=== PATIENT | female | born 1955 | race Caucasian/White ===

== ENCOUNTER 2020-08-24 18:12 | Emergency (ER) | payer BC, SELFPAY ==
[2020-08-24 18:53] VITALS: BP 151/67; PULSE 93; RESP 16; TEMP 37.1; O2SAT 97; BMI 36.6
[2020-08-24 20:07] LABS: MANUAL DIFF FLAG NO
[2020-08-24 20:10] LABS: Basophils Absolute Auto 0.1 X10*3/uL (0.0-0.2); Basophils Percent Auto 0.4 % (0-2); Eosinophils Absolute Auto 0.1 X10*3/uL (0.0-0.4); Eosinophils Percent Auto 0.7 % (0-4); Hematocrit 40.8 % (37-47); Imm Gran Abs Auto 0.07 X10*3/uL (0.00-0.03); Imm Gran Pct Auto 0.5 % (0.0-0.4); Lymphocytes Absolute Auto 3.4 X10*3/uL (1.2-4.9); Lymphocytes Percent Auto 24.8 % (20-40); Mean Corpuscular HGB Conc 31.9 g/dl (31.0-35.0); Mean Corpuscular Hemoglobin 26.5 pg (27.0-33.0); Mean Corpuscular Volume 83.3 fL (80-98); Mean Platelet Volume 9.9 fL (9.4-12.3); Monocytes Absolute Auto 0.8 X10*3/uL (0.1-1.2); Monocytes Percent Auto 5.9 % (2-11); Neutrophils Absolute Auto 9.3 X10*3/uL (2.0-8.3); Neutrophils Percent Auto 67.7 % (45-73); Platelet Count 280 X10*3/uL (160-400); Red Cell Distribution Width 13.2 % (11.0-16.0); White Blood Count 13.8 X10*3/uL (4.8-10.8)
[2020-08-24 20:17] LABS: Glucose Urine UA >=1000 MG/DL (NEG); Leukocyte Esterase Urine NEG (NEG); Nitrite Urine NEG (NEG); PH 5.5 (5.0-8.0); Urine Blood 2+ (NEG); Urine Ketones NEG (NEG); Urine Protein NEG (NEG-TRACE)
[2020-08-24 20:20] LABS: Appearance Urine CLEAR; Color Urine YELLOW
--- NOTE | 2020-08-24 20:23 | CT_ITS ---
EXAMINATION: CT ABDOMEN AND PELVIS WITH CONTRAST CLINICAL INFORMATION: Left-sided abdominal pain COMPARISON: 10/06/2006 TECHNIQUE: Multidetector volumetric images were obtained from the superior aspect of the liver through the pubic symphysis following administration 85 mL of Omnipaque 350 intravenous contrast. Sagittal and coronal reformatted images were obtained on the technologist's workstation. Oral contrast: No This CT examination was performed using dose optimization techniques as appropriate, variously including the following: *Automated exposure control *Adjustment of mA and/or kV according to patient size (this includes techniques or standardized protocols for targeted exams where dose is matched to indication/reason for exam; i.e. extremities or head) *Use of iterative reconstruction technique DLP: 786 mGy-cm FINDINGS: LUNG BASES: The visualized lung bases are unremarkable. LIVER, GALLBLADDER, AND BILIARY TREE: The liver is normal in size, shape, and attenuation. No focal hepatic lesion or biliary ductal dilatation is present. The gallbladder is absent. PANCREAS: Unremarkable. SPLEEN: Unremarkable. ADRENAL GLANDS: Unremarkable. KIDNEYS AND URETERS: There is mild left hydroureteronephrosis with perinephric and periureteral stranding and a slightly delayed nephrogram. No ureteral or urinary bladder calculus is demonstrated, possibly a recently passed stone. The right kidney appears normal. BLADDER: Unremarkable. GASTROINTESTINAL TRACT: The small and large bowel are unremarkable. The appendix is not identified, likely removed. ABDOMINAL WALL: No significant hernia is appreciated. There is an ill-defined area of stranding of the subcutaneous fat measuring 5.6 x 2.5 cm in the left lower abdomen which may be inflammatory, possibly a contusion or site of recent injection. LYMPH NODES: Normal. VASCULAR: Atherosclerotic calcifications of the abdominal aorta. PELVIC VISCERA: There is a 6.0 x 4.0 cm right adnexal cyst. This measured 3.9 x 3.3 cm in 2005. There is also a 3.1 cm round left adnexal cyst. OSSEOUS STRUCTURES: Unremarkable. IMPRESSION: Mild left hydroureteronephrosis with perinephric and periureteral stranding and a slightly delayed nephrogram. No calculi are demonstrated, possibly a recently passed stone. Right greater than left adnexal cysts as described. Consider follow-up pelvic ultrasound. Region of ill-defined stranding of the subcutaneous fat of the anterior lower abdominal wall, left of midline. Correlate clinically.
[2020-08-24 20:33] LABS: Alanine Aminotransferase 14 U/L (0-31); Alkaline Phosphatase 83 U/L (39-117); Anion Gap 14 (12-20); Aspartate Amino Transferase 14 U/L (5-31); Bilirubin Total 0.4 mg/dL (0.0-1.0); Blood Urea Nitrogen 12 mg/dL (9-16); Calcium 8.9 mg/dL (8.4-10.2); Carbon Dioxide 27 mmol/L (22-29); Chloride 103 mmol/L (96-108); Creatinine Clr Calc Pharmacy 88.7; Estimated Glomerular Filt Rate > 60; Glucose Random 136 mg/dL (60-115); Potassium 4.1 mmol/l (3.3-5.1); Sodium 140 mmol/L (135-145); Total Protein 7.1 g/dL (6.5-8.0)
[2020-08-24 20:37] LABS: UACC CULT YES
[2020-08-24 20:38] LABS: Bacteria Urine 2+ /LPF
--- NOTE | 2020-08-24 20:45 | ED_ITS ---
HPI - Abdominal Pain General Chief Complaint: Abdominal Pain Stated Complaint: lower left abd pain Time Seen by Provider: 08/24/20 20:22 History of Present Illness HPI narrative: Patient is a 65-year-old female presents today with having abdominal pain over the right side. The pain is constant. Not getting any better. It is dull. 05/23. No fever no chills. Patient has a history of previous surgery for appendicitis, cholecystectomy, oophorectomy. Paient had colonoscopy done in the past and is unsure she has diverticulosis. No history of kidney stone. No coughing or congestion or upper respiratory symptoms. No nausea no vomiting. No change in stool. No pain on urination. No history of travel. No new medication. History of diabetes, hypercholesterolemia Related Data Home Medications Medication Instructions Recorded Confirmed acetaminophen [Tylenol] 650 mg PO Q6H PRN 08/18/20 08/18/20 atorvastatin 40 mg PO BEDTIME 08/18/20 08/18/20 cyanocobalamin (vitamin B-12) 1,000 mcg PO DAILY 08/18/20 08/18/20 [Vitamin B-12] empagliflozin-metformin [Synjardy] 1 tab PO BID 08/18/20 08/18/20 insulin degludec [Tresiba 80 unit SUBCUT 08/18/20 FlexTouch U-200] liraglutide [Victoza 2-Shiva] 0.6 mg SUBCUT DAILY 08/18/20 08/18/20 lisinopril 20 mg PO DAILY 08/18/20 08/18/20 ropinirole 0.5 mg PO BEDTIME 08/18/20 08/18/20 Previous Rx's Medication Instructions Recorded ibuprofen 400 mg PO Q6H PRN #20 tab 08/24/20 Allergies Allergy/AdvReac Type Severity Reaction Status Date / Time Sulfa (Sulfonamide Allergy Intermediate RASH Verified 08/24/20 18:57 Antibiotics) [SULFA (SULFONAMIDE ANTIBIOTICS)] exenatide [From BYETTA] Allergy Unknown VOMITTING Verified 08/24/20 18:57 Review of Systems Review of Systems Constitutional: No Weight loss, No Fever, No Chills, No Night Sweats, No Fatigue, No Malaise ENT/Mouth: No Hearing loss, No Ear Pain, No Nasal Congestion, No Sinus Pain, No Hoarseness, No sore throat, No Rhinorrhea, No Swallowing Difficulty Eyes: No Eye Pain, No Swelling, No Redness, No Foreign Body, No Discharge, No Vision Changes Cardiovascular: No Chest Pain, No SOB, No Dyspnea on Exertion, No Orthopnea, No Edema, No Palpitations Respiratory: No Cough, No Sputum, No Wheezing, No Smoke Exposure, No Dyspnea Gastrointestinal: No Nausea, No Vomiting, No Diarrhea, No Constipation, positive abdominal Pain, No Hematochezia, No Melena Genitourinary: no irregular bleeding, No Dysuria, No Urinary Frequency, No Hemat uria, No Urinary Incontinence, No Urgency, No Flank Pain, No Urinary Flow Changes, No Hesitancy Musculoskeletal: No joint pain, No Myalgias, No Joint Swelling Skin: No Skin Lesions, No rash Neuro: No Weakness, No Numbness, No Paresthesias, No Loss of Consciousness, No Dizziness, No Headache Psych: No Anxiety/Panic, No Depression, No SI/HI/AH/VH, No Social Issues, Heme/Lymph: No Bruising, No Bleeding,No Lymphadenopathy Endocrine: No Polyuria, No Polydipsia, No Temperature Intolerance Physical Exam Vital Signs: Vital Signs: Vital Signs Temp Pulse Resp BP Pulse Ox 08/24/20 21:04 18 08/24/20 18:53 98.8 F 93 16 151/67 H 97 Body Mass Index 36.6 O2 sat 97% on room air. Normal. Appearance: Alert. Oriented X3. No acute distress. Eyes: Pupils equal, round and reactive to light. ENT: Pharynx normal. Neck: Normal inspection. Neck supple. No lymph nodes noted. No crepitus CVS: Normal heart rate and rhythm. Pulses normal. Normal S1 and S2 Respiratory: No respiratory distress. Breath sounds normal. No Wheezing. No rales Abdomen: Soft Positive left lower quadrant tenderness no rebound or guarding. No rigidity. No distention. good BS x4 Skin: Skin warm and dry. Normal skin color. Normal skin turgor. Extremities: No lower extremity edema. Neurovascular intact to all extremities. No Lacerations. No Rash Neuro: Oriented X 3. No motor deficit. No sensory deficit. Moving all extermities. No slurred speech MDM - Abdominal Pain MDM Narrative Medical decision making narrative: patient well-appearing after medication. CT scan showed mild hydro no definitive stone question passed stone. Patient's urine showed positive for blood. There is no evidence for infection. White count was elevated at 13.8. No evidence for diverticulitis. Will discharge patient home. No evidence for abdominal aortic aneurysm. No evidence for obstruction on CT. Will discharge. Differential Diagnosis Differential diagnosis: Likely abdominal pain, aortic dissection, acute kirstie endicitis, bowel perforation, calculus of kidney, constipation, diverticulitis, gastroenteritis, gastritis, mesenteric ischemia, ovarian cyst and pancreatitis Medical Records Attestation: I reviewed the patient's medical records. Lab Data Attestation: I reviewed the patient's lab results. Result diagrams: 08/24/20 19:50 08/24/20 19:50 Labs: Lab Results 08/24/20 08/24/20 08/24/20 Range/Units 19:50 19:50 19:50 WBC 13.8 H (4.8-10.8) X10*3/uL RBC 4.90 (4.20-5.50) X10*6/uL Hgb 13.0 (12.0-16.0) g/dl Hct 40.8 (37-47) % MCV 83.3 (80-98) fL MCH 26.5 L (27.0-33.0) pg MCHC 31.9 (31.0-35.0) g/dl RDW 13.2 (11.0-16.0) % Plt Count 280 (160-400) X10*3/uL MPV 9.9 (9.4-12.3) fL Immature Gran % (Auto) 0.5 H (0.0-0.4) % Neut % (Auto) 67.7 (45-73) % Lymph % (Auto) 24.8 (20-40) % Ceiba % (Auto) 5.9 (2-11) % Eos % (Auto) 0.7 (0-4) % Baso % (Auto) 0.4 (0-2) % Lymph # (Auto) 3.4 (1.2-4.9) X10*3/uL Ceiba # (Auto) 0.8 (0.1-1.2) X10*3/uL Eos # (Auto) 0.1 (0.0-0.4) X10*3/uL Baso # (Auto) 0.1 (0.0-0.2) X10*3/uL Abs Immat Gran (auto) 0.07 H (0.00-0.03) X10*3/uL Absolute Neuts (auto) 9.3 H (2.0-8.3) X10*3/uL Absolute Nucleated RBC 0.000 (0.0-0.012) X10*3/uL Nucleated RBC % (auto) 0.0 (0.0-0.2) /100WBC Hold Blue Top SEE NOTE Sodium 140 (135-145) mmol/L Potassium 4.1 (3.3-5.1) mmol/l Chloride 103 (96-108) mmol/L Carbon Dioxide 27 (22-29) mmol/L Anion Gap 14 (12-20) BUN 12 (9-16) mg/dL Creatinine 0.68 (0.5-1.4) mg/dL Estim Creat Clear Calc 88.7 Estimated GFR > 60 Random Glucose 136 H (60-115) mg/dL Calcium 8.9 (8.4-10.2) mg/dL Total Bilirubin 0.4 (0.0-1.0) mg/dL AST 14 (5-31) U/L ALT 14 (0-31) U/L Alkaline Phosphatase 83 (39-117) U/L Total Protein 7.1 (6.5-8.0) g/dL Albumin 4.0 (3.5-5.0) g/dL Urine Color Urine Appearance Urine pH (5.0-8.0) Ur Specific [place] (1.005-1.025) Urine Protein (NEG-TRACE) MG/DL Urine Glucose (UA) (NEG) MG/DL Urine Ketones (NEG) MG/DL Urine Blood (NEG) Urine Nitrite (NEG) Ur Leukocyte Esterase (NEG) Urine RBC (0) /HPF Urine WBC (0-4) /HPF Ur Squamous Epith Cells /LPF Urine Bacteria /LPF 08/24/20 Range/Units 20:00 WBC (4.8-10.8) X10*3/uL RBC (4.20-5.50) X10*6/uL Hgb (12.0-16.0) g/dl Hct (37-47) % MCV (80-98) fL MCH (27.0-33.0) pg MCHC (31.0-35.0) g/dl RDW (11.0-16.0) % Plt Count (160-400) X10*3/uL MPV (9.4-12.3) fL Immature Gran % (Auto) (0.0-0.4) % Neut % (Auto) (45-73) % Lymph % (Auto) (20-40) % Ceiba % (Auto) (2-11) % Eos % (Auto) (0-4) % Baso % (Auto) (0-2) % Lymph # (Auto) (1.2-4.9) X10*3/uL Ceiba # (Auto) (0.1-1.2) X10*3/uL Eos # (Auto) (0.0-0.4) X10*3/uL Baso # (Auto) (0.0-0.2) X10*3/uL Abs Immat Gran (auto) (0.00-0.03) X10*3/uL Absolute Neuts (auto) (2.0-8.3) X10*3/uL Absolute Nucleated RBC (0.0-0.012) X10*3/uL Nucleated RBC % (auto) (0.0-0.2) /100WBC Hold Blue Top Sodium (135-145) mmol/L Potassium (3.3-5.1) mmol/l Chloride (96-108) mmol/L Carbon Dioxide (22-29) mmol/L Anion Gap (12-20) BUN (9-16) mg/dL Creatinine (0.5-1.4) mg/dL Estim Creat Clear Calc Estimated GFR Random Glucose (60-115) mg/dL Calcium (8.4-10.2) mg/dL Total Bilirubin (0.0-1.0) mg/dL AST (5-31) U/L ALT (0-31) U/L Alkaline Phosphatase (39-117) U/L Total Protein (6.5-8.0) g/dL Albumin (3.5-5.0) g/dL Urine Color YELLOW Urine Appearance CLEAR Urine pH 5.5 (5.0-8.0) Ur Specific [place] 1.020 (1.005-1.025) Urine Protein NEG (NEG-TRACE) MG/DL Urine Glucose (UA) >=1000 H (NEG) MG/DL Urine Ketones NEG (NEG) MG/DL Urine Blood 2+ H (NEG) Urine Nitrite NEG (NEG) Ur Leukocyte Esterase NEG (NEG) Urine RBC 1-4 (0) /HPF Urine WBC 10-14 H (0-4) /HPF Ur Squamous Epith Cells NONE /LPF Urine Bacteria 2+ /LPF Discharge Plan Discharge Clinical Impression: Renal colic Patient Disposition: Home, Self-Care Instructions: Renal Colic (ED) Additional Instructions: Thank you for visiting the emergency department today. If your symptoms worsen or do not resolve completely please return to the emergency department immediately or call 911. if he have any questions please call your primary care physician Prescriptions: New ibuprofen 400 mg tablet 400 mg PO Q6H PRN (Reason: pain) Qty: 20 RF: 0 No Action atorvastatin 40 mg Tablet 40 mg PO BEDTIME RF: 0 lisinopril 20 mg Tablet 20 mg PO DAILY RF: 0 cyanocobalamin (vitamin B-12) [Vitamin B-12] 1,000 mcg Tablet 1,000 mcg PO DAILY RF: 0 ropinirole 0.5 mg Tablet 0.5 mg PO BEDTIME RF: 0 acetaminophen [Tylenol] 325 mg Capsule 650 mg PO Q6H PRN (Reason: Pain) RF: 0 Victoza 2-Shiva 0.6 mg/0.1 mL (18 mg/3 mL) Pen Injector 0.6 mg SUBCUT DAILY RF: 0 Tresiba FlexTouch U-200 200 unit/mL (3 mL) Insulin Pen 80 unit SUBCUT RF: 0 Synjardy 5-500 mg Tablet 1 tab PO BID RF: 0 Referrals: Sonny Tsang III, MD [Physician] - 2 days [facility] Past Medical History Attestation statement: The following information was validated with the patient. Medical History Arthritis Hx of iron deficiency anemia Hyperlipidemia Hypertension IDDM (insulin dependent diabetes mellitus) Surgical History History of carpal tunnel release History of cholecystectomy Hx of appendectomy Hx of colonoscopy Hx of hysterectomy Social History Social History Smoking Status: Former smoker Advance Directives: No Advance Directives Information Provided: Yes
[2020-08-24 21:04] VITALS: RESP 18
[2020-08-24] MEDS: HYDROmorphone HCl 0.5 MG/0.5 ML SYRINGE IVPUSH (21:04)
[2020-08-24] MEDS: ondansetron HCL 4 MG/2 ML VIAL IVPUSH (21:04)
[2020-08-24] MEDS: iohexoL 350 MG/ML 100 ML INFUS..BTL IV (21:26)
[2020-08-24] MEDS: cefTRIAXone sodium 1 GM in 0.9 % Sodium Chloride 50 ML IV (22:19)
[2020-08-24 23:26] VITALS: BP 140/77; PULSE 70; RESP 16; TEMP 36.7; O2SAT 99
== END 2020-08-25 00:25 | disposition home or self-care (01) ==
PROVIDERS: Emergency Provider Emergency Medicine Emergency Medical Services; PCP Internal Medicine
DX: N23 Unspecified renal colic (principal); I10 Essential (primary) hypertension; E11.9 Type 2 diabetes mellitus without complications; E78.5 Hyperlipidemia, unspecified; Z79.4 Long term (current) use of insulin; Z79.899 Other long term (current) drug therapy
CPT/HCPCS: 36415; 74177; 80053; 81001; 85025; 87086; 87088; 87186; 96365; 96367; 96375; 99284; J1170; J2405

== ENCOUNTER 2020-08-25 13:56 | Outpatient (REF) | payer BC, SELFPAY | END 2020-08-25 13:57 | disposition home or self-care (01) | LOC: HO.LNP 13:56 | PROVIDERS: Visit Provider Nurse Practitioner Family | DX: N39.0 Urinary tract infection, site not specified (principal) | CPT/HCPCS: 87086 ==

== ENCOUNTER 2020-09-12 08:56 | Day surgery (SDC) | payer BC, SELFPAY ==
--- NOTE | 2020-09-11 08:54 | HO.ANESPROP2 ---
Documented by User: Kenia Shoshana 09/11/20 08:55 HPI - Anesthesia Eval Consult details Narrative: 65yo F for Colonoscopy PMFSH Past Medical History Medical History Arthritis Hx of iron deficiency anemia Hyperlipidemia Hypertension IDDM (insulin dependent diabetes mellitus) Surgical History Surgical History History of carpal tunnel release History of cholecystectomy Hx of appendectomy Hx of colonoscopy Hx of hysterectomy Social History Social History Smoking Status: Former smoker Second Hand Smoke Exposure: No Use of substances other than those prescribed or required for medical reasons: No Advance Directives: No Advance Directives Information Provided: Yes Advance Directives on File: No Meds Allergies Allergy/AdvReac Type Severity Reaction Status Date / Time Sulfa (Sulfonamide Allergy Intermediate RASH Verified 08/24/20 18:57 Antibiotics) [SULFA (SULFONAMIDE ANTIBIOTICS)] exenatide [From BYETTA] Allergy Unknown VOMITTING Verified 08/24/20 18:57 Home Medications Medication Instructions Recorded Confirmed Type acetaminophen [Tylenol] 650 mg PO Q6H PRN 08/18/20 08/18/20 History atorvastatin 40 mg PO BEDTIME 08/18/20 08/18/20 History cyanocobalamin (vitamin B-12) 1,000 mcg PO DAILY 08/18/20 08/18/20 History [Vitamin B-12] empagliflozin-metformin [Synjardy] 1 tab PO BID 08/18/20 08/18/20 History insulin degludec [Tresiba 80 unit SUBCUT 08/18/20 History FlexTouch U-200] liraglutide [Victoza 2-Shiva] 0.6 mg SUBCUT DAILY 08/18/20 08/18/20 History lisinopril 20 mg PO DAILY 08/18/20 08/18/20 History ropinirole 0.5 mg PO BEDTIME 08/18/20 08/18/20 History Exam Exam Date and Time: September 11, 2020 0854 Pertinent Lab Results Pertinent Lab Results: Laboratory Tests 08/24/20 08/24/20 19:50 19:50 WBC 13.8 H Hgb 13.0 Hct 40.8 Plt Count 280 Sodium 140 Potassium 4.1 Chloride 103 BUN 12 Creatinine 0.68 Assessment and Plan Assessment Anesthesia Assessment: Chart Reviewed Documented by User: Jane Mcfarlane 09/12/20 10:29 PMFSH Past Medical History Medical History Arthritis Hx of iron deficiency anemia Hyperlipidemia Hypertension IDDM (insulin dependent diabetes mellitus) Surgical History Surgical History History of carpal tunnel release History of cholecystectomy Hx of appendectomy Hx of colonoscopy Hx of hysterectomy Social History Social History Smoking Status: Former smoker Second Hand Smoke Exposure: No Use of substances other than those prescribed or required for medical reasons: No Advance Directives: No Advance Directives Information Provided: Yes Advance Directives on File: No Meds Allergies Allergy/AdvReac Type Severity Reaction Status Date / Time Sulfa (Sulfonamide Allergy Intermediate RASH Verified 08/24/20 18:57 Antibiotics) [SULFA (SULFONAMIDE ANTIBIOTICS)] exenatide [From BYETTA] Allergy Unknown VOMITTING Verified 08/24/20 18:57 Home Medications Medication Instructions Recorded Confirmed Type acetaminophen [Tylenol] 650 mg PO Q6H PRN 08/18/20 08/18/20 History atorvastatin 40 mg PO BEDTIME 08/18/20 08/18/20 History cyanocobalamin (vitamin B-12) 1,000 mcg PO DAILY 08/18/20 08/18/20 History [Vitamin B-12] empagliflozin-metformin [Synjardy] 1 tab PO BID 08/18/20 08/18/20 History insulin degludec [Tresiba 80 unit SUBCUT 08/18/20 History FlexTouch U-200] liraglutide [Victoza 2-Shiva] 0.6 mg SUBCUT DAILY 08/18/20 08/18/20 History lisinopril 20 mg PO DAILY 08/18/20 08/18/20 History ropinirole 0.5 mg PO BEDTIME 08/18/20 08/18/20 History Exam Airway Mallampati Class: I TM Dist: >3cm Neck ROM: Full Denture: Upper and Lower Loose/Missing/Broken Teeth: Yes (Missing all teeth--dentures) Heart: RRR Lungs: CTA Assessment and Plan Assessment Anesthesia Assessment: Anesthesia Plan Discussed and Chart Reviewed Final Anesthetic Review NPO: Yes ASA Class: II Final Preanesthetic Review: Meds/Allgs Chart Reviewed and Consent Obtained/Reviewed Patient Risk: Intermediate Procedure Risk: Low Anesthetic Plan Anesthetic Plan: MAC: Disposition: Standard PACU
[2020-09-11 12:33] VITALS: BMI 36.6
[2020-09-12 09:15] LABS: Glucose, Whole Blood 127 mg/dL (60-115)
[2020-09-12 09:22] VITALS: BP 154/69; PULSE 80; RESP 16; TEMP 36.4; O2SAT 97
[2020-09-12] MEDS: Lactated Ringers 1,000 ML 100 ML IVCONT (09:24)
--- NOTE | 2020-09-12 10:25 | MHC.SHP ---
Pre-Procedural Eval Section B Chief Complaint: screening Details of Present Illness: screening Relevant Family History (Specify if Yes): No Relevant Social History: None Present Medications: see Short Stay Collaborative assessment Medical History: Significant History (see H&P, no changes) History of Previous Operations: No relevant previous surgery Allergies: Allergies Allergy/AdvReac Type Severity Reaction Status Date / Time Sulfa (Sulfonamide Allergy Intermediate RASH Verified 08/24/20 18:57 Antibiotics) [SULFA (SULFONAMIDE ANTIBIOTICS)] exenatide [From BYETTA] Allergy Unknown VOMITTING Verified 08/24/20 18:57 Review of Systems Sugical H&P ROS: Negative: Constitution, Cardiovascular, Respiratory, Neurological, Psychiatric, Hem-Onc, Allergic/Immunologic, Gastrointestinal, Genitourinary, Musculoskeletal, Integumentary, Endocrine and Eyes/Ears/Nose/Throat Exam Surgical H&P Exam: Normal: HEENT, Normal: Heart, Normal: Lungs, Normal: Extremities, Normal: Abdomen, Normal: Skin and Normal: Neurological Plan Diagnosis/Plan: Unchanged Patient has been examined and remains a candidate for the planned procedure
[2020-09-12 10:56] VITALS: BP 93/42; PULSE 80; RESP 16; TEMP 36.2; O2SAT 98
--- NOTE | 2020-09-12 10:56 | PM.OP ---
Brief Operative Note Date of procedure: 09/12/20 Post-op diagnosis: same Procedure: colonoscopy Surgeon: Lavell Dewey Anesthesia: MAC Estimated blood loss (mL): 0 Pathology: none sent Condition: stable Disposition: PACU
[2020-09-12 11:11] VITALS: BP 130/67; PULSE 81; RESP 16; TEMP 36.2; O2SAT 95
--- NOTE | 2020-09-12 11:38 | HO.POSTANES ---
Post Anesthesia Evaluation Post Anesthesia Evaluation Vital Signs: Vital Signs Temp Pulse Resp BP Pulse Ox 09/12/20 11:11 97.2 F 81 16 130/67 95 09/12/20 10:56 97.2 F 80 16 93/42 L 98 09/12/20 09:22 97.5 F 80 16 154/69 H 97 Anesthesia: Monitored Mental Status: Awake Pain Control: Satisfactory Nausea/Vomiting: None Hydration: Adequate Anesthesia-Related Issues: No Anes. Related Issues
--- NOTE | 2020-09-12 11:47 | OP_ITS ---
SURGEON: Lavell Dewey MD INDICATIONS: Colon cancer screening. PREOPERATIVE DIAGNOSIS: POSTOPERATIVE DIAGNOSIS: PROCEDURE PERFORMED: Colonoscopy to the terminal ileum. ESTIMATED BLOOD LOSS: COMPLICATIONS: ANESTHESIA: ASSISTANTS: SPECIMENS: MEDICATIONS: Monitored anesthesia care. DESCRIPTION OF PROCEDURE: History and physical performed. The risks and benefits of the procedure were explained to the patient. Informed consent was obtained. The patient was placed in the left lateral decubitus position. A digital rectal exam was performed and was found to be normal. The Olympus pediatric video colonoscope was introduced into the rectum and advanced to the cecum without difficulty. The cecum was identified by transillumination, palpation, and identification of ileocecal valve. Examination was performed and the scope was removed. She tolerated the procedure well and was taken to recovery area in stable condition. FINDINGS: The terminal ileum was examined and appeared normal. The visualized colonic mucosa was normal. The quality of prep was good. There was some stool coating the mucosa in a thin layer, which was washed. No polyps were identified. There was mild sigmoid diverticulosis. Retroflexed examination showed internal hemorrhoids. IMPRESSION: Diverticulosis. RECOMMENDATIONS: 1. Follow up as needed. 2. Repeat colonoscopy is recommended in 10 years for average risk individuals. MD LAQUITA Sheridan/VISHNU / [phone]
== END 2020-09-12 11:45 | disposition home or self-care (01) ==
PROVIDERS: PCP Internal Medicine; Visit Provider Internal Medicine Gastroenterology
PROC: 0DJD8ZZ Inspection of Lower Intestinal Tract, Via Natural or Artificial Opening Endoscopic (ICD-10-PCS; CPT 45378; principal; 2020-09-12 10:10)
DX: Z12.11 Encounter for screening for malignant neoplasm of colon (principal); K57.30 Diverticulosis of large intestine without perforation or abscess without bleeding; K64.8 Other hemorrhoids; D50.9 Iron deficiency anemia, unspecified; I10 Essential (primary) hypertension; E11.9 Type 2 diabetes mellitus without complications; E78.5 Hyperlipidemia, unspecified; Z90.49 Acquired absence of other specified parts of digestive tract; Z87.891 Personal history of nicotine dependence; Z79.4 Long term (current) use of insulin; Z79.899 Other long term (current) drug therapy; Z88.2 Allergy status to sulfonamides; Z88.8 Allergy status to other drugs, medicaments and biological substances
CPT/HCPCS: 45378; 82947

== ENCOUNTER 2020-11-13 15:02 | Outpatient (REF) | payer BC, SELFPAY ==
--- NOTE | 2020-11-13 | MM_ITS ---
EXAMINATION: MM SCREENING DIGITAL BREAST TOMOSYNTHESIS, BILATERAL CLINICAL INFORMATION: Screening. Asymptomatic. The lifetime risk of breast cancer based on the Tyrer-Cuzick Model is 5%. COMPARISON: Mammography: 09/07/2019, 08/18/2018, 08/01/2017 TECHNIQUE: Digital breast tomosynthesis is performed in both the craniocaudal and mediolateral oblique views along with computer-aided detection (CAD). Synthesized 2D images are generated from the tomosynthesis. FINDINGS: The breasts are almost entirely fatty (ACR BI-RADS breast composition Category a). Background stromal markings are stable. There are bilateral vascular calcifications again seen. Axillary nodes and skin contours are unchanged. There are intramammary nodes again noted in the bilateral posterior upper outer quadrants. There are no significant masses, abnormal calcifications, or other abnormalities. MM/MM tomosynthesis screening BI IMPRESSION: No mammographic evidence of malignancy. ASSESSMENT: BI-RADS 2: Benign RECOMMENDATION: Routine annual mammography screening. This patient's information was entered into a reminder system with a target due date for their next mammogram.
== END 2020-11-13 15:03 | disposition home or self-care (01) ==
LOC: HO.MAMMO 15:02
PROVIDERS: Visit Provider Internal Medicine
DX: Z12.31 Encounter for screening mammogram for malignant neoplasm of breast (principal)
CPT/HCPCS: 77063; 77067

== ENCOUNTER 2021-05-19 07:03 | Outpatient (REF) | payer BC, SELFPAY ==
[2021-05-19 11:16] LABS: MANUAL DIFF FLAG NO
[2021-05-19 11:21] LABS: Basophils Percent Auto 0.2 % (0-2); Eosinophils Absolute Auto 0.2 X10*3/uL (0.0-0.4); Hematocrit 40.8 % (37-47); Hemoglobin 13.3 g/dl (12.0-16.0); Imm Gran Abs Auto 0.05 X10*3/uL (0.00-0.03); Imm Gran Pct Auto 0.6 % (0.0-0.4); Lymphocytes Absolute Auto 2.5 X10*3/uL (1.2-4.9); Lymphocytes Percent Auto 29.8 % (20-40); Mean Corpuscular HGB Conc 32.6 g/dl (31.0-35.0); Mean Corpuscular Hemoglobin 27.3 pg (27.0-33.0); Mean Corpuscular Volume 83.6 fL (80-98); Mean Platelet Volume 10.6 fL (9.4-12.3); Monocytes Absolute Auto 0.6 X10*3/uL (0.1-1.2); Monocytes Percent Auto 6.7 % (2-11); Neutrophils Absolute Auto 5.2 X10*3/uL (2.0-8.3); Neutrophils Percent Auto 60.7 % (45-73); Platelet Count 278 X10*3/uL (160-400); Red Blood Count 4.88 X10*6/uL (4.20-5.50); White Blood Count 8.5 X10*3/uL (4.8-10.8)
[2021-05-19 11:36] LABS: Creatinine Urine 52.58 mg/dL; Microalbum/Creatinine Ratio Ur 243.4 ug/mg cr
[2021-05-19 11:55] LABS: Alanine Aminotransferase 9 U/L (0-31); Albumin Level 4.2 g/dL (3.5-5.0); Alkaline Phosphatase 78 U/L (39-117); Anion Gap 16 (12-20); Aspartate Amino Transferase 14 U/L (5-31); Bilirubin Total 0.6 mg/dL (0.0-1.0); Blood Urea Nitrogen 12 mg/dL (9-16); Calcium 9.8 mg/dL (8.4-10.2); Carbon Dioxide 25 mmol/L (22-29); Chloride 104 mmol/L (96-108); Cholesterol 123 mg/dL; Estimated Glomerular Filt Rate > 60; Glucose Random 124 mg/dL (60-115); HDL Cholesterol 36 mg/dL; LDL Cholesterol Calculated 63 mg/dl; Potassium 3.9 mmol/L (3.3-5.1); Sodium 141 mmol/L (135-145); Total Protein 7.2 g/dL (6.5-8.0); Triglycerides 122 mg/dL
[2021-05-19 11:59] LABS: Free T4 (Free Thyroxine) 1.01 ng/dL (0.71-1.85); Thyroid Stimulating Hormone 1.88 uIU/mL (0.32-4.0); Vitamin D 25-OH Total 22.7 ng/mL (>30)
[2021-05-19 12:16] LABS: Estimated Average Glucose 278 mg/dL; Hemoglobin A1c % 11.3 %; Vitamin B12 258 pg/mL (200-900)
== END 2021-05-19 07:04 | disposition home or self-care (01) ==
LOC: HO.HMGCLDS 07:03
PROVIDERS: PCP Internal Medicine; Visit Provider Internal Medicine
DX: E11.65 Type 2 diabetes mellitus with hyperglycemia (principal); I10 Essential (primary) hypertension; E78.00 Pure hypercholesterolemia, unspecified; E78.5 Hyperlipidemia, unspecified; Z79.4 Long term (current) use of insulin
CPT/HCPCS: 36415; 80053; 80061; 82043; 82306; 82607; 82746; 83036; 84439; 84443; 85025

== ENCOUNTER 2021-08-13 09:23 | Outpatient (REF) | payer BC, SELFPAY ==
[2021-08-13 11:48] LABS: Estimated Average Glucose 200 mg/dL; Hemoglobin A1c % 8.6 %
[2021-08-13 11:49] LABS: Creatinine Urine 140.53 mg/dL
== END 2021-08-13 09:24 | disposition home or self-care (01) ==
LOC: HO.HMGCLDS 09:23
PROVIDERS: PCP Internal Medicine; Visit Provider Internal Medicine
DX: E11.65 Type 2 diabetes mellitus with hyperglycemia (principal); Z79.4 Long term (current) use of insulin
CPT/HCPCS: 36415; 83036

== ENCOUNTER 2022-01-22 08:17 | Outpatient (REF) | payer OTHER, SELFPAY ==
--- NOTE | ~2022-01-22 | MM_ITS ---
EXAMINATION: MM SCREENING DIGITAL BREAST TOMOSYNTHESIS, BILATERAL CLINICAL INFORMATION: Screening. Asymptomatic. The lifetime risk of breast cancer based on the Tyrer-Cuzick Model is 5%. COMPARISON: Mammography: 11/13/2020, 09/07/2019, 08/18/2018 TECHNIQUE: Digital breast tomosynthesis is performed in both the craniocaudal and mediolateral oblique views along with computer-aided detection (CAD). Synthesized 2D images are generated from the tomosynthesis. FINDINGS: The breasts are almost entirely fatty (ACR BI-RADS breast composition Category a). There are no significant masses, abnormal calcifications, or other abnormalities. Scattered punctate and vascular calcifications are again seen. There are incidental intramammary nodes again present posterior upper outer quadrants. No significant changes. MM/MM tomosynthesis screening BI IMPRESSION: No mammographic evidence of malignancy. ASSESSMENT: BI-RADS 2: Benign RECOMMENDATION: Routine annual mammography screening. This patient's information was entered into a reminder system with a target due date for their next mammogram.
== END 2022-01-22 08:18 | disposition home or self-care (01) ==
LOC: HO.MAMMO 08:17
PROVIDERS: PCP Internal Medicine; Visit Provider Internal Medicine
DX: Z12.31 Encounter for screening mammogram for malignant neoplasm of breast (principal)
CPT/HCPCS: 77063; 77067

== ENCOUNTER 2022-04-26 13:42 | Outpatient (REF) | payer MEDICARE, SELFPAY | END 2022-04-26 13:43 | disposition home or self-care (01) | LOC: HO.LNP 13:42 | PROVIDERS: Visit Provider Physician Assistant | DX: R30.0 Dysuria (principal) | CPT/HCPCS: 87086 ==

== ENCOUNTER 2022-08-26 15:04 | Outpatient (REF) | payer MEDICARE, SELFPAY ==
[2022-08-26 15:51] LABS: Appearance Urine Turbid; Color Urine Dark Yellow; Glucose Urine UA 100 mg/dL (Negative); Leukocyte Esterase Urine Large (3+) (Negative); Nitrite Urine Negative (Negative); Specific Gravity - Urine >= 1.030 (1.005-1.025); UMIC TRIGGER UACC YES; Urine Blood Large (3+) (Negative); Urine Ketones 15 mg/dL (Negative); Urine Protein >=1000 (4+) mg/dL (Neg-Trace)
[2022-08-26 16:12] LABS: Bacteria Urine Trace (None Seen); Hyaline Casts Urine >20 /LPF (0-2); RBC Urine >20 /HPF (0-2); UACC Culture Trigger YES; WBC Urine >50 /HPF (0-5)
== END 2022-08-26 15:05 | disposition home or self-care (01) ==
LOC: HO.LNP 15:04
PROVIDERS: Visit Provider Physician Assistant
DX: N39.0 Urinary tract infection, site not specified (principal); R30.0 Dysuria
CPT/HCPCS: 81001; 87086

== ENCOUNTER 2022-08-27 13:37 | Outpatient (REF) | payer MEDICARE, SELFPAY ==
--- NOTE | ~2022-08-27 | US_ITS ---
EXAMINATION: US RETROPERITONEAL LIMITED (RENAL ONLY) CLINICAL INFORMATION: Hematuria, unspecified. COMPARISON: CT abdomen and pelvis with contrast 08/24/2020. TECHNIQUE: Real-time imaging of the kidneys. FINDINGS: RIGHT KIDNEY: 13.1 x 5.0 x 6.0 cm (SAG x AP x TRV). The kidney is normal in size, contour, and echogenicity. Renal cortical thickness is normal. No calculi or focal parenchymal lesions. No hydronephrosis. LEFT KIDNEY: 12.7 x 5.3 x 4.5 cm (SAG x AP x TRV). The kidney is normal in size, contour, and echogenicity. Renal cortical thickness is normal. No calculi or focal parenchymal lesions. No hydronephrosis. US/US renal BI IMPRESSION: Unremarkable renal ultrasound.
== END 2022-08-27 13:38 | disposition home or self-care (01) ==
LOC: HO.US 13:37
PROVIDERS: Visit Provider Internal Medicine
DX: R31.9 Hematuria, unspecified (principal)
CPT/HCPCS: 76775

== ENCOUNTER 2022-09-17 08:35 | Outpatient (REF) | payer MEDICARE, SELFPAY ==
[2022-09-17 11:12] LABS: MANUAL DIFF FLAG NO
[2022-09-17 11:48] LABS: Basophils Absolute Auto 0.1 X10*3/uL (0.0-0.2); Basophils Percent Auto 0.5 % (0-2); Eosinophils Absolute Auto 1.3 X10*3/uL (0.0-0.4); Eosinophils Percent Auto 12.2 % (0-4); Hematocrit 40.3 % (37.0-47.0); Hemoglobin 13.6 g/dl (12.0-16.0); Imm Gran Abs Auto 0.05 X10*3/uL (0.00-0.03); Imm Gran Pct Auto 0.5 % (0.0-0.4); Lymphocytes Absolute Auto 2.6 X10*3/uL (1.2-4.9); Lymphocytes Percent Auto 25.3 % (20-40); Mean Corpuscular HGB Conc 33.7 g/dl (31.0-35.0); Mean Corpuscular Hemoglobin 28.5 pg (27.0-33.0); Mean Corpuscular Volume 84.5 fL (80.0-98.0); Mean Platelet Volume 10.8 fL (9.4-12.3); Monocytes Absolute Auto 0.6 X10*3/uL (0.1-1.2); Monocytes Percent Auto 5.7 % (2-11); Neutrophils Absolute Auto 5.8 x10*3/uL (2.0-8.3); Neutrophils Percent Auto 55.8 % (45-73); Platelet Count 267 X10*3/uL (160-400); Red Blood Count 4.77 X10*6/uL (4.20-5.50); Red Cell Distribution Width 12.1 % (11.0-16.0); White Blood Count 10.4 X10*3/uL (4.8-10.8)
[2022-09-17 12:07] LABS: Alanine Aminotransferase 12 U/L (0-31); Alkaline Phosphatase 71 U/L (39-117); Anion Gap 17 (12-20); Aspartate Amino Transferase 13 U/L (5-31); Bilirubin Total 0.5 mg/dL (0.0-1.0); Blood Urea Nitrogen 11 mg/dL (9-16); Calcium 9.3 mg/dL (8.4-10.2); Carbon Dioxide 24 mmol/L (22-29); Chloride 103 mmol/L (96-108); Cholesterol 118 mg/dL; Estimated Glomerular Filt Rate > 60; Glucose Random 213 mg/dL (60-115); HDL Cholesterol 32 mg/dL; LDL Cholesterol Calculated 66 mg/dl; Potassium 4.2 mmol/L (3.3-5.1); Sodium 140 mmol/L (135-145); Total Protein 6.7 g/dL (6.5-8.0); Triglycerides 104 mg/dL
[2022-09-17 12:30] LABS: Free T4 (Free Thyroxine) 1.05 ng/dL (0.71-1.85); Thyroid Stimulating Hormone 1.94 uIU/mL (0.32-4.0); Vitamin D 25-OH Total 35.2 ng/mL (>30)
[2022-09-17 12:40] LABS: Folate 9.5 ng/mL (> or = 4.0); Vitamin B12 744 pg/mL (200-900)
[2022-09-17 12:55] LABS: Creatinine Urine 83.17 mg/dL
[2022-09-17 13:19] LABS: Microalbum/Creatinine Ratio Ur 898.1 ug/mg cr
== END 2022-09-17 08:36 | disposition home or self-care (01) ==
LOC: HO.HMGCLDS 08:35
PROVIDERS: Absent Provider Physician Assistant; PCP Internal Medicine; Visit Provider Internal Medicine
DX: E11.65 Type 2 diabetes mellitus with hyperglycemia (principal); E78.00 Pure hypercholesterolemia, unspecified; Z79.4 Long term (current) use of insulin
CPT/HCPCS: 36415; 80053; 80061; 82043; 82306; 82607; 82746; 84439; 84443; 85025

== ENCOUNTER 2023-01-14 07:26 | Outpatient (REF) | payer OTHER, SELFPAY ==
[2023-01-14 11:48] LABS: Urine Cytology See Pathology rpt
[2023-01-14 11:49] LABS: Appearance Urine Clear; Color Urine Yellow; Glucose Urine UA 500 mg/dL (Negative); Leukocyte Esterase Urine Negative (Negative); Nitrite Urine Negative (Negative); Specific Gravity - Urine >= 1.030 (1.005-1.025); UMIC TRIGGER UACC YES; Urine Blood Trace (Negative); Urine Ketones Negative (Negative); Urine Protein 100 (2+) mg/dL (Neg-Trace)
[2023-01-14 12:41] LABS: Bacteria Urine None Seen (None Seen); RBC Urine 0-2 /HPF (0-2); Squamous Epithelial Cell Urine 0-2 /HPF (0-2); WBC Urine 0-5 /HPF (0-5)
[2023-01-14 12:42] LABS: Hyaline Casts Urine 0-2 /LPF (0-2)
== END 2023-01-14 07:27 | disposition home or self-care (01) ==
LOC: HO.HMGCLDS 07:26
PROVIDERS: PCP Internal Medicine; Visit Provider Internal Medicine
DX: R31.9 Hematuria, unspecified (principal); E11.65 Type 2 diabetes mellitus with hyperglycemia; Z79.4 Long term (current) use of insulin
CPT/HCPCS: 81001; 88112

== ENCOUNTER 2023-01-28 07:34 | Outpatient (REF) | payer OTHER, SELFPAY ==
--- NOTE | ~2023-01-28 | MM_ITS ---
EXAMINATION: MM SCREENING DIGITAL BREAST TOMOSYNTHESIS, BILATERAL CLINICAL INFORMATION: Screening. Asymptomatic. The lifetime risk of breast cancer based on the Tyrer-Cuzick Model is 5%. COMPARISON: Mammography: 01/22/2022, 11/13/2020, 09/07/2019 TECHNIQUE: Digital breast tomosynthesis is performed in both the craniocaudal and mediolateral oblique views along with computer-aided detection (CAD). Synthesized 2D images are generated from the tomosynthesis. Additional left MLO view is provided. FINDINGS: There are scattered areas of fibroglandular density (ACR BI-RADS breast composition Category b). There are no significant masses, abnormal calcifications, or other abnormalities. Parenchymal pattern is similar to prior studies. There is no developing density or architectural abnormality. There are incidental intramammary nodes bilateral outer quadrant. Bilateral vascular calcifications. The axilla and skin contours are unremarkable. No significant from prior studies. MM/MM tomosynthesis screening BI IMPRESSION: No mammographic evidence of malignancy. ASSESSMENT: BI-RADS 2: Benign RECOMMENDATION: Routine annual mammography screening. This patient's information was entered into a reminder system with a target due date for their next mammogram.
== END 2023-01-28 07:35 | disposition home or self-care (01) ==
LOC: HO.MAMMO 07:34
PROVIDERS: PCP Internal Medicine; Visit Provider Internal Medicine
DX: Z12.31 Encounter for screening mammogram for malignant neoplasm of breast (principal)
CPT/HCPCS: 77063; 77067

== ENCOUNTER 2023-08-03 10:20 | Outpatient (AMB) | payer OTHER, SELFPAY ==
--- NOTE | 2023-08-03 11:16 | AM.OFFWIN_ITS ---
Intake Vital Signs 08/03/23 11:17 Height 5 ft 2 in Weight 177 lb BMI 32.4 BP 110/68 Blood Pressure Location Rt brachial Position Sitting Pulse 96 Pulse Source Pulse Oximeter Temp 98.2 F Temp Source Oral Pulse Oximetry (%) 96 Oxygen Delivery Method Room Air Intake Visit Reasons: EP Flu like symptoms/No balance (masked) Intake Note: Patient here for congestion, bodyaches, cough and fever which started yesterday Patient Tobacco Use Status: Former Tobacco user Allergies Sulfa (Sulfonamide Antibiotics) [SULFA (SULFONAMIDE ANTIBIOTICS)] Allergy (Intermediate, Verified 08/03/23 11:18) RASH exenatide [From BYETTA] Allergy (Unknown, Verified 08/03/23 11:18) VOMITTING Do you need a note to return to daycare/school/sports/work: No HPI EP Flu like symptoms/No balance (masked) HPI Details 68-year-old [facility]. Reports nasal congestion, dry cough, body aches since last night. Has not taken temperature at home, however has felt ?hot and cold . Denies any shortness of breath or chest pain. Denies any GI symptoms. Her has had similar symptoms. They went to a concert over the weekend in very close proximity to many people. [facility] Medical History Urinary tract infection Urinary tract infection Restless leg syndrome Obesity (BMI 30-39.9) Vitamin D deficiency Obstructive sleep apnea Hypertension Type 2 diabetes mellitus with hyperglycemia Hx of iron deficiency anemia Arthritis Hyperlipidemia Surgical History History of carpal tunnel release Hx of colonoscopy Hx of hysterectomy Hx of appendectomy History of cholecystectomy Social History Housing: House Patient Tobacco Use Status: Former Tobacco user Tobacco use type: Cigarette e-Cigarette/Vaping Use: Never Used Second Hand Smoke Exposure: No service: No Current occupational status: disabled Cognitive needs: No Hearing needs: No Vision needs: Yes Review of Systems Const All systems reviewed & are unremarkable except as noted in HPI and below Physical Exam Vital Signs: Last Vital Signs Temp 98.2 F 08/03/23 11:17 Pulse 96 08/03/23 11:17 BP 110/68 08/03/23 11:17 Pulse Ox 96 08/03/23 11:17 Oxygen Delivery Method Room Air 08/03/23 11:17 BMI result Body Mass Index 32.4 Const General: cooperative, healthy appearing and no acute distress HEENT Head: Yes normal to inspection Ears: hearing grossly normal bilaterally General nose exam: Normal external nose present and Normal nasal mucous membranes and turbinates present Face and sinus: Yes normal facial exam and Yes sinuses nontender Mouth: Normal oral and palatal mucosa present and moist mucous membranes Throat: Yes posterior oropharynx abnormal (Mild erythema and postnasal drip) Neck Neck: Yes no lymphadenopathy Resp Effort & Inspection: normal respiratory effort, able to speak in complete sentences and Actively coughing Quality: dry Auscultation: clear to auscultation bilaterally Cardio Jugular venous distension: no JVD Palpation: normal PMI Rate: regular rate Rhythm: regular rhythm Skin General skin exam: no rashes or lesions noted Extrem General: Yes capillary refill normal and Yes no clubbing, cyanosis or edema Psych Appearance: grossly normal Mental Status: mental status grossly normal Speech and movement: Normal speech and movement present Assessment & Plan Assessment & Plan (1) Body aches: Code(s): R52 - Pain, unspecified Plan: Patient's symptoms consistent with viral upper respiratory illness. COVID/flu/RSV swab obtained. She is aware she will be notified with results once these are available. Advised conservative treatment with otc cold/clu products, increased hydration and Vitamin C intake. Will also precribe Benzonatate for her cough. Reviewed indications, use, possible side effects of medication. Advised her that if she does not improve with time and conservative measures, or symptoms worsen/new symptoms develop, she should return to the clinic for further evaluation or follow-up with PCP. She verbalizes understanding and agrees to plan. (2) Dry cough: Code(s): R05.8 - Other specified cough Orders: Orders SARS-CoV2/FLU/RSV Today R05.8 - Other specified cough, R52 - Pain, unspecified Medications: New benzonatate 100 mg PO BID PRN 14 caps 0RF cough 7 days R05.9 - Cough, unspecified Coding Level of Care Code Est Pt Level 3 (66177) Diagnoses Body aches R52 Dry cough R05.8
[2023-08-03 11:17] VITALS: BP 110/68; PULSE 96; TEMP 36.8; O2SAT 96; BMI 32.4
== END 2023-08-03 11:42 | disposition home or self-care (01) ==
PROVIDERS: PCP Internal Medicine; Visit Provider Nurse Practitioner Family
DX: R52 Pain, unspecified (principal); R05.8 Other specified cough
CPT/HCPCS: 99213

== ENCOUNTER 2023-08-03 11:38 | Outpatient (REF) | payer OTHER, SELFPAY ==
[2023-08-03 16:06] LABS: Influenza A PCR NEGATIVE (Negative); Influenza B PCR NEGATIVE (Negative); Resp Syncy Virus RNA Qual PCR NEGATIVE (Negative); SARS COV2 PCR INHOUSE POSITIVE (Negative)
== END 2023-08-03 11:39 | disposition home or self-care (01) ==
LOC: HO.LAB 11:38
PROVIDERS: Visit Provider Nurse Practitioner Family
DX: R52 Pain, unspecified (principal); R05.8 Other specified cough; Z20.822 Contact with and (suspected) exposure to COVID-19
CPT/HCPCS: 0241U

== ENCOUNTER 2023-08-08 08:47 | Outpatient (AMB) | payer OTHER, SELFPAY ==
[2023-08-08 09:19] VITALS: BP 124/62; PULSE 97; TEMP 36.2; O2SAT 99; BMI 32.1
--- NOTE | 2023-08-08 09:19 | MHC.OFFWIV ---
Intake Vital Signs 08/08/23 09:19 Height 5 ft 2 in Weight 79.492 kg BMI 32.1 BP 124/62 Blood Pressure Location Rt brachial Position Sitting Pulse 97 Pulse Source Pulse Oximeter Temp 97.2 F Temp Source Temporal Artery Scan Pulse Oximetry (%) 99 Oxygen Delivery Method Room Air Intake Visit Reasons: EP Cold Symptoms (Masked) Intake Note: Pt is here c/o testing positive for COVID and having a bad cough, fever and body aches. Patient Tobacco Use Status: Former Tobacco user Allergies Sulfa (Sulfonamide Antibiotics) [SULFA (SULFONAMIDE ANTIBIOTICS)] Allergy (Intermediate, Verified 08/03/23 11:18) RASH exenatide [From BYETTA] Allergy (Unknown, Verified 08/03/23 11:18) VOMITTING Do you need a note to return to daycare/school/sports/work: Yes HPI EP Cold Symptoms (Masked) HPI Details Patient was seen in this clinic on 08/03/2023 and subsequently tested positive for COVID. I did review note and lab results, is unclear to me why she was not treated with Paxlovid. At this point she has been sick for over 5 days. She notes continued fatigue body aches and cough. She does note the Tessalon Perles to help which she still has some left. She does need work note if she is to continue to be out of work. She denies chest pain or shortness of breath, measured fevers or GI symptoms. She is able to tolerate food and fluids. Reports cough is minimally productive. She has been continuing to check her blood pressures which are slightly higher than normal a.m. blood sugars in the 160s. [facility] Medical History Urinary tract infection Urinary tract infection Restless leg syndrome Obesity (BMI 30-39.9) Vitamin D deficiency Obstructive sleep apnea Hypertension Type 2 diabetes mellitus with hyperglycemia Hx of iron deficiency anemia Arthritis Hyperlipidemia Surgical History History of carpal tunnel release Hx of colonoscopy Hx of hysterectomy Hx of appendectomy History of cholecystectomy Social History Housing: House Patient Tobacco Use Status: Former Tobacco user Tobacco use type: Cigarette e-Cigarette/Vaping Use: Never Used Second Hand Smoke Exposure: No service: No Current occupational status: disabled Cognitive needs: No Hearing needs: No Vision needs: Yes Review of Systems Const Reports as per HPI and Reports no additional complaints ENT Reports no additional complaints and Reports as per HPI Card Reports as per HPI and Reports no additional complaints Resp Reports as per HPI and Reports no additional complaints GI Reports as per HPI and Reports no additional complaints Musc Reports no additional complaints and Reports as per HPI Skin/Breast Denies lesions Neuro Reports no additional complaints and Reports as per HPI Physical Exam Vital Signs: Last Vital Signs Temp 97.2 F 08/08/23 09:19 Pulse 97 08/08/23 09:19 BP 124/62 08/08/23 09:19 Pulse Ox 99 08/08/23 09:19 Oxygen Delivery Method Room Air 08/08/23 09:19 BMI result Body Mass Index 32.1 Const General: cooperative, comfortable, no acute distress and tired appearing Orientation/consciousness: patient oriented x3 Resp Other: Intermittent nonproductive cough during visit Effort & Inspection: normal respiratory effort Auscultation: clear to auscultation bilaterally Cardio Rate: regular rate Rhythm: regular rhythm Heart sounds: S1 normal heart sound present and S2 normal heart sound present Neuro General: patient oriented x3 Extrem General: Yes no pedal edema Assessment & Plan Assessment & Plan (1) COVID-19: Code(s): U07.1 - COVID-19 Plan: Work note given for this week. Advised patient viral symptoms can last 14 days or sometimes longer, fatigue can linger for up to about 1 month. Vital signs are normal and she is eating and tolerating fluids. No wheezing or signs of pneumonia on auscultation. O2 is 99%. Advise continued symptomatic care and rest. Return to clinic or see PCP if any of her symptoms worsen or do not resolve after 1 more week. ER if she develops chest pain, shortness of breath or difficulty breathing. Coding Level of Care Code Est Pt Level 3 (14234) Diagnoses COVID-19 U07.1
== END 2023-08-08 09:53 | disposition home or self-care (01) ==
PROVIDERS: PCP Internal Medicine; Visit Provider Physician Assistant
DX: U07.1 COVID-19 (principal)
CPT/HCPCS: 99213

== ENCOUNTER 2023-09-09 11:19 | Outpatient (AMB) | payer OTHER, SELFPAY ==
--- NOTE | 2023-09-09 11:31 | MHC.PC.OV ---
Vital Signs 09/09/23 11:32 Height 5 ft 2 in Weight 174 lb BMI 31.8 BP 138/72 Blood Pressure Location Lt brachial Position Sitting Pulse 86 Pulse Source Pulse Oximeter Pulse Oximetry (%) 98 Oxygen Delivery Method Room Air Intake Visit Reasons: Annual Physical Allergies Sulfa (Sulfonamide Antibiotics) [SULFA (SULFONAMIDE ANTIBIOTICS)] Allergy (Intermediate, Verified 09/09/23 11:37) RASH exenatide [From BYETTA] Allergy (Unknown, Verified 09/09/23 11:37) VOMITTING Medication List - Last Reconciled 09/09/23 by Marzena Oconnor MD aspirin (Adult Aspirin Regimen) 81 mg PO DAILY atorvastatin 40 mg PO BEDTIME 90 days benzonatate 100 mg PO BID PRN 7 days blood sugar diagnostic (Leveler Verio test strips) As directed check the blood sugar once a day blood-glucose meter (Leveler Verio Meter) As directed checked the blood sugar once a day cyanocobalamin (vitamin B-12) (Vitamin B-12) 1,000 mcg PO DAILY glipizide 5 mg PO BID 90 days lancets (Leveler UltraSoft Lancets) As directed check the blood sugar once a day lisinopril 20 mg PO DAILY metformin 1,000 mg PO BID 90 days phenazopyridine (Pyridium) 200 mg PO TID 6 doses tirzepatide (Mounjaro) 2.5 mg (0.5 mL) subcut QWEEK 4 weeks Tobacco use date assessed: 01/14/23 Fall risk assessment: 1 Fall in past year Last assessed Fall Risk: 09/09/23 Dental Screening Dental Screen Date: 09/09/23 Did you have a dental visit in the last 12 months?: Yes Did you have a dental problem in the last 6 months where you did not have access to dental care?: No Was dental information given to patient?: Patient has dentist HPI Annual Physical HPI Details 68-year-old obese female with uncontrolled diabetes mellitus hypertension hypercholesterolemia coming in for physical exam last seen in January 2023. Patient's colonoscopy is up-to-date mammogram up to date. Noted on the chart [facility] COVID-19 infection. 2 weeks fall on the stairs [facility] Medical History Urinary tract infection Urinary tract infection Restless leg syndrome Obesity (BMI 30-39.9) Vitamin D deficiency Obstructive sleep apnea Hypertension Type 2 diabetes mellitus with hyperglycemia Hx of iron deficiency anemia Arthritis Hyperlipidemia Surgical History History of carpal tunnel release Hx of colonoscopy Hx of hysterectomy Hx of appendectomy History of cholecystectomy Social History (Updated 09/09/23 @ 12:16 by Marzena Oconnor MD) Housing: House Alcohol intake: never Patient Tobacco Use Status: Former Tobacco user Tobacco use type: Cigarette Years Smoked: quit 1996 e-Cigarette/Vaping Use: Never Used Second Hand Smoke Exposure: No service: No Current occupational status: disabled Cognitive needs: No Hearing needs: No Vision needs: Yes Questionnaire PHQ-9 Over the last 2 weeks, how often have you been bothered by any of the following problems? 1. Little interest or pleasure in doing things: not at all 2. Feeling down, depressed, or hopeless: not at all 3. Trouble falling or staying asleep, or sleeping too much: not at all 4. Feeling tired or having little energy: not at all 5. Poor appetite or overeating: not at all 6. Feeling bad about yourself - or that you are a failure or have let yourself or your family down: not at all 7. Trouble concentrating on things, such as reading the newspaper or watching television: not at all 8. Moving or speaking so slowly that other people could have noticed. Or the opposite - being so fidgety or restless that you have been moving around a lot more than usual: not at all 9. Thoughts that you would be better off or of hurting yourself in some way: not at all Total score: 0 Depression Screening Interpretation: Negative Depression Screening Done: Yes Source: Developed by Drs. Luke Marie, Audrey Faustin, Ab Kaur and colleagues, with an educational cliff from [email or web address]. Thrive Questionnaire Date Thrive assessed: 01/14/23 AUDIT C Alcohol Use Questionnaire (AUDIT-C) 1. How often do you have a drink containing alcohol?: Never 2. How many drinks containing alcohol do you have on a typical day when you are drinking?: 1 or 2 3. How often do you have six or more drinks on one occasion?: Never Total Score: 0 LASHA-7 AMB Questionnaire LASHA-7 Date LASHA - 7 assessed: 01/14/23 Source: Developed by Drs. Luke Marie, Audrey Faustin, Ab Kaur and colleagues, with an educational cliff from [email or web address]. Review of Systems Const Denies poor appetite and Denies weakness Eyes Denies no additional complaints ENT Reports Normal hearing present, Denies dizziness, Denies nasal congestion, Denies tinnitus and Denies sore throat Card Denies chest pain, Denies syncope, Denies rapid heart rate and Denies dyspnea Resp Denies cough and Denies dyspnea GI Denies change in stool character, Reports constipation, Denies diarrhea, Denies nausea and Denies vomiting Denies urinary frequency, Denies difficulty voiding and Denies dysuria Neuro Reports Normal hearing present, Denies confusion, Denies dizziness, Denies syncope and Denies weakness Psych Denies confusion Physical exam (Primary Care) Vital Signs: Last Vital Signs Pulse 86 09/09/23 11:32 BP 138/72 09/09/23 11:32 Pulse Ox 98 09/09/23 11:32 Oxygen Delivery Method Room Air 09/09/23 11:32 BMI result Body Mass Index 31.8 Tobacco/Smoking Status: Tobacco use Status Tobacco use date assessed 01/14/23 09/09/23 11:40 Patient Tobacco Use Status Former Tobacco user 09/09/23 11:40 Tobacco use type Cigarette 09/09/23 11:40 e-Cigarette/Vaping Use Never Used 09/09/23 11:40 PHQ-9: PHQ-9 Score PHQ-9: Total score 0 09/09/23 11:40 Depression Screening Interpretation: Negative Thrive Assessment: Date of Thrive Assessment Date Thrive assessed 01/14/23 09/09/23 11:40 Const General: No confusion Orientation/consciousness: No confusion HENMT Head: Yes normocephalic Ears: external ears normal and TM's normal bilaterally Face and sinus: Yes normal facial exam Mouth: moist mucous membranes Throat: Yes tonsils normal Eyes Conjunctivae: conjunctivae normal Pupils: Equal, round and reactive pupils present and Pupil accommodation reflex normal Direct Ophthalmoscopy: normal light reflex Neck Neck: No lymphadenopathy Thyroid: Thyroid normal Chest Chest palpation & inspection: normal inspection of the chest Resp Effort & Inspection: normal respiratory effort and no audible wheezes Auscultation: clear to auscultation bilaterally, no crackles, no wheezes and lung sounds not diminished Cardio Rate: regular rate Rhythm: regular rhythm Peripheral pulses: radial pulses present and dorsalis pedis present GI Palpation (GI): no masses Auscultation: normal bowel sounds and normoactive bowel sounds Rectal Exam - Female: deferred Skin General skin exam: no rashes or lesions noted Rashes: no rashes Neuro General: No confusion Cranial nerves: Yes Equal, round and reactive pupils present and Yes Normal hearing present Cognition (Neuro): normal cognition Gait exam (Neuro): Normal gait present Motor exam (neuro): 5/5 motor strength present throughout Deep tendon reflexes (DTR's): Right brachioradialis reflex intensity grade: 2+, Left brachioradialis reflex intensity grade: 2+, Right patellar reflex intensity grade: 2+ and Left patellar reflex intensity grade: 2+ Extrem General: No edema Office Procedures Flu Questionnaire Does the patient have a severe egg allergy?: No Does the patient have severe life threatening allergies?: No Does the patient have a fever or illness today?: No Has the patient ever had Guillain-[place] Syndrome?: No Has the patient ever had any past reaction to a flu shot?: No Results AMB Hemoglobin A1c AMB Hemoglobin A1c 13.8 % Last Edit by Rossy Fisher CMA on 09/09/23 11:44 Immunizations flu vacc [id number] 6mos up(PF) 60 mcg(15 mcgx4)/0.5 mL IM syringe Performing Provider: Marzena Oconnor MD [facility] Administered by: Rossy Fisher CMA on 09/09/23 11:43 Dose Route Admin Location Dispensed Lot Number Expiration Date NDC [employer] 0.5 mL IM Left Deltoid 0.5 mL [id number] 05/13/24 [id number] VIS Given Date VIS Provided VIS Publication Date 09/09/23 Single Vaccine 21 Eligibility Eligibility Date Funding Source Not [facility] Eligible 09/09/23 Private Results Reviewed Results Reviewed: Laboratory Last Values Hgb A1c (Clinic) 13.8 % (4.0-6.0) H 09/09/23 11:44 Assessment and Plan Assessment & Plan (1) Annual physical exam: Code(s): Z00.00 - Encounter for general adult medical examination without abnormal findings (2) Type 2 diabetes mellitus with hyperglycemia: Comment: Dr. Rendon Code(s): E11.65 - Type 2 diabetes mellitus with hyperglycemia Qualifiers: Diabetes mellitus roasterman insulin use: with [facility] use Qualified Code(s): E11.65 - Type 2 diabetes mellitus with hyperglycemia; Z79.4 - retirement (current) use of insulin Plan: Decrease the amount of carbohydrate intake, pasta, bread, rice and potatoes are all sugar and that is aside from all the sweet stuff, remember that fruits are good but they are Sweet also. Hemoglobin A1c goal of less than 7.0 patient is on Trulicity glipizide metformin (3) Hypertension: Code(s): I10 - Essential (primary) hypertension Qualifiers: Hypertension type: essential hypertension Qualified Code(s): I10 - Essential (primary) hypertension Plan: Continue with blood pressure medication. Decrease salt intake and exercise on lisinopril 20 mg once a day (4) Hyperlipidemia: Code(s): E78.5 - Hyperlipidemia, unspecified Qualifiers: Hyperlipidemia type: pure hypercholesterolemia Qualified Code(s): E78.00 - Pure hypercholesterolemia, unspecified Plan: Avoid fried foods, chicken skin, eggs, butter margarine, pastries and meat. Be it pork or beef they have a lot of cholesterol patient was placed on atorvastatin will need blood work (5) Obstructive sleep apnea: Comment: Cannot tolerate CPAP Code(s): G47.33 - Obstructive sleep apnea (adult) (pediatric) Plan: Discussed importance of treating sleep apnea (6) Obesity (BMI 30-39.9): Code(s): E66.9 - Obesity, unspecified Plan: Diet and exercise (7) Mass of anus: Comment: Right anal mass Code(s): K62.89 - Other specified diseases of anus and rectum Orders: Orders AMB Hemoglobin A1c Today Z13.9 - Encounter for screening, unspecified Comprehensive Met. Panel Today E11.65 - Type 2 diabetes mellitus with hyperglycemia, Z79.4 - retirement (current) use of insulin Creatinine Urine Today E11.65 - Type 2 diabetes mellitus with hyperglycemia, Z79.4 - retirement (current) use of insulin Lipid Panel Today E11.65 - Type 2 diabetes mellitus with hyperglycemia, E78.00 - Pure hypercholesterolemia, unspecified, Z79.4 - roasterman (current) use of insulin Thyroid Stimulating Hormone Today E11.65 - Type 2 diabetes mellitus with hyperglycemia, Z79.4 - roasterman (current) use of insulin Vitamin B12 and Folate Today E11.65 - Type 2 diabetes mellitus with hyperglycemia, Z79.4 - retirement (current) use of insulin Influenza [id number] Immunization Today Z23 - Encounter for immunization Complete Blood Count Auto Diff Today E11.65 - Type 2 diabetes mellitus with hyperglycemia, Z79.4 - roasterman (current) use of insulin Free T4 (Free Thyroxine) Today E11.65 - Type 2 diabetes mellitus with hyperglycemia, Z79.4 - retirement (current) use of insulin Vitamin D 25-OH Total Today E11.65 - Type 2 diabetes mellitus with hyperglycemia, Z79.4 - retirement (current) use of insulin Referrals General Surgery Referral K62.89 - Other specified diseases of anus and rectum Endocrinology Referral E11.65 - Type 2 diabetes mellitus with hyperglycemia, Z79.4 - roasterman (current) use of insulin Medications: New tirzepatide (Mounjaro) 2.5 mg (0.5 mL) subcut QWEEK 2 mL 3RF 4 weeks E11.65 - Type 2 diabetes mellitus with hyperglycemia, Z79.4 - retirement (current) use of insulin insulin glargine (Lantus Solostar U-100 Insulin) 10 units (0.1 mL) subcut QPM 15 mL 3RF E11.65 - Type 2 diabetes mellitus with hyperglycemia, Z79.4 - roasterman (current) use of insulin Changed From lancets (OneTouch UltraSoft Lancets) As directed check the blood sugar once a day 100 ea 0RF E11.65 - Type 2 diabetes mellitus with hyperglycemia, Z79.4 - retirement (current) use of insulin To lancets As directed check the blood sugar Three times aday 300 ea 3RF E11.65 - Type 2 diabetes mellitus with hyperglycemia, Z79.4 - retirement (current) use of insulin From blood sugar diagnostic (OneTouch Verio test strips) As directed check the blood sugar once a day 100 ea 3RF E11.65 - Type 2 diabetes mellitus with hyperglycemia To blood sugar diagnostic (OneTouch Verio test strips) As directed check the blood sugar three times a day 300 ea 3RF E11.65 - Type 2 diabetes mellitus with hyperglycemia Discontinued dulaglutide Discontinued Reason: Insurance Denied 1.5 mg (0.5 mL) subcut QWEEK 30 days 2.5 mL 3RF E11.65 - Type 2 diabetes mellitus with hyperglycemia, Z79.4 - retirement (current) use of insulin Coding Level of Care Code Est Pt Prev Care >65y(27309) Diagnoses Annual physical exam Z00.00 Type 2 diabetes mellitus with hyperglycemia, with long-term current use of insulin E11.65; Z79.4 Diabetes mellitus roasterman insulin use: with [facility] use Essential hypertension I10 Hypertension type: essential hypertension Pure hypercholesterolemia E78.00 Hyperlipidemia type: pure hypercholesterolemia Obstructive sleep apnea G47.33 Obesity (BMI 30-39.9) E66.9 Mass of anus K62.89
[2023-09-09 11:32] VITALS: BP 138/72; PULSE 86; O2SAT 98; BMI 31.8
== END 2023-09-09 12:44 | disposition home or self-care (01) ==
PROVIDERS: PCP Internal Medicine; Visit Provider Internal Medicine
DX: Z00.00 Encounter for general adult medical examination without abnormal findings (principal); E11.65 Type 2 diabetes mellitus with hyperglycemia; Z79.4 Long term (current) use of insulin; I10 Essential (primary) hypertension; E78.00 Pure hypercholesterolemia, unspecified; G47.33 Obstructive sleep apnea (adult) (pediatric); E66.9 Obesity, unspecified; K62.89 Other specified diseases of anus and rectum; Z23 Encounter for immunization
CPT/HCPCS: 83036; 90471; 90686; 99397

== ENCOUNTER 2023-09-22 08:28 | Outpatient (REF) | payer OTHER, SELFPAY ==
[2023-09-22 11:27] LABS: Basophils Absolute Auto 0.1 X10*3/uL (0.0-0.2); Basophils Percent Auto 0.6 % (0-2); Eosinophils Absolute Auto 0.2 X10*3/uL (0.0-0.4); PLT CLUMP 1; SCAN SMEAR FLAG 1
[2023-09-22 11:29] LABS: Eosinophils Percent Auto 2.1 % (0-4); Hematocrit 38.6 % (37.0-47.0); Imm Gran Abs Auto 0.04 X10*3/uL (0.00-0.03); Imm Gran Pct Auto 0.5 % (0.0-0.4); Lymphocytes Absolute Auto 2.4 X10*3/uL (1.2-4.9); Lymphocytes Percent Auto 29.3 % (20-40); MANUAL DIFF FLAG SCAN; Mean Corpuscular HGB Conc 33.7 g/dl (31.0-35.0); Mean Corpuscular Hemoglobin 28.2 pg (27.0-33.0); Mean Corpuscular Volume 83.7 fL (80.0-98.0); Monocytes Absolute Auto 0.5 X10*3/uL (0.1-1.2); Monocytes Percent Auto 6.1 % (2-11); Neutrophils Absolute Auto 4.9 x10*3/uL (2.0-8.3); Neutrophils Percent Auto 61.4 % (45-73); Red Blood Count 4.61 X10*6/uL (4.20-5.50); Red Cell Distribution Width 12.3 % (11.0-16.0)
[2023-09-22 12:00] LABS: Free T4 (Free Thyroxine) 0.96 ng/dL (0.71-1.85); Thyroid Stimulating Hormone 0.07 uIU/mL (0.32-4.0); Vitamin D 25-OH Total 39.8 ng/mL (>30)
[2023-09-22 12:01] LABS: Creatinine Urine 100.65 mg/dL
[2023-09-22 12:02] LABS: Alanine Aminotransferase 14 U/L (0-31); Albumin Level 3.7 g/dL (3.5-5.0); Alkaline Phosphatase 75 U/L (39-117); Anion Gap 14 (12-20); Aspartate Amino Transferase 21 U/L (5-31); Bilirubin Total 0.5 mg/dL (0.0-1.0); Blood Urea Nitrogen 9 mg/dL (9-16); Calcium 9.3 mg/dL (8.4-10.2); Carbon Dioxide 26 mmol/L (22-29); Chloride 102 mmol/L (96-108); Cholesterol 117 mg/dL (<200); Estimated Glomerular Filt Rate > 60; Glucose Random 300 mg/dL (60-115); HDL Cholesterol 38 mg/dL (>40); LDL Cholesterol Calculated 61 mg/dL (<100); Potassium 4.6 mmol/L (3.3-5.1); Sodium 137 mmol/L (135-145); Triglycerides 91 mg/dL (<150)
[2023-09-22 12:26] LABS: Folate 13.3 ng/mL (> or = 4.0); Vitamin B12 521 pg/mL (200-900)
[2023-09-22 14:22] LABS: SLIDE REVIEW VERIFIED
== END 2023-09-22 08:29 | disposition home or self-care (01) ==
LOC: HO.HMGCLDS 08:28
PROVIDERS: PCP Internal Medicine; Visit Provider Internal Medicine
DX: E11.65 Type 2 diabetes mellitus with hyperglycemia (principal); E78.00 Pure hypercholesterolemia, unspecified; Z79.4 Long term (current) use of insulin; E55.9 Vitamin D deficiency, unspecified; M85.80 Other specified disorders of bone density and structure, unspecified site
CPT/HCPCS: 36415; 80053; 80061; 82306; 82570; 82607; 82746; 84439; 84443; 85025

== ENCOUNTER 2023-09-29 14:10 | Outpatient (AMB) | payer OTHER, SELFPAY ==
--- NOTE | 2023-09-29 14:31 | A.OFFVIS_ITS ---
Intake Vital Signs 09/29/23 14:38 Height 5 ft 2 in Weight 183 lb BMI 33.5 Intake Visit Reasons: Right anal mass Intake Note: This patient presents for an assessment for right anal mass. Patient c/o; reports no rectal bleeding, pain, or pressure, reports no changes in bowel habits. New Account Interviewer Required: No Accompanied by: Self / Same As Patient Allergies Sulfa (Sulfonamide Antibiotics) [SULFA (SULFONAMIDE ANTIBIOTICS)] Allergy (Intermediate, Verified 09/29/23 14:36) RASH exenatide [From BYETTA] Allergy (Unknown, Verified 09/29/23 14:36) VOMITTING Medication List - Last Reconciled 09/29/23 by Sincere Rodriguez MD aspirin (Adult Aspirin Regimen) 81 mg PO DAILY atorvastatin 40 mg PO BEDTIME 90 days benzonatate 100 mg PO BID PRN 7 days blood sugar diagnostic (TroovalTouch Verio test strips) As directed check the blood sugar three times a day blood-glucose meter (TroovalTouch Verio Meter) As directed checked the blood sugar once a day cyanocobalamin (vitamin B-12) (Vitamin B-12) 1,000 mcg PO DAILY glipizide 5 mg PO BID 90 days insulin glargine (Lantus Solostar U-100 Insulin) 10 units (0.1 mL) subcut QPM lancets As directed check the blood sugar Three times aday lisinopril 20 mg PO DAILY metformin 1,000 mg PO BID 90 days phenazopyridine (Pyridium) 200 mg PO TID 6 doses tirzepatide (Mounjaro) 2.5 mg (0.5 mL) subcut QWEEK 4 weeks HPI Right anal mass HPI Details 68-year-old female referred for a perianal mass. She says that she has noticed this lump outside her anus about a month now. She says that he does not have any pain or tenderness. She says that the mass seems to move around She denies any skin changes. She denies any discharge. [facility] Medical History (Updated 09/29/23 @ 14:49 by Sincere Rodriguez MD) Perianal mass Urinary tract infection Urinary tract infection Restless leg syndrome Obesity (BMI 30-39.9) Vitamin D deficiency Obstructive sleep apnea Hypertension Type 2 diabetes mellitus with hyperglycemia Hx of iron deficiency anemia Arthritis Hyperlipidemia Surgical History History of carpal tunnel release Hx of colonoscopy Hx of hysterectomy Hx of appendectomy History of cholecystectomy Social History Housing: House Alcohol intake: never Patient Tobacco Use Status: Former Tobacco user Tobacco use type: Cigarette Years Smoked: quit 1996 e-Cigarette/Vaping Use: Never Used Second Hand Smoke Exposure: No service: No Current occupational status: disabled Cognitive needs: No Hearing needs: No Vision needs: Yes Review of Systems Const Denies chills and Denies fever(s) Card Denies chest pain, Denies dyspnea and Denies dyspnea on exertion Resp Denies cough, Denies dyspnea and Denies dyspnea on exertion GI Denies hematochezia and Denies change in bowel habits Denies hematuria Musc Denies back pain and Denies limited range of motion Neuro Denies focal weakness and Denies convulsions Psych Denies depression and Denies mood swings Physical Exam Vital Signs: BMI result Body Mass Index 33.5 Const General: comfortable and no acute distress Orientation/consciousness: patient oriented x3 Neck Neck: Yes no lymphadenopathy Resp Auscultation: clear to auscultation bilaterally Cardio Rhythm: regular rhythm GI Other: Rectal exam shows palpable, mobile subcutaneous mass in the anterior perianal area to the right, close to the labia, about 1 cm, nontender, no skin changes, no discharge Palpation (GI): Soft to palpation, nontender and no guarding Neuro General: patient oriented x3 Office Procedures Anoscopy she was in greyson-knife position. The anoscope was gently inserted. A full examination of the anal canal was done. She had some internal and external hemorrhoids which are non inflamed and not bulky. There were no lesions in the anus, there was no ulceration, no fissure no induration and no bleeding. [id number] Assessment & Plan Assessment & Plan (1) Perianal mass: Code(s): K62.89 - Other specified diseases of anus and rectum Plan: She has what appears to be subcutaneous perianal mass that is likely a cyst. She says that this is not bothering her at this time. She denies any pain or tenderness. I had a long discussion with her about the technique of excision under anesthesia. I reviewed the risks including but not limited to bleeding, infections, poor healing, pain, as well as the benefits and alternatives She says that she does not want to proceed with any surgery for now and would like to come back after the holidays in November to be re-evaluated for possible excision. Coding Level of Care Code New Pt Level 3 (28179) Diagnoses Perianal mass K62.89 CPT Codes Details - CPT: 68971-[id number] ([id number])
[2023-09-29 14:38] VITALS: BMI 33.5
== END 2023-09-29 14:46 | disposition home or self-care (01) ==
PROVIDERS: PCP Internal Medicine; Visit Provider Surgery
DX: K62.89 Other specified diseases of anus and rectum (principal)
CPT/HCPCS: 46600; 99203

== ENCOUNTER → 2023-09-29 14:10 | Outpatient (BNVA) | payer OTHER, SELFPAY | PROVIDERS: PCP Internal Medicine; Visit Provider Surgery | DX: K62.89 Other specified diseases of anus and rectum (principal) | CPT/HCPCS: 46600; 99202 ==

== ENCOUNTER 2023-10-22 16:56 | Emergency (ER) | payer OTHER, SELFPAY ==
--- NOTE | ~2023-10-22 | CT_ITS ---
EXAMINATION: CT CERVICAL SPINE WITHOUT CONTRAST; UNENHANCED CT OF THE HEAD. CLINICAL INFORMATION: Neck pain. Trauma. Fall. COMPARISON: Report CT cervical spine 03/19/2008. TECHNIQUE: Routine unenhanced CT of the head with multiple coronal and sagittal reformatted images; routine unenhanced CT of the cervical spine with multiple coronal and sagittal reformatted images. This CT examination was performed using dose optimization techniques as appropriate, variously including the following: *Automated exposure control *Adjustment of mA and/or kV according to patient size (this includes techniques or standardized protocols for targeted exams where dose is matched to indication/reason for exam; i.e. extremities or head) *Use of iterative reconstruction technique DLP: 1172 mGy-cm FINDINGS: CT head: No intracranial hemorrhage,, tumors or acute infarcts noted. Moderate diffuse commensurate prominence of ventricles and sulci. Mild subcortical and periventricular white matter patchy hypodensities. Segmental calcific plaques within the cavernous portions of the internal carotid arteries and focal calcific plaques within the intradural segments of the vertebral arteries. Orbits and globes are normal in appearance. No extracranial soft tissue inflammatory changes noted. Lytic significant CT cervical spine: No fractures or acute appearing subluxations noted. Moderate intervertebral disc space narrowing and posterior endplate osteophytosis C5-C6. No prevertebral fluid collections or soft tissue inflammatory changes. Mild bilateral carotid bulb calcific atherosclerosis. Incidental visualized lung apices are clear. CT/CT cervical spine wo IV con IMPRESSION: CT head: *No acute intercranial abnormalities. CT cervical spine: *No acute abnormalities. *C5-C6 chronic degenerative disc disease.
--- NOTE | ~2023-10-22 | CT_ITS ---
EXAMINATION: CT abdomen pelvis w IV con, CT chest w IV con CLINICAL INFORMATION: Right-sided abdominal pain status post fall. Trauma to ribs. COMPARISON: CT abdomen pelvis 09/23/2020 TECHNIQUE: IV contrast-enhanced CT of the chest, abdomen pelvis with multiple coronal and sagittal reformatted images. Intravenous Contrast: Omnipaque [address] examination was performed using dose optimization techniques as appropriate, variously including the following: *Automated exposure control *Adjustment of mA and/or kV according to patient size (this includes techniques or standardized protocols for targeted exams where dose is matched to indication/reason for exam; i.e. extremities or head) *Use of iterative reconstruction technique DLP: 1678.25 mGy-cm mGy-cm FINDINGS: Lungs and pleura: Mild bibasilar compressive atelectasis of the lungs is noted. No pulmonary consolidation, pneumothoraces or pleural effusions identified. Mild centrilobular emphysema noted. No endobronchial lesions identified. *A 2.5 cm x 2.0 cm x 2.8 cm intermediate density (22 Hounsfield units) is noted within the parasagittal right lower pulmonary lobe in continuity with the visceral pleural margin abutting the mediastinum (series 5 image 35) no evidence of invasion of the adjacent mediastinum. Mediastinum: The thoracic aorta demonstrates mild scattered calcific and noncalcific atherosclerotic plaques. No abnormal mediastinal fluid collections noted. Partial visualization made of moderate scattered coronary artery calcific atherosclerosis. Normal heart size. The thoracic esophagus demonstrates moderate diffuse fluid distention to a diameter of approximately 2.5 cm. CHEST WALL: No axillary lymphadenopathy. No soft tissue subcutaneous inflammatory changes. Liver: Minimal nonspecific periportal edema. Normal size and capsular contour. A Alex's lobe is noted. No perihepatic fluid collections. Biliary system: The gallbladder is not visualized. No biliary duct dilatation. Pancreas: Normal. Spleen: Normal. Adrenal glands: Normal. Kidneys: No hydronephrosis or urolithiasis. 4 mm interpolar rounded low-density focus within the right kidney which is too small to specifically characterize but is overwhelmingly likely to represent a benign, simple cyst and requires no additional imaging follow-up on the basis of this exam. Urinary bladder: Distended. No mural contour abnormalities. Pelvic viscera: Uterus is not visualized. The ovaries are normal in size. Benign-appearing dystrophic calcifications are associated with the right ovary. No ovarian cysts identified. Gastrointestinal system: No intestinal dilatation or mural thickening. The appendix is not visualized. No free intraperitoneal fluid or gas collections noted. Normal sigmoid mesentery and small bowel mesentery. Stomach demonstrates marked distention. No focal gastric mural contour abnormalities noted. Macroscopic fat density is noted non-dependently at multiple locations within the stomach and in the region of the first portion of duodenum likely representing ingested material. This finding is without a correlate on the comparison exams based on contemporaneous review and therefore may represent ingested material of uncertain clinical significance. Abdominal wall: A 2 cm irregular subcutaneous density is present within the left lower anterior abdominal wall unchanged compared with 08/24/2020 and may represent chronic scarring. No abdominal wall hernias. Abdominal and pelvic lymphovascular structures: Moderate-marked scattered calcific atherosclerosis. Normal abdominal aortic caliber. Osseous structures: Mildly displaced fractures of the anterior segments of the right 4, 5, 6, 7 ribs. Minimally displaced fractures of the posterior segments of the right 9, [address]/CT abdomen pelvis w IV con Impression: 1. Mildly displaced fractures of the anterior segments of the right 4, 5, 6, 7 ribs and minimally displaced fractures of the posterior segments of the right 9, 10, 11 ribs. No pneumothoraces or pleural effusions. 2. Mild centrilobular emphysema. 3. Indeterminate 2.5 cm x 2.0 cm x 2.8 cm intermediate density mass within the parasagittal right lower pulmonary lobe in continuity with the visceral pleural margin abutting the mediastinum. No evidence of invasion of the adjacent mediastinum. This finding is suspicious for bronchogenic neoplasm. Recommend consideration of further evaluation with PET/CT, tissue sampling or repeat CT at 3 months as clinically indicated. Recommendation based on the Fleischner Society guidelines. 4. Marked distention of the stomach and moderate fluid distention of the thoracic esophagus. Findings may represent gastroparesis or gastric outlet obstruction. No free intraperitoneal fluid or gas collections. 5. Moderate coronary artery calcific atherosclerosis. 6. Status post cholecystectomy. 7. Status post hysterectomy. 8. Nonvisualization of the appendix. Findings may represent prior appendectomy. 9. A 2 cm irregular subcutaneous density within the left lower anterior abdominal wall unchanged compared with 08/24/2020 and may represent chronic scarring. This result with particular regards to findings suspicious for neoplasm within the right lower pulmonary lobe, multiple rib fractures and gastric distention was discussed with Dr. Lennox MORENO by telephone at 10/22/2023 9:02 PM and it was ascertained that the content and urgency of the report was understood at the time of direct communication.
--- NOTE | ~2023-10-22 | XR_ITS ---
EXAMINATION: XR WRIST, RIGHT XR HAND, RIGHT CLINICAL INFORMATION: Right wrist pain COMPARISON: None available. TECHNIQUE: PA, lateral, and oblique views of the right wrist and PA, lateral, and oblique views of the right hand FINDINGS: RIGHT WRIST AND HAND: No acute fracture or malalignment. Mild to moderate degenerative changes of the radioscaphoid articulation, 1st CMC and MCP joints, and the interphalangeal joints. Diffuse vascular calcifications. No radiopaque foreign body. No active erosions. XR/XR hand wrist RT IMPRESSION: No acute fracture or malalignment. Mild to moderate degenerative changes.
--- NOTE | ~2023-10-22 | CT_ITS ---
EXAMINATION: CT CERVICAL SPINE WITHOUT CONTRAST; UNENHANCED CT OF THE HEAD. CLINICAL INFORMATION: Neck pain. Trauma. Fall. COMPARISON: Report CT cervical spine 03/19/2008. TECHNIQUE: Routine unenhanced CT of the head with multiple coronal and sagittal reformatted images; routine unenhanced CT of the cervical spine with multiple coronal and sagittal reformatted images. This CT examination was performed using dose optimization techniques as appropriate, variously including the following: *Automated exposure control *Adjustment of mA and/or kV according to patient size (this includes techniques or standardized protocols for targeted exams where dose is matched to indication/reason for exam; i.e. extremities or head) *Use of iterative reconstruction technique DLP: 1172 mGy-cm FINDINGS: CT head: No intracranial hemorrhage,, tumors or acute infarcts noted. Moderate diffuse commensurate prominence of ventricles and sulci. Mild subcortical and periventricular white matter patchy hypodensities. Segmental calcific plaques within the cavernous portions of the internal carotid arteries and focal calcific plaques within the intradural segments of the vertebral arteries. Orbits and globes are normal in appearance. No extracranial soft tissue inflammatory changes noted. Lytic significant CT cervical spine: No fractures or acute appearing subluxations noted. Moderate intervertebral disc space narrowing and posterior endplate osteophytosis C5-C6. No prevertebral fluid collections or soft tissue inflammatory changes. Mild bilateral carotid bulb calcific atherosclerosis. Incidental visualized lung apices are clear. CT/CT head/brain wo IV con IMPRESSION: CT head: *No acute intercranial abnormalities. CT cervical spine: *No acute abnormalities. *C5-C6 chronic degenerative disc disease.
[2023-10-22 17:05] VITALS: BP 170/100; BP 184/76; PULSE 88; PULSE 89; RESP 18; TEMP 36.6; O2SAT 91; O2SAT 97; BMI 33.8
--- NOTE | 2023-10-22 17:15 | ED_ITS ---
HPI - General Adult General Chief complaint: Fall Stated complaint: R sided pain up to shoulder from fall - per ems Time Seen by Provider: 10/22/23 17:03 Source: patient Mode of arrival: ambulatory Limitations: no limitations History of Present Illness HPI narrative: 68-year-old female with hypertension and type 2 diabetes presents today after losing her footing and falling down 3-4 steps at home. She was on the ground for 10 minutes unable to get up alone. She denies palpitations, dizziness, and lightheadedness prior to the fall. She reports right sided rib pain and right wrist pains s/p fall. She denies head strike. No LOC. Not on blood thinners. She reports shortness of breath and sharp, stabbing pain in her ribs with inspiration. She also reports central chest pain that does not radiate. No palpitations. No headaches. No numbness or paresthesias. No urinary or bowel incontinence. No gait abnormalities. Related Data Home Medications Medication Instructions Recorded Confirmed cyanocobalamin (vitamin B-12) 1,000 mcg PO DAILY 08/18/20 09/29/23 1,000 mcg tablet (Vitamin B-12) aspirin 81 mg tablet,delayed 81 mg PO DAILY 09/09/23 09/29/23 release (Adult Aspirin Regimen) Previous Rx's Medication Instructions Recorded blood-glucose meter (OneTouch #1 ea 04/21/22 Verio Meter) phenazopyridine 200 mg tablet 200 mg PO TID 6 doses #6 tabs 08/26/22 (Pyridium) atorvastatin 40 mg tablet 40 mg PO BEDTIME 90 days #90 tabs 01/14/23 glipizide 5 mg tablet 5 mg PO BID 90 days #180 tabs 01/14/23 lisinopril 20 mg tablet 20 mg PO DAILY #90 tabs 01/14/23 metformin 1,000 mg tablet 1,000 mg PO BID 90 days #180 tabs 01/14/23 benzonatate 100 mg capsule 100 mg PO BID PRN cough 7 days #14 08/03/23 caps blood sugar diagnostic (OneTouch #300 ea 09/09/23 Verio test strips) insulin glargine 100 unit/mL (3 10 unit (0.1 mL) subcut QPM #15 mL 09/09/23 mL) subcutaneous pen (Lantus Solostar U-100 Insulin) lancets #300 ea 09/09/23 tirzepatide 2.5 mg/0.5 mL 2.5 mg (0.5 mL) subcut QWEEK 4 09/09/23 subcutaneous pen injector weeks #2 mL (Caliunfredyro) Allergies Allergy/AdvReac Type Severity Reaction Status Date / Time Sulfa (Sulfonamide Allergy Intermediate RASH Verified 09/29/23 14:36 Antibiotics) [SULFA (SULFONAMIDE ANTIBIOTICS)] exenatide [From BYETTA] Allergy Unknown VOMITTING Verified 09/29/23 14:36 Review of Systems 2 Review of Systems: Constitutional : No Fever, No Chills Eyes: No Eye Pain, No Swelling, No Redness Cardiovascular : +Chest Pain, +SOB, No Orthopnea Respiratory : No Cough, No Sputum, No Wheezing, +Pain with insipiration Gastrointestinal : No Nausea, No Vomiting, No Diarrhea, No abdominal Pain, No Hematochezia, No Melena Genitourinary : No Dysuria, No Urinary Frequency, No Hematuria Musculoskeletal : +Right sided rib pain, +right sided wrist pain Skin : No Skin Lesions, No rash Neuro : No Weakness, No Numbness, No Dizziness, No Headache All other systems reviewed and are negative Yes all other systems are reviewed and are negative PMFSH Past Medical History Attestation statement: The following information was validated with the patient. Source: old records reviewed and nursing notes reviewed Medical History Perianal mass Urinary tract infection Urinary tract infection Restless leg syndrome Obesity (BMI 30-39.9) Vitamin D deficiency Obstructive sleep apnea Hypertension Type 2 diabetes mellitus with hyperglycemia Hx of iron deficiency anemia Arthritis Hyperlipidemia Surgical History History of carpal tunnel release Hx of colonoscopy Hx of hysterectomy Hx of appendectomy History of cholecystectomy Social History Social History Housing: House Alcohol intake: never Patient Tobacco Use Status: Former Tobacco user Tobacco use type: Cigarette Years Smoked: quit 1997 Smoked in Last 30 Days: No e-Cigarette/Vaping Use: Never Used Second Hand Smoke Exposure: No Use of substances other than those prescribed or required for medical reasons: No Advance Directives: No Advance Directives Information Provided: No service: No Current occupational status: disabled Cognitive needs: No Hearing needs: No Vision needs: Yes Physical Exam ED Vital Signs: Vital Signs - 24 hr 10/22/23 17:05 10/22/23 18:30 10/22/23 19:42 Temperature 98 F Pulse Rate 89 87 Respiratory Rate 18 20 Blood Pressure 184/76 H 172/71 H Pulse Oximetry 91 L 94 92 Oxygen Delivery Method Room Air Nasal Cannula Room Air Oxygen Flow Rate 2 3 10/22/23 20:39 Temperature Pulse Rate Respiratory Rate 18 Blood Pressure Pulse Oximetry Oxygen Delivery Method Oxygen Flow Rate BMI result Body Mass Index 33.8 Patient is noted to be 90% on room air placed on nasal cannula Appearance: Alert.? Oriented X3.? No acute distress.?Speaking in full sentences. Head: Normocephalic, atraumatic, no step-offs or deformities Eyes: Pupils equal, round and reactive to light.? CVS: Normal heart rate and rhythm.? Pulses normal.? Respiratory: Shallow breathing. Pain with inspiration. Breath sounds present bilaterally. No wheezes. crackles, or rhonchi. Abdomen: Soft and nontender.? Skin: Skin warm and dry.? Normal skin color.? Normal skin turgor.?No ecchymosis. Extremities: No lower extremity edema.? No calf ttp. 5/5 strength to bilateral upper and lower extremities. 2+ brachial, radial, and ulnar pulses bilaterally. Tenderness to palpation of the right wrist and thumb. No snuff box tenderness bilaterally. Full ROM of upper and lower extremities. Pain of right ribs/flank with right sided straight leg raise. No sensory deficits of the b/l upper extremities. Back: No midline tenderness, no C-spine tenderness, full range of motion, no CVA tenderness bilaterally. Pain to palpation of the thoracic paraspinal muscles. + tenderness to palpation to all right-sided ribs anterior and laterally Neuro: Oriented X 3.? No motor deficit.? No sensory deficit. CN 2-12 intact . No saddle paresthesias Course Reevaluation(s) Reevaluation #1: CBC with leukocytosis likely secondary to fall/acute trauma. Chemistry elevated blood glucose gave fluids as well as insulin, repeat point of care improved. Magnesium 1.4 IV magnesium given. EKG nonischemic. Time: 16:00 Reevaluation #2: CT head and cervical spine no acute intracranial abnormalities and no acute abnormalities on cervical spine. CT abdomen and pelvis with mildly displaced fractures of the anterior segments of right 4th, 5th, 6th, 7th ribs and minimally displaced fractures of the posterior right 9th, 10th, 11th ribs. No pneumothorax is noted. There is also a asked noted in the right lower lobe, patient informed of this. This is concerning for malignancy. Marked distention of the stomach and moderate fluid distention of the thoracic esophagus findings represent likely gastroparesis or gastric outlet obstruction. And a longstanding irregular subcutaneous density along the left lower anterior abdominal wall has also been noted. At this time will call [facility] for trauma transfer patient aware of this plan Time: 21:16 Reevaluation #3: Patient will be a trauma transfer to [facility] Time: 21:17 Medications Administered Discontinued Medications Generic Name Dose Route Start Last Admin Trade Name Freq PRN Reason Stop Dose Admin Fentanyl 50 mcg 10/22/23 18:43 10/22/23 18:46 Fentanyl Citrate/Pf 100 Mcg/2 Ml Vial IVPUSH 10/22/23 18:44 50 mcg ONCE ONE Administration Protocol Hydromorphone HCl 1 mg 10/22/23 20:30 10/22/23 20:39 Hydromorphone Hcl 1 Mg/Ml Syringe IVPUSH 10/22/23 20:31 1 mg ONCE ONE Administration Protocol Magnesium Sulfate 2 gm in 50 mls @ 25 mls/hr 10/22/23 18:51 10/22/23 19:33 Magnesium Sulfate/H2o IV 10/22/23 20:50 25 mls/hr ONCE ONE Administration Sodium Chloride 1,000 mls @ 999 mls/hr 10/22/23 19:00 10/22/23 19:38 Ns IV 10/22/23 20:00 999 mls/hr .Q1H1M EVIN Administration Insulin Human Regular 5 unit 10/22/23 18:54 10/22/23 19:26 Insulin Regular, Human 100 Unit/Ml 3 Ml Vial IVPUSH 10/22/23 18:55 5 unit ONCE ONE Administration Iohexol 100 ml 10/22/23 19:16 10/22/23 19:16 Iohexol 350 Mg/Ml 100 Ml Infus..Btl IV 10/22/23 19:17 85 ml ONCE ONE Administration Lidocaine 1 patch 10/22/23 17:12 10/22/23 17:52 Lidocaine 4 % Patch Adh..Patch TRANSDERMA 10/22/23 17:13 1 patch ONCE ONE Administration Protocol Morphine Sulfate 4 mg 10/22/23 17:39 10/22/23 17:52 Morphine Sulfate 4 Mg/Ml Cartridge IVPUSH 10/22/23 17:40 4 mg ONCE ONE Administration Protocol Medical Decision Making Medical Decision Making [facility] Narrative: 68 year old female presents with right rib pain, SOB, and right wrist pain after falling down 3-4 steps today. No head strike or LOC. Not on thinners. PE revealed pain with inspiration, tenderness to palpation of the right flank, and all of right side ribs and right wrist Likely rib fracture, pneumothorax, pleuritis, wrist sprain, wrist fx unlikely PE, ARDS, pneumonia, pleural effusion, cauda equinae, threat to limb, septic joint, epidural abscess, OR. Will rule out traumatic injury to head, neck, chest, abdomen or pelvis nereyda: Labs, imaging, EKG Differential Diagnosis Differential Diagnoses: The differential diagnosis associated with the presentation includes Likely rib fracture, pneumothorax, pleuritis, wrist sprain, wrist fx unlikely PE, ARDS, pneumonia, pleural effusion, cauda equinae, threat to limb, septic joint, epidural abscess, OR Will rule out traumatic injury to head, neck, chest, abdomen or pelvis Admission/Observation Consideration of admission/observation: Escalation of care including admission/observation considered Likely Consult Healthcare Provider Management of the patient was discussed with: [facility]room ([facility] trauma ) Lab Data [facility] Lab Attestation statement: I reviewed the patient's lab results. 10/22/23 18:22 10/22/23 18:22 Labs: Lab Results 10/22/23 10/22/23 Range/Units 18:22 20:44 WBC 12.3 H (4.8-10.8) X10*3/uL RBC 4.65 (4.20-5.50) X10*6/uL Hgb 13.1 (12.0-16.0) g/dl Hct 38.4 (37.0-47.0) % MCV 82.6 (80.0-98.0) fL MCH 28.2 (27.0-33.0) pg MCHC 34.1 (31.0-35.0) g/dl RDW 12.2 (11.0-16.0) % Plt Count 281 (160-400) X10*3/uL MPV 10.0 (9.4-12.3) fL Immature Gran % (Auto) 0.9 H (0.0-0.4) % Neut % (Auto) 76.1 H (45-73) % Lymph % (Auto) 16.8 L (20-40) % [place] % (Auto) 4.7 (2-11) % Eos % (Auto) 1.1 (0-4) % Baso % (Auto) 0.4 (0-2) % Lymph # (Auto) 2.1 (1.2-4.9) X10*3/uL [place] # (Auto) 0.6 (0.1-1.2) X10*3/uL Eos # (Auto) 0.1 (0.0-0.4) X10*3/uL Baso # (Auto) 0.1 (0.0-0.2) X10*3/uL Abs Immat Gran (auto) 0.11 H (0.00-0.03) X10*3/uL Absolute Neuts (auto) 9.4 H (2.0-8.3) x10*3/uL Absolute Nucleated RBC 0.000 (0.0-0.012) X10*3/uL Nucleated RBC % (auto) 0.0 (0.0-0.2) /100WBC PT 11.5 (11.1-13.3) SEC INR 0.9 (0.9-1.1) Sodium 139 (135-145) mmol/L Potassium 3.9 (3.3-5.1) mmol/L Chloride 103 (96-108) mmol/L Carbon Dioxide 26 (22-29) mmol/L Anion Gap 14 (12-20) BUN 11 (9-16) mg/dL Creatinine 0.76 (0.5-1.4) mg/dL Estim Creat Clear Calc 73.0 Estimated GFR > 60 POC Glucose 306 H (60-115) mg/dL Random Glucose 398 H* (60-115) mg/dL Calcium 9.2 (8.4-10.2) mg/dL Magnesium 1.4 L* (1.6-2.6) mg/dL Total Bilirubin 0.3 (0.0-1.0) mg/dL AST 23 (5-31) U/L ALT 18 (0-31) U/L Alkaline Phosphatase 75 (39-117) U/L Total Creatine Kinase 124 (26-140) U/L Total Protein 7.1 (6.5-8.0) g/dL Albumin 3.8 (3.5-5.0) g/dL Independent Interpretation I performed an independent interpretation of an: EKG (Vent. Rate : 087 BPM Atrial Rate : 087 BPM P-R Int : 142 ms QRS Dur : 084 ms QT Int : 382 ms P-R-T Axes : 047 073 026 degrees QTc Int : 459 ms Normal sinus rhythm Normal ECG), Plain X-Ray (XR/XR hand wrist RT IMPRESSION: No acute fracture or malalignment. Mild to moderate degenerative changes.) and CT Scan ( CT/CT chest w IV con Impression: 1. Mildly displaced fractures of the anterior segments of the right 4, 5, 6, 7 ribs and minimally displaced fractures of the posterior segments of the right 9, 10, 11 ribs. No pneumothoraces or pleural effusions. 2. Mild centrilobular emphysema. 3. Indeterminat) Radiology Impression Discussion of test interpretation with radiology: I have reviewed the radiologist's reading. External Record Review External record reviewed: Inpatient record, Office record, Outpatient record, Prior outpatient labs, Prior outpatient radiology, Primary care record and Outside ED record Chronic Conditions Patient?s care impacted by: Diabetes and Hypertension Critical Care Time Critical Care Time Critical Care Time: Yes Total Critical Care Time: 60 Attestation: I attest to this time spent taking care of the patient, obtaining history, physical, reviewing labs, imaging, speaking to my attending, speaking to specialist. Discharge Plan Discharge Clinical Impression: Fall, Multiple fractures of ribs of right side, Lung mass Patient Disposition: Xfer [facility] Transfer Details: [facility] Trauma Transfer Dr. Varela Prescriptions: No Action (DME) blood-glucose meter [OneTouch Verio Meter] Misc See Rx Instructions .ROUTE .MEDSUPPLY Qty: 1 3RF Rx Instructions: As directed checked the blood sugar once a day cyanocobalamin (vitamin B-12) [Vitamin B-12] 1,000 mcg Tablet 1,000 mcg PO DAILY phenazopyridine [Pyridium] 200 mg tablet 200 mg PO TID 0 Days Qty: 6 0RF Mounjaro 2.5 mg/0.5 mL pen injector 2.5 mg subcut QWEEK 28 Days Qty: 2 3RF aspirin [Adult Aspirin Regimen] 81 mg tablet,delayed release (DR/EC) 81 mg PO DAILY (DME) OneTouch Verio test strips Strip See Rx Instructions .ROUTE .MEDSUPPLY Qty: 300 3RF Rx Instructions: As directed check the blood sugar three times a day (DME) lancets Misc See Rx Instructions .Route Qty: 300 3RF Rx Instructions: As directed check the blood sugar Three times aday insulin glargine [Lantus Solostar U-100 Insulin] 100 unit/mL (3 mL) insulin pen 10 unit subcut QPM Qty: 15 3RF atorvastatin 40 mg tablet 40 mg PO BEDTIME 90 Days Qty: 90 3RF glipizide 5 mg tablet 5 mg PO BID 90 Days Qty: 180 1RF metformin 1,000 mg tablet 1,000 mg PO BID 90 Days Qty: 180 3RF lisinopril 20 mg tablet 20 mg PO DAILY Qty: 90 3RF benzonatate 100 mg capsule 100 mg PO BID PRN (Reason: cough) 7 Days Qty: 14 0RF
--- NOTE | 2023-10-22 17:51 | ECG_ITS ---
Test Reason : FALL Blood Pressure : / mmHG Vent. Rate : 087 BPM Atrial Rate : 087 BPM P-R Int : 142 ms QRS Dur : 084 ms QT Int : 382 ms P-R-T Axes : 047 073 026 degrees QTc Int : 459 ms Normal sinus rhythm Normal ECG When compared with ECG of 09-NOV-2017 12:32, No significant change was found Referred By: Tan Davenport Electronically Signed By:ANTONINO MYERS
[2023-10-22] MEDS: Lidocaine 4 % Patch ADH..PATCH 1 PATCH TRANSDERMA (17:52)
[2023-10-22] MEDS: Morphine Sulfate 4 MG/ML CARTRIDGE IVPUSH (17:52)
[2023-10-22 18:26] LABS: MANUAL DIFF FLAG NO
[2023-10-22 18:30] VITALS: O2SAT 94
[2023-10-22 18:31] LABS: Basophils Absolute Auto 0.1 X10*3/uL (0.0-0.2); Basophils Percent Auto 0.4 % (0-2); Eosinophils Absolute Auto 0.1 X10*3/uL (0.0-0.4); Eosinophils Percent Auto 1.1 % (0-4); Hematocrit 38.4 % (37.0-47.0); Hemoglobin 13.1 g/dl (12.0-16.0); Imm Gran Abs Auto 0.11 X10*3/uL (0.00-0.03); Imm Gran Pct Auto 0.9 % (0.0-0.4); Lymphocytes Absolute Auto 2.1 X10*3/uL (1.2-4.9); Lymphocytes Percent Auto 16.8 % (20-40); Mean Corpuscular HGB Conc 34.1 g/dl (31.0-35.0); Mean Corpuscular Hemoglobin 28.2 pg (27.0-33.0); Mean Corpuscular Volume 82.6 fL (80.0-98.0); Monocytes Absolute Auto 0.6 X10*3/uL (0.1-1.2); Monocytes Percent Auto 4.7 % (2-11); Neutrophils Absolute Auto 9.4 x10*3/uL (2.0-8.3); Neutrophils Percent Auto 76.1 % (45-73); Platelet Count 281 X10*3/uL (160-400); Red Blood Count 4.65 X10*6/uL (4.20-5.50); Red Cell Distribution Width 12.2 % (11.0-16.0); White Blood Count 12.3 X10*3/uL (4.8-10.8)
[2023-10-22 18:35] LABS: INTERNATIONAL NORM RATIO 0.9 (0.9-1.1); Prothrombin Time 11.5 SEC (11.1-13.3)
[2023-10-22 18:46] LABS: Alanine Aminotransferase 18 U/L (0-31); Albumin Level 3.8 g/dL (3.5-5.0); Alkaline Phosphatase 75 U/L (39-117); Anion Gap 14 (12-20); Aspartate Amino Transferase 23 U/L (5-31); Bilirubin Total 0.3 mg/dL (0.0-1.0); Blood Urea Nitrogen 11 mg/dL (9-16); Calcium 9.2 mg/dL (8.4-10.2); Carbon Dioxide 26 mmol/L (22-29); Chloride 103 mmol/L (96-108); Estimated Glomerular Filt Rate > 60; Glucose Random 398 mg/dL (60-115); Magnesium 1.4 mg/dL (1.6-2.6); Potassium 3.9 mmol/L (3.3-5.1); Sodium 139 mmol/L (135-145); Total Protein 7.1 g/dL (6.5-8.0)
[2023-10-22] MEDS: fentaNYL citrate/PF 100 MCG/2 ML VIAL 50 MCG IVPUSH (18:46)
[2023-10-22] MEDS: iohexoL 350 MG/ML 100 ML INFUS..BTL IV (19:16)
[2023-10-22] MEDS: Insulin Regular, Human 100 UNIT/ML 3 ML VIAL IVPUSH (19:26)
[2023-10-22] MEDS: Magnesium Sulfate/H2O 2 GM/50 ML PIGGYBACK IV (19:33)
[2023-10-22] MEDS: 0.9 % Sodium Chloride 1,000 ML 999 ML IV (19:38)
[2023-10-22 19:42] VITALS: BP 172/71; PULSE 87; RESP 20; O2SAT 92
[2023-10-22 20:39] VITALS: RESP 18
[2023-10-22] MEDS: HYDROmorphone HCl 1 MG/ML SYRINGE IVPUSH ×2 (20:39→21:47)
[2023-10-22 20:59] LABS: Glucose, Whole Blood 306 mg/dL (60-115)
--- NOTE | 2023-10-22 21:15 | MHC.EDTECH ---
Called [facility] holly line @21:12 spoke to [place].
[2023-10-22 21:47] VITALS: RESP 20
[2023-10-22 21:50] VITALS: BP 181/87; PULSE 96; RESP 18; O2SAT 94
--- NOTE | 2023-10-22 22:14 | PC.NURSE ---
This bond writer assumed care of this Pt at 1900. Pt A&Ox3, reports 10/10 upper back and right rib pain. Pt medicated per JAN. reports medication not affective, Provider made aware, new orders given Per JAN. Spo2 02% on 2L. [place] [facility] [place] and family member aware of plan. RN to RN report given to Esdras, pt will be transported via [facility].
== END 2023-10-22 22:15 | disposition short-term general hospital (02) ==
PROVIDERS: Physician Assistant; Emergency Provider Internal Medicine
DX: S22.41XA Multiple fractures of ribs, right side, initial encounter for closed fracture (principal); W10.9XXA Fall (on) (from) unspecified stairs and steps, initial encounter; Y93.9 Activity, unspecified; Y92.9 Unspecified place or not applicable; Y99.9 Unspecified external cause status; R07.81 Pleurodynia; M25.531 Pain in right wrist; I10 Essential (primary) hypertension; E78.5 Hyperlipidemia, unspecified; D64.9 Anemia, unspecified; R06.02 Shortness of breath; R07.1 Chest pain on breathing; Z79.899 Other long term (current) drug therapy
CPT/HCPCS: 36415; 70450; 71260; 72125; 73110; 73130; 74177; 80053; 82550; 82947; 83735; 85025; 85610; 93005; 96365; 96366; 96375; 96376; 99285; J1170; J2270; J3010; J3475; Q9967

== ENCOUNTER → 2023-10-22 17:51 | Outpatient (BNV) | payer OTHER, SELFPAY | PROVIDERS: Emergency Provider Internal Medicine; Visit Provider Internal Medicine | DX: I10 Essential (primary) hypertension (principal); S22.41XA Multiple fractures of ribs, right side, initial encounter for closed fracture | CPT/HCPCS: 93010 ==

== ENCOUNTER 2023-11-09 08:20 | Outpatient (AMB) | payer OTHER, SELFPAY ==
--- NOTE | 2023-11-09 08:30 | MHC.OFFVIS ---
Intake Vital Signs 11/09/23 08:31 Height 5 ft 2 in Weight 178 lb BMI 32.6 BP 136/70 Blood Pressure Location Rt brachial Position Sitting Pulse 69 Pulse Source Pulse Oximeter Pulse Oximetry (%) 97 Oxygen Delivery Method Room Air Intake Visit Reasons: Other nonspecific abnormal finding of lung field [employer] Required: No Bail Bondsman: Bail Bondsman offered & declined Accompanied by: Spouse Allergies Sulfa (Sulfonamide Antibiotics) [SULFA (SULFONAMIDE ANTIBIOTICS)] Allergy (Intermediate, Verified 11/09/23 15:06) RASH exenatide [From BYETTA] Allergy (Unknown, Verified 11/09/23 15:06) VOMITTING Medication List - Last Reconciled 11/09/23 by Dayana Steele LPN atorvastatin 40 mg PO BEDTIME 90 days blood sugar diagnostic ([employer] Verio test strips) As directed check the blood sugar three times a day blood-glucose meter ([employer] Verio Meter) As directed checked the blood sugar once a day gabapentin 300 mg PO TID glipizide 5 mg PO BID 90 days ibuprofen 600 mg PO TID insulin glargine (Lantus Solostar U-100 Insulin) 10 units (0.1 mL) subcut QPM lancets As directed check the blood sugar Three times aday lisinopril 20 mg PO DAILY metformin 1,000 mg PO BID 90 days HPI Other nonspecific abnormal finding of lung field HPI Details Nitza is a pleasant 68 year old female, former smoker with 25 pack year history, quit 25 years ago, with underlying ADRIAN (can not tolerate CPAP) hypertension and DMII. She was referred after recent [facility] ED evaluation for abnormal chest CT. She was seen in the ED on 10/22 after a fall in which she sustained multiple rib fractures and chest CT revealed suspicious mass, report below. She was transferred from [facility] to [facility] as a trauma patient where recommendations for a PET scan were made. Unfortunately due to her insurance this was unable to be performed. Ultimately she was referred back to [facility], but [facility] does not take her insurance either. She denies any respiratory symptoms. She denies any fevers, chills, weight loss, or poor appetite. She reports prior history of basal cell carcinoma of the face, resected 10+ years ago, otherwise other personal history of cancer. She denies any pertinent family history. [facility] Medical History Lung mass Perianal mass Urinary tract infection Urinary tract infection Restless leg syndrome Obesity (BMI 30-39.9) Vitamin D deficiency Obstructive sleep apnea Hypertension Type 2 diabetes mellitus with hyperglycemia Hx of iron deficiency anemia Arthritis Hyperlipidemia Surgical History History of carpal tunnel release Hx of colonoscopy Hx of hysterectomy Hx of appendectomy History of cholecystectomy Social History Housing: House Alcohol intake: never Patient Tobacco Use Status: Former Tobacco user Tobacco use type: Cigarette Cigarette Packs Per Day: 1 Years Smoked: quit 1996 (25 years) e-Cigarette/Vaping Use: Never Used Second Hand Smoke Exposure: No service: No Current occupational status: disabled Cognitive needs: No Hearing needs: No Vision needs: Yes Review of Systems Const Denies chills, Denies excessive sweating, Denies fever(s), Denies headache(s) and Denies night sweats Eyes Denies dry eyes, Denies irritation and Denies itchy eyes ENT Reports Normal hearing present, Denies headache(s), Denies nasal congestion, Denies nasal discharge, Denies post nasal drip and Denies sore throat Card Denies chest pain, Denies chest pain at rest, Denies chest pain with activity, Denies claudication, Denies leg edema, Denies dyspnea, Denies dyspnea on exertion, Denies orthopnea and Denies paroxysmal nocturnal dyspnea Resp Denies chest congestion, Denies cough, Denies excessive phlegm production, Denies pain on inspiration, Denies pain with cough, Denies dyspnea, Denies dyspnea on exertion, Denies stridor and Denies wheezing Musc Denies myalgias Neuro Reports Normal hearing present and Denies headache(s) Endo Denies excessive sweating Arthur/Lymph Denies lymphadenopathy Aller/Immun Denies itchy eyes, Denies seasonal rhinorrhea and Denies wheezing Physical Exam Vital Signs: Last Vital Signs Pulse 69 11/09/23 08:31 BP 136/70 11/09/23 08:31 Pulse Ox 97 11/09/23 08:31 Oxygen Delivery Method Room Air 11/09/23 08:31 BMI result Body Mass Index 32.6 Const General: cooperative, healthy appearing, comfortable, no acute distress, well developed and alert Orientation/consciousness: patient oriented x3 Limitations: no limitations HEENT Head: Yes normal to inspection, Yes normocephalic and Yes atraumatic Ears: hearing grossly normal bilaterally and external ears normal Eyes General: appearance normal, both eyes and all related structures Eyelids: Yes eyelids normal Sclerae: sclerae normal EOM: EOMs intact bilaterally Neck Neck: Yes normal visual inspection and Yes no lymphadenopathy Lymphatic: no lymphadenopathy noted Chest Chest palpation & inspection: normal inspection of the chest Resp Effort & Inspection: normal respiratory effort, able to speak in complete sentences, no audible wheezes, no cough, no stridor, not tachypneic, no tripod positioning and no use of accessory muscles Auscultation: clear to auscultation bilaterally Cardio Jugular venous distension: no JVD Rate: regular rate Rhythm: abnormal rhythm Skin Other: warm, dry General skin exam: no rashes or lesions noted Neuro General: patient oriented x3 Cranial nerves: Yes Normal hearing present Cognition (Neuro): normal cognition Gait exam (Neuro): Normal gait present Extrem General: Yes normal to inspection, Yes capillary refill normal, Yes no clubbing, cyanosis or edema and Yes no pedal edema Psych Appearance: grossly normal and well kempt Speech and movement: Normal speech and movement present and Clear speech present Affect: normal affect Attitude: cooperative Thought process: Normal thought process present Thought content: Normal thought content present Insight: Good insight present (Psych) Judgement: Good judgement present (Psych) Results Reviewed Results Reviewed: [address] [address] [address] Scan Report Signed Patient: Naty Cooper MR#: [id number] : 1955 Acct:[id number] Age/Sex: 68 / F ADM Date: 10/22/23 Loc: HO.ED Attending Dr: Ordering Physician: Tan Davenport Date of Service: 10/22/23 Procedure(s): CT chest w IV con Accession Number(s): [id number] cc: Tan Davenport; Gibran Leong RN~ EXAMINATION: CT abdomen pelvis w IV con, CT chest w IV con CLINICAL INFORMATION: Right-sided abdominal pain status post fall. Trauma to ribs. COMPARISON: CT abdomen pelvis 09/23/2020 TECHNIQUE: IV contrast-enhanced CT of the chest, abdomen pelvis with multiple coronal and sagittal reformatted images. Intravenous Contrast: Omnipaque [address] examination was performed using dose optimization techniques as appropriate, variously including the following: *Automated exposure control *Adjustment of mA and/or kV according to patient size (this includes techniques or standardized protocols for targeted exams where dose is matched to indication/reason for exam; i.e. extremities or head) *Use of iterative reconstruction technique DLP: 1678.25 mGy-cm mGy-cm FINDINGS: Lungs and pleura: Mild bibasilar compressive atelectasis of the lungs is noted. No pulmonary consolidation, pneumothoraces or pleural effusions identified. Mild centrilobular emphysema noted. No endobronchial lesions identified. *A 2.5 cm x 2.0 cm x 2.8 cm intermediate density (22 Hounsfield units) is noted within the parasagittal right lower pulmonary lobe in continuity with the visceral pleural margin abutting the mediastinum (series 5 image 35) no evidence of invasion of the adjacent mediastinum. Mediastinum: The thoracic aorta demonstrates mild scattered calcific and noncalcific atherosclerotic plaques. No abnormal mediastinal fluid collections noted. Partial visualization made of moderate scattered coronary artery calcific atherosclerosis. Normal heart size. The thoracic esophagus demonstrates moderate diffuse fluid distention to a diameter of approximately 2.5 cm. CHEST WALL: No axillary lymphadenopathy. No soft tissue subcutaneous inflammatory changes. Liver: Minimal nonspecific periportal edema. Normal size and capsular contour. A Alex's lobe is noted. No perihepatic fluid collections. Biliary system: The gallbladder is not visualized. No biliary duct dilatation. Pancreas: Normal. Spleen: Normal. Adrenal glands: Normal. Kidneys: No hydronephrosis or urolithiasis. 4 mm interpolar rounded low-density focus within the right kidney which is too small to specifically characterize but is overwhelmingly likely to represent a benign, simple cyst and requires no additional imaging follow-up on the basis of this exam. Urinary bladder: Distended. No mural contour abnormalities. Pelvic viscera: Uterus is not visualized. The ovaries are normal in size. Benign-appearing dystrophic calcifications are associated with the right ovary. No ovarian cysts identified. Gastrointestinal system: No intestinal dilatation or mural thickening. The appendix is not visualized. No free intraperitoneal fluid or gas collections noted. Normal sigmoid mesentery and small bowel mesentery. Stomach demonstrates marked distention. No focal gastric mural contour abnormalities noted. Macroscopic fat density is noted non-dependently at multiple locations within the stomach and in the region of the first portion of duodenum likely representing ingested material. This finding is without a correlate on the comparison exams based on contemporaneous review and therefore may represent ingested material of uncertain clinical significance. Abdominal wall: A 2 cm irregular subcutaneous density is present within the left lower anterior abdominal wall unchanged compared with 08/24/2020 and may represent chronic scarring. No abdominal wall hernias. Abdominal and pelvic lymphovascular structures: Moderate-marked scattered calcific atherosclerosis. Normal abdominal aortic caliber. Osseous structures: Mildly displaced fractures of the anterior segments of the right 4, 5, 6, 7 ribs. Minimally displaced fractures of the posterior segments of the right 9, [address]/CT chest w IV con Impression: 1. Mildly displaced fractures of the anterior segments of the right 4, 5, 6, 7 ribs and minimally displaced fractures of the posterior segments of the right 9, 10, 11 ribs. No pneumothoraces or pleural effusions. 2. Mild centrilobular emphysema. 3. Indeterminate 2.5 cm x 2.0 cm x 2.8 cm intermediate density mass within the parasagittal right lower pulmonary lobe in continuity with the visceral pleural margin abutting the mediastinum. No evidence of invasion of the adjacent mediastinum. This finding is suspicious for bronchogenic neoplasm. Recommend consideration of further evaluation with PET/CT, tissue sampling or repeat CT at 3 months as clinically indicated. Recommendation based on the Fleischner Society guidelines. 4. Marked distention of the stomach and moderate fluid distention of the thoracic esophagus. Findings may represent gastroparesis or gastric outlet obstruction. No free intraperitoneal fluid or gas collections. 5. Moderate coronary artery calcific atherosclerosis. 6. Status post cholecystectomy. 7. Status post hysterectomy. 8. Nonvisualization of the appendix. Findings may represent prior appendectomy. 9. A 2 cm irregular subcutaneous density within the left lower anterior abdominal wall unchanged compared with 08/24/2020 and may represent chronic scarring. This result with particular regards to findings suspicious for neoplasm within the right lower pulmonary lobe, multiple rib fractures and gastric distention was discussed with Dr. Lennox MORENO by telephone at 10/22/2023 9:02 PM and it was ascertained that the content and urgency of the report was understood at the time of direct communication. Dictated By: Jean Vasquez MD Signed By: <Electronically signed by Jean Vasquez MD in OV> 10/22/23 3937 Assessment & Plan Assessment & Plan (1) Lung mass: Code(s): R91.8 - Other nonspecific abnormal finding of lung field (2) Multiple fractures of ribs of right side: Code(s): S22.41XA - Multiple fractures of ribs, right side, initial encounter for closed fracture (3) Obstructive sleep apnea: Comment: Cannot tolerate CPAP Code(s): G47.33 - Obstructive sleep apnea (adult) (pediatric) (4) Emphysema of lung: Code(s): J43.9 - Emphysema, unspecified Plan Naty presents with new findings of a 2.5 cm x 2.0 cm x 2.8 cm intermediate density (22 Hounsfield units) is noted within the parasagittal right lower pulmonary lobe. Our office reached out to [facility], who reportedly takes this patient's insurance. Will refer to thoracic surgery at [facility] with the plan for PET scan and further intervention, if needed. At this time, Naty denies any respiratory symptoms but will send for PFT for possible perioperative evaluation. On exam today patient with abnormal cardiac rhythm, will send for EKG to assess. All questions were answered and patient is in agreement of plan. Will follow up with patient to review PFT results and thoracic surgery input. Orders: Orders ECG 12 lead EKG Today I49.9 - Cardiac arrhythmia, unspecified PFT pulmonary function test Today J43.9 - Emphysema, unspecified, R91.8 - Other nonspecific abnormal finding of lung field Referrals Thoracic Surgery Referral R91.8 - Other nonspecific abnormal finding of lung field Coding Level of Care Code New Pt Level 4 (09941) Diagnoses Lung mass R91.8 Multiple fractures of ribs of right side S22.41XA Obstructive sleep apnea G47.33 Emphysema of lung J43.9
[2023-11-09 08:31] VITALS: BP 136/70; PULSE 69; O2SAT 97; BMI 32.6
== END 2023-11-09 09:15 | disposition home or self-care (01) ==
PROVIDERS: PCP Internal Medicine; Visit Provider Nurse Practitioner Family
DX: R91.8 Other nonspecific abnormal finding of lung field (principal); S22.41XA Multiple fractures of ribs, right side, initial encounter for closed fracture; G47.33 Obstructive sleep apnea (adult) (pediatric); J43.9 Emphysema, unspecified
CPT/HCPCS: 99204; 99214

== ENCOUNTER → 2023-11-09 08:20 | Outpatient (REF) | payer OTHER, SELFPAY ==
--- NOTE | 2023-11-09 10:02 | ECG_ITS ---
Test Reason : pt stated 7 broken ribs Blood Pressure : / mmHG Vent. Rate : 078 BPM Atrial Rate : 078 BPM P-R Int : 124 ms QRS Dur : 084 ms QT Int : 378 ms P-R-T Axes : 057 055 042 degrees QTc Int : 430 ms Normal sinus rhythm with sinus arrhythmia Normal ECG When compared with ECG of 22-OCT-2023 18:08, No significant change was found Referred By: Columba George Electronically Signed By:ANTONINO MYERS
== END ==
LOC: HO.CARD 08:20
PROVIDERS: PCP Internal Medicine; Visit Provider Nurse Practitioner Family
DX: I49.9 Cardiac arrhythmia, unspecified (principal); R91.8 Other nonspecific abnormal finding of lung field
CPT/HCPCS: 93005; 99202

== ENCOUNTER → 2023-11-09 10:02 | Outpatient (BNV) | payer OTHER, SELFPAY | PROVIDERS: PCP Internal Medicine; Visit Provider Internal Medicine | DX: I49.9 Cardiac arrhythmia, unspecified (principal) | CPT/HCPCS: 93010 ==

== ENCOUNTER 2023-11-09 15:03 | Outpatient (AMB) | payer OTHER, SELFPAY ==
[2023-11-09 15:05] VITALS: BP 152/74; PULSE 72; O2SAT 98; BMI 32.4
--- NOTE | 2023-11-09 15:05 | MHC.PC.OV ---
Vital Signs 11/09/23 15:05 Height 5 ft 2 in Weight 80.286 kg BMI 32.4 BP 152/74 H Blood Pressure Location Lt brachial Position Sitting Pulse 72 Pulse Source Pulse Oximeter Pulse Oximetry (%) 98 Oxygen Delivery Method Room Air Intake Visit Reasons: seven broken ribs mass in lungs 10/23-10/25 [employer] Manager Required: No Account Liaison: Not Required per policy Accompanied by: Self / Same As Patient Allergies Sulfa (Sulfonamide Antibiotics) [SULFA (SULFONAMIDE ANTIBIOTICS)] Allergy (Intermediate, Verified 11/15/23 08:32) RASH exenatide [From BYETTA] Allergy (Unknown, Verified 11/15/23 08:32) VOMITTING Medication List - Last Reconciled 11/17/23 by FANY Gonzalez atorvastatin 40 mg PO BEDTIME 90 days blood sugar diagnostic (OneTouch Verio test strips) As directed check the blood sugar three times a day blood-glucose meter (OneTouch Verio Meter) As directed checked the blood sugar once a day dulaglutide (Trulicity) 0.75 mg (0.5 mL) subcut QWEEK gabapentin 300 mg PO TID glipizide 5 mg PO BID 90 days ibuprofen 600 mg PO TID lancets As directed check the blood sugar Three times aday lisinopril 20 mg PO DAILY metformin 1,000 mg PO BID 90 days Tobacco use date assessed: 01/14/23 Fall risk assessment: 2 + Falls in past year Last assessed Fall Risk: 11/09/23 Dental Screening Dental Screen Date: 11/09/23 Did you have a dental visit in the last 12 months?: Yes Did you have a dental problem in the last 6 months where you did not have access to dental care?: No Was dental information given to patient?: Patient has dentist HPI HPI Comments History of Present Illness Details 68-year-old female with history of type 2 diabetes, hyperlipidemia, hypertension, ADRIAN among others presents to the office today accompanied by her for post hospital discharge follow-up. Discharge medications reviewed and reconciled. The patient was initially seen at [facility] ED following a mechanical fall on 10/23. She states while moving furniture, her leg got caught and she fell down 3-4 steps. There was no head strike or loss of consciousness. CT chest while in the ED revealed mildly displaced fractures of the anterior segments of the right 4, 5, 6, 7 ribs and minimally displaced fractures of the posterior segments of the right 9, 10, 11 ribs but no pneumothorax or pleural effusions. Incidentally seen was an indeterminate 2.5 cm x 2 point cm by 2.6 cm intermediate density mass within the parasagittal right lower pulmonary lobe and continue ED with the visceral pleural margin abutting the mediastinum without invasion of the adjacent mediastinum concerning for bronchogenic neoplasm. Additional injury including CT of the head/cervical spine and x-ray of the hand/wrist negative for any acute intracranial or osseous abnormality. She was transferred to [facility] for further trauma evaluation. Upon arrival to [facility], patient was slightly hypoxic requiring supplemental O2 and was only pulling 250 on incentive spirometry. She is admitted to ICU for close monitoring but improved in downgraded to medical floors. Thoracic surgery was consulted for pulmonary mass and did not recommend surgical intervention at the time but recommended outpatient lung biopsy of the mass as well as PET scan. She has bene managing pain with gabapentin and ibuprofen reports pain still 8/10, but not keen on narcotic medication. Continues with IS at home. No sob. Had repeat xray ribs today at [facility] and reports PET scan is being set up through [facility]. Per , pt is supposed is supposed ot use cane, but pt does not use this. While admitted, patient was noted to be quite hyperglycemic and was evaluated by endocrinology neck amending 13 units of Lantus daily and continuation of metformin with increase the glipizide to 5 mg twice daily with meals. Hemoglobin A1c was significantly elevated at 12.0%. The patient reports she has been compliant with insulin and oral antihyperglycemic agents. She states that her fasting glucose levels are ?normal?, 140 max . She only checks glucose levels once daily. She reports compliance with diabetic diet. [facility] Medical History Lung mass Perianal mass Urinary tract infection Urinary tract infection Restless leg syndrome Obesity (BMI 30-39.9) Vitamin D deficiency Obstructive sleep apnea Hypertension Type 2 diabetes mellitus with hyperglycemia Hx of iron deficiency anemia Arthritis Hyperlipidemia Surgical History History of carpal tunnel release Hx of colonoscopy Hx of hysterectomy Hx of appendectomy History of cholecystectomy Social History Housing: House Alcohol intake: never Patient Tobacco Use Status: Former Tobacco user Tobacco use type: Cigarette Cigarette Packs Per Day: 1 Years Smoked: quit 1996 (25 years) e-Cigarette/Vaping Use: Never Used Second Hand Smoke Exposure: No service: No Current occupational status: disabled Cognitive needs: No Hearing needs: No Vision needs: Yes Questionnaire Thrive Questionnaire Date Thrive assessed: 01/14/23 LASHA-7 AMB Questionnaire LASHA-7 Date LASHA - 7 assessed: 01/14/23 Source: Developed by Drs. Luke Marie, Audrey Faustin, Ab Kaur and colleagues, with an educational cliff from [email or web address]. Review of Systems Const All systems reviewed & are unremarkable except as noted in HPI and below Physical exam (Primary Care) Vital Signs: Last Vital Signs Pulse 72 11/09/23 15:05 BP 152/74 H 11/09/23 15:05 Pulse Ox 98 11/09/23 15:05 Oxygen Delivery Method Room Air 11/09/23 15:05 BMI result Body Mass Index 32.4 Tobacco/Smoking Status: Tobacco use Status Tobacco use date assessed 01/14/23 11/09/23 15:11 Patient Tobacco Use Status Former Tobacco user 11/09/23 15:11 Tobacco use type Cigarette 11/09/23 15:11 e-Cigarette/Vaping Use Never Used 11/09/23 15:11 Thrive Assessment: Date of Thrive Assessment Date Thrive assessed 01/14/23 11/09/23 15:11 Const Other: Constitutional - Awake and Alert, No apparent distress Eyes - PERRLA, EOMI Cardiovascular - S1S2, RRR, No edema Respiratory - Normal lung expansion, Normal respiratory effort, No respiratory distress, CTA bilaterally, good inspiratory and expiratory efforts and air movement Chest - ttp with lightly palpation right ribs, no crepitus noted Skin - Warm/Dry Neurological - Alert & oriented x3 Psychological - Appropriate affect, Results Reviewed Results Reviewed: [facility]: Head CT, cervical spine CT, x-ray hand/wrist, chest CT, ED report. [facility]: CXR, H and P, discharge summary, thoracic surgery consult, CBC, BMP, hemoglobin A1c Assessment and Plan Assessment & Plan (1) Lung mass: Comment: October 2023Heterogenous soft tissue mass in the anteromedial right lower lobe 3.6 x 2.4 x 3.1 cm. Code(s): R91.8 - Other nonspecific abnormal finding of lung field Plan: CT chest reviewed revealing large heterogenous soft tissue mass in the anteromedial right lower lobe without infiltration of the mediastinum concerning for malignancy. Per patient, she has not yet been referred to thoracic surgery and referral is placed for urgent biopsy. Per patient report, she is being set up for PET scan through [facility]. Recommend close follow-up with PCP in 1-2 months. (2) Multiple fractures of ribs of right side: Comment: October 2023Mildly displaced fracture anteromedial right 6th rib with additional nondisplaced fracture of the anterolateral right 4th 5th 7th rib minimally displaced fracture posterior right 8th rib with a nondisplaced posterior right 9th rib fracture and a possible nondisplaced fracture of posterior right 10th rib Code(s): S22.41XA - Multiple fractures of ribs, right side, initial encounter for closed fracture Plan: Appear to be healing routinely. Repeat x-ray from [facility] reviewed which did not reveal any fractures that were noted to be mildly displaced on chest CT at [facility]. There is good inspiratory and expiratory effort with good air movement. She is encouraged to continue with incentive spirometry to prevent pneumonia/pneumothorax. Pain is not well controlled per patient who she has not been taking any narcotic medication that has been prescribed. She can continue gabapentin and ibuprofen as well as Tylenol. However she is prescribed a short course of oxycodone 5 mg to use as needed for severe pain. She is aware and is counseled on addictive properties of these medications and should only use as prescribed. Mass Pat is reviewed and is appropriate. Has not had any recurrent falls (3) Type 2 diabetes mellitus with hyperglycemia: Comment: Dr. Rendon Code(s): E11.65 - Type 2 diabetes mellitus with hyperglycemia Qualifiers: Diabetes mellitus fci insulin use: with terminal make up operator use Qualified Code(s): E11.65 - Type 2 diabetes mellitus with hyperglycemia; Z79.4 - intermediate (current) use of insulin Plan: Uncontrolled with hemoglobin A1c of 12.0%. Patient report, fasting glucose levels are around 130-140 with goal being 90-130. Suspect levels are likely higher given A1c. However, will continue insulin glargine 10 units to prevent fasting hypoglyemia. Recommended checking prandial glucose levels and adding insulin on sliding scale but patient declines this. She is agreeable to trialing trulicity and is prescribed 0.75mg trulicity weekly. Advised to continue metformin 1000 mg b.i.d. and glipizide 5 mg b.i.d.. Counseled on diabetic diet. She is educated on the risk of uncontrolled hyperglycemia including retinopathy, neuropathy, chronic kidney disease/failure, cardiovascular disease, stroke, among others and strict compliance with diabetic diet and antihyperglycemic medications advised. Advised to follow up in 1-2 months with PCP for repeat hemoglobin A1c. (4) Fall: Code(s): W19.XXXA - Unspecified fall, initial encounter Plan: Patient reports mechanical fall resulting in multiple mildly displaced rib fractures. Thankfully all other imaging negative for intracranial abnormality or osseous abnormality. She reports her feet ?gets stuck? or ?stick? when walking. Peripheral neuropathy is likely contributory. Advised that she should be using an assistive device to prevent falls, but patient declines. She also declines physical therapy. Continue gabapentin 300mg tid. Orders: Referrals Thoracic Surgery Referral R91.8 - Other nonspecific abnormal finding of lung field Medications: New oxycodone Partial Fill upon patient request. 5 mg PO Q8H PRN 7 tabs 0RF pain insulin glargine (Basaglar KwikPen U-100 Insulin) 10 units (0.1 mL) subcut DAILY 15 mL 2RF dulaglutide (Trulicity) 0.75 mg (0.5 mL) subcut QWEEK 2 mL 0RF Discontinued insulin glargine Discontinued Reason: Doctor's Order 10 units (0.1 mL) subcut QPM 15 mL 3RF E11.65 - Type 2 diabetes mellitus with hyperglycemia, Z79.4 - intermediate (current) use of insulin Coding Level of Care Code Est Pt Level 5 (07907) Diagnoses Lung mass R91.8 Multiple fractures of ribs of right side S22.41XA Type 2 diabetes mellitus with hyperglycemia, with long-term current use of insulin E11.65; Z79.4 Diabetes mellitus fci insulin use: with terminal make up operator use Fall W19.XXXA Time Spent (min) 50 Comment time spent reviewing as above, interview with pt/, documentation time
== END 2023-11-09 15:43 | disposition home or self-care (01) ==
PROVIDERS: PCP Internal Medicine; Visit Provider Physician Assistant
DX: S22.41XA Multiple fractures of ribs, right side, initial encounter for closed fracture (principal); W19.XXXA Unspecified fall, initial encounter; R91.8 Other nonspecific abnormal finding of lung field; E11.65 Type 2 diabetes mellitus with hyperglycemia
CPT/HCPCS: 99215

== ENCOUNTER 2023-11-15 08:23 | Outpatient (AMB) | payer OTHER, SELFPAY ==
--- NOTE | 2023-11-15 08:26 | A.OFFVIS_ITS ---
Intake Vital Signs 11/15/23 08:34 Height 5 ft 2 in Weight 177 lb BMI 32.4 Blood Pressure Location Rt brachial Position Sitting Pulse 77 Intake Visit Reasons: abnormal findings lung field Intake Note: Patient referred by PCP Dr. Oconnor for abnormal findings in lung field. [facility] [place] on 10/24/23. Due to insurance denial PET scan rescheduled to [facility]. Currently waiting to hear if [facility] accepts health insurance. Patient c/o: gets tired. Reports breathing okay. Accompanied by: Spouse Allergies Sulfa (Sulfonamide Antibiotics) [SULFA (SULFONAMIDE ANTIBIOTICS)] Allergy (Intermediate, Verified 11/15/23 08:32) RASH exenatide [From BYETTA] Allergy (Unknown, Verified 11/15/23 08:32) VOMITTING Medication List - Last Reconciled 11/15/23 by Carlos Muse MD atorvastatin 40 mg PO BEDTIME 90 days blood sugar diagnostic (Flittouch Verio test strips) As directed check the blood sugar three times a day blood-glucose meter (Flittouch Verio Meter) As directed checked the blood sugar once a day dulaglutide (Trulicity) 0.75 mg (0.5 mL) subcut QWEEK gabapentin 300 mg PO TID glipizide 5 mg PO BID 90 days ibuprofen 600 mg PO TID lancets As directed check the blood sugar Three times aday lisinopril 20 mg PO DAILY metformin 1,000 mg PO BID 90 days HPI HPI Comments History of Present Illness Details Patient presents with her status post for a fall recently where she sustained right multiple rib fractures. Workup at that time including CT scan chest done at [place] as well as [facility] demonstrated along with the rib fractures a right lower lobe medially located lung mass/process. Patient has a very distant smoking history. She denies any cough, hemoptysis, chest pain, or wheezing. Weight is stable. Energy is good. She has had modest improvement of her right costal pain. No acute respiratory symptoms. [facility] Medical History Lung mass Perianal mass Urinary tract infection Urinary tract infection Restless leg syndrome Obesity (BMI 30-39.9) Vitamin D deficiency Obstructive sleep apnea Hypertension Type 2 diabetes mellitus with hyperglycemia Hx of iron deficiency anemia Arthritis Hyperlipidemia Surgical History History of carpal tunnel release Hx of colonoscopy Hx of hysterectomy Hx of appendectomy History of cholecystectomy Social History Housing: House Alcohol intake: never Patient Tobacco Use Status: Former Tobacco user Tobacco use type: Cigarette Cigarette Packs Per Day: 1 Years Smoked: quit 1996 (25 years) e-Cigarette/Vaping Use: Never Used Second Hand Smoke Exposure: No service: No Current occupational status: disabled Cognitive needs: No Hearing needs: No Vision needs: Yes Physical Exam Vital Signs: Last Vital Signs Pulse 77 11/15/23 08:34 BMI result Body Mass Index 32.4 Chest Other: Chest sounds bilaterally, HS 1 and 2. No cervical periclavicular or axillary adenopathy. GI Other: Abdomen soft, benign, moderately corpulent Assessment & Plan Assessment & Plan (1) Lung mass: Comment: October 2023Heterogenous soft tissue mass in the anteromedial right lower lobe 3.6 x 2.4 x 3.1 cm. Code(s): R91.8 - Other nonspecific abnormal finding of lung field Plan Her reviewed patient's CT scans, the current recommendation per Radiology among others is for a PET-CT scan, and further interventions studies will be directed by the results of this. Patient will see me after the study. All questions answered. Coding Level of Care Code New Pt Level 5 (19235) Diagnoses Lung mass R91.8
[2023-11-15 08:34] VITALS: PULSE 77; BMI 32.4
== END 2023-11-15 08:58 | disposition home or self-care (01) ==
PROVIDERS: PCP Internal Medicine; Visit Provider Surgery
DX: R91.8 Other nonspecific abnormal finding of lung field (principal)
CPT/HCPCS: 99204; 99214

== ENCOUNTER → 2023-11-15 08:23 | Outpatient (BNVA) | payer OTHER, SELFPAY | PROVIDERS: PCP Internal Medicine; Visit Provider Surgery | DX: R91.8 Other nonspecific abnormal finding of lung field (principal) | CPT/HCPCS: 99202 ==

== ENCOUNTER 2023-12-06 09:41 | Outpatient (REF) | payer OTHER, SELFPAY ==
--- NOTE | 2023-12-06 10:48 | PFT_ITS ---
Flows: FEV1: 92 % of predicted at 1.98 L FVC: 90 % of predicted at 2.47 L FEV1/FVC: 80 % Bronchodilator response: Absent Volumes: Total lung capacity: 86 % of predicted at 4.03 L Residual volume: 88 % of predicted at 1.53 L Slow vital capacity: 85 % of predicted at 2.49 L Expiratory reserve volume: 99 % of predicted at 0.69 L Diffusion capacity: Normal Impression: No obstructive or restrictive ventilatory defect. No bronchodilator response. Normal pulmonary function test. MTDD
== END 2023-12-06 09:42 | disposition home or self-care (01) ==
LOC: HO.RESP 09:41
PROVIDERS: PCP Internal Medicine; Visit Provider Nurse Practitioner Family
DX: J43.9 Emphysema, unspecified (principal); R91.8 Other nonspecific abnormal finding of lung field
CPT/HCPCS: 94010; 94727; 94729

== ENCOUNTER → 2023-12-06 10:48 | Outpatient (BNV) | payer OTHER, SELFPAY | PROVIDERS: PCP Internal Medicine; Visit Provider Internal Medicine Pulmonary Disease | DX: J43.9 Emphysema, unspecified (principal); R91.8 Other nonspecific abnormal finding of lung field | CPT/HCPCS: 94060; 94727; 94729 ==

== ENCOUNTER 2023-12-26 10:54 | Outpatient (AMB) | payer OTHER, SELFPAY ==
[2023-12-26 11:05] VITALS: BP 187/82; PULSE 77; BMI 32.9
--- NOTE | 2023-12-26 11:05 | MHC.OFFVIS ---
Intake Vital Signs 12/26/23 11:05 Height 5 ft 2 in Weight 180 lb BMI 32.9 BP 187/82 H Blood Pressure Location Rt brachial Position Sitting Pulse 77 Intake Visit Reasons: Lung mass, Pet scan results Intake Note: Patient here to discuss PET scan results. PET scan on 12-19-23. Patient c/o: feeling nervous. 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 PET scan demonstrates an isolated reactive mass of the right lower lobe consistent with lung primary. No other evidence of mediastinal distal disease. Patient is PFT's were very good. [facility] Medical History Lung mass Perianal mass Urinary tract infection Urinary tract infection Restless leg syndrome Obesity (BMI 30-39.9) Vitamin D deficiency Obstructive sleep apnea Hypertension Type 2 diabetes mellitus with hyperglycemia Hx of iron deficiency anemia Arthritis Hyperlipidemia Surgical History History of carpal tunnel release Hx of colonoscopy Hx of hysterectomy Hx of appendectomy History of cholecystectomy Social History Housing: House Alcohol intake: never Patient Tobacco Use Status: Former Tobacco user Tobacco use type: Cigarette Cigarette Packs Per Day: 1 Years Smoked: quit 1996 (25 years) e-Cigarette/Vaping Use: Never Used Second Hand Smoke Exposure: No service: No Current occupational status: disabled Cognitive needs: No Hearing needs: No Vision needs: Yes Physical Exam Vital Signs: Last Vital Signs Pulse 77 12/26/23 11:05 BP 187/82 H 12/26/23 11:05 BMI result Body Mass Index 32.9 Neck Other: No cervical, periclavicular, or axillary adenopathy. Chest Other: Chest breath sounds bilaterally, HS 1 in 2 GI Other: Abdomen is soft, benign Assessment & Plan Assessment & Plan (1) Lung mass: Comment: October 2023Heterogenous soft tissue mass in the anteromedial right lower lobe 3.6 x 2.4 x 3.1 cm. Code(s): R91.8 - Other nonspecific abnormal finding of lung field Plan Very thorough discussion was had with the patient and her significant other about the therapeutic options. I do not think observation is with serial CT scans 1 of them. Other options are IR biopsy which is probably not amenable in this situation because of the proximity of this lesion to the heart. But current recommendation is for VATS wedge resection right lower lobe lung mass and direct further therapy based on these results. This process if indeed malignant would require right lower lobe lobectomy thoroscopically possible open/thoracotomy. Risks, benefits, alternatives of the procedure were extensively reviewed and included but not limited to bleeding, infection, numbness, pain, scarring and the patient wishes to proceed. All questions answered. Arrangements were made for this. Coding Level of Care Code Est Pt Level 5 (94701) Diagnoses Lung mass R91.8
== END 2023-12-26 11:30 | disposition home or self-care (01) ==
PROVIDERS: PCP Internal Medicine; Visit Provider Surgery
DX: R91.8 Other nonspecific abnormal finding of lung field (principal)
CPT/HCPCS: 99215

== ENCOUNTER → 2023-12-26 10:54 | Outpatient (BNVA) | payer OTHER, SELFPAY | PROVIDERS: PCP Internal Medicine; Visit Provider Surgery | DX: R91.8 Other nonspecific abnormal finding of lung field (principal) | CPT/HCPCS: 99212 ==

== ENCOUNTER 2024-01-02 15:42 | Outpatient (AMB) | payer OTHER, SELFPAY ==
[2024-01-02 15:55] VITALS: BP 186/84; PULSE 64; O2SAT 98; BMI 33.0
--- NOTE | 2024-01-02 15:55 | MHC.PC.OV ---
Vital Signs 01/02/24 15:55 Height 5 ft 2 in Weight 180 lb 6 oz BMI 33.0 BP 186/84 H Blood Pressure Location Lt brachial Position Sitting Pulse 64 Pulse Source Pulse Oximeter Pulse Oximetry (%) 98 Oxygen Delivery Method Room Air Intake Visit Reasons: diabetes Intake Note: The patient is present for a preoperative evaluation regarding lung cancer surgery scheduled with Dr. Muse on January 19, 2024. If indeed malignant, the procedure may necessitate a right lower lobe lobectomy, which could be performed thoracoscopically or via open/thoracotomy. Environmental Services Tech Required: No Accompanied by: Spouse Allergies Sulfa (Sulfonamide Antibiotics) [SULFA (SULFONAMIDE ANTIBIOTICS)] Allergy (Intermediate, Verified 01/02/24 16:14) RASH exenatide [From BYETTA] Allergy (Unknown, Verified 01/02/24 16:14) VOMITTING Medication List - Last Reconciled 01/02/24 by Jakub Guzmán PA-C atorvastatin 40 mg PO BEDTIME 90 days blood sugar diagnostic (OneTouch Verio test strips) As directed check the blood sugar three times a day blood-glucose meter (OneTouch Verio Meter) As directed checked the blood sugar once a day gabapentin 300 mg PO TID glipizide 5 mg PO BID 90 days ibuprofen 600 mg PO TID insulin glargine (Lantus Solostar U-100 Insulin) 10 units (0.1 mL) subcut QPM lancets As directed check the blood sugar Three times aday lisinopril 20 mg PO DAILY metformin 1,000 mg PO BID 90 days Tobacco use date assessed: 01/02/24 HPI diabetes HPI Details Patient is a 68-year-old female here today for follow visit. Patient is due for lung resection/biopsy on January 18. She was told she needed to follow-up with her PCP for stabilization of her hyperglycemia. She does understand she needs to get her sugars better controlled to lower her risk of postop complications. This is the 1st time I am meeting this 68-year-old female with a past medical history significant for type 2 diabetes, hypertension, obesity, obstructive sleep apnea. Type 2 diabetes: Has been suboptimally controlled for quite while now. Has been on Lantus 10 units though feels her blood sugars are still elevated. Today's A1c at 11.3. She otherwise denies any fatigue, polydipsia, polyuria. PLAN: Will commence preprandial insulin via sliding scale for better control of her blood sugars. Will also increase her Lantus to 16 units daily PFS Medical History Lung mass Perianal mass Urinary tract infection Urinary tract infection Restless leg syndrome Obesity (BMI 30-39.9) Vitamin D deficiency Obstructive sleep apnea Hypertension Type 2 diabetes mellitus with hyperglycemia Hx of iron deficiency anemia Arthritis Hyperlipidemia Surgical History History of carpal tunnel release Hx of colonoscopy Hx of hysterectomy Hx of appendectomy History of cholecystectomy Social History Housing: House Alcohol intake: never Patient Tobacco Use Status: Former Tobacco user Tobacco use type: Cigarette Cigarette Packs Per Day: 1 Years Smoked: quit 1996 (25 years) e-Cigarette/Vaping Use: Never Used Second Hand Smoke Exposure: No service: No Current occupational status: disabled Cognitive needs: No Hearing needs: No Vision needs: Yes Questionnaire PHQ-9 Over the last 2 weeks, how often have you been bothered by any of the following problems? 1. Little interest or pleasure in doing things: not at all 2. Feeling down, depressed, or hopeless: not at all 3. Trouble falling or staying asleep, or sleeping too much: not at all 4. Feeling tired or having little energy: not at all 5. Poor appetite or overeating: not at all 6. Feeling bad about yourself - or that you are a failure or have let yourself or your family down: not at all 7. Trouble concentrating on things, such as reading the newspaper or watching television: not at all 8. Moving or speaking so slowly that other people could have noticed. Or the opposite - being so fidgety or restless that you have been moving around a lot more than usual: not at all 9. Thoughts that you would be better off or of hurting yourself in some way: not at all Total score: 0 Depression Screening Interpretation: Negative Depression Screening Done: Yes 40110 - PHQ-9 Billing: Yes Source: Developed by Drs. Luke Marie, Audrey B.WAb Martinez and colleagues, with an educational cliff from [employer]. Thrive Questionnaire Date Thrive assessed: 01/02/24 I am a: Patient What is your living situation today?: I have a steady place to live Within the past 12 months, did the food you bought not last and you didn't have the money to get more?: Never true Within the past 12 months, did you worry whether your food would run out before you got money to buy more?: Never true Do you have trouble paying for medicines?: No Do you have trouble getting transportation to medical appointments?: No Do you have trouble paying your heating and electricity bill?: No Do you have trouble taking care of your child, family member or friend?: No Do you have trouble with day-to-day activities such as bathing, preparing meals, shopping, managing finances, etc.?: No Are you currently unemployed and looking for a job?: No Are you interested in more education?: No Please select the resources that you would like help with: None Currently or been in a relationship where the following occur: no concerns reported THRIVE Score: 0 AUDIT C Alcohol Use Questionnaire (AUDIT-C) 1. How often do you have a drink containing alcohol?: Never 3. How often do you have six or more drinks on one occasion?: Never Total Score: 0 LASHA-7 AMB Questionnaire LASHA-7 Date LASHA - 7 assessed: 01/02/24 Feeling nervous, anxious, or on edge: 0 = Not at all Not being able to stop or control worryin = Not at all Worrying too much about different things: 0 = Not at all Trouble relaxin = Not at all Being so restless that it is hard to sit still: 0 = Not at all Becoming easily annoyed or irritable: 0 = Not at all Feeling afraid as if something awful might happen: 0 = Not at all Total LASHA-7 score (0-4 normal; 5-9 mild; 10-14 moderate; 15-21 severe): 0 Source: Developed by Drs. Luke Marie, Ab Sampson and colleagues, with an educational cliff from [employer]. LASHA-7 Assessment Billing LASHA-7 Assessment Tool: LASHA-7 Assessment 67167 Review of Systems Const Denies headache(s) Eyes Denies loss of vision ENT Denies vertigo, Denies dizziness, Denies headache(s) and Denies sore throat Card Denies chest pain, Denies leg edema and Denies lightheadedness Resp Denies cough, Denies hemoptysis and Denies wheezing GI Denies abdominal pain, Denies melena, Denies constipation, Denies diarrhea and Denies vomiting Denies urinary frequency, Denies dysuria and Denies urinary urgency Musc Denies arthralgias, Denies joint swelling, Denies numbness and Denies tingling Neuro Denies Abnormal speech present, Denies behavioral changes, Denies vertigo, Denies dizziness, Denies headache(s), Denies loss of vision, Denies memory loss, Denies numbness and Denies tingling Psych Denies anxiety, Denies behavioral changes, Denies depression, Denies memory loss and Denies panic attacks Arthur/Lymph Denies easy bleeding and Denies easy bruising Aller/Immun Denies wheezing Physical exam (Primary Care) Vital Signs: Last Vital Signs Pulse 64 01/02/24 15:55 BP 186/84 H 01/02/24 15:55 Pulse Ox 98 01/02/24 15:55 Oxygen Delivery Method Room Air 01/02/24 15:55 BMI result Body Mass Index 33.0 Tobacco/Smoking Status: Tobacco use Status Tobacco use date assessed 01/02/24 01/02/24 16:08 Patient Tobacco Use Status Former Tobacco user 01/02/24 15:57 Tobacco use type Cigarette 01/02/24 15:57 e-Cigarette/Vaping Use Never Used 01/02/24 15:57 PHQ-9: PHQ-9 Score PHQ-9: Total score 0 01/02/24 16:15 Depression Screening Interpretation: Negative Thrive Assessment: Date of Thrive Assessment Date Thrive assessed 01/02/24 01/02/24 16:11 Currently or been in a relationship where the following occur: no concerns reported Const General: healthy appearing, no acute distress, alert and awake Nutritional Appearance: well nourished Orientation/consciousness: oriented to person, oriented to place and oriented to time HENMT Ears: TM's normal bilaterally General nose exam: Normal nasal mucous membranes and turbinates present Eyes Conjunctivae: conjunctivae normal Sclerae: sclerae normal Pupils: Equal, round and reactive pupils present Neck Neck: Yes no lymphadenopathy and Yes no JVD Thyroid: Thyroid normal Carotids: no bruits Resp Effort & Inspection: normal respiratory effort and not tachypneic Auscultation: no crackles, no rales, no rhonchi and no wheezes Cardio Rate: regular rate Rhythm: regular rhythm Heart sounds: no murmurs and normal S1 and S2 GI Palpation (GI): Soft to palpation, nontender, no hepatomegaly and no splenomegaly Auscultation: normal bowel sounds Skin General skin exam: no rashes or lesions noted and dry skin Neuro General: oriented to person, oriented to place and oriented to time Cranial nerves: Yes Equal, round and reactive pupils present Speech: No Abnormal speech present Gait exam (Neuro): Normal gait present Motor exam (neuro): no tremor noted Extrem Right upper extremity: full ROM Left upper extremity: full ROM Right lower extremity: full ROM; no edema Left lower extremity: full ROM; no edema Psych Mental Status: mental status grossly normal Speech and movement: Normal speech and movement present Affect: normal affect Attitude: cooperative Thought process: Normal thought process present Results AMB Hemoglobin A1c AMB Hemoglobin A1c 11.3 % Last Edit by HAYDE Genao on 01/02/24 16:19 Results Reviewed Results Reviewed: Laboratory Last Values Hgb A1c (Clinic) 11.3 % (4.0-6.0) H 01/02/24 16:15 Assessment and Plan Assessment & Plan (1) Lung mass: Comment: October 2023Heterogenous soft tissue mass in the anteromedial right lower lobe 3.6 x 2.4 x 3.1 cm. Code(s): R91.8 - Other nonspecific abnormal finding of lung field Plan: Noted to have lung mass and right lower lobe. Need for resection and biopsy. (2) Type 2 diabetes mellitus with hyperglycemia: Comment: Dr. Rendon Code(s): E11.65 - Type 2 diabetes mellitus with hyperglycemia Qualifiers: Diabetes mellitus prison insulin use: with prison use Qualified Code(s): E11.65 - Type 2 diabetes mellitus with hyperglycemia; Z79.4 - jail (current) use of insulin Plan: Patient's type 2 diabetes suboptimally controlled. Today's A1c above 11. Will commence preprandial short-acting insulin via sliding scale. Will increase her long-acting insulin to 16 units daily. Will consider adding GLP 1 Advised to continue diabetic diet/low-carbohydrate diet. Orders: Orders AMB Hemoglobin A1c 01/02/24 E11.65 - Type 2 diabetes mellitus with hyperglycemia Medications: New insulin lispro (Humalog KwikPen (U-100) Insulin) Blood sugar of- 70 to 130- take 0 units Blood sugar of 131-180- take 2 units 181 to 240- take 4 units [id number] 6 units 301 to 350-take 8 units [id number] 10 units Blood sugar over 400 -take Max 12 units- call 1 sliding scale dose subcut USEASDIRECTD 30 days 15 mL 1RF E11.65 - Type 2 diabetes mellitus with hyperglycemia pen needle, diabetic (BD Daysi 2nd Gen Pen Needle) Use one needle daily 100 ea 0RF E11.65 - Type 2 diabetes mellitus with hyperglycemia, 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 insulin lispro (Humalog KwikPen (U-100) Insulin) Blood sugar of- 70 to 130- take 0 units Blood sugar of 131-180- take 2 units 181 to 240- take 4 units [id number] 6 units 301 to 350-take 8 units 300-341-prek 10 units Blood sugar over 400 -take Max 12 units- call 1 sliding scale dose subcut TID 15 mL 1RF 30 days E11.65 - Type 2 diabetes mellitus with hyperglycemia Changed From insulin glargine (Lantus Solostar U-100 Insulin) 10 units (0.1 mL) subcut QPM 15 mL 3RF E11.65 - Type 2 diabetes mellitus with hyperglycemia, 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 To insulin glargine (Lantus Solostar U-100 Insulin) increase dose to 16 Units 16 units (0.16 mL) subcut QPM 30 days 15 mL 3RF E11.65 - Type 2 diabetes mellitus with hyperglycemia, 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
== END 2024-01-02 16:36 | disposition home or self-care (01) ==
PROVIDERS: PCP Internal Medicine; Visit Provider Physician Assistant
DX: E11.65 Type 2 diabetes mellitus with hyperglycemia (principal)
CPT/HCPCS: 83036; 99214

== ENCOUNTER 2024-01-13 09:12 | Outpatient (REF) | payer OTHER, SELFPAY ==
[2024-01-13 11:23] LABS: Alanine Aminotransferase 15 U/L (0-31); Albumin Level 3.9 g/dL (3.5-5.0); Alkaline Phosphatase 87 U/L (39-117); Anion Gap 14 (12-20); Aspartate Amino Transferase 17 U/L (5-31); Bilirubin Total 0.6 mg/dL (0.0-1.0); Blood Urea Nitrogen 6 mg/dL (9-16); Calcium 9.8 mg/dL (8.4-10.2); Carbon Dioxide 28 mmol/L (22-29); Chloride 105 mmol/L (96-108); Estimated Glomerular Filt Rate > 60; Glucose Fasting 176 mg/dL (60-99); Potassium 3.9 mmol/L (3.3-5.1); Sodium 143 mmol/L (135-145); Total Protein 7.1 g/dL (6.5-8.0)
[2024-01-13 11:38] LABS: Thyroid Stimulating Hormone 1.71 uIU/mL (0.32-4.0)
[2024-01-13 11:44] LABS: Free T4 (Free Thyroxine) 0.94 ng/dL (0.71-1.85)
== END 2024-01-13 09:13 | disposition home or self-care (01) ==
LOC: HO.LAB 09:12
PROVIDERS: Internal Medicine; PCP Physician Assistant; Visit Provider Physician Assistant
DX: E11.65 Type 2 diabetes mellitus with hyperglycemia (principal); R79.89 Other specified abnormal findings of blood chemistry; Z79.4 Long term (current) use of insulin
CPT/HCPCS: 36415; 80053; 84439; 84443

== ENCOUNTER → 2024-01-18 09:41 | Outpatient (REF) | payer OTHER, SELFPAY ==
--- NOTE | 2024-01-18 09:44 | CA_ITS ---
Transthoracic Echocardiogram Patient (Last, First, Middle): Naty Cooper A Gender: Female Date of : 1955 Age: 68 Procedure Date: 01/18/2024 Procedure Type: Transthoracic Echocardiogram Location: OP Height: 157.48 cm Weight: 81.65 kg BSA: 1.83 m2 Heart Rate: bpm BP: 164 / 78 mmHg Port Engineer: [email or web address] Referring MD: Jakub Guzmán PA-C [employer] Teacher: Alex Ervin MD Symptoms: Z01.818 - Encounter for other preprocedural examination Study Quality: Adequate ECG Rhythm: Sinus Conclusions: - 1. Normal LV ejection fraction of 60 65% with impaired relaxation filling pattern 2. Mild aortic stenosis 3. Normal RV systolic pressure 4. No gross pericardial effusion Findings Left Ventricle Normal left ventricular size, thickness, and systolic function. The visually estimated ejection fraction is between 60-65%. Spectral Doppler is indicative of an impaired relaxation filling pattern. E/E prime ratio is between 8 and 15 consistent with indeterminate filling pressures. There is mild septal asymmetric hypertrophy. Peal GLS is -15.3%, which is mildly reduced. Wall Motion Rest Echo Findings The inferoseptal wall and basal inferior segment are hypokinetic. All other scored wall segments showed normal motion. Right Ventricle Normal right ventricular cavity size and systolic function. Atria The left atrium is likely dilated. There is no evidence of interatrial shunt. The right atrium is normal in size. Aortic Valve There is mild calcification of the aortic valve. There is mild thickening of the aortic valve. There is mild aortic valve stenosis. The peak aortic velocity is 1.92 m/s with a calculated peak gradient of 15 mmHg. The mean gradient is 9 mmHg. The aortic valve area is 1.62 cm2. There is no aortic valve regurgitation. Mitral Valve There is mild anterior and moderate posterior mitral leaflet thickening. There is moderate mitral annular calcification. There is trace mitral valve regurgitation. There is no mitral valve stenosis. Pulmonic Valve The pulmonic valve was not well visualized. Tricuspid Valve Normal tricuspid valve structure. There is mild tricuspid valve regurgitation. The right ventricular systolic pressure is normal. The right ventricular systolic pressure is 29 mmHg. Normal right atrial pressure. There is no evidence of pulmonary hypertension. Great Vessels All visible segments of the aorta are normal in size. The pulmonary artery was not well visualized. Venous The inferior vena cava is normal in size and collapses greater than 50% with inspiration. Pericardium/Pleural There is no evidence of pericardial effusion. Prior Study Comparison No prior study available for comparison. Measurements 2D Linear Measurements IVSd: 1.36 0.6-0.9/0.6-1.0 cm LVIDd: 3.91 3.9-5.3/4.2-5.9 cm LVIDd Index: 2.14 2.4-3.2/2.2-3.1 cm/m2 LVIDs: 2.53 2.0-3.6 cm LVPWd: 0.98 0.7-1.1 cm LA Diam: 3.90 2.7-3.8/3.0-4.0 cm LAIDs Index: 2.13 1.5-2.3 cm/m2 LV Mass: 192.23 67-162/88-224 g LV Mass Index: 105.04 43-95/49-115 g/m2 LVOT Diam: 2.00 3.0+(-)1.3 cm 2D Systolic Function EF 4C: 58.30 >55% EF 2C: 70.40 >55% EF BiP: 64.20 >55% Mitral Valve MV Pk E: 0.92 MV PK A: 1.04 MV Decel Time: 287.00 E/A: 0.90 E'Lateral: 6.85 E'Medial: 6.20 E/E' Med: 14.80 E/E' Lat: 13.40 PHT: 84.00 MVA PHT: 2.62 Decel [place]: 3.20 Aortic Valve AoV Pk Nayan: 1.92 AoV Mn Nayan: 1.45 AoV VTI: 0.46 AoV Pk Grad: 15.00 Aov Mn Grad: 9.00 SYLVIA Cont.VTI: 1.62 LVOT LVOT Pk Nayan: 0.95 LVOT Mn Nayan: 0.63 LVOT VTI: 0.24 LVOT Pk Grad: 4.00 LVOT Mn Grad: 2.00 LVOT Diam: 2.00 LVOT Area: 3.14 Diastolic Function MV Pk E: 0.92 MV Pk A: 1.04 E/A: 0.90 E'Medial: 6.20 E/E' Med: 14.80 E' Laterial: 6.85 E/E' Lat: 13.40 Right Ventricle TAPSE (mm): 19.10 TVS' Nayan: 10.80 Tricuspid Valve TR Pk Nayan: 2.55 TR Pk Grad: 26.00 RA Press: 3.00 RVSP: 29.00 Great Vessels Aorta Sinus of Valsalva: 3.10 2.0-3.[address] [place]: 2.81 1.7-3.4 cm Ao Asc: 3.40 2.1-3.4 cm Ao Arch: 2.90 Updated in Other Vendor System with Status of Final Alex Ervin MD electronically signed on 01/18/2024 11:56:36 AM with status of Final
== END ==
LOC: HO.CARD 09:41
PROVIDERS: PCP Physician Assistant; Visit Provider Physician Assistant
DX: Z01.818 Encounter for other preprocedural examination (principal); R01.1 Cardiac murmur, unspecified
CPT/HCPCS: 93306; 93356; J2598

== ENCOUNTER → 2024-01-18 09:44 | Outpatient (BNV) | payer OTHER, SELFPAY | PROVIDERS: PCP Physician Assistant; Visit Provider Internal Medicine Cardiovascular Disease | DX: I35.0 Nonrheumatic aortic (valve) stenosis (principal) | CPT/HCPCS: 93306 ==

== ENCOUNTER 2024-01-19 13:37 | Inpatient (IN) | payer OTHER, SELFPAY ==
[2024-01-12 13:28] VITALS: BP 158/70; PULSE 73; RESP 16; O2SAT 96; BMI 33.8
--- NOTE | 2024-01-12 13:54 | P.CONAN_ITS ---
Documented by User: Kenia Anna NP 01/18/24 12:57 HPI - Anesthesia Eval Consult details Narrative: 68yo F for Right Thoracoscopy w/Video Assist Wedge Lower lobe,possible lobectomy, possible thoracotomy, Bronchoscopy Medias Fiberoptic Medically cleared. DM improved with preprandial insulin, PCP increased lisinopril dose, and ECHO shows only mild . Lung mass found incidentally after fall 10/2023 with rib fx No recent illness. Dry cough x 9 months No CP/SOB DM. Not optimized per PCP. Started on fast acting insulin. BP up day of PAT ADRIAN. No CPAP - doesn't tolerate PMFSH Active Problems Active Problems: All Active Problems (Updated 01/12/24 @ 13:16 by Argenis Conway RN) Emphysema of lung (Acute) Abnormal heart rhythm (Acute) Lung mass (Acute) Multiple fractures of ribs of right side (Acute) Abnormal TSH (Acute) Mass of anus (Acute) Annual physical exam (Acute) Insomnia (Acute) Diabetic nephropathy (Acute) Hematuria (Acute) COVID-19 virus infection (Acute) Perianal mass (Acute) Obesity (BMI 30-39.9) (Acute) Obstructive sleep apnea (Acute) Hyperlipidemia (Acute) Hypertension (Acute) Type 2 diabetes mellitus with hyperglycemia (Acute) Past Medical History Medical History (Updated 01/19/24 @ 08:35 by Faby Cochran MD) COVID-19 virus infection Personal history of COVID-19 Skin cancer Back pain History of rib fracture Cough Bronchitis Lung mass Perianal mass Urinary tract infection Restless leg syndrome Obesity (BMI 30-39.9) Vitamin D deficiency Obstructive sleep apnea Hypertension Type 2 diabetes mellitus with hyperglycemia Hx of iron deficiency anemia Arthritis Hyperlipidemia Family History Family history of problems with anesthesia: No Surgical History Surgical History History of hand surgery History of carpal tunnel release Hx of colonoscopy Hx of hysterectomy Hx of appendectomy History of cholecystectomy History of Problems with Anesthesia: No Social History Social History Housing: House Are you a primary school childcare attendant to a significant other at home: No Do you presently have visiting nurse or other home services: No Alcohol intake: never Patient Tobacco Use Status: Former Tobacco user Tobacco use type: Cigarette Cigarette Packs Per Day: 1 Years Smoked: quit 1996 (25 years) e-Cigarette/Vaping Use: Never Used Second Hand Smoke Exposure: No service: No Current occupational status: disabled Cognitive needs: No Hearing needs: No Vision needs: Yes Meds Allergies Allergy/AdvReac Type Severity Reaction Status Date / Time Sulfa (Sulfonamide Allergy Intermediate RASH Verified 01/02/24 16:14 Antibiotics) [SULFA (SULFONAMIDE ANTIBIOTICS)] exenatide [From BYETTA] Allergy Unknown VOMITTING Verified 01/02/24 16:14 Home Medications Medication Instructions Recorded Confirmed Last Taken Type acetaminophen 325 mg tablet 650 mg PO BID 01/12/24 01/12/24 01/17/24 History lisinopril 20 mg tablet 30 mg PO DAILY 01/12/24 01/19/24 01/17/24 History Exam Height,Weight and Vital Signs: Height 5 ft 2 in Weight 83.915 kg Last Vital Signs Pulse 73 01/12/24 13:28 Resp 16 01/12/24 13:28 BP 186/84 H 01/12/24 13:28 Pulse Ox 96 01/12/24 13:28 O2 Del Method Room Air 01/12/24 13:28 Pertinent Lab Results Pertinent Lab Results: Lab Results 01/12/24 Range/Units 14:30 Blood Type A Positive Antibody Screen NEGATIVE Laboratory Tests 10/22/23 01/13/24 18:22 09:34 WBC 12.3 H Hgb 13.1 Hct 38.4 Plt Count 281 Sodium 143 Potassium 3.9 Chloride 105 Carbon Dioxide 28 BUN 6 L Creatinine 0.64 Narrative Narrative: EKG 10/2023 Vent. Rate : 078 BPM Atrial Rate : 078 BPM P-R Int : 124 ms QRS Dur : 084 ms QT Int : 378 ms P-R-T Axes : 057 055 042 degrees QTc Int : 430 ms Normal sinus rhythm with sinus arrhythmia Normal ECG When compared with ECG of 22-OCT-2023 18:08, No significant change was found ECHO 01/2024 Conclusions: - 1. Normal LV ejection fraction of 60 65% with impaired relaxation filling pattern 2. Mild aortic stenosis 3. Normal RV systolic pressure 4. No gross pericardial effusion Airway Mallampati Class: III TM Dist: >3cm Neck ROM: Full Denture: Upper and Lower Heart: RRR +2-3/6 systolic murmur Lungs: CTA, faint expiratory wheeze KEVIN Assessment and Plan Assessment Anesthesia Assessment: Anesthesia Plan Discussed and PAT Visit Final Anesthetic Review Family History of Problems with Anesthesia: No History of Problems with Anesthesia: No Documented by User: Faby Cochran MD 01/19/24 11:54 [facility] Active Problems Active Problems: All Active Problems (Updated 01/19/24 @ 07:20 by Faby Cochran MD) Emphysema of lung (Acute) Abnormal heart rhythm (Acute) Lung mass (Acute) Multiple fractures of ribs of right side (Acute) Abnormal TSH (Acute) Mass of anus (Acute) Annual physical exam (Acute) Insomnia (Acute) Diabetic nephropathy (Acute) Hematuria (Acute) COVID-19 virus infection (Acute) Perianal mass (Acute) Obesity (BMI 30-39.9) (Acute) Obstructive sleep apnea (Acute) Hyperlipidemia (Acute) Hypertension (Acute) Type 2 diabetes mellitus with hyperglycemia (Acute) Past Medical History Medical History (Updated 01/19/24 @ 08:35 by Faby Cochran MD) COVID-19 virus infection Personal history of COVID-19 Skin cancer Back pain History of rib fracture Cough Bronchitis Lung mass Perianal mass Urinary tract infection Restless leg syndrome Obesity (BMI 30-39.9) Vitamin D deficiency Obstructive sleep apnea Hypertension Type 2 diabetes mellitus with hyperglycemia Hx of iron deficiency anemia Arthritis Hyperlipidemia Family History Family history of problems with anesthesia: No Surgical History Surgical History History of hand surgery History of carpal tunnel release Hx of colonoscopy Hx of hysterectomy Hx of appendectomy History of cholecystectomy History of Problems with Anesthesia: No Social History Social History Housing: House Are you a primary school childcare attendant to a significant other at home: No Do you presently have visiting nurse or other home services: No Alcohol intake: never Patient Tobacco Use Status: Former Tobacco user Tobacco use type: Cigarette Cigarette Packs Per Day: 1 Years Smoked: quit 1996 (25 years) e-Cigarette/Vaping Use: Never Used Second Hand Smoke Exposure: No service: No Current occupational status: disabled Cognitive needs: No Hearing needs: No Vision needs: Yes Meds Allergies Allergy/AdvReac Type Severity Reaction Status Date / Time Sulfa (Sulfonamide Allergy Intermediate RASH Verified 01/02/24 16:14 Antibiotics) [SULFA (SULFONAMIDE ANTIBIOTICS)] exenatide [From BYETTA] Allergy Unknown VOMITTING Verified 01/02/24 16:14 Home Medications Medication Instructions Recorded Confirmed Last Taken Type acetaminophen 325 mg tablet 650 mg PO BID 01/12/24 01/12/24 01/17/24 History lisinopril 20 mg tablet 30 mg PO DAILY 01/12/24 01/19/24 01/17/24 History Exam Height,Weight and Vital Signs: Height 5 ft 2 in Weight 83.915 kg Last Vital Signs Pulse 73 01/12/24 13:28 Resp 16 01/12/24 13:28 BP 186/84 H 01/12/24 13:28 Pulse Ox 96 01/12/24 13:28 O2 Del Method Room Air 01/12/24 13:28 Vital Signs Temp Pulse Resp BP Pulse Ox O2 Del Method 01/19/24 06:30 98.1 F 78 18 169/70 H 95 Room Air Pertinent Lab Results Pertinent Lab Results: Lab Results 01/12/24 Range/Units 14:30 Blood Type A Positive Antibody Screen NEGATIVE Laboratory Tests 10/22/23 01/13/24 18:22 09:34 WBC 12.3 H Hgb 13.1 Hct 38.4 Plt Count 281 Sodium 143 Potassium 3.9 Chloride 105 Carbon Dioxide 28 BUN 6 L Creatinine 0.64 Lab Results 01/12/24 01/19/24 Range/Units 14:30 06:21 POC Glucose 269 H (60-115) mg/dL Blood Type A Positive Antibody Screen NEGATIVE Airway Mallampati Class: III TM Dist: >3cm Neck ROM: Full Denture: Upper and Lower Loose/Missing/Broken Teeth: Yes (Full dentures) Lungs: CTAB Assessment and Plan Assessment Anesthesia Assessment: Anesthesia Plan Discussed, PAT Visit and Chart Reviewed Final Anesthetic Review Family History of Problems with Anesthesia: No History of Problems with Anesthesia: No NPO: Yes ASA Class: III Final Preanesthetic Review: No Changes in Pt Med Stat, Meds/Allgs Chart Reviewed, Consent Obtained/Reviewed and Anes Risks/Benef Reviewed Patient Risk: Intermediate Procedure Risk: High Assessment/Block/Sedation in SS: Assess/Block/Sedation-SS Anesthetic Plan Anesthetic Plan: GA and Other (Possible a-line) Disposition: Standard PACU
--- NOTE | 2024-01-18 10:48 | MHC.SHP ---
Pre-Procedural Eval Section A - 24 Hr Update-Section A only Date of Service: 01/18/24 The patient is an INPATIENT: Yes Changes since office visit: No Cold of Flu in the past 2 weeks, No New Medical Problems, No Changes in Medication and No Patient answered all questions The patient has been examined within 24 hours of the surgical procedure. The History & Physical has been completed within 30 days and I have reviewed it.: Yes Section B - Complete if H&P > 30 days Chief Complaint: Other nonspecific abnormal finding of lung field Allergies: Allergies Allergy/AdvReac Type Severity Reaction Status Date / Time Sulfa (Sulfonamide Allergy Intermediate RASH Verified 01/02/24 16:14 Antibiotics) [SULFA (SULFONAMIDE ANTIBIOTICS)] exenatide [From BYETTA] Allergy Unknown VOMITTING Verified 01/02/24 16:14 Plan I have reviewed the history and physical and performed a pertinent physical examination on my patient. No changes have occurred unless specified. Time Spent With Patient Time: Total time managing care of this patient today ____ minutes.
[2024-01-19] VITALS (16 sets, daily range): BP systolic 91–169; BP diastolic 39–70; PULSE 72–92; RESP 14–22; TEMP 35.9–36.8; O2SAT 91–100; BMI 33.4
--- NOTE | ~2024-01-19 | XR_ITS ---
EXAMINATION: XR CHEST CLINICAL INFORMATION: Status post right lower lobectomy COMPARISON: Chest CT October 22, 2023 TECHNIQUE: Frontal view of the chest was obtained. FINDINGS: Cardiac silhouette is mildly enlarged. The lungs are hypoinflated. Apically oriented right-sided chest tube. Suspected tiny right apical pneumothorax. Minimal patchy opacity in the left lung base is most suggestive of atelectasis. Degenerative changes of the spine. XR/XR chest 1V IMPRESSION: Suspected tiny right apical pneumothorax with chest tube in place.
--- NOTE | ~2024-01-19 | XR_ITS ---
EXAMINATION: XR CHEST CLINICAL INFORMATION: Status post VATS right lower lobectomy. COMPARISON: Chest radiograph 01/19/2024. TECHNIQUE: AP view of the chest was obtained. FINDINGS: Stable positioning of right apically oriented chest tube. No significant residual pneumothorax. Trace right pleural effusion with associated airspace opacities in the right lung base, not significantly changed. Again noted parasagittal right lower lobe mass, best characterize on prior CT chest from 10/22/2023. Clear left lung. Normal appearance of the cardiomediastinal silhouette. Multiple right-sided rib fractures with subcutaneous emphysema in the right chest wall. XR/XR chest 1V IMPRESSION: 1. No significant residual pneumothorax. 2. Trace right pleural effusion with associated airspace opacities in the right lung base, unchanged. 3. Right lower lobe mass, best characterize on prior CT chest from 10/22/2023.
--- NOTE | ~2024-01-19 | XR_ITS ---
EXAMINATION: XR CHEST CLINICAL INFORMATION: Status post chest tube removal COMPARISON: AP upright portable chest at 6:00 AM today TECHNIQUE: AP upright portable view of the chest was obtained. 9:55 AM FINDINGS: There is interval removal of the previously noted right chest tube. No pneumothorax is identified. Subcutaneous emphysema is seen in the right lateral chest wall. Interval decrease and patchy opacity in the right mid and lower lung with residual patchy opacity remaining. Possible small bilateral pleural effusions. Streaky opacity in the left lung is decreased, likely platelike atelectasis. The cardiomediastinal silhouette is stable with rightward curve of the mediastinum. XR/XR chest 1V IMPRESSION: 1. Interval removal of right chest tube. No pneumothorax is identified. 2. Interval decrease and patchy opacity in the right mid and lower lung with residual patchy opacity remaining.
--- NOTE | ~2024-01-19 | XR_ITS ---
EXAMINATION: XR CHEST CLINICAL INFORMATION: Status post right lower lobe resection. Chest tube to waterseal COMPARISON: Chest 01/21/2024 TECHNIQUE: AP upright portable view of the chest was obtained. 6:00 AM FINDINGS: A right chest tube extends in the right lung apex. No pneumothorax is identified. Streaky opacity is seen in the right mid and lower lung consistent with atelectasis and/or pneumonia. There is a small right pleural effusion. No significant change in streaky opacities in the left lower lobe which may represent platelike atelectasis the cardiomediastinal silhouette is stable. Rightward shift of the mediastinum is again noted consistent with history of lobectomy. XR/XR chest 1V IMPRESSION: 1. No evidence of pneumothorax. 2. Right mid and lower lung atelectasis and/or pneumonia. 3. Small right pleural effusion.
--- NOTE | ~2024-01-19 | XR_ITS ---
EXAMINATION: XR CHEST CLINICAL INFORMATION: Status post VATS right lower lobectomy COMPARISON: Chest 02/01/2024 TECHNIQUE: Frontal view of the chest was obtained. FINDINGS: Right thoracostomy tube terminates in projection with the right superior pulmonary sulcus. No pneumothoraces are identified. Moderate blunting of right costophrenic sulcus is noted along with right base focal airspace opacity. Coarse horizontally oriented reticular opacities are present in the left lung base may represent platelike atelectasis. The cardiac silhouette is grossly normal in size. Rightward shift of the mediastinum is noted consistent with the given history of lobectomy. Mild diffuse vascular indistinctness is present within the right lung. XR/XR chest 1V IMPRESSION: *Right thoracostomy tube terminating within the right superior pulmonary sulcus. No pneumothoraces identified. Moderate right pleural effusion and mild asymmetric edema of the remaining right lung status post right lower lobe lobectomy. *Minimal left base platelike atelectasis.
[2024-01-19] MEDS: Lactated Ringers 1,000 ML 100 ML IVCONT ×2 (06:51→17:32)
[2024-01-19 08:08] LABS: Glucose, Whole Blood 269 mg/dL (60-115)
--- NOTE | 2024-01-19 13:28 | W.PM.OPN ---
Operative Note Operative Note Date of Service: 01/19/24 Narrative: Preoperative diagnosis: Centrally located right lower lobe lung mass Postop diagnosis: [] Same Procedure [] bronchoscopy, vats right lower lobe lung mass biopsy, right lower lobectomy, mediastinal lymph node sampling, intercostal nerve block Surgeon: [] Micha Wire Transfer Clerk: [] Mini Gonzalez Type of Anesthesia: [] Double-lumen general Indication for surgery: [] Bronchoscopy demonstrated no gross endoluminal pathology. Was also used to assist anesthesia and placement of a double-lumen tube. Intrathoracic findings demonstrated isolated essentially located right lower lobe lung mass in close proximity to the fissure with the middle lobe and the right inferior pulmonary vein. Core biopsy was inconclusive for frozen section diagnosis. Based on the patient's smoking history, positive PET scan, and suspicious intraoperative appearance, right lower lobectomy was performed. No other gross intra thoracic pathology demonstrated. Findings: [] Patient brought to the operating room, placed on operative table in supine position, after an adequate level of double-lumen general anesthesia was induced, bronchoscopy was performed with findings as noted above. Patient was then placed in the left lateral decubitus position with the right chest was prepped and draped in usual sterile fashion. Using anterior and posterior 7th intercostal space working ports placed under direct vision, and an axillary access incision in the 4th interspace in the axilla with wound protector placed, intrathoracic findings were as noted above. The lung mass was identified and multiple core biopsies were obtained with results as noted above. For the reasons outlined in the indication for surgery, right lower lobectomy vats was performed along with mediastinal lymph node sampling and intercostal nerve block. Inferior pulmonary ligament was taken down using Bovie and inferior pulmonary vein was encircled, skeletonized, and uneventfully transected using vascular stapler. Next the hilum was approached where the pulmonary artery was identified. It was skeletonized and branches to the middle lobe and upper lobe (posterior descending) were preserved. The vessel was encircled, skeletonized, and transected using vascular stapler. Fissures were completed using sequential stapler firings. Right lower lobe bronchus branched very early and was taken in 2 specimen stations once it was encircled, scar and skeletonized with heavy wire stapler. Prior to firing, staplers were placed without firing with uneventful re-expansion of right middle lobe and lower lobe. Throughout the dissection, several mediastinal lymph node stations were sampled including 7, 9R, 10R, 11R. Chest cavity was filled with saline at completion of the procedure, and with 20 cm H 2-0 pressure, upper lobe and middle lobe were re-expanded with no bronchial stump leak and no significant parenchymal leak. Through the anterior working port, 28 Arabic chest tube was advanced to the apex and secured the skin using 0 silk suture. Wounds were closed in the following manner; access incision had its muscular layer closed using running 0 Vicryl suture. Subcutaneous running 2-0 Vicryl suture followed by running subcuticular 4-0 Vicryl sutures were placed. Port sites were closed using deep followed by dermal interrupted 2-0 and 3-0 Vicryl sutures respectively. Chest tube was connected to Pleur-evac and lung re-expanded with minimal air leak demonstrated. Intercostal nerve block using 0.5% Marcaine/Exparel was performed and all incision sites. Sponge, needle, and instrument counts reported correct. Patient tolerated the procedure well and emerged from anesthesia stable condition. EBL less than 150 cc. Postprocedure chest x-ray pending.
[2024-01-19 16:24] LABS: Glucose, Whole Blood 269 mg/dL (60-115)
[2024-01-19] MEDS: Insulin Lispro 100 UNIT/ML 3 ML VIAL SUBCUT ×2 (17:32→22:05)
[2024-01-19] MEDS: oxyCODONE HCl Immed Release 5 MG TABLET PO (17:33)
[2024-01-19] MEDS: 0.9 % Sodium Chloride Flush 3 ML SYRINGE IVFLUSH ×2 (17:33→22:06)
[2024-01-19] MEDS: Acetaminophen 1,000 MG/100 ML PIGGYBACK 400 MG IV (19:07)
[2024-01-19 20:08] LABS: Glucose, Whole Blood 265 mg/dL (60-115)
[2024-01-19] MEDS: Atorvastatin Calcium 40 MG TABLET PO (22:05)
[2024-01-19] MEDS: Docusate Sodium 100 MG CAPSULE PO (22:05)
[2024-01-19] MEDS: Morphine Sulfate 2 MG/ML CARTRIDGE 3 MG IVPUSH (22:05)
[2024-01-19] MEDS: glipiZIDE 5 MG TABLET PO (23:14)
[2024-01-19] MEDS: Insulin Glargine,Hum.rec.anlog 100 UNIT/ML 10 ML VIAL 11 UNIT SUBCUT (23:15)
[2024-01-20] VITALS (10 sets, daily range): BP systolic 111–163; BP diastolic 54–79; PULSE 81–95; RESP 16–22; TEMP 36.1–37.1; O2SAT 92–98
[2024-01-20] MEDS: oxyCODONE HCl Immed Release 5 MG TABLET PO (00:37)
[2024-01-20] MEDS: Acetaminophen 1,000 MG/100 ML PIGGYBACK 400 MG IV ×4 (01:50→21:01)
[2024-01-20] MEDS: Morphine Sulfate 2 MG/ML CARTRIDGE 3 MG IVPUSH ×6 (01:55→20:55)
[2024-01-20] MEDS: Lactated Ringers 1,000 ML 100 ML IVCONT (02:09)
[2024-01-20 06:23] LABS: MANUAL DIFF FLAG NO
[2024-01-20 06:33] LABS: Basophils Percent Auto 0.2 % (0-2); Eosinophils Percent Auto 0.1 % (0-4); Hematocrit 33.6 % (37.0-47.0); Hemoglobin 11.3 g/dl (12.0-16.0); Imm Gran Abs Auto 0.06 X10*3/uL (0.00-0.03); Imm Gran Pct Auto 0.4 % (0.0-0.4); Lymphocytes Absolute Auto 3.1 X10*3/uL (1.2-4.9); Lymphocytes Percent Auto 19.3 % (20-40); Mean Corpuscular HGB Conc 33.6 g/dl (31.0-35.0); Mean Corpuscular Hemoglobin 28.5 pg (27.0-33.0); Mean Corpuscular Volume 84.8 fL (80.0-98.0); Mean Platelet Volume 10.5 fL (9.4-12.3); Monocytes Absolute Auto 1.2 X10*3/uL (0.1-1.2); Monocytes Percent Auto 7.7 % (2-11); Neutrophils Absolute Auto 11.7 x10*3/uL (2.0-8.3); Neutrophils Percent Auto 72.3 % (45-73); Platelet Count 271 X10*3/uL (160-400); Red Blood Count 3.96 X10*6/uL (4.20-5.50); Red Cell Distribution Width 12.8 % (11.0-16.0); White Blood Count 16.2 X10*3/uL (4.8-10.8)
[2024-01-20 06:47] LABS: Anion Gap 13 (12-20); Blood Urea Nitrogen 15 mg/dL (9-16); Calcium 8.3 mg/dL (8.4-10.2); Carbon Dioxide 29 mmol/L (22-29); Chloride 100 mmol/L (96-108); Creatinine Clr Calc Pharmacy 69.8; Estimated Glomerular Filt Rate > 60; Glucose Random 164 mg/dL (60-115); Sodium 138 mmol/L (135-145)
[2024-01-20 07:28] LABS: Glucose, Whole Blood 168 mg/dL (60-115)
--- NOTE | 2024-01-20 07:48 | PHA.MEDREC ---
Pharmacy Consult ? Medication Reconciliation RN has completed the medication reconciliation, pharmacy reviewed.
[2024-01-20] MEDS: 0.9 % Sodium Chloride Flush 3 ML SYRINGE IVFLUSH ×3 (08:32→20:56)
[2024-01-20] MEDS: lisinopriL 10 MG TABLET 30 MG PO (08:33)
[2024-01-20] MEDS: Insulin Lispro 100 UNIT/ML 3 ML VIAL SUBCUT ×4 (08:33→20:53)
[2024-01-20] MEDS: glipiZIDE 5 MG TABLET PO ×2 (08:33→16:29)
[2024-01-20] MEDS: Docusate Sodium 100 MG CAPSULE PO ×2 (08:33→20:53)
--- NOTE | 2024-01-20 08:54 | MHC.CM.PN ---
IMM 01/19. Pt is self-care, lives at home with her who will transport. HCP was offered, but declined by pt at this time. PCP: Dr. Ivan Po
--- NOTE | 2024-01-20 09:16 | P.PNTS_ITS ---
Subjective Subjective Date of Service: 01/20/24 Interval history: Very sore at right shoulder and incision. Otherwise feeling ok. Not very hungry but tolerating small amount of solids. No incentive spirometer in room. Physical Exam Vital Signs: Vital Signs: Last Vital Signs Temp 97.2 F 01/20/24 07:59 Pulse 82 01/20/24 07:59 Resp 22 H 01/20/24 07:59 BP 163/71 H 01/20/24 07:59 Pulse Ox 97 01/20/24 07:59 O2 Del Method Nasal Cannula 01/20/24 07:59 O2 Flow Rate 1.5 01/20/24 07:59 BMI result Body Mass Index 33.4 Const: General: comfortable, no acute distress and alert Orientation/consciousness: patient oriented x3 Chest: Other: right lateral chest incisions dressings clean and intact chest tube in place with moderate sanguineous output, small air leak Resp: Effort & Inspection: normal respiratory effort, able to speak in complete sentences and no respiratory distress Cardio: Rate: regular rate Skin: General skin exam: no rashes or lesions noted Neuro: General: patient oriented x3 and moves all extremities Procedures Date of Service Date of Service: 01/20/24 Progress Note: A&P Assessment and plan (1) Lung mass: Status: Acute (2) S/P lobectomy of lung: Status: Acute Plan POD #1 s/p bronchoscopy, vats right lower lobe lung mass biopsy, right lower lobectomy, mediastinal lymph node sampling, intercostal nerve block for right lower lobe mass. Doing fairly well post op. No respiratory distress, incisions clean, chest tube with moderate output and small air leak. CXR this am improved, no pneumo and trace effusion. Leukocytosis on labs this am, likely reactive. Repeat in AM. Cont chest tube to suction for now, repeat CXR in AM. OOB/ambulation and increasing activity. Educated IS use at least 10x/hr. Discus sed with RN. Await pathology. Time Spent With Patient Time: Total time managing care of this patient today ____ minutes. Quality Stroke Does the patient have a stroke diagnosis?: No VTE Prior VTE?: No VTE Risk Level:: Surgical - high VTE Device Contraindication: N/A - Device Ordered VTE Drug Contraindication: N/A - Med Ordered
[2024-01-20] MEDS: Heparin Sodium,Porcine 5,000 UNIT/ML VIAL 5000 UNIT SUBCUT ×2 (09:33→20:53)
--- NOTE | 2024-01-20 10:59 | HO.PM.IMCN ---
History of Present Illness Data of Consult Service Date: 01/20/24 Primary Care Provider: Marzena Oconnor MD HPI A 68-year-old female with a history of type 2 diabetes, hyperlipidemia, hypertension, and obstructive sleep apnea (ADRIAN, lung mass was admitted to the hospitalist following bronchoscopy, video-assisted thoracoscopic surgery (VATS) for right lower lobe lung mass biopsy, right lower lobectomy, mediastinal lymph node sampling, intercostal nerve block for right lower lobe mass, and right-sided chest tube placement. On postoperative day 1, she reports feeling unwell, with blood pressure slightly elevated. Laboratory results indicate a white blood cell count of 16, likely reactive. She denies experiencing shortness of breath or fever. Review of Systems Review of Systems: Gen: no fever, not feeling good Resp: no sob, no cough CV: no chest, no ORTEGA, no leg edema GI: No n/v, no abd pain Neuro: No confusion [facility] Medical History COVID-19 virus infection Personal history of COVID-19 Skin cancer Back pain History of rib fracture Cough Bronchitis Lung mass Perianal mass Urinary tract infection Restless leg syndrome Obesity (BMI 30-39.9) Vitamin D deficiency Obstructive sleep apnea Hypertension Type 2 diabetes mellitus with hyperglycemia Hx of iron deficiency anemia Arthritis Hyperlipidemia Surgical History History of hand surgery History of carpal tunnel release Hx of colonoscopy Hx of hysterectomy Hx of appendectomy History of cholecystectomy Social History Household Members: Spouse Housing: House Are you a primary child care specialist to a significant other at home: No Do you presently have visiting nurse or other home services: No Alcohol intake: never Comment: COUNTS CORRECT Patient Tobacco Use Status: Former Tobacco user Tobacco use type: Cigarette Cigarette Packs Per Day: 1 Years Smoked: quit 1996 (25 years) e-Cigarette/Vaping Use: Never Used Second Hand Smoke Exposure: No Use of substances other than those prescribed or required for medical reasons: No Currently Displaying Signs/Symptoms of Drug Intoxication Withdrawal: No Have you been hit, kicked, punched, or otherwise hurt by someone within the past year? If so, by whom?: No Do you feel safe in your current relationship?: Yes Is there a partner from a previous relationship who is making you feel unsafe now?: No Are you made to feel afraid or neglected: No Advance Directives: No Advance Directives Information Provided: Yes Advance Directives on File: No Do you have thoughts of harming others: None Do you have a plan to hurt others: No Plan Recently lost weight without trying: No Eating poorly because of decreased appetite: No Nutrition Risks: No Nutritional Risk Patient : No : No Poor oral hygiene: No service: No Current occupational status: disabled Cognitive needs: No Hearing needs: No Vision needs: Yes Meds Allergies Allergy/AdvReac Type Severity Reaction Status Date / Time Sulfa (Sulfonamide Allergy Intermediate RASH Verified 01/02/24 16:14 Antibiotics) [SULFA (SULFONAMIDE ANTIBIOTICS)] exenatide [From [facility]] Allergy Unknown VOMITTING Verified 01/02/24 16:14 Active Medications: Current Medications Al Hydroxide/Mg Hydroxide (Magnesium Hydrox/Alum Hydrox 30 Ml Oral.Susp) 30 ml PO Q4H PRN PRN Reason: Heartburn/Nausea Atorvastatin Calcium (Atorvastatin Calcium 40 Mg Tablet) 40 mg PO BEDTIME [facility] Last Admin: 01/19/24 22:05 Dose: 40 mg Dextrose (Dextrose 50 % 25 Gm/50 Ml Syringe) 25 gm IVPUSH Q15M PRN; Protocol PRN Reason: per Hypoglycemia Standing Ord. Docusate Sodium (Docusate Sodium 100 Mg Capsule) 100 mg PO BID [facility] Last Admin: 01/20/24 08:33 Dose: 100 mg Glipizide (Glipizide 5 Mg Tablet) 5 mg PO BIDWM [facility] Last Admin: 01/20/24 08:33 Dose: 5 mg Glucose (Glucose Gel 15 Gm Gel..Gram.) 15 gm PO Q15M PRN; Protocol PRN Reason: per Hypoglycemia Standing Ord. Heparin Sodium (Porcine) (Heparin Sodium,Porcine 5,000 Unit/Ml Vial) 5,000 unit SUBCUT Q12H [facility] Last Admin: 01/20/24 09:33 Dose: 5,000 unit Acetaminophen (Ofirmev) 1,000 mg in 100 mls @ 400 mls/hr IV Q6H [facility] Last Infusion: 01/20/24 08:46 Dose: Infused Insulin Glargine (Insulin Glargine,Hum.Rec.Anlog 100 Unit/Ml 10 Ml Vial) 11 unit SUBCUT BEDTIME [facility] Last Admin: 01/19/24 23:15 Dose: 11 unit Insulin Human Lispro (Insulin Lispro 100 Unit/Ml 3 Ml Vial) 0 unit SUBCUT QIDACHS [facility]; Protocol Last Admin: 01/20/24 08:33 Dose: 2 unit Lisinopril (Lisinopril 10 Mg Tablet) 30 mg PO DAILY [facility]; Protocol Last Admin: 01/20/24 08:33 Dose: 30 mg Melatonin (Melatonin 3 Mg Tablet) 6 mg PO BEDTIME PRN PRN Reason: Insomnia Morphine Sulfate (Morphine Sulfate 2 Mg/Ml Cartridge) 3 mg IVPUSH Q3H PRN; Protocol PRN Reason: Pain, Severe (Pain Scale 7-10) Last Admin: 01/20/24 09:32 Dose: 3 mg Ondansetron HCl (Ondansetron Hcl 4 Mg/2 Ml Vial) 4 mg IVPUSH Q8H PRN PRN Reason: Nausea and Vomiting Oxycodone HCl (Oxycodone Hcl Immed Release 5 Mg Tablet) 5 mg PO Q4H PRN PRN Reason: Pain, Moderate(Pain Scale 4-6) Last Admin: 01/20/24 00:37 Dose: 5 mg Sodium Chloride (0.9 % Sodium Chloride Flush 3 Ml Syringe) 3 ml IVFLUSH [facility] Last Admin: 01/20/24 08:32 Dose: 3 ml Home Medications Medication Instructions Recorded Confirmed Last Taken Type acetaminophen 325 mg tablet 650 mg PO BID 01/12/24 01/12/24 01/17/24 History lisinopril 20 mg tablet 30 mg PO DAILY 01/12/24 01/19/24 01/17/24 History Physical Exam Vital Signs and Narrative: Vital Signs: Last Vital Signs Temp 97.2 F 01/20/24 07:59 Pulse 82 01/20/24 07:59 Resp 22 H 01/20/24 07:59 BP 163/71 H 01/20/24 07:59 Pulse Ox 97 01/20/24 07:59 O2 Del Method Nasal Cannula 01/20/24 07:59 O2 Flow Rate 1.5 01/20/24 07:59 BMI result Body Mass Index 33.4 General: AO X 3, no acute distress Resp: CTA bilateral, right sided chest tube in place withs serosanguinous fluid CVS: S1,S2,RRR GI: +BS, NT, no distention Skin: No rash Neuro: motor grossly intact Psych: appropriate affect Results Labs 01/20/24 06:21 01/20/24 05:39 Labs: Laboratory Results - last 24 hr 01/19/24 01/19/24 01/20/24 16:21 19:43 05:39 MCV MCH MCHC RDW Plt Count MPV Immature Gran % (Auto) Neut % (Auto) Lymph % (Auto) [place] % (Auto) Eos % (Auto) Baso % (Auto) Lymph # (Auto) [place] # (Auto) Eos # (Auto) Baso # (Auto) Abs Immat Gran (auto) Absolute Neuts (auto) Absolute Nucleated RBC Nucleated RBC % (auto) Anion Gap 13 Estim Creat Clear Calc 69.8 Estimated GFR > 60 POC Glucose 269 H 265 H Random Glucose 164 H Calcium 8.3 L D 01/20/24 01/20/24 06:21 07:16 MCV 84.8 MCH 28.5 MCHC 33.6 RDW 12.8 Plt Count 271 MPV 10.5 Immature Gran % (Auto) 0.4 Neut % (Auto) 72.3 Lymph % (Auto) 19.3 L [place] % (Auto) 7.7 Eos % (Auto) 0.1 Baso % (Auto) 0.2 Lymph # (Auto) 3.1 [place] # (Auto) 1.2 Eos # (Auto) 0.0 Baso # (Auto) 0.0 Abs Immat Gran (auto) 0.06 H Absolute Neuts (auto) 11.7 H Absolute Nucleated RBC 0.000 Nucleated RBC % (auto) 0.0 Anion Gap Estim Creat Clear Calc Estimated GFR POC Glucose 168 H Random Glucose Calcium Imaging Radiologist's Impressions: Impressions Chest X-Ray 01/19/24 14:14 IMPRESSION: Suspected tiny right apical pneumothorax with chest tube in place. Chest X-Ray 01/20/24 06:20 IMPRESSION: 1. No significant residual pneumothorax. 2. Trace right pleural effusion with associated airspace opacities in the right lung base, unchanged. 3. Right lower lobe mass, best characterize on prior CT chest from 10/22/2023. 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 Status: Acute (3) Hypertension: Qualifiers: Hypertension type: essential hypertension Qualified Code(s): I10 - Essential (primary) hypertension Status: Acute (4) Hyperlipidemia: Qualifiers: Hyperlipidemia type: pure hypercholesterolemia Qualified Code(s): E78.00 - Pure hypercholesterolemia, unspecified Status: Acute Plan A 68-year-old female with a history of type 2 diabetes, hyperlipidemia, hypertension, and obstructive sleep apnea (ADRIAN), lung mass s/p bronchoscopy, video-assisted thoracoscopic surgery (VATS) for right lower lobe lung mass biopsy, right lower lobectomy, mediastinal lymph node sampling, intercostal nerve block for right lower lobe mass, and right-sided chest tube placement. s/p Lung Bx, bronch, lobectomy and right chest tube--management per surgical team, incentive spirometry use encouraged S2WD--Gsiepycv Lantus, SSI and glipzide HTN--continue Lisinopril HLD--Lipitor Leukocytosis--likely reactive, monitor DVT Prophylaxis--heparin Full Code
--- NOTE | 2024-01-20 11:14 | HO.POSTANES ---
Post Anesthesia Evaluation Post Anesthesia Evaluation Date of Service: 01/20/24 Vital Signs: Vital Signs Temp Pulse Resp BP Pulse Ox O2 Del Method O2 Flow Rate 01/20/24 07:59 97.2 F 82 22 H 163/71 H 97 Nasal Cannula 1.5 01/20/24 03:05 96.9 F 95 20 111/71 96 Nasal Cannula 2 01/20/24 02:30 18 01/20/24 01:50 16 01/20/24 00:00 96.9 F 91 20 141/79 H 96 Nasal Cannula 2 Anesthesia: General Endotracheal-GETA (double lumen tube) Mental Status: Awake Pain Control: Satisfactory (pain shoulder and incision site) Nausea/Vomiting: None Hydration: Adequate Anesthesia-Related Issues: No Anes. Related Issues
[2024-01-20 11:31] LABS: Glucose, Whole Blood 163 mg/dL (60-115)
[2024-01-20 16:15] LABS: Glucose, Whole Blood 180 mg/dL (60-115)
[2024-01-20 20:34] LABS: Glucose, Whole Blood 178 mg/dL (60-115)
[2024-01-20] MEDS: Melatonin 3 MG TABLET 6 MG PO (20:53)
[2024-01-20] MEDS: Atorvastatin Calcium 40 MG TABLET PO (20:53)
[2024-01-20] MEDS: Insulin Glargine,Hum.rec.anlog 100 UNIT/ML 10 ML VIAL 11 UNIT SUBCUT (20:55)
[2024-01-21] VITALS (7 sets, daily range): BP systolic 144–175; BP diastolic 56–84; PULSE 86–103; RESP 17–20; TEMP 36.2–37.3; O2SAT 94–98; BMI 33.9
[2024-01-21] MEDS: Acetaminophen 1,000 MG/100 ML PIGGYBACK 400 MG IV ×3 (03:49→20:45)
[2024-01-21 07:07] LABS: Glucose, Whole Blood 183 mg/dL (60-115)
[2024-01-21 07:27] LABS: MANUAL DIFF FLAG NO
[2024-01-21 07:35] LABS: Basophils Percent Auto 0.2 % (0-2); Eosinophils Absolute Auto 0.1 X10*3/uL (0.0-0.4); Eosinophils Percent Auto 0.7 % (0-4); Hematocrit 32.1 % (37.0-47.0); Hemoglobin 10.8 g/dl (12.0-16.0); Imm Gran Abs Auto 0.08 X10*3/uL (0.00-0.03); Imm Gran Pct Auto 0.6 % (0.0-0.4); Lymphocytes Absolute Auto 1.8 X10*3/uL (1.2-4.9); Mean Corpuscular HGB Conc 33.6 g/dl (31.0-35.0); Mean Corpuscular Hemoglobin 28.9 pg (27.0-33.0); Mean Corpuscular Volume 85.8 fL (80.0-98.0); Mean Platelet Volume 9.9 fL (9.4-12.3); Monocytes Absolute Auto 0.8 X10*3/uL (0.1-1.2); Monocytes Percent Auto 6.3 % (2-11); Neutrophils Absolute Auto 10.1 x10*3/uL (2.0-8.3); Neutrophils Percent Auto 78.2 % (45-73); Platelet Count 253 X10*3/uL (160-400); Red Blood Count 3.74 X10*6/uL (4.20-5.50); Red Cell Distribution Width 12.5 % (11.0-16.0); White Blood Count 12.9 X10*3/uL (4.8-10.8)
[2024-01-21] MEDS: lisinopriL 10 MG TABLET 30 MG PO (08:21)
[2024-01-21] MEDS: Insulin Lispro 100 UNIT/ML 3 ML VIAL SUBCUT ×4 (08:21→20:43)
[2024-01-21] MEDS: Morphine Sulfate 2 MG/ML CARTRIDGE 3 MG IVPUSH ×3 (08:21→20:43)
[2024-01-21] MEDS: glipiZIDE 5 MG TABLET PO ×2 (08:21→17:12)
[2024-01-21] MEDS: Docusate Sodium 100 MG CAPSULE PO ×2 (08:21→20:43)
[2024-01-21] MEDS: 0.9 % Sodium Chloride Flush 3 ML SYRINGE IVFLUSH ×3 (08:23→20:44)
--- NOTE | 2024-01-21 10:16 | P.PNGS_ITS ---
Subjective Subjective Date of Service: 01/21/24 Interval history: Says she feels well this morning Good pain control No events overnight Physical Exam 2 Vital Signs: Vital Signs: Last Vital Signs Temp 97.4 F 01/21/24 07:07 Pulse 90 01/21/24 07:07 Resp 18 01/21/24 08:21 BP 175/77 H 01/21/24 07:07 Pulse Ox 98 01/21/24 07:07 O2 Del Method Nasal Cannula 01/21/24 07:07 O2 Flow Rate 2 01/21/24 07:07 BMI result Body Mass Index 33.9 Const: General: comfortable, no acute distress and alert Chest: Other: Chest tube in place on the right, dressings dry, no obvious leak Resp: Effort & Inspection: normal respiratory effort Cardio: Rate: regular rate GI: Palpation (GI): Soft to palpation, not firm and nontender Objective Data Active Medications Al Hydroxide/Mg Hydroxide (Magnesium Hydrox/Alum Hydrox 30 Ml Oral.Susp) 30 ml PO Q4H PRN PRN Reason: Heartburn/Nausea Atorvastatin Calcium (Atorvastatin Calcium 40 Mg Tablet) 40 mg PO BEDTIME [facility] Last Admin: 01/20/24 20:53 Dose: 40 mg Documented By: DAYAMI Dextrose (Dextrose 50 % 25 Gm/50 Ml Syringe) 25 gm IVPUSH Q15M PRN; Protocol PRN Reason: per Hypoglycemia Standing Ord. Docusate Sodium (Docusate Sodium 100 Mg Capsule) 100 mg PO BID [facility] Last Admin: 01/21/24 08:21 Dose: 100 mg Documented By: ANNE Glipizide (Glipizide 5 Mg Tablet) 5 mg PO BIDWM [facility] Last Admin: 01/21/24 08:21 Dose: 5 mg Documented By: ANNE Glucose (Glucose Gel 15 Gm Gel..Gram.) 15 gm PO Q15M PRN; Protocol PRN Reason: per Hypoglycemia Standing Ord. Heparin Sodium (Porcine) (Heparin Sodium,Porcine 5,000 Unit/Ml Vial) 5,000 unit SUBCUT Q12H [facility] Last Admin: 01/20/24 20:53 Dose: 5,000 unit Documented By: DAYAMI Acetaminophen (Ofirmev) 1,000 mg in 100 mls @ 400 mls/hr IV Q6H [facility] Last Admin: 01/21/24 08:25 Dose: Not Given Documented By: ANNE Non-Admin Reason: exceeding daily dose by 1000mg Insulin Glargine (Insulin Glargine,Hum.Rec.Anlog 100 Unit/Ml 10 Ml Vial) 11 unit SUBCUT BEDTIME [facility] Last Admin: 01/20/24 20:55 Dose: 11 unit Documented By: DAYAMI Insulin Human Lispro (Insulin Lispro 100 Unit/Ml 3 Ml Vial) 0 unit SUBCUT QIDACHS [facility]; Protocol Last Admin: 01/21/24 08:21 Dose: 2 unit Documented By: ANNE Lisinopril (Lisinopril 10 Mg Tablet) 30 mg PO DAILY [facility]; Protocol Last Admin: 01/21/24 08:21 Dose: 30 mg Documented By: ANNE Melatonin (Melatonin 3 Mg Tablet) 6 mg PO BEDTIME PRN PRN Reason: Insomnia Last Admin: 01/20/24 20:53 Dose: 6 mg Documented By: DAYAMI Morphine Sulfate (Morphine Sulfate 2 Mg/Ml Cartridge) 3 mg IVPUSH Q3H PRN; Protocol PRN Reason: Pain, Severe (Pain Scale 7-10) Last Admin: 01/21/24 08:21 Dose: 3 mg Documented By: ANNE Ondansetron HCl (Ondansetron Hcl 4 Mg/2 Ml Vial) 4 mg IVPUSH Q8H PRN PRN Reason: Nausea and Vomiting Oxycodone HCl (Oxycodone Hcl Immed Release 5 Mg Tablet) 5 mg PO Q4H PRN PRN Reason: Pain, Moderate(Pain Scale 4-6) Last Admin: 01/20/24 00:37 Dose: 5 mg Documented By: CHYNA Sodium Chloride (0.9 % Sodium Chloride Flush 3 Ml Syringe) [facility] Last Admin: 01/21/24 08:23 Dose: 3 ml Documented By: ANNE Labs 01/21/24 07:20 01/20/24 05:39 Labs: Laboratory Results - last 24 hr 01/20/24 01/20/24 01/20/24 11:26 16:12 20:31 MCV MCH MCHC RDW Plt Count MPV Immature Gran % (Auto) Neut % (Auto) Lymph % (Auto) [place] % (Auto) Eos % (Auto) Baso % (Auto) Lymph # (Auto) [place] # (Auto) Eos # (Auto) Baso # (Auto) Abs Immat Gran (auto) Absolute Neuts (auto) Absolute Nucleated RBC Nucleated RBC % (auto) POC Glucose 163 H 180 H 178 H 01/21/24 01/21/24 06:55 07:20 MCV 85.8 MCH 28.9 MCHC 33.6 RDW 12.5 Plt Count 253 MPV 9.9 Immature Gran % (Auto) 0.6 H Neut % (Auto) 78.2 H Lymph % (Auto) 14.0 L [place] % (Auto) 6.3 Eos % (Auto) 0.7 Baso % (Auto) 0.2 Lymph # (Auto) 1.8 [place] # (Auto) 0.8 Eos # (Auto) 0.1 Baso # (Auto) 0.0 Abs Immat Gran (auto) 0.08 H Absolute Neuts (auto) 10.1 H Absolute Nucleated RBC 0.000 Nucleated RBC % (auto) 0.0 POC Glucose 183 H Procedures Date of Service Date of Service: 01/21/24 Progress Note: A&P Assessment and plan (1) S/P lobectomy of lung: Status: Acute Assessment and Plan: Clinically doing well No obvious leak from chest tube Encouraged ambulation/out of bed Reminded of incentive spirometry use Poor p.o. intake Pain management Await path report Labs okay this morning Stable postop Time Spent With Patient Time: Total time managing care of this patient today ____ minutes. Quality Stroke Does the patient have a stroke diagnosis?: No VTE Prior VTE?: No VTE Risk Level:: Surgical - high VTE Device Contraindication: N/A - Device Ordered VTE Drug Contraindication: N/A - Med Ordered
[2024-01-21] MEDS: Heparin Sodium,Porcine 5,000 UNIT/ML VIAL 5000 UNIT SUBCUT (11:01)
[2024-01-21 11:03] LABS: Glucose, Whole Blood 215 mg/dL (60-115)
[2024-01-21] MEDS: oxyCODONE HCl Immed Release 5 MG TABLET PO ×2 (12:13→18:15)
[2024-01-21 16:12] LABS: Glucose, Whole Blood 178 mg/dL (60-115)
[2024-01-21] MEDS: Insulin Glargine,Hum.rec.anlog 100 UNIT/ML 10 ML VIAL 11 UNIT SUBCUT (20:43)
[2024-01-21] MEDS: Atorvastatin Calcium 40 MG TABLET PO (20:43)
[2024-01-21 20:48] LABS: Glucose, Whole Blood 204 mg/dL (60-115)
[2024-01-22 03:09] VITALS: BP 158/70; PULSE 96; RESP 18; TEMP 36.7; O2SAT 95
[2024-01-22] MEDS: Acetaminophen 1,000 MG/100 ML PIGGYBACK 400 MG IV ×2 (03:09→08:54)
[2024-01-22] MEDS: Heparin Sodium,Porcine 5,000 UNIT/ML VIAL 5000 UNIT SUBCUT ×3 (03:10→21:03)
[2024-01-22 06:00] VITALS: BMI 32.1
[2024-01-22 07:05] LABS: Glucose, Whole Blood 195 mg/dL (60-115)
[2024-01-22 07:07] VITALS: BP 154/69; PULSE 91; RESP 20; TEMP 36.3; O2SAT 97
[2024-01-22] MEDS: lisinopriL 10 MG TABLET 30 MG PO (08:54)
[2024-01-22] MEDS: Docusate Sodium 100 MG CAPSULE PO ×2 (08:54→21:01)
[2024-01-22] MEDS: glipiZIDE 5 MG TABLET PO ×2 (08:54→17:05)
[2024-01-22] MEDS: 0.9 % Sodium Chloride Flush 3 ML SYRINGE IVFLUSH ×2 (08:55→17:05)
[2024-01-22] MEDS: Insulin Lispro 100 UNIT/ML 3 ML VIAL SUBCUT ×4 (08:55→21:02)
--- NOTE | 2024-01-22 09:33 | P.PNGS_ITS ---
Subjective Subjective Date of Service: 01/24/24 Interval history: says she feels well denies complaints no SOB good oral intake pain well controlled Physical Exam 2 Vital Signs: Vital Signs: Last Vital Signs Temp 97.3 F 01/22/24 07:07 Pulse 91 01/22/24 07:07 Resp 20 01/22/24 07:07 BP 154/69 H 01/22/24 07:07 Pulse Ox 97 01/22/24 07:07 O2 Del Method Nasal Cannula 01/22/24 07:07 O2 Flow Rate 2 01/22/24 07:07 BMI result Body Mass Index 32.1 Const: General: comfortable and no acute distress Chest: Other: chest tube in place on right side, no obvious airleak, thin serosanguinous output Resp: Effort & Inspection: normal respiratory effort Cardio: Rate: regular rate GI: Palpation (GI): Soft to palpation Objective Data Active Medications Al Hydroxide/Mg Hydroxide (Magnesium Hydrox/Alum Hydrox 30 Ml Oral.Susp) 30 ml PO Q4H PRN PRN Reason: Heartburn/Nausea Atorvastatin Calcium (Atorvastatin Calcium 40 Mg Tablet) 40 mg PO BEDTIME [facility] Last Admin: 01/21/24 20:43 Dose: 40 mg Documented By: DAYAMI Dextrose (Dextrose 50 % 25 Gm/50 Ml Syringe) 25 gm IVPUSH Q15M PRN; Protocol PRN Reason: per Hypoglycemia Standing Ord. Docusate Sodium (Docusate Sodium 100 Mg Capsule) 100 mg PO BID [facility] Last Admin: 01/22/24 08:54 Dose: 100 mg Documented By: SANGEETHA Glipizide (Glipizide 5 Mg Tablet) 5 mg PO BIDWM [facility] Last Admin: 01/22/24 08:54 Dose: 5 mg Documented By: SANGEETHA Glucose (Glucose Gel 15 Gm Gel..Gram.) 15 gm PO Q15M PRN; Protocol PRN Reason: per Hypoglycemia Standing Ord. Heparin Sodium (Porcine) (Heparin Sodium,Porcine 5,000 Unit/Ml Vial) 5,000 unit SUBCUT Q12H [facility] Last Admin: 01/22/24 08:53 Dose: 5,000 unit Documented By: SANGEETHA Acetaminophen (Ofirmev) 1,000 mg in 100 mls @ 400 mls/hr IV Q6H [facility] Last Infusion: 01/22/24 09:20 Dose: Infused Documented By: SANGEETHA Insulin Glargine (Insulin Glargine,Hum.Rec.Anlog 100 Unit/Ml 10 Ml Vial) 15 unit SUBCUT BEDTIME [facility] Insulin Human Lispro (Insulin Lispro 100 Unit/Ml 3 Ml Vial) 0 unit SUBCUT QIDACHS [facility]; Protocol Last Admin: 01/22/24 08:55 Dose: 2 unit Documented By: SANGEETHA Lisinopril (Lisinopril 10 Mg Tablet) 30 mg PO DAILY [facility]; Protocol Last Admin: 01/22/24 08:54 Dose: 30 mg Documented By: SANGEETHA Melatonin (Melatonin 3 Mg Tablet) 6 mg PO BEDTIME PRN PRN Reason: Insomnia Last Admin: 01/20/24 20:53 Dose: 6 mg Documented By: DAYAMI Morphine Sulfate (Morphine Sulfate 2 Mg/Ml Cartridge) 3 mg IVPUSH Q3H PRN; Protocol PRN Reason: Pain, Severe (Pain Scale 7-10) Last Admin: 01/21/24 20:43 Dose: 3 mg Documented By: DAYAMI Ondansetron HCl (Ondansetron Hcl 4 Mg/2 Ml Vial) 4 mg IVPUSH Q8H PRN PRN Reason: Nausea and Vomiting Oxycodone HCl (Oxycodone Hcl Immed Release 5 Mg Tablet) 5 mg PO Q4H PRN PRN Reason: Pain, Moderate(Pain Scale 4-6) Last Admin: 01/21/24 18:15 Dose: 5 mg Documented By: ANNE Sodium Chloride (0.9 % Sodium Chloride Flush 3 Ml Syringe) 3 ml IVFLUSH [facility] Last Admin: 01/22/24 08:55 Dose: 3 ml Documented By: SANGEETHA Labs 01/21/24 07:20 01/20/24 05:39 Labs: Laboratory Results - last 24 hr 01/21/24 01/21/24 01/21/24 10:58 15:54 20:32 POC Glucose 215 H 178 H 204 H 01/22/24 06:50 POC Glucose 195 H Procedures Date of Service Date of Service: 01/24/24 Progress Note: A&P Assessment and plan (1) S/P lobectomy of lung: Status: Acute Assessment and Plan: doing well chest tube in place no obvious air leak getting out of bed incentive spirometry good pain control CXR yesterday - no residual pneumo, small effusion, chest tube on good position possibly dc chest tube geni? Time Spent With Patient Time: Total time managing care of this patient today ____ minutes. Quality Stroke Does the patient have a stroke diagnosis?: No VTE Prior VTE?: No VTE Risk Level:: Surgical - high VTE Device Contraindication: N/A - Device Ordered VTE Drug Contraindication: N/A - Med Ordered
[2024-01-22 10:58] LABS: Glucose, Whole Blood 243 mg/dL (60-115)
[2024-01-22 11:02] VITALS: BP 160/74; PULSE 91; RESP 18; TEMP 36.8; O2SAT 95
[2024-01-22] MEDS: oxyCODONE HCl Immed Release 5 MG TABLET PO ×2 (12:05→21:08)
[2024-01-22 15:02] VITALS: BP 158/80; PULSE 99; RESP 20; TEMP 36.7; O2SAT 95
[2024-01-22 16:07] LABS: Glucose, Whole Blood 228 mg/dL (60-115)
[2024-01-22] MEDS: Morphine Sulfate 2 MG/ML CARTRIDGE 3 MG IVPUSH (18:41)
[2024-01-22 19:26] VITALS: BP 169/73; PULSE 102; RESP 18; TEMP 37.2; O2SAT 94
[2024-01-22 20:39] LABS: Glucose, Whole Blood 200 mg/dL (60-115)
[2024-01-22] MEDS: Atorvastatin Calcium 40 MG TABLET PO (21:01)
[2024-01-22] MEDS: Insulin Glargine,Hum.rec.anlog 100 UNIT/ML 10 ML VIAL 15 UNIT SUBCUT (21:02)
[2024-01-22 23:36] VITALS: BP 152/79; PULSE 95; RESP 18; TEMP 36.4; O2SAT 96
--- NOTE | 2024-01-22 23:37 | PC.NURSE ---
SVT 184 for few seconds while sleeping , pt not symptomatic, DR Fonseca was notified
[2024-01-23] VITALS (9 sets, daily range): BP systolic 131–180; BP diastolic 59–86; PULSE 85–99; RESP 18–20; TEMP 36.1–36.9; O2SAT 88–95; BMI 32.9
[2024-01-23] MEDS: 0.9 % Sodium Chloride Flush 3 ML SYRINGE IVFLUSH ×3 (00:31→16:15)
--- NOTE | 2024-01-23 06:06 | PC.NURSE ---
Chest tube drained 50ml serosanguineous fluid from 2300 to 0600.
[2024-01-23 07:51] LABS: Glucose, Whole Blood 213 mg/dL (60-115)
[2024-01-23] MEDS: Heparin Sodium,Porcine 5,000 UNIT/ML VIAL 5000 UNIT SUBCUT ×2 (08:06→21:59)
[2024-01-23] MEDS: lisinopriL 10 MG TABLET 30 MG PO (08:07)
[2024-01-23] MEDS: Docusate Sodium 100 MG CAPSULE PO ×2 (08:07→21:59)
[2024-01-23] MEDS: glipiZIDE 5 MG TABLET PO ×2 (08:07→16:14)
[2024-01-23] MEDS: Insulin Lispro 100 UNIT/ML 3 ML VIAL SUBCUT ×4 (08:07→22:00)
[2024-01-23] MEDS: oxyCODONE HCl Immed Release 5 MG TABLET PO ×4 (08:07→21:58)
--- NOTE | 2024-01-23 08:29 | PM.PNTS ---
Subjective Subjective Date of Service: 01/23/24 Interval history: Feels well, mild incisional soreness. Tolerating solid diet. Would like to go home. Physical Exam Vital Signs: Vital Signs: Last Vital Signs Temp 97.6 F 01/23/24 07:44 Pulse 96 01/23/24 07:44 Resp 20 01/23/24 07:44 BP 180/86 H 01/23/24 07:44 Pulse Ox 94 01/23/24 07:44 O2 Del Method Nasal Cannula 01/23/24 07:44 O2 Flow Rate 1 01/23/24 07:44 BMI result Body Mass Index 32.9 Const: General: comfortable, no acute distress and alert Orientation/consciousness: patient oriented x3 Chest: Other: right VATS incision clean chest tube dressing clean and intact continues with moderate serosanguineous output, no air leak Resp: Effort & Inspection: normal respiratory effort, able to speak in complete sentences and no respiratory distress Skin: General skin exam: no rashes or lesions noted Neuro: General: patient oriented x3 and moves all extremities Procedures Date of Service Date of Service: 01/23/24 Progress Note: A&P Assessment and plan (1) S/P lobectomy of lung: Status: Acute (2) Lung mass: Status: Acute Plan Doing well from surgical standpoint. Incision clean, chest tube in place and continues with serosang output, no air leak. CXR with slightly improved effusion this morning. Will remove chest tube this morning, repeat CXR in 1 hr post procedure. Patient is saturating high 80s on RA and hypertensive- f/u with hospitalists about weaning O2 and possible discharge. Pathology pending. Time Spent With Patient Time: Total time managing care of this patient today ____ minutes. Quality Stroke Does the patient have a stroke diagnosis?: No VTE Prior VTE?: No VTE Risk Level:: Surgical - high VTE Device Contraindication: N/A - Device Ordered VTE Drug Contraindication: N/A - Med Ordered
[2024-01-23] MEDS: Morphine Sulfate 2 MG/ML CARTRIDGE 3 MG IVPUSH (11:30)
[2024-01-23 11:31] LABS: Glucose, Whole Blood 245 mg/dL (60-115)
--- NOTE | 2024-01-23 12:34 | HO.PM.IMPN ---
Subjective Subjective Date of Service: 01/23/24 Interval History: Seen and evaluated this morning Chest tube removed Saturating 88% on RA Review of Systems Review of Systems: Yes all other systems are reviewed and are negative Physical Exam Vital Signs: Vital Signs: Last Vital Signs Temp 98.1 F 01/23/24 11:11 Pulse 93 01/23/24 11:11 Resp 20 01/23/24 11:11 BP 164/74 H 01/23/24 11:11 Pulse Ox 88 L 01/23/24 11:11 O2 Del Method Room Air 01/23/24 11:11 O2 Flow Rate 1 01/23/24 07:44 BMI result Body Mass Index 32.9 Const: Other: Constitutional : Awake, interactive, not in distress Neck : Normal inspection, Supple Cardiovascular : RRR, no JVP, no lower extremity edema Respiratory : good bilateral air entry, no crackles, wheezes or rhonchi Gastrointestinal: soft, lax, Normal bowel sounds, Non tender Skin : Warm, Dry Neurological : Alert & oriented x3, No focal deficit , CN 2-12 within normal Objective Data Active Medications Al Hydroxide/Mg Hydroxide (Magnesium Hydrox/Alum Hydrox 30 Ml Oral.Susp) 30 ml PO Q4H PRN PRN Reason: Heartburn/Nausea Atorvastatin Calcium (Atorvastatin Calcium 40 Mg Tablet) 40 mg PO BEDTIME [facility] Last Admin: 01/22/24 21:01 Dose: 40 mg Documented By: MICHAEL Dextrose (Dextrose 50 % 25 Gm/50 Ml Syringe) 25 gm IVPUSH Q15M PRN; Protocol PRN Reason: per Hypoglycemia Standing Ord. Docusate Sodium (Docusate Sodium 100 Mg Capsule) 100 mg PO BID [facility] Last Admin: 01/23/24 08:07 Dose: 100 mg Documented By: SANGEETHA Glipizide (Glipizide 5 Mg Tablet) 5 mg PO BIDWM [facility] Last Admin: 01/23/24 08:07 Dose: 5 mg Documented By: SANGEETHA Glucose (Glucose Gel 15 Gm Gel..Gram.) 15 gm PO Q15M PRN; Protocol PRN Reason: per Hypoglycemia Standing Ord. Heparin Sodium (Porcine) (Heparin Sodium,Porcine 5,000 Unit/Ml Vial) 5,000 unit SUBCUT Q12H [facility] Last Admin: 01/23/24 08:06 Dose: 5,000 unit Documented By: SANGEETHA Insulin Glargine (Insulin Glargine,Hum.Rec.Anlog 100 Unit/Ml 10 Ml Vial) 15 unit SUBCUT BEDTIME [facility] Last Admin: 01/22/24 21:02 Dose: 15 unit Documented By: MICHAEL Insulin Human Lispro (Insulin Lispro 100 Unit/Ml 3 Ml Vial) 0 unit SUBCUT QIDACHS [facility]; Protocol Last Admin: 01/23/24 11:30 Dose: 4 unit Documented By: SANGEETHA Lisinopril (Lisinopril 10 Mg Tablet) 30 mg PO DAILY [facility]; Protocol Last Admin: 01/23/24 08:07 Dose: 30 mg Documented By: SANGEETHA Melatonin (Melatonin 3 Mg Tablet) 6 mg PO BEDTIME PRN PRN Reason: Insomnia Last Admin: 01/20/24 20:53 Dose: 6 mg Documented By: DAYAMI Morphine Sulfate (Morphine Sulfate 2 Mg/Ml Cartridge) 3 mg IVPUSH Q3H PRN; Protocol PRN Reason: Pain, Severe (Pain Scale 7-10) Last Admin: 01/23/24 11:30 Dose: 3 mg Documented By: SANGEETHA Ondansetron HCl (Ondansetron Hcl 4 Mg/2 Ml Vial) 4 mg IVPUSH Q8H PRN PRN Reason: Nausea and Vomiting Oxycodone HCl (Oxycodone Hcl Immed Release 5 Mg Tablet) 5 mg PO Q4H PRN PRN Reason: Pain, Moderate(Pain Scale 4-6) Last Admin: 01/23/24 08:07 Dose: 5 mg Documented By: SANGEETHA Sodium Chloride (0.9 % Sodium Chloride Flush 3 Ml Syringe) [facility] Last Admin: 01/23/24 08:08 Dose: 3 ml Documented By: SANGEETHA Labs 01/21/24 07:20 01/20/24 05:39 Labs: Laboratory Results - last 24 hr 01/22/24 01/22/24 01/23/24 16:03 19:30 07:43 POC Glucose 228 H 200 H 213 H 01/23/24 11:15 POC Glucose 245 H Assessment and Plan (1) Hypertension: Status: Acute (2) Type 2 diabetes mellitus with hyperglycemia: Status: Acute Plan A 68-year-old female with a history of type 2 diabetes, hyperlipidemia, hypertension, and obstructive sleep apnea (ADRIAN), lung mass s/p bronchoscopy, video-assisted thoracoscopic surgery (VATS) for right lower lobe lung mass biopsy, right lower lobectomy, mediastinal lymph node sampling, intercostal nerve block for right lower lobe mass, and right-sided chest tube placement. s/p Lung Bx, bronch, lobectomy and right chest tube Chest tube removed 01/22 incentive spirometry T2DM with hyperglycemia mildly elevated in 200s Increase Lantus to 18 units Continue SSI and glipzide HTN continue Lisinopril Start Amlodipine To monitor BP for 1 week at home and report readings to PCP HLD--Lipitor Leukocytosis--likely reactive, monitor DVT Prophylaxis--heparin Full Code Thank you for the consult. please contact hospitalist team for any further questions. Quality Stroke Does the patient have a stroke diagnosis?: No VTE Prior VTE?: No VTE Risk Level:: Surgical - high VTE Device Contraindication: N/A - Device Ordered VTE Drug Contraindication: N/A - Med Ordered
[2024-01-23] MEDS: amLODIPine Besylate 5 MG TABLET PO (12:47)
[2024-01-23 16:15] LABS: Glucose, Whole Blood 199 mg/dL (60-115)
[2024-01-23 19:58] LABS: Glucose, Whole Blood 199 mg/dL (60-115)
[2024-01-23] MEDS: Melatonin 3 MG TABLET 6 MG PO (21:58)
[2024-01-23] MEDS: Atorvastatin Calcium 40 MG TABLET PO (21:59)
[2024-01-23] MEDS: Insulin Glargine,Hum.rec.anlog 100 UNIT/ML 10 ML VIAL 18 UNIT SUBCUT (22:00)
[2024-01-24 02:24] VITALS: RESP 20
[2024-01-24] MEDS: 0.9 % Sodium Chloride Flush 3 ML SYRINGE IVFLUSH ×2 (02:26→08:03)
[2024-01-24 03:47] VITALS: BP 153/71; PULSE 82; RESP 20; TEMP 36.1; O2SAT 96
[2024-01-24] MEDS: oxyCODONE HCl Immed Release 5 MG TABLET PO ×2 (04:42→08:00)
[2024-01-24 05:31] VITALS: BMI 33.2
[2024-01-24 07:35] VITALS: BP 111/57; PULSE 75; RESP 18; TEMP 36.2; O2SAT 92
[2024-01-24 07:46] LABS: Glucose, Whole Blood 206 mg/dL (60-115)
[2024-01-24] MEDS: Insulin Lispro 100 UNIT/ML 3 ML VIAL SUBCUT (07:59)
[2024-01-24] MEDS: Docusate Sodium 100 MG CAPSULE PO (07:59)
[2024-01-24] MEDS: amLODIPine Besylate 5 MG TABLET PO (07:59)
[2024-01-24] MEDS: lisinopriL 10 MG TABLET 30 MG PO (07:59)
[2024-01-24] MEDS: glipiZIDE 5 MG TABLET PO (07:59)
--- NOTE | 2024-01-24 08:48 | P.PNTS_ITS ---
Subjective Subjective Date of Service: 01/24/24 Interval history: Feels well. Asking to go home. Tolerating solid diet. Saturating 92% on RA. Denies feeling SOB. Getting OOB and ambulating without difficulty. Physical Exam Vital Signs: Vital Signs: Last Vital Signs Temp 97.1 F 01/24/24 07:35 Pulse 75 01/24/24 07:35 Resp 18 01/24/24 07:35 BP 111/57 L 01/24/24 07:35 Pulse Ox 92 01/24/24 07:35 O2 Del Method Room Air 01/24/24 07:35 O2 Flow Rate 2 01/24/24 03:47 BMI result Body Mass Index 33.2 Const: General: comfortable, no acute distress and alert Orientation/consciousness: patient oriented x3 Chest: Other: incision clean chest tube dressing c/d/i Resp: Effort & Inspection: normal respiratory effort, able to speak in comp lete sentences and no respiratory distress Skin: General skin exam: no rashes or lesions noted Neuro: General: patient oriented x3 and moves all extremities Procedures Date of Service Date of Service: 01/24/24 Progress Note: A&P Assessment and plan (1) S/P lobectomy of lung: Status: Acute (2) Lung mass: Status: Acute Plan Continues to do well from surgical standpoint. F/u CXR post procedure yesterday reviewed. Incision clean, chest tube dressing c/d/i. Patient now saturating low 90s on RA, asymptomatic. BP improved with amlodipine. She feels ready for discharge to home. Dc to home today with VNA services. F/u in office in 1 week. Patient comfortable with plan. Pathology still pending. Time Spent With Patient Time: Total time managing care of this patient today ____ minutes. Quality Stroke Does the patient have a stroke diagnosis?: No VTE Prior VTE?: No VTE Risk Level:: Surgical - high VTE Device Contraindication: N/A - Device Ordered VTE Drug Contraindication: N/A - Med Ordered
--- NOTE | 2024-01-24 11:15 | W.MHC.F2F ---
Service Date Service Date: 01/24/24 Encounter Date of encounter: 01/24/24 Reasons for Services Signs and symptoms assessed: Incisional pain, incision appearance, oxygen saturation, PO intake, activity Reason for residential: wound care and postoperative assessment and/or care Homebound: Leaving the home is medically contraindicated at this time without the asist of a device and/or another person due th the listed conditions above and below. Reason homebound: weakness related to hospital stay and unable to drive Homebound supporting statement: Ms. Cooper underwent a VATS right lower lobectomy for right lower lobe lung mass. She tolerated the procedure well and had an uncomplicated recovery course. She will need VNA for chest tube dressing changes every other day with xeroform and 4x4 and tape. Certification: Based on the above findings, I certify that this patient is confined to the home and needs intermittent residential care, physical therapy and/or speech therapy, or continues to need occupational therapy. The patient is under my care, and I have initiated the establishment of the plan of care. The patient will be followed by a physician who will periodically review the plan of care. Time Spent With Patient Time: Total time managing care of this patient today ____ minutes.
--- NOTE | 2024-01-24 11:19 | PM.DS ---
DS: Providers Provider Date of Service: 12/ Date of admission: 01/19/24 13:37 Date of discharge: 01/24/24 Primary care physician: Marzena Oconnor MD Attending physician on admission: Carlos Muse Consults: 01/19/24 13:37 Consult to Hospitalist Routine Comment: Consulting Provider: Hospitalist Reason For Exam: s/p VATS right lower lobectomy, DM, HTN, ADRIAN Attending physician on discharge: Carlos Muse DS: Diagnosis Discharge Diagnosis (1) S/P lobectomy of lung: Status: Acute (2) Lung mass: Status: Acute DS: Summary Hospital Course Hospital Course: HPI AT ADMISSION: Patient was incidentally found to have a right lower lobe medially located lung mass/process on CT scan following a fall and sustained rib fractures. Patient has a very distant smoking history. She denies any cough, hemoptysis, chest pain, or wheezing. She has had modest improvement of her right costal pain. No acute respiratory symptoms. Follow up PET scan demonstrates an isolated reactive mass of the right lower lobe consistent with lung primary. No other evidence of mediastinal distal disease. Patient is PFT's were very good. HOSPITAL COURSE: On 3//24, a bronchoscopy, vats right lower lobe lung mass biopsy, right lower lobectomy, mediastinal lymph node sampling, intercostal nerve block was performed by Dr. Muse without complication. The patient tolerated the procedure well and was admitted to the telemetry service for observation. Hospitalist consult was obtained for management of her medical comorbdities. She had an uncomplicated recovery course. On POD #1 she was doing well with good pain control. She had moderate serosanguineous chest tube output with a small air leak and therefore her chest tube was continued to suction. Her activity was increased. Over the next couple post operative days, her chest tube output decreased and her air leak resolved. Her chest tube was therefore put to water seal. F/u CXR showed minimal effusion without pneumothorax and there remained scant serous output without air leak. Her chest tube was removed on POD #4. She remained on supplemental oxygen which was weaned. She remained hypertensive throughout her stay and amlodipine 5mg PO daily was added with improvement. On the day of discharge, she was comfortable on PO analgesics and ambulating without difficulty. Her vitals were stable and o2 saturations remained low 90s on RA and she remained without shortness of breath. Her incisions were clean and chest tube site dressing was c/d/i. She felt ready for discharge to home. She was discharged to home on 01/24/24 in stable condition with VNA services for chest tube site dressing changes with xeroform and 4x4. She is to follow up in the office in 1 week. Status at Discharge Functional status at discharge: independent ambulation Overall status at discharge: patient is progressing back to baseline Time Attestation Discharge Coordination Time (in mins): 31 Quality: Safe Use of Opioids Does Pt have an Active Cancer Diagnosis on the Problem List?: No Quality: Stroke Does the patient have a stroke diagnosis?: No Physical Exam Vital Signs: Vital Signs: Last Vital Signs Temp 97.1 F 01/24/24 07:35 Pulse 75 01/24/24 07:35 Resp 18 01/24/24 07:35 BP 111/57 L 01/24/24 07:35 Pulse Ox 92 01/24/24 07:35 O2 Del Method Room Air 01/24/24 07:35 O2 Flow Rate 2 01/24/24 03:47 BMI result Body Mass Index 33.2 Const: General: comfortable, no acute distress and alert Orientation/consciousness: patient oriented x3 Chest: Other: right lateral chest incision clean chest tube site dressing dry Resp: Effort & Inspection: normal respiratory effort and no respiratory distress Skin: General skin exam: no rashes or lesions noted and no jaundice Neuro: General: patient oriented x3 and moves all extremities DS: Data Data Completed and Pending Pending studies at discharge: Pending at discharge 01/19/24 11:00 Surgical [PTH] Stat 01/19/24 13:22 Surgical [PTH] Routine Labs on day of discharge: Laboratory Results - last 24 hr 01/23/24 01/23/24 01/23/24 11:15 16:08 19:53 POC Glucose 245 H 199 H 199 H 01/24/24 07:34 POC Glucose 206 H Discharge Plan Discharge Anticipated Discharge Date/Time: 01/24/24 08:43 Patient Disposition: Home Health Service Discharge Diagnosis: s/p VATS right lower lobectomy Referrals: Bianca Benítez [Outside] - 1 Week Po,Marzena Reynolds MD [Primary Care Provider] - 1 Week Carlos Muse MD [Physician] - 1 Week Discharge Medications: New amlodipine 5 mg Tablet 5 mg PO DAILY Qty: 90 0RF Protocol: Hold for SBP< HOLD for SBP < : 90 docusate sodium [Colace] 100 mg capsule 100 mg PO BID PRN (Reason: constipation) Qty: 30 0RF oxycodone 5 mg tablet 5 mg PO Q4H PRN (Reason: pain (scale score 7-10)) Qty: 25 0RF Rx Instructions: Partial Fill upon patient request. Continued (DME) blood-glucose meter [OneTouch Verio Meter] [facility] See Rx Instructions .ROUTE .MEDSUPPLY Qty: 1 3RF Rx Instructions: As directed checked the blood sugar once a day glipizide 5 mg tablet 5 mg PO BID 90 Days Qty: 180 1RF acetaminophen 325 mg Tablet 650 mg PO BID lisinopril 20 mg tablet 30 mg PO DAILY (DME) OneTouch Verio test strips Strip See Rx Instructions .ROUTE .MEDSUPPLY Qty: 300 3RF Rx Instructions: As directed check the blood sugar three times a day (DME) lancets [facility] See Rx Instructions .Route Qty: 300 3RF Rx Instructions: As directed check the blood sugar Three times aday atorvastatin 40 mg tablet 40 mg PO BEDTIME 90 Days Qty: 90 3RF metformin 1,000 mg tablet 1,000 mg PO BID 90 Days Qty: 180 3RF insulin glargine [Lantus Solostar U-100 Insulin] 100 unit/mL (3 mL) insulin pen 16 unit subcut QPM 30 Days Qty: 15 3RF Patient Comments: took 1/2 the dose last night Rx Instructions: increase dose to 16 Units (DME) pen needle, diabetic [BD Daysi 2nd Gen Pen Needle] 32 gauge x 5/32 needle See Rx Instructions .Route Qty: 100 0RF Rx Instructions: Use one needle daily insulin lispro [Humalog KwikPen Insulin] 100 unit/mL insulin pen 1 sliding scale dose subcut TID 30 Days Qty: 15 1RF Rx Instructions: Blood sugar of- 70 to 130- take 0 units Blood sugar of 131-180- take 2 units 181 to 240- take 4 units [id number] 6 units 301 to 350-take 8 units [id number] 10 units Blood sugar over 400 -take Max 12 units- call MD Discharge Orders: Discharge Order (Routine); Ordered 01/24/24 Ordered By: Stephani Morse Diet: Diabetic diet Activity on Discharge: No heavy lifting Stand Alone Forms: Patient Portal Discharge page Activity Restrictions/Additional Instructions: Apply an ice pack for short intervals (20 minutes on, followed by at least 20 minutes off). Do not apply heat. Do not use creams, lotions, or topical antibiotics. These can cause infection or allergic reaction. Ok to shower 48 hours after your surgery. You have steri strips (small white cloth strips) covering your incision- these will fall off ~1 week. Follow up in office with Dr. Muse in 1 week. ([phone]) Chest tube dressing: change every other day and as needed with xeroform, 4x4 and tape No heavy lifting (>10lbs) or strenuous activity! Call Your Doctor If: -Your temperature exceeds 101.5? F -You experience excessive pain or swelling -You have an unexpected reaction to medication -You have excessive bleeding -You experience continued vomiting/nausea, shortness of breath -Your incision begins to separate -Your incision shows signs of infection such as increased redness, swelling, excessive pain, drainage (light blood or clear fluid is normal) or heat Care Plan Goals: Return to baseline health and resume normal activities following recovery period. Health Concerns: lung mass HTN DM hx of smoking Plan of Treatment: s/p VATS right lower lobectomy HTN- amlodipine added, f/u with PCP VNA for dressing change F/u in office in 1 week Assessment: Doing well post op Discharge Date/Time: 01/24/24 10:30
--- NOTE | 2024-01-24 11:44 | MHC.CM.PN ---
Second IMM sent to pt. pt was medically cleared for DC, she will go home via private transport and have VNA services from [facility].
== END 2024-01-24 10:30 | disposition home health service (06) | DRG 165 ==
LOC: HO.SSSA 13:47 → HO.IMC 15:45
PROVIDERS: Physician Assistant Surgical; Admitting Provider Surgery; PCP Internal Medicine; Visit Provider Surgery
PROC: 0BTF4ZZ Resection of Right Lower Lung Lobe, Percutaneous Endoscopic Approach (ICD-10-PCS; principal; 2024-01-19 08:20)
PROC: 0BJ08ZZ Inspection of Tracheobronchial Tree, Via Natural or Artificial Opening Endoscopic (ICD-10-PCS; CPT 31622; 2024-01-19 08:20)
DX: R91.8 Other nonspecific abnormal finding of lung field (principal); E78.5 Hyperlipidemia, unspecified; I10 Essential (primary) hypertension; G47.33 Obstructive sleep apnea (adult) (pediatric); Z87.891 Personal history of nicotine dependence; Z79.84 Long term (current) use of oral hypoglycemic drugs; Z79.4 Long term (current) use of insulin; Z79.899 Other long term (current) drug therapy
CPT/HCPCS: 36415; 71045; 80048; 82947; 85025; 86850; 86900; 86901; 88305; 88309; 88331; 88341; 88342; 93306; 93356; A7041; C9290; J0131; J0665; J0690; J1100; J1170; J1644; J2250; J2270; J2305; J2371; J2405; J2598; J2704; J3010; J7120

== ENCOUNTER → 2024-01-19 13:37 | Outpatient (BNV) | payer OTHER, SELFPAY | PROVIDERS: Admitting Provider Surgery; PCP Internal Medicine; Visit Provider Internal Medicine | DX: Z90.2 Acquired absence of lung [part of] (principal); E11.65 Type 2 diabetes mellitus with hyperglycemia; Z79.4 Long term (current) use of insulin; I10 Essential (primary) hypertension; E78.00 Pure hypercholesterolemia, unspecified | CPT/HCPCS: 99223; 99231 ==

== ENCOUNTER → 2024-01-19 13:37 | Outpatient (BNV) | payer OTHER, SELFPAY | PROVIDERS: Admitting Provider Surgery; PCP Internal Medicine; Visit Provider Surgery | DX: Z90.2 Acquired absence of lung [part of] (principal); R91.8 Other nonspecific abnormal finding of lung field | CPT/HCPCS: 32663; 32674; 99024; G0180 ==

== ENCOUNTER 2024-01-31 09:30 | Outpatient (AMB) | payer OTHER, SELFPAY ==
[2024-01-31 09:46] VITALS: BP 119/58; PULSE 89
--- NOTE | 2024-01-31 09:46 | MHC.OFFVIS ---
Intake Vital Signs 01/31/24 09:46 Weight 171 lb BP 119/58 L Blood Pressure Location Rt brachial Position Sitting Pulse 89 Intake Visit Reasons: S/P VATS wedge RLL Intake Note: Patient here s/p VATS wedge RLL. Reports incision healing well. Patient c/o: no concerns. SX: 01-19-24. 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 Aside from mild incisional discomfort, she is doing relatively well. Tolerating a diet. Having regular bowel habits. She is slowly try to increase her activity level but is still weak. She has no respiratory issues. Pathology results were reviewed. [facility] Medical History COVID-19 virus infection Personal history of COVID-19 Skin cancer Back pain History of rib fracture Cough Bronchitis Lung mass Perianal mass Urinary tract infection Restless leg syndrome Obesity (BMI 30-39.9) Vitamin D deficiency Obstructive sleep apnea Hypertension Type 2 diabetes mellitus with hyperglycemia Hx of iron deficiency anemia Arthritis Hyperlipidemia Surgical History S/P lobectomy of lung (01/19/24) History of hand surgery History of carpal tunnel release Hx of colonoscopy Hx of hysterectomy Hx of appendectomy History of cholecystectomy Social History Household Members: Spouse Housing: House Are you a primary animal care attendant to a significant other at home: No Do you presently have visiting nurse or other home services: No Alcohol intake: never Comment: COUNTS CORRECT Patient Tobacco Use Status: Former Tobacco user Tobacco use type: Cigarette Cigarette Packs Per Day: 1 Years Smoked: quit 1996 (25 years) e-Cigarette/Vaping Use: Never Used Second Hand Smoke Exposure: No service: No Current occupational status: disabled Cognitive needs: No Hearing needs: No Vision needs: Yes Physical Exam Vital Signs: Last Vital Signs Pulse 89 01/31/24 09:46 BP 119/58 L 01/31/24 09:46 Chest Other: Chest breath sounds bilaterally, all incisions clean dry and intact healing well. Assessment & Plan Assessment & Plan (1) S/P lobectomy of lung: Onset Date: 01/19/24 Comment: VATS right lower lobectomy Dr. Carlos Muse Code(s): Z90.2 - Acquired absence of lung [part of] Plan Current plan is see the patient in proximally 3-4 weeks time. She is encouraged to do her incentive spirometry and ambulate as tolerated. We will also have her see Oncology Dr. Jones which was recommended at the lung cancer screening multidisciplinary meeting last week. All questions answered. Coding Level of Care Code Global (33204) Diagnoses S/P lobectomy of lung Z90.2
== END 2024-01-31 10:01 | disposition home or self-care (01) ==
PROVIDERS: PCP Internal Medicine; Visit Provider Surgery
DX: Z90.2 Acquired absence of lung [part of] (principal)
CPT/HCPCS: 99024

== ENCOUNTER → 2024-01-31 09:30 | Outpatient (BNVA) | payer OTHER, SELFPAY | PROVIDERS: PCP Internal Medicine; Visit Provider Surgery | DX: Z90.2 Acquired absence of lung [part of] (principal) | CPT/HCPCS: 99212 ==

== ENCOUNTER 2024-02-02 10:01 | Outpatient (AMB) | payer OTHER, SELFPAY ==
[2024-02-02 10:05] VITALS: BP 148/68; PULSE 75; O2SAT 97; BMI 32.0
--- NOTE | 2024-02-02 10:05 | A.OFFPC_ITS ---
Vital Signs 02/02/24 10:05 Height 5 ft 2 in Weight 175 lb 0.752 oz BMI 32.0 BP 148/68 H Blood Pressure Location Lt brachial Position Sitting Pulse 75 Pulse Source Pulse Oximeter Pulse Oximetry (%) 97 Oxygen Delivery Method Room Air Intake Visit Reasons: HDF lung surgery 01/19 Intake Note: Patient is here for hospital discharge follow up. [place] [facility] [place] Stem Cleaning Machine Feeder Required: No Allergies Sulfa (Sulfonamide Antibiotics) [SULFA (SULFONAMIDE ANTIBIOTICS)] Allergy (Intermediate, Verified 02/02/24 10:06) RASH exenatide [From BYETTA] Allergy (Unknown, Verified 02/02/24 10:06) VOMITTING Tobacco use date assessed: 02/02/24 Fall risk assessment: No Falls in past year Last assessed Fall Risk: 02/02/24 Dental Screening Dental Screen Date: 02/02/24 HPI HDF lung surgery 01/19 HPI Details 68-year-old obese female with diabetes m ellitus hypertension hypercholesterolemia obstructive sleep apnea last seen in August 2023. Patient is being followed up by the thoracic surgeon status post VAT S wedge right lower lobe lobectomy. January 2024 for invasive mucinous adenocarcinoma. Echocardiogram January 2024. Normal LV ejection fraction of 60 65% with impaired relaxation filling pattern 2. Mild aortic stenosis 3. Normal RV systolic pressure 4. No gross pericardial effusion Normal PFT patient had a PET scan showing intensely FDG avid right lower lobe nodule. Had also right sided rib fractures - hepatomegaly October note from the ER from a fall having rib fr.actures 4 through 7 and 9-11 which did reveal a soft tissue mass in the anteromedial right lower lobe.. BP advised to check at home BS to check middle of day also. patient noted 6-7 months forgetting stuff. Mini-mental status exam FORMERLY [facility] Medical History COVID-19 virus infection Personal history of COVID-19 Skin cancer Back pain History of rib fracture Cough Bronchitis Lung mass Perianal mass Urinary tract infection Restless leg syndrome Obesity (BMI 30-39.9) Vitamin D deficiency Obstructive sleep apnea Hypertension Type 2 diabetes mellitus with hyperglycemia Hx of iron deficiency anemia Arthritis Hyperlipidemia Surgical History S/P lobectomy of lung (01/19/24) History of hand surgery History of carpal tunnel release Hx of colonoscopy Hx of hysterectomy Hx of appendectomy History of cholecystectomy Social History Household Members: Spouse Housing: House Are you a primary career technical education teacher to a significant other at home: No Do you presently have visiting nurse or other home services: No Alcohol intake: never Comment: COUNTS CORRECT Patient Tobacco Use Status: Former Tobacco user Tobacco use type: Cigarette Cigarette Packs Per Day: 1 Years Smoked: quit 1996 (25 years) e-Cigarette/Vaping Use: Never Used Second Hand Smoke Exposure: No service: No Current occupational status: disabled Cognitive needs: No Hearing needs: No Vision needs: Yes Questionnaire Thrive Questionnaire Date Thrive assessed: 01/20/24 AUDIT C Alcohol Use Questionnaire (AUDIT-C) 1. How often do you have a drink containing alcohol?: Never 3. How often do you have six or more drinks on one occasion?: Never Total Score: 0 LASHA-7 AMB Questionnaire LASHA-7 Date LASHA - 7 assessed: 01/02/24 Source: Developed by Drs. Luke Marie, Audrey Faustin, Ab Kaur and colleagues, with an educational cliff from [employer]. Physical exam (Primary Care) Vital Signs: Last Vital Signs Pulse 75 02/02/24 10:05 BP 148/68 H 02/02/24 10:05 Pulse Ox 97 02/02/24 10:05 Oxygen Delivery Method Room Air 02/02/24 10:05 BMI result Body Mass Index 32.0 Tobacco/Smoking Status: Tobacco use Status Tobacco use date assessed 02/02/24 02/02/24 10:06 Patient Tobacco Use Status Former Tobacco user 02/02/24 10:06 Tobacco use type Cigarette 02/02/24 10:06 e-Cigarette/Vaping Use Never Used 02/02/24 10:06 Thrive Assessment: Date of Thrive Assessment Date Thrive assessed 01/20/24 02/02/24 10:06 Const General: alert; No acute distress Eyes Conjunctivae: conjunctivae normal Resp Auscultation: clear to auscultation bilaterally Cardio Rate: regular rate Rhythm: regular rhythm GI Inspection: Yes normal to inspection Extrem General: Yes normal to inspection and No edema Assessment and Plan Assessment & Plan (1) S/P lobectomy of lung: Onset Date: 01/19/24 Comment: VATS right lower lobectomy January 2024 Dr. Carlos Muse Code(s): Z90.2 - Acquired absence of lung [part of] Plan: Continue to follow up with the surgeon (2) Lung cancer: Comment: January 2024. 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 -Broncho-vascular margins are free of tumor. -Lung parenchyma with emphysematous changes, abundant mucus and post-obstructive Code(s): C34.90 - Malignant neoplasm of unspecified part of unspecified bronchus or lung Plan: Continue to follow-up with surgeon as well as Hematology-Oncology (3) Emphysema of lung: Code(s): J43.9 - Emphysema, unspecified Plan: Patient has not required any inhaler. (4) Multiple fractures of ribs of right side: Comment: October 2023Mildly displaced fracture anteromedial right 6th rib with additional nondisplaced fracture of the anterolateral right 4th 5th 7th rib minimally displaced fracture posterior right 8th rib with a nondisplaced posterior right 9th rib fracture and a possible nondisplaced fracture of posterior right 10th rib Code(s): S22.41XA - Multiple fractures of ribs, right side, initial encounter for closed fracture Plan: Keep active use spirometry (5) Obstructive sleep apnea: Comment: Cannot tolerate CPAP Code(s): G47.33 - Obstructive sleep apnea (adult) (pediatric) Plan: Continue to monitor (6) Type 2 diabetes mellitus with hyperglycemia: Comment: Dr. Rendon Code(s): E11.65 - Type 2 diabetes mellitus with hyperglycemia Qualifiers: Diabetes mellitus skilled nursing insulin use: with skilled nursing use Qualified Code(s): E11.65 - Type 2 diabetes mellitus with hyperglycemia; Z79.4 - nursing home (current) use of insulin Plan: Decrease the amount of carbohydrate intake, pasta, bread, rice and potatoes are all sugar and that is aside from all the sweet stuff, remember that fruits are good but they are Sweet also. Hemoglobin A1c goal of less than 7.0 presently on glipizide 5 mg twice a day Lantus 16 units once a day Humalog sliding scale metformin 1000 mg twice a day. Patient is advised to get blood sugar testing. (7) Hypertension: Code(s): I10 - Essential (primary) hypertension Qualifiers: Hypertension type: essential hypertension Qualified Code(s): I10 - Essential (primary) hypertension Plan: Continue with blood pressure medication. Decrease salt intake and exercise on lisinopril 30 mg once a day and amlodipine 5 mg once a day (8) Hyperlipidemia: Code(s): E78.5 - Hyperlipidemia, unspecified Qualifiers: Hyperlipidemia type: pure hypercholesterolemia Qualified Code(s): E78.00 - Pure hypercholesterolemia, unspecified Plan: Avoid fried foods, chicken skin, eggs, butter margarine, pastries and meat. Be it pork or beef they have a lot of cholesterol LDL goal of less than 100 and triglyceride of less than 150 on atorvastatin 40 mg once a day (9) Memory deficit: Code(s): R41.3 - Other amnesia Plan: Mini-mental status 22/30. Will do a referral to [facility] memory clinic. Orders: Orders 2 Complete Blood Count Auto Diff Today E11.65 - Type 2 diabetes mellitus with hyperglycemia, Z79.4 - termite exterminator helper (current) use of insulin Comprehensive Met. Panel Today E11.65 - Type 2 diabetes mellitus with hyperglycemia, Z79.4 - termite exterminator helper (current) use of insulin IRON PROFILE Today E11.65 - Type 2 diabetes mellitus with hyperglycemia, Z79.4 - termite exterminator helper (current) use of insulin Reticulocyte Count Today E11.65 - Type 2 diabetes mellitus with hyperglycemia, Z79.4 - nursing home (current) use of insulin Thyroid Stimulating Hormone Today E11.65 - Type 2 diabetes mellitus with hyperglycemia, Z79.4 - termite exterminator helper (current) use of insulin UA CC w/rflx Micro + Cult Today E11.65 - Type 2 diabetes mellitus with hyperglycemia, R30.0 - Dysuria, Z79.4 - termite exterminator helper (current) use of insulin Lipid Panel Today E11.65 - Type 2 diabetes mellitus with hyperglycemia, E78.00 - Pure hypercholesterolemia, unspecified, Z79.4 - nursing home (current) use of insulin Magnesium Today E11.65 - Type 2 diabetes mellitus with hyperglycemia, Z79.4 - nursing home (current) use of insulin Free T4 (Free Thyroxine) Today E11.65 - Type 2 diabetes mellitus with hyperglycemia, Z79.4 - termite exterminator helper (current) use of insulin Ferritin Today E11.65 - Type 2 diabetes mellitus with hyperglycemia, Z79.4 - nursing home (current) use of insulin Vitamin B12 and Folate Today E11.65 - Type 2 diabetes mellitus with hyperglycemia, Z79.4 - termite exterminator helper (current) use of insulin Syphilis Screen Today E11.65 - Type 2 diabetes mellitus with hyperglycemia, Z79.4 - nursing home (current) use of insulin Erythrocyte Sedimentation Rate Today E11.65 - Type 2 diabetes mellitus with hyperglycemia, Z79.4 - nursing home (current) use of insulin Referrals Neuropsychiatry Referral R41.3 - Other amnesia Medications: New flash glucose sensor (FreeStyle Santiago 2 Sensor kit) As directed 6 kits 0RF E11.65 - Type 2 diabetes mellitus with hyperglycemia, Z79.4 - nursing home (current) use of insulin flash glucose scanning reader (FreeStyle [place] 2 [place]) As directed 1 ea 0RF E11.65 - Type 2 diabetes mellitus with hyperglycemia, Z79.4 - nursing home (current) use of insulin Refilled metformin 1,000 mg PO BID 90 days 180 tabs 3RF E11.65 - Type 2 diabetes mellitus with hyperglycemia, Z79.4 - termite exterminator helper (current) use of insulin Coding Level of Care Code Est Pt Level 4 (62306) Diagnoses S/P lobectomy of lung Z90.2 Lung cancer C34.90 Emphysema of lung J43.9 Multiple fractures of ribs of right side S22.41XA Obstructive sleep apnea G47.33 Type 2 diabetes mellitus with hyperglycemia, with long-term current use of insulin E11.65; Z79.4 Diabetes mellitus skilled nursing insulin use: with termite exterminator helper use Essential hypertension I10 Hypertension type: essential hypertension Pure hypercholesterolemia E78.00 Hyperlipidemia type: pure hypercholesterolemia Memory deficit R41.3
== END 2024-02-02 10:54 | disposition home or self-care (01) ==
PROVIDERS: PCP Internal Medicine; Visit Provider Internal Medicine
DX: J43.9 Emphysema, unspecified (principal); C34.90 Malignant neoplasm of unspecified part of unspecified bronchus or lung; E11.65 Type 2 diabetes mellitus with hyperglycemia; Z79.4 Long term (current) use of insulin; Z90.2 Acquired absence of lung [part of]; S22.41XA Multiple fractures of ribs, right side, initial encounter for closed fracture; G47.33 Obstructive sleep apnea (adult) (pediatric); I10 Essential (primary) hypertension; E78.00 Pure hypercholesterolemia, unspecified; R41.3 Other amnesia
CPT/HCPCS: 99214

== ENCOUNTER 2024-02-14 07:36 | Outpatient (REF) | payer OTHER, SELFPAY ==
[2024-02-14 12:46] LABS: MANUAL DIFF FLAG NO
[2024-02-14 12:51] LABS: Basophils Percent Auto 0.4 % (0-2); Eosinophils Absolute Auto 0.4 X10*3/uL (0.0-0.4); Hematocrit 36.9 % (37.0-47.0); Hemoglobin 12.2 g/dl (12.0-16.0); Imm Gran Abs Auto 0.03 X10*3/uL (0.00-0.03); Imm Gran Pct Auto 0.4 % (0.0-0.4); Immature Retic Fraction 13.6 % (3.0-15.9); Lymphocytes Absolute Auto 2.3 X10*3/uL (1.2-4.9); Lymphocytes Percent Auto 27.6 % (20-40); Mean Corpuscular HGB Conc 33.1 g/dl (31.0-35.0); Mean Corpuscular Hemoglobin 27.9 pg (27.0-33.0); Mean Corpuscular Volume 84.4 fL (80.0-98.0); Mean Platelet Volume 10.4 fL (9.4-12.3); Monocytes Absolute Auto 0.4 X10*3/uL (0.1-1.2); Monocytes Percent Auto 5.2 % (2-11); Neutrophils Absolute Auto 5.2 x10*3/uL (2.0-8.3); Neutrophils Percent Auto 61.4 % (45-73); Platelet Count 358 X10*3/uL (160-400); Red Blood Count 4.37 X10*6/uL (4.20-5.50); Red Cell Distribution Width 12.5 % (11.0-16.0); Retic HGB Equivalent 30.3 pg (30.0-35.0); Reticulocyte Percent 2.5 % (0.5-1.8); Reticulocytes Absolute 0.111 X10*6/uL (0.026-0.095); White Blood Count 8.4 X10*3/uL (4.8-10.8)
[2024-02-14 13:08] LABS: Estimated Average Glucose 192 mg/dL; Hemoglobin A1c % 8.3 % (<6.0)
[2024-02-14 13:18] LABS: Appearance Urine Cloudy; Color Urine Yellow; Glucose Urine UA Negative (Negative); Leukocyte Esterase Urine Trace (Negative); Nitrite Urine Negative (Negative); PH 5.5 (5.0-9.0); UMIC TRIGGER UACC YES; Urine Blood Negative (Negative); Urine Ketones Negative (Negative); Urine Protein 300 (3+) mg/dL (Neg-Trace)
[2024-02-14 13:25] LABS: Bacteria Urine None Seen (None Seen); Hyaline Casts Urine 0-2 /LPF (0-2); RBC Urine 0-2 /HPF (0-2); UACC Culture Trigger YES
[2024-02-14 13:28] LABS: Syphilis Screen Nonreactive (Nonreactive)
[2024-02-14 13:36] LABS: Ferritin 149 ng/mL (10-250); Free T4 (Free Thyroxine) 1.04 ng/dL (0.71-1.85); Thyroid Stimulating Hormone 2.04 uIU/mL (0.32-4.0)
[2024-02-14 13:47] LABS: Erythrocyte Sedimentation Rate 34 MM/HR (0-20); Folate 14.2 ng/mL (> or = 4.0); Vitamin B12 544 pg/mL (200-900)
[2024-02-14 14:48] LABS: Alanine Aminotransferase 9 U/L (0-31); Albumin Level 3.8 g/dL (3.5-5.0); Alkaline Phosphatase 85 U/L (39-117); Anion Gap 14 (12-20); Aspartate Amino Transferase 15 U/L (5-31); Bilirubin Total 0.6 mg/dL (0.0-1.0); Blood Urea Nitrogen 7 mg/dL (9-16); Calcium 9.7 mg/dL (8.4-10.2); Carbon Dioxide 27 mmol/L (22-29); Chloride 104 mmol/L (96-108); Cholesterol 152 mg/dL (<200); Estimated Glomerular Filt Rate > 60; Glucose Random 163 mg/dL (60-115); HDL Cholesterol 38 mg/dL (>40); Iron 55 mcg/dL (30-160); LDL Cholesterol Calculated 77 mg/dL (<100); Magnesium 1.3 mg/dL (1.6-2.6); Percent Iron Saturation 17 % (15-50); Potassium 3.9 mmol/L (3.3-5.1); Sodium 141 mmol/L (135-145); Total Iron Binding Capacity 325 mcg/dL (228-428); Total Protein 7.2 g/dL (6.5-8.0); Triglycerides 189 mg/dL (<150); Unsaturated Iron Binding 270 ug/dL
== END 2024-02-14 07:37 | disposition home or self-care (01) ==
LOC: HO.HMGCLDS 07:36
PROVIDERS: PCP Internal Medicine; Visit Provider Internal Medicine
DX: E78.00 Pure hypercholesterolemia, unspecified (principal); E11.65 Type 2 diabetes mellitus with hyperglycemia; Z79.4 Long term (current) use of insulin; R30.0 Dysuria
CPT/HCPCS: 36415; 80053; 80061; 81001; 81003; 82607; 82728; 82746; 83036; 83540; 83735; 84439; 84443; 85025; 85045; 85652; 86780; 87086; 87147

== ENCOUNTER → 2024-02-15 11:20 | Outpatient (BNV) | payer OTHER, SELFPAY | PROVIDERS: PCP Internal Medicine; Referring Provider Surgery; Visit Provider Internal Medicine | DX: C34.31 Malignant neoplasm of lower lobe, right bronchus or lung (principal); J90 Pleural effusion, not elsewhere classified | CPT/HCPCS: 99205; 99214; G2211 ==

== ENCOUNTER 2024-02-28 09:55 | Outpatient (AMB) | payer OTHER, SELFPAY ==
--- NOTE | 2024-02-28 09:58 | A.OFFVIS_ITS ---
Intake Intake Visit Reasons: S/P VATS wedge RLL, 1 mo follow up Intake Note: Patient here 1m f/u VATS wedge RLL. Patient c/o: reports incisions healing well. Denies any changes or concerns. No longer taking rx pain meds. SX: 01-19-24. Patient seen by Dr. Jones on 02-15-24. Director Of Market Analysis Required: No Allergies Sulfa (Sulfonamide Antibiotics) [SULFA (SULFONAMIDE ANTIBIOTICS)] Allergy (Intermediate, Verified 02/28/24 09:59) RASH exenatide [From BYETTA] Allergy (Unknown, Verified 02/28/24 09:59) VOMITTING HPI HPI Comments History of Present Illness Details Patient presents with her for follow-up. She has no respiratory or incisional issues or complaints. She is doing quite well. She will see Oncology and is to have localized radiation therapy commencing soon. [facility] Medical History COVID-19 virus infection Personal history of COVID-19 Skin cancer Back pain History of rib fracture Cough Bronchitis Lung mass Perianal mass Urinary tract infection Restless leg syndrome Obesity (BMI 30-39.9) Vitamin D deficiency Obstructive sleep apnea Hypertension Type 2 diabetes mellitus with hyperglycemia Hx of iron deficiency anemia Arthritis Hyperlipidemia Surgical History S/P lobectomy of lung (01/19/24) History of hand surgery History of carpal tunnel release Hx of colonoscopy Hx of hysterectomy Hx of appendectomy History of cholecystectomy Social History Household Members: Spouse Housing: House Are you a primary director of health care marketing to a significant other at home: No Do you presently have visiting nurse or other home services: No Alcohol intake: never Comment: COUNTS CORRECT Patient Tobacco Use Status: Never used Tobacco Tobacco use type: Cigarette Cigarette Packs Per Day: 1 Years Smoked: quit 1996 (25 years) e-Cigarette/Vaping Use: Never Used Second Hand Smoke Exposure: No service: No Current occupational status: disabled Cognitive needs: No Hearing needs: No Vision needs: Yes Physical Exam Chest Other: Chest breath sounds bilaterally. All wounds healed very well. Assessment & Plan Assessment & Plan (1) S/P lobectomy of lung: Onset Date: 01/19/24 Comment: VATS right lower lobectomy January 2024 Dr. Carlos Muse Code(s): Z90.2 - Acquired absence of lung [part of] Plan: A surgical perspective, patient has done quite well. She will see me in 6 months time preceded by surveillance CT scan or p.r.n.. All questions answered. Orders: Orders CT chest wo/w IV con 6 Months Z90.2 - Acquired absence of lung [part of] Coding Level of Care Code Global (44712) Diagnoses S/P lobectomy of lung Z90.2
== END 2024-02-28 10:20 | disposition home or self-care (01) ==
PROVIDERS: PCP Internal Medicine; Visit Provider Surgery
DX: Z90.2 Acquired absence of lung [part of] (principal)
CPT/HCPCS: 99024

== ENCOUNTER → 2024-02-28 09:55 | Outpatient (BNVA) | payer OTHER, SELFPAY | PROVIDERS: PCP Internal Medicine; Visit Provider Surgery | DX: Z48.813 Encounter for surgical aftercare following surgery on the respiratory system (principal); Z90.2 Acquired absence of lung [part of] | CPT/HCPCS: 99212 ==

== ENCOUNTER 2024-06-05 09:51 | Outpatient (AMB) | payer OTHER, SELFPAY ==
[2024-06-05 10:07] VITALS: BP 162/90; PULSE 78; O2SAT 97; BMI 32.7
--- NOTE | 2024-06-05 10:07 | A.OFFPC_ITS ---
Vital Signs 06/05/24 10:07 Height 5 ft 2 in Weight 179 lb BMI 32.7 BP 162/90 H Blood Pressure Location Lt brachial Position Sitting Pulse 78 Pulse Source Pulse Oximeter Pulse Oximetry (%) 97 Oxygen Delivery Method Room Air Intake Visit Reasons: Diabetes Mellitus hypertension Allergies Sulfa (Sulfonamide Antibiotics) [SULFA (SULFONAMIDE ANTIBIOTICS)] Allergy (Intermediate, Verified 06/05/24 10:08) RASH exenatide [From BYETTA] Allergy (Unknown, Verified 06/05/24 10:08) VOMITTING Tobacco use date assessed: 02/02/24 Fall risk assessment: No Falls in past year Last assessed Fall Risk: 06/05/24 Dental Screening Dental Screen Date: 02/02/24 HPI Diabetes Mellitus hypertension HPI Details 69-year-old obese female with a history of lung cancer status post lobectomy COPD diabetes mellitus obstructive sleep apnea hypertension hypercholesterolemia coming in for follow-up. Patient was last seen in 02/01/2024 had cognitive impairment after a mini-mental status of patient was sent to [facility] memory clinic. Patient's colonoscopy is up-to-date mammogram is due and the bone density is due. Patient follows up with Hemat ology-Oncology seen in March 2024 diagnosis of lung cancer in 11/02/2023 had a mechanical fall with the CT chest revealed displaced fractures of ribs no pneumothorax but the incidental finding of right lower lobe lung mass. Had PET scan in December 2023 intensely FDG avid right lower lobe mass consistent with malignancy patient underwent surgery. Five year survival 80% for stage I A no role of adjuvant chemotherapy patient was advised against adjuvant radiation therapy postop CT to be done. [facility] Medical History COVID-19 virus infection Personal history of COVID-19 Skin cancer Back pain History of rib fracture Cough Bronchitis Lung mass Perianal mass Urinary tract infection Restless leg syndrome Obesity (BMI 30-39.9) Vitamin D deficiency Obstructive sleep apnea Hypertension Type 2 diabetes mellitus with hyperglycemia Hx of iron deficiency anemia Arthritis Hyperlipidemia Surgical History S/P lobectomy of lung (01/19/24) History of hand surgery History of carpal tunnel release Hx of colonoscopy Hx of hysterectomy Hx of appendectomy History of cholecystectomy Social History Household Members: Spouse Housing: House Are you a primary healthcare management consultant to a significant other at home: No Do you presently have visiting nurse or other home services: No Alcohol intake: never Comment: COUNTS CORRECT Patient Tobacco Use Status: Former Tobacco user Tobacco use type: Cigarette Cigarette Packs Per Day: 1 Years Smoked: quit 1996 (25 years) e-Cigarette/Vaping Use: Never Used Second Hand Smoke Exposure: No service: No Current occupational status: disabled Cognitive needs: No Hearing needs: No Vision needs: Yes Questionnaire PHQ-9 Over the last 2 weeks, how often have you been bothered by any of the following problems? 1. Little interest or pleasure in doing things: not at all 2. Feeling down, depressed, or hopeless: not at all 3. Trouble falling or staying asleep, or sleeping too much: not at all 4. Feeling tired or having little energy: not at all 5. Poor appetite or overeating: not at all 6. Feeling bad about yourself - or that you are a failure or have let yourself or your family down: not at all 7. Trouble concentrating on things, such as reading the newspaper or watching television: not at all 8. Moving or speaking so slowly that other people could have noticed. Or the opposite - being so fidgety or restless that you have been moving around a lot more than usual: not at all 9. Thoughts that you would be better off or of hurting yourself in some way: not at all Total score: 0 Depression Screening Interpretation: Negative Depression Screening Done: Yes 56041 - PHQ-9 Billing: Yes Source: Developed by Drs. Luke Marie, Audrey Faustin, Ab Kaur and colleagues, with an educational cliff from [employer]. Thrive Questionnaire Date Thrive assessed: 01/20/24 AUDIT C Alcohol Use Questionnaire (AUDIT-C) 1. How often do you have a drink containing alcohol?: Never 3. How often do you have six or more drinks on one occasion?: Never Total Score: 0 LASHA-7 AMB Questionnaire LASHA-7 Date LASHA - 7 assessed: 01/02/24 Source: Developed by Drs. Luke Marie, Audrey BAb Allen and colleagues, with an educational cliff from [employer]. Physical exam (Primary Care) Vital Signs: Last Vital Signs Pulse 78 06/05/24 10:07 BP 162/90 H 06/05/24 10:07 Pulse Ox 97 06/05/24 10:07 Oxygen Delivery Method Room Air 06/05/24 10:07 BMI result Body Mass Index 32.7 Tobacco/Smoking Status: Tobacco use Status Tobacco use date assessed 02/02/24 06/05/24 10:09 Patient Tobacco Use Status Former Tobacco user 06/05/24 10:15 Tobacco use type Cigarette 06/05/24 10:09 e-Cigarette/Vaping Use Never Used 06/05/24 10:09 PHQ-9: PHQ-9 Score PHQ-9: Total score 0 06/05/24 10:24 Depression Screening Interpretation: Negative Thrive Assessment: Date of Thrive Assessment Date Thrive assessed 01/20/24 06/05/24 10:09 Const General: alert; No acute distress Eyes Conjunctivae: conjunctivae normal Resp Auscultation: clear to auscultation bilaterally Cardio Rate: regular rate Rhythm: regular rhythm GI Inspection: Yes normal to inspection Extrem General: Yes normal to inspection and No edema Results AMB Hemoglobin A1c AMB Hemoglobin A1c 10.3 % Last Edit by Rossy Fisher CMA on 06/05/24 10:24 Results Reviewed Results Reviewed: Laboratory Last Values Hgb A1c (Clinic) 10.3 % (4.0-6.0) H 06/05/24 10:09 Assessment and Plan Assessment & Plan (1) S/P lobectomy of lung: Onset Date: 01/19/24 Comment: VATS right lower lobectomy January 2024 Dr. Carlos Muse Code(s): Z90.2 - Acquired absence of lung [part of] Plan: Patient continues to follow-up with the surgeon (2) Lung cancer: Comment: January 2024. 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 -Broncho-vascular margins are free of tumor. -Lung parenchyma with emphysematous changes, abundant mucus and post-obstructive Code(s): C34.90 - Malignant neoplasm of unspecified part of unspecified bronchus or lung Plan: Patient has met with Hematology-Oncology and has recommended adjuvant radiotherapy with no role of adjuvant chemotherapy (3) Emphysema of lung: Code(s): J43.9 - Emphysema, unspecified Plan: Continue with the inhalers albuterol p.r.n. (4) Type 2 diabetes mellitus with hyperglycemia: Comment: Dr. Rendon Code(s): E11.65 - Type 2 diabetes mellitus with hyperglycemia Qualifiers: Diabetes mellitus jail insulin use: with intermediate frame tender use Qualified Code(s): E11.65 - Type 2 diabetes mellitus with hyperglycemia; Z79.4 - snf (current) use of insulin Plan: Decrease the amount of carbohydrate intake, pasta, bread, rice and potatoes are all sugar and that is aside from all the sweet stuff, remember that fruits are good but they are Sweet also. Hemoglobin A1c goal of less than 7.0. On Lantus 16 units with a sliding scale of Humalog, glipizide 5 mg twice a day metformin a 1000 mg twice a day (5) Hypertension: Code(s): I10 - Essential (primary) hypertension Qualifiers: Hypertension type: essential hypertension Qualified Code(s): I10 - Essential (primary) hypertension Plan: Continue with blood pressure medication. Decrease salt intake and exercise on amlodipine 5 mg once a day lisinopril 30 mg once a day (6) Hyperlipidemia: Code(s): E78.5 - Hyperlipidemia, unspecified Qualifiers: Hyperlipidemia type: pure hypercholesterolemia Qualified Code(s): E78.00 - Pure hypercholesterolemia, unspecified Plan: Avoid fried foods, chicken skin, eggs, butter margarine, pastries and meat. Be it pork or beef they have a lot of cholesterol February 2024 blood work on atorvastatin 40 mg at bedtime (7) Obesity (BMI 30-39.9): Code(s): E66.9 - Obesity, unspecified Plan: Diet and exercise Orders: Orders Complete Blood Count Auto Diff Today E11.65 - Type 2 diabetes mellitus with hyperglycemia, Z79.4 - snf (current) use of insulin AMB Hemoglobin A1c Today Z13.9 - Encounter for screening, unspecified Magnesium Today E11.65 - Type 2 diabetes mellitus with hyperglycemia, Z79.4 - supervisor intermediates (current) use of insulin Comprehensive Met. Panel Today E11.65 - Type 2 diabetes mellitus with hyper glycemia, Z79.4 - snf (current) use of insulin Referrals Neuropsychiatry Referral R41.3 - Other amnesia Medications: New Basaglar KwikPen U-100 Insulin (insulin glargine) DISPENSE WRITTEN 16 units (0.16 mL) subcut QPM 15 mL 12RF NS E11.65 - Type 2 diabetes mellitus with hyperglycemia, Z79.4 - supervisor intermediates (current) use of insulin Changed From lisinopril 30 mg (1.5 x 20 mg) PO DAILY 90 tabs 0RF I10 - Essential (primary) hypertension To lisinopril 40 mg PO DAILY 30 tabs 4RF I10 - Essential (primary) hypertension Refilled insulin lispro (Humalog KwikPen (U-100) Insulin) Blood sugar of- 70 to 130- take 0 units Blood sugar of 131-180- take 2 units 181 to 240- take 4 units 102-779-rfmg 6 units 301 to 350-take 8 units 012-905-npst 10 units Blood sugar over 400 -take Max 12 units- call MD 1 sliding scale dose subcut TID 30 days 15 mL 1RF E11.65 - Type 2 diabetes mellitus with hyperglycemia Coding Level of Care Code Est Pt Level 4 (99334) Diagnoses S/P lobectomy of lung Z90.2 Lung cancer C34.90 Emphysema of lung J43.9 Type 2 diabetes mellitus with hyperglycemia, with long-term current use of insulin E11.65; Z79.4 Diabetes mellitus jail insulin use: with jail use Essential hypertension I10 Hypertension type: essential hypertension Pure hypercholesterolemia E78.00 Hyperlipidemia type: pure hypercholesterolemia Obesity (BMI 30-39.9) E66.9
== END 2024-06-05 11:11 | disposition home or self-care (01) ==
PROVIDERS: PCP Internal Medicine; Visit Provider Internal Medicine
DX: J43.9 Emphysema, unspecified (principal); C34.90 Malignant neoplasm of unspecified part of unspecified bronchus or lung; E11.65 Type 2 diabetes mellitus with hyperglycemia; Z79.4 Long term (current) use of insulin; Z90.2 Acquired absence of lung [part of]; I10 Essential (primary) hypertension; E78.00 Pure hypercholesterolemia, unspecified; E66.9 Obesity, unspecified
CPT/HCPCS: 83036; 99214

== ENCOUNTER 2024-06-05 11:24 | Outpatient (REF) | payer OTHER, SELFPAY ==
[2024-06-05 11:40] LABS: MANUAL DIFF FLAG NO
[2024-06-05 12:27] LABS: Basophils Absolute Auto 0.1 X10*3/uL (0.0-0.2); Basophils Percent Auto 0.9 % (0-2); Eosinophils Absolute Auto 0.3 X10*3/uL (0.0-0.4); Eosinophils Percent Auto 2.6 % (0-4); Hematocrit 37.1 % (37.0-47.0); Hemoglobin 12.7 g/dl (12.0-16.0); Imm Gran Abs Auto 0.05 X10*3/uL (0.00-0.03); Imm Gran Pct Auto 0.5 % (0.0-0.4); Lymphocytes Absolute Auto 2.8 X10*3/uL (1.2-4.9); Mean Corpuscular HGB Conc 34.2 g/dl (31.0-35.0); Mean Corpuscular Volume 78.8 fL (80.0-98.0); Monocytes Absolute Auto 0.6 X10*3/uL (0.1-1.2); Neutrophils Absolute Auto 6.1 x10*3/uL (2.0-8.3); Platelet Count 304 X10*3/uL (160-400); Red Blood Count 4.71 X10*6/uL (4.20-5.50); Red Cell Distribution Width 13.5 % (11.0-16.0); White Blood Count 9.9 X10*3/uL (4.8-10.8)
[2024-06-05 12:29] LABS: Appearance Urine Clear; Color Urine Dark Yellow; Glucose Urine UA >=1000 mg/dL (Negative); Leukocyte Esterase Urine Small (1+) (Negative); Nitrite Urine Negative (Negative); PH 5.5 (5.0-9.0); Specific Gravity - Urine >= 1.030 (1.005-1.025); UMIC TRIGGER UACC YES; Urine Blood Negative (Negative); Urine Ketones Negative (Negative); Urine Protein 300 (3+) mg/dL (Neg-Trace)
[2024-06-05 12:55] LABS: Bacteria Urine None Seen (None Seen); Hyaline Casts Urine 0-2 /LPF (0-2); RBC Urine 0-2 /HPF (0-2); UACC Culture Trigger YES; WBC Urine 21-50 /HPF (0-5)
[2024-06-05 13:15] LABS: Alanine Aminotransferase 13 U/L (0-31); Albumin Level 3.9 g/dL (3.5-5.0); Alkaline Phosphatase 95 U/L (39-117); Anion Gap 17 (12-20); Aspartate Amino Transferase 13 U/L (5-31); Bilirubin Total 0.5 mg/dL (0.0-1.0); Blood Urea Nitrogen 9 mg/dL (9-16); Calcium 10.8 mg/dL (8.4-10.2); Carbon Dioxide 23 mmol/L (22-29); Chloride 101 mmol/L (96-108); Estimated Glomerular Filt Rate > 60; Glucose Random 335 mg/dL (60-115); Magnesium 1.3 mg/dL (1.6-2.6); Potassium 4.2 mmol/L (3.3-5.1); Sodium 137 mmol/L (135-145); Total Protein 7.2 g/dL (6.5-8.0)
== END 2024-06-05 11:25 | disposition home or self-care (01) ==
LOC: HO.LAB 11:24
PROVIDERS: PCP Internal Medicine; Visit Provider Internal Medicine
DX: E11.65 Type 2 diabetes mellitus with hyperglycemia (principal); R30.0 Dysuria; Z79.4 Long term (current) use of insulin
CPT/HCPCS: 36415; 80053; 81001; 83735; 85025; 87086; 87147

== ENCOUNTER 2024-06-08 08:22 | Outpatient (REF) | payer OTHER, SELFPAY ==
--- NOTE | ~2024-06-08 | CT_ITS ---
EXAMINATION: CT CHEST WITH CONTRAST CLINICAL INFORMATION: Lung cancer surveillance COMPARISON: CT of chest from 10/22/2023 TECHNIQUE: Multidetector volumetric CT imaging of the chest was obtained after the administration of 50 mL of Omnipaque 350 intravenous contrast without immediate adverse reactions. Axial MIP volume rendering provided. Sagittal and coronal reformatted images were obtained. This CT examination was performed using dose optimization techniques as appropriate, variously including the following: *Automated exposure control *Adjustment of mA and/or kV according to patient size (this includes techniques or standardized protocols for targeted exams where dose is matched to indication/reason for exam; i.e. extremities or head) *Use of iterative reconstruction technique DLP: 169 mGy-cm FINDINGS: LUNGS/PLEURA: Emphysematous changes. Peripheral reticular nodular opacities. Postsurgical changes along the medial aspect of the right lower lobe with interval development of atelectasis and small pleural effusion. Volume loss of the right hemithorax. Previously identified masslike focus is no longer visualized. No enlarged or suspicious pulmonary nodules or masses are noted. Central airways are patent. No pneumothorax. MEDIASTINUM: Heart is not enlarged. No pericardial effusion. Coronary artery and valvular calcifications are noted. Aorta is nonaneurysmal and demonstrates atherosclerotic calcifications. Main pulmonary artery is not enlarged. A few mildly prominent though nonenlarged mediastinal lymph nodes are redemonstrated, not enlarged per size criteria. Visualized portions of the thyroid are unremarkable. Volume loss of the right hemithorax. Slight elevation right hemidiaphragm. AXILLA: No lymphadenopathy. UPPER ABDOMEN: Decreased hepatic attenuation suggesting hepatic steatosis. Atrophy of the visualized pancreatic body and tail. Colonic diverticulosis without acute diverticulitis. Small hiatal hernia. OSSEOUS STRUCTURES: Multilevel degenerative changes of the thoracolumbar spine. Sclerotic focus right humeral head nonspecific though statistically representing a bone island. CT/CT chest w IV con IMPRESSION: 1. Postsurgical changes along the medial aspect of the right lower lobe with interval development of volume loss of the right hemithorax, atelectasis and small pleural effusion. Previously identified masslike focus is no longer visualized. No enlarged or suspicious pulmonary nodules or masses are noted. 2. Decreased hepatic attenuation suggesting hepatic steatosis. 3. Colonic diverticulosis without acute diverticulitis. 4. Small hiatal hernia.
[2024-06-08] MEDS: iohexoL 350 MG/ML 100 ML INFUS..BTL 65 ML IV (09:26)
== END 2024-06-08 08:23 | disposition home or self-care (01) ==
LOC: HO.CT 08:22
PROVIDERS: PCP Internal Medicine; Visit Provider Internal Medicine
DX: C34.90 Malignant neoplasm of unspecified part of unspecified bronchus or lung (principal)
CPT/HCPCS: 71260; Q9967

== ENCOUNTER 2024-08-08 10:08 | Outpatient (AMB) | payer OTHER, SELFPAY ==
[2024-08-08 10:14] VITALS: BP 150/82; PULSE 80; O2SAT 97; BMI 32.7
--- NOTE | 2024-08-08 10:14 | A.OFFPC_ITS ---
Vital Signs 08/08/24 10:14 Height 5 ft 2 in Weight 179 lb BMI 32.7 BP 150/82 H Blood Pressure Location Lt brachial Position Sitting Pulse 80 Pulse Source Pulse Oximeter Pulse Oximetry (%) 97 Oxygen Delivery Method Room Air Intake Visit Reasons: DM , HTN Abalone Processor Required: No Allergies Sulfa (Sulfonamide Antibiotics) [SULFA (SULFONAMIDE ANTIBIOTICS)] Allergy (Intermediate, Verified 08/08/24 10:15) RASH exenatide [From BYETTA] Allergy (Unknown, Verified 08/08/24 10:15) VOMITTING Medication List - Last Reconciled 08/08/24 by Kay Navarro PA-C acetaminophen 650 mg PO BID amlodipine 5 mg See Protocol PO DAILY atorvastatin 40 mg PO BEDTIME 90 days blood sugar diagnostic (emoteShareuch Verio test strips) As directed check the blood sugar three times a day blood-glucose meter (emoteShareuch Verio Meter) As directed checked the blood sugar once a day docusate sodium (Colace) 100 mg PO BID PRN flash glucose scanning reader (Wardrobe HousekeeperStyle [place] 2 [place]) As directed flash glucose sensor (FreeStyle Santiago 2 Sensor kit) As directed glipizide 5 mg PO BID 90 days insulin glargine (Basaglar KwikPen U-100 Insulin) 16 units (0.16 mL) subcut QAM 30 days insulin lispro (Humalog KwikPen (U-100) Insulin) 1 sliding scale dose subcut TID 30 days lancets As directed check the blood sugar Three times aday lisinopril 40 mg PO DAILY magnesium oxide 400 mg PO BID metformin 1,000 mg PO BID 90 days pen needle, diabetic (BD Daysi 2nd Gen Pen Needle) Use one needle daily Tobacco use date assessed: 02/02/24 Fall risk assessment: No Falls in past year Last assessed Fall Risk: 08/08/24 Dental Screening Dental Screen Date: 02/02/24 HPI DM , HTN HPI Details 69-year-old female with past medical his tory of lung cancer status post lobectomy, COPD, diabetes mellitus, obstructive sleep apnea, hypertension, hypercholesterolemia coming in for follow up.? Patient was last seen by Dr. Oconnor 06/05/2024.? Patient follows with Hematology Oncology last seen June 2024 for review of chest CT performed on 06/02/2024 which was negative for disease recurrence advised to follow up in 5 months. Patient's last A1c was done May 2024 was 10.3% she feels her blood sugars have been improving and typically range between 100-100 with very few above 200 and no values below 100. Her blood pressures at home have been elevated 160 systolic over 80s diastolic. She does mentioned she has been more forgetful lately and forgetting basic things such as her CAMI pin. She was referred to neuropsychiatry but has not heard from them yet. [facility] Medical History COVID-19 virus infection Personal history of COVID-19 Skin cancer Back pain History of rib fracture Cough Bronchitis Lung mass Perianal mass Urinary tract infection Restless leg syndrome Obesity (BMI 30-39.9) Vitamin D deficiency Obstructive sleep apnea Hypertension Type 2 diabetes mellitus with hyperglycemia Hx of iron deficiency anemia Arthritis Hyperlipidemia Surgical History S/P lobectomy of lung (01/19/24) History of hand surgery History of carpal tunnel release Hx of colonoscopy Hx of hysterectomy Hx of appendectomy History of cholecystectomy Social History Household Members: Spouse Housing: House Are you a primary human services care specialist to a significant other at home: No Do you presently have visiting nurse or other home services: No Alcohol intake: never Comment: COUNTS CORRECT Patient Tobacco Use Status: Former Tobacco user Tobacco use type: Cigarette Cigarette Packs Per Day: 1 Years Smoked: quit 1996 (25 years) e-Cigarette/Vaping Use: Never Used Second Hand Smoke Exposure: No service: No Current occupational status: disabled Cognitive needs: No Hearing needs: No Vision needs: Yes Questionnaire Thrive Questionnaire Date Thrive assessed: 01/20/24 Are you currently unemployed and looking for a job?: No AUDIT C Alcohol Use Questionnaire (AUDIT-C) 1. How often do you have a drink containing alcohol?: Never 3. How often do you have six or more drinks on one occasion?: Never Total Score: 0 LASHA-7 AMB Questionnaire LASHA-7 Date LASHA - 7 assessed: 01/02/24 Source: Developed by Drs. Luke Marie, Audrey Faustin, Ab Kaur and colleagues, with an educational cliff from [employer]. Review of Systems Const Denies body aches, Denies chills, Denies fever(s) and Denies headache(s) Eyes Reports no additional complaints ENT Denies dizziness and Denies headache(s) Card Denies chest pain, Denies syncope, Denies edema, Denies lightheadedness and Denies dyspnea Resp Denies dyspnea Reports no additional complaints Musc Reports no additional complaints and Denies abnormal gait Skin/Breast Reports system reviewed and no additional complaints, except as documented Neuro Denies abnormal gait, Denies dizziness, Denies syncope and Denies headache(s) Psych Reports no additional complaints Physical exam (Primary Care) Vital Signs: Last Vital Signs Pulse 80 08/08/24 10:14 BP 150/82 H 08/08/24 10:14 Pulse Ox 97 08/08/24 10:14 Oxygen Delivery Method Room Air 08/08/24 10:14 BMI result Body Mass Index 32.7 Tobacco/Smoking Status: Tobacco use Status Tobacco use date assessed 02/02/24 08/08/24 10:17 Patient Tobacco Use Status Former Tobacco user 08/08/24 10:17 Tobacco use type Cigarette 08/08/24 10:17 e-Cigarette/Vaping Use Never Used 08/08/24 10:17 Thrive Assessment: Date of Thrive Assessment Date Thrive assessed 01/20/24 08/08/24 10:17 Const General: cooperative, healthy appearing, comfortable and no acute distress Orientation/consciousness: patient oriented x3 HENMT Head: Yes normocephalic Ears: hearing grossly normal bilaterally General nose exam: Normal external nose present Eyes General: appearance normal, both eyes and all related structures Conjunctivae: conjunctivae normal Neck Neck: Yes full ROM and Yes no lymphadenopathy Resp Effort & Inspection: normal respiratory effort Auscultation: clear to auscultation bilaterally, no crackles, no rales, no rhonchi and no wheezes Cardio Rate: regular rate Rhythm: regular rhythm Skin General skin exam: no rashes or lesions noted Neuro General: patient oriented x3 Gait exam (Neuro): Normal gait present Extrem General: Yes normal to inspection, Yes full ROM and No edema Psych Affect: normal affect Attitude: cooperative Insight: Good insight present (Psych) Judgement: Good judgement present (Psych) Assessment and Plan Assessment & Plan (1) Lung cancer: Comment: January 2024. 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 -Broncho-vascular margins are free of tumor. -Lung parenchyma with emphysematous changes, abundant mucus and post-obstructive Code(s): C34.90 - Malignant neoplasm of unspecified part of unspecified bronchus or lung Plan: Continue to follow with Hematology/Oncology. (2) Hypertension: Code(s): I10 - Essential (primary) hypertension Qualifiers: Hypertension type: essential hypertension Qualified Code(s): I10 - Essential (primary) hypertension Plan: Blood pressure elevated at the last 2 exams today 150/82 when retaken. We will increase the amlodipine to 10 mg and advised patient to monitor for symptoms of leg swelling, lightheadedness, or chest pain. We will recheck blood pressure at next visit and ask patient to bring log of home blood pressures at that time. (3) Type 2 diabetes mellitus with hyperglycemia: Comment: Dr. Rendon Code(s): E11.65 - Type 2 diabetes mellitus with hyperglycemia Qualifiers: Diabetes mellitus terminal gauger supervisor insulin use: with correction use Qualified Code(s): E11.65 - Type 2 diabetes mellitus with hyperglycemia; Z79.4 - moth exterminator (current) use of insulin Plan: Last A1c elevated at over 10%. She does have an appointment next month with Dr. Oconnor and we will have A1c repeated at that time. Her blood sugars have been in the 100-100 ranges. Decrease the amount of carbohydrates such as pasta, bread, rice, and potatoes and limit the amount of sweets. Although fruits are generally healthy they should be eaten in moderation as they are still high in sugar. Hemoglobin A1c goal of less than 7%. (4) Hyperlipidemia: Code(s): E78.5 - Hyperlipidemia, unspecified Qualifiers: Hyperlipidemia type: pure hypercholesterolemia Qualified Code(s): E78.00 - Pure hypercholesterolemia, unspecified Plan: Avoid foods that are high in cholesterol such as red meat, fried foods, eggs and baked goods. Triglyceride goal of less than 150 and LDL goal of less than 100. Continue on atorvastatin 40 mg. (5) Memory deficit: Code(s): R41.3 - Other amnesia Plan: Patient was provided with number for Neuropsychiatry that she was referred to and she will follow up for appointment. Plan This note was constructed using voice recognition software. While every effort has been made to ensure accuracy and band scroll saw operator, still areas may have been included sometimes these areas may affect the content or meeting of the given symptoms. Total time spent caring for the patient today was 30 minutes. This includes time spent before the visit reviewing the chart, time spent during the visit, and time spent after the visit and documentation. Medications: New amlodipine 10 mg PO DAILY 30 tabs 2RF Refilled blood sugar diagnostic (OneTouch Verio test strips) As directed check the blood sugar three times a day 300 ea 3RF E11.65 - Type 2 diabetes mellitus with hyperglycemia pen needle, diabetic (BD Daysi 2nd Gen Pen Needle) Use one needle daily 100 ea 0RF E11.65 - Type 2 diabetes mellitus with hyperglycemia, Z79.4 - moth exterminator (current) use of insulin lancets As directed check the blood sugar Three times aday 300 ea 3RF E11.65 - Type 2 diabetes mellitus with hyperglycemia, Z79.4 - moth exterminator (current) use of insulin Discontinued amlodipine Discontinued Reason: Ancillary Entered New Order 5 mg See Protocol PO DAILY 90 tabs 0RF Coding Level of Care Code Est Pt Level 4 (96444) Diagnoses Lung cancer C34.90 Essential hypertension I10 Hypertension type: essential hypertension Type 2 diabetes mellitus with hyperglycemia, with long-term current use of insulin E11.65; Z79.4 Diabetes mellitus correction insulin use: with correction use Pure hypercholesterolemia E78.00 Hyperlipidemia type: pure hypercholesterolemia Memory deficit R41.3
== END 2024-08-08 10:50 | disposition home or self-care (01) ==
PROVIDERS: PCP Internal Medicine
DX: C34.90 Malignant neoplasm of unspecified part of unspecified bronchus or lung (principal); I10 Essential (primary) hypertension; E11.65 Type 2 diabetes mellitus with hyperglycemia; Z79.4 Long term (current) use of insulin; E78.00 Pure hypercholesterolemia, unspecified; R41.3 Other amnesia

== ENCOUNTER → 2024-08-08 10:08 | Outpatient (BNVA) | payer OTHER, SELFPAY | PROVIDERS: PCP Internal Medicine | DX: I10 Essential (primary) hypertension (principal); E11.65 Type 2 diabetes mellitus with hyperglycemia; E78.00 Pure hypercholesterolemia, unspecified; C34.90 Malignant neoplasm of unspecified part of unspecified bronchus or lung; R41.3 Other amnesia; Z79.4 Long term (current) use of insulin | CPT/HCPCS: 99212 ==

== ENCOUNTER 2024-08-16 09:35 | Outpatient (REF) | payer OTHER, SELFPAY ==
--- NOTE | ~2024-08-16 | CT_ITS ---
EXAMINATION: CT CHEST WITH CONTRAST CLINICAL INFORMATION: Malignant neoplasm of unspecified part of right bronchus or lung COMPARISON: CT chest June 08, 2024, October 22, 2023 TECHNIQUE: Multidetector volumetric CT imaging of the chest was obtained after the administration of 65 mL of Omnipaque 350 intravenous contrast without immediate adverse reactions. Axial MIP volume rendering provided. Sagittal and coronal reformatted images were obtained. This CT examination was performed using dose optimization techniques as appropriate, variously including the following: *Automated exposure control *Adjustment of mA and/or kV according to patient size (this includes techniques or standardized protocols for targeted exams where dose is matched to indication/reason for exam; i.e. extremities or head) *Use of iterative reconstruction technique DLP: 154 mGy-cm FINDINGS: LUNGS: Emphysematous changes of lungs. Postsurgical changes of the medial aspect right lung stable in appearance since prior studies. Stable volume loss right hemithorax from prior surgery. No evidence of recurrent tumor. MEDIASTINUM: No mediastinal mass or pericardial effusion. Heart size normal. No aneurysm of aorta. There are scattered volume calcifications thoracic aorta wall. PLEURA: Small right pleural effusion appears loculated unchanged in size since June 08, 2024. AXILLA: No lymphadenopathy. UPPER ABDOMEN: Unremarkable OSSEOUS STRUCTURES: Multilevel degenerative spondylosis of the spine. CT/CT chest w IV con IMPRESSION: 1. Postsurgical changes of the right lung. No evidence of recurrent tumor. 2. Small right pleural effusion appears loculated unchanged in size since June 08, 2024. Fleischner guidelines were followed. Electronically signed by: Tulio Marquez MD 09/15/2024 09:52 PM EDT
[2024-08-16] MEDS: iohexoL 350 MG/ML 100 ML INFUS..BTL IV (10:19)
[2024-08-17 08:21] LABS: Creatinine POC 0.6 mg/dL (0.5-1.4); GFR POC > 60
== END 2024-08-16 09:36 | disposition home or self-care (01) ==
LOC: HO.CT 09:35
PROVIDERS: PCP Internal Medicine; Visit Provider Internal Medicine
DX: C34.91 Malignant neoplasm of unspecified part of right bronchus or lung (principal)
CPT/HCPCS: 71260; 82565; Q9967

== ENCOUNTER 2024-08-27 12:24 | Outpatient (AMB) | payer OTHER, SELFPAY ==
--- NOTE | 2024-08-27 12:47 | AM.OFFWIN_ITS ---
Intake Vital Signs 08/27/24 12:48 Height 5 ft 2 in Weight 179 lb BMI 32.7 BP 110/64 Blood Pressure Location Rt brachial Position Sitting Pulse 82 Pulse Source Pulse Oximeter Pulse Oximetry (%) 97 Oxygen Delivery Method Room Air Intake Visit Reasons: EP ? Bladder infection Intake Note: Patient here for possible bladder infection that she noticed today. Patient Tobacco Use Status: Former Tobacco user Allergies Sulfa (Sulfonamide Antibiotics) [SULFA (SULFONAMIDE ANTIBIOTICS)] Allergy ( Intermediate, Verified 08/27/24 12:49) RASH exenatide [From BYETTA] Allergy (Unknown, Verified 08/27/24 12:49) VOMITTING Do you need a note to return to daycare/school/sports/work: No HPI HPI Comments History of Present Illness Details Patient is a 69-year-old female complaining of 1 day of increased frequency of urination, burning with urination. She denies any low back pain, blood in her urine or fevers. She denies a history of kidney stones. [facility] Medical History (Updated 08/27/24 @ 13:09 by Viky Stearns PA-C) Urinary tract infection COVID-19 virus infection Personal history of COVID-19 Skin cancer Back pain History of rib fracture Cough Bronchitis Lung mass Perianal mass Restless leg syndrome Obesity (BMI 30-39.9) Vitamin D deficiency Obstructive sleep apnea Hypertension Type 2 diabetes mellitus with hyperglycemia Hx of iron deficiency anemia Arthritis Hyperlipidemia Surgical History S/P lobectomy of lung (01/19/24) History of hand surgery History of carpal tunnel release Hx of colonoscopy Hx of hysterectomy Hx of appendectomy History of cholecystectomy Social History Household Members: Spouse Housing: House Are you a primary career development engineer to a significant other at home: No Do you presently have visiting nurse or other home services: No Alcohol intake: never Comment: COUNTS CORRECT Patient Tobacco Use Status: Former Tobacco user Tobacco use type: Cigarette Cigarette Packs Per Day: 1 Years Smoked: quit 1996 (25 years) e-Cigarette/Vaping Use: Never Used Second Hand Smoke Exposure: No service: No Current occupational status: disabled Cognitive needs: No Hearing needs: No Vision needs: Yes Review of Systems Const All systems reviewed & are unremarkable except as noted in HPI and below Physical Exam Vital Signs: Last Vital Signs Pulse 82 08/27/24 12:48 BP 110/64 08/27/24 12:48 Pulse Ox 97 08/27/24 12:48 Oxygen Delivery Method Room Air 08/27/24 12:48 BMI result Body Mass Index 32.7 Const General: cooperative, healthy appearing, comfortable and no acute distress Orientation/consciousness: patient oriented x3 HEENT Head: Yes normal to inspection Ears: hearing grossly normal bilaterally General nose exam: Normal external nose present Face and sinus: Yes normal facial exam Neck Neck: Yes normal visual inspection, Yes trachea midline and Yes supple Resp Effort & Inspection: normal respiratory effort and able to speak in complete sentences GI Inspection: Yes normal to inspection Skin General skin exam: no rashes or lesions noted Neuro General: patient oriented x3 Psych Appearance: grossly normal Speech and movement: Normal speech and movement present Attitude: cooperative Thought process: Normal thought process present Insight: Good insight present (Psych) Judgement: Good judgement present (Psych) Results AMB Urinalysis, Automated UA Leukoctes 15 Aiden/uL Last Edit by HAYDE Garcia on 08/27/24 12:5 9 UA Nitrite Negative Last Edit by Sahil Sandy CCM on 08/27/24 12:59 UA Urobilinogen 0.2 mg/dL Last Edit by HAYDE Garcia on 08/27/24 12:59 UA Protein 300 mg/dL Last Edit by Sahil Sandy CCM on 08/27/24 12:59 UA pH 5.0 Last Edit by Sahil Sandy CCM on 08/27/24 12:59 UA Blood 200 Archie/uL Last Edit by Sahil Sandy CCM on 08/27/24 12:59 UA Specific [place] 1.025 Last Edit by Sahil Sandy CCM on 08/27/24 12:59 UA Ketone Negative Last Edit by HAYDE Garcia on 08/27/24 12:59 UA Bilirubin 0 mg/dL Last Edit by Sahil Sandy CCM on 08/27/24 12:59 UA Glucose 100 mg/dL Last Edit by Sahil Sandy CCM on 08/27/24 12:59 Results Reviewed Results Reviewed: Laboratory Last Values Urine pH (Auto) 5.0 08/27/24 12:58 Specific [place] (Auto) 1.025 08/27/24 12:58 Urine Protein (Auto) 300 mg/dL 08/27/24 12:58 Glucose (UA)(Auto) 100 mg/dL 08/27/24 12:58 Urine Ketones (Auto) Negative 08/27/24 12:58 Urine Blood (Auto) 200 Archie/uL 08/27/24 12:58 Urine Nitrite (Auto) Negative 08/27/24 12:58 Urine Bilirubin (Auto) 0 mg/dL 08/27/24 12:58 Urine Urobilinogen (Auto) 0.2 mg/dL 08/27/24 12:58 Leukocyte Esterase (Auto) 15 Aiden/uL 08/27/24 12:58 Assessment & Plan Assessment & Plan (1) Urinary tract infection: Code(s): N39.0 - Urinary tract infection, site not specified Qualifiers: Urinary tract infection type: acute cystitis Hematuria presence: with hematuria Qualified Code(s): N30.01 - Acute cystitis with hematuria Plan: UA positive for leukocyte esterase, negative for nitrites. Positive for blood. Will treat for infection. Plan See above Orders: Orders AMB Urinalysis Automated Today Z13.9 - Encounter for screening, unspecified Medications: New cefuroxime axetil 500 mg PO Q12H 10 tabs 0RF Coding Level of Care Code Est Pt Level 3 (46189) Diagnoses Acute cystitis with hematuria N30.01 Urinary tract infection type: acute cystitis Hematuria presence: with hematuria
[2024-08-27 12:48] VITALS: BP 110/64; PULSE 82; O2SAT 97; BMI 32.7
== END 2024-08-27 13:21 | disposition home or self-care (01) ==
PROVIDERS: PCP Internal Medicine; Visit Provider Physician Assistant
DX: N30.01 Acute cystitis with hematuria (principal); Z13.9 Encounter for screening, unspecified

== ENCOUNTER → 2024-08-27 12:24 | Outpatient (BNVA) | payer OTHER, SELFPAY | PROVIDERS: PCP Internal Medicine; Visit Provider Physician Assistant | DX: N30.01 Acute cystitis with hematuria (principal) | CPT/HCPCS: 81003; 99212 ==

== ENCOUNTER 2024-08-28 08:42 | Outpatient (AMB) | payer OTHER, SELFPAY ==
--- NOTE | 2024-08-28 08:48 | A.OFFVIS_ITS ---
Vital Signs 08/28/24 09:00 Height 5 ft 2 in Weight 179 lb BMI 32.7 BP 173/74 H Blood Pressure Location Rt brachial Position Sitting Pulse 96 Intake Visit Reasons: 6 mth follow up VATS wedge RLL Intake Note: Patient here for 6m follow up VATS wedge RLL on 01-19-2024. Patient c/o: no concerns. Recently diagnosed with bladder infection and taking abx. Chest CT: 08-16-2024. Mathematics Academic Chair Required: No Accompanied by: Self / Same As Patient Allergies Sulfa (Sulfonamide Antibiotics) [SULFA (SULFONAMIDE ANTIBIOTICS)] Allergy (Intermediate, Verified 08/28/24 08:48) RASH exenatide [From BYETTA] Allergy (Unknown, Verified 08/28/24 08:48) VOMITTING HPI Comments Details: Patient presents for follow-up status post lobectomy rough 6 months ago. She is doing quite well. She is starting a diet. Having regular bowel habits. She has no respiratory issues or complaints. She is not been smoking. Fortunately, screening/surveillance CT scan was done roughly 2 weeks ago but has yet to be read by Radiology. Rad partners were called [facility] Medical History (Updated 08/27/24 @ 13:09 by Viky Stearns PA-C) Urinary tract infection COVID-19 virus infection Personal history of COVID-19 Skin cancer Back pain History of rib fracture Cough Bronchitis Lung mass Perianal mass Restless leg syndrome Obesity (BMI 30-39.9) Vitamin D deficiency Obstructive sleep apnea Hypertension Type 2 diabetes mellitus with hyperglycemia Hx of iron deficiency anemia Arthritis Hyperlipidemia Surgical History (Updated 08/28/24 @ 10:06 by Carlos Muse MD) S/P lobectomy of lung (01/19/24) History of hand surgery History of carpal tunnel release Hx of colonoscopy Hx of hysterectomy Hx of appendectomy History of cholecystectomy Social History Household Members: Spouse Housing: House Are you a primary youth career specialist to a significant other at home: No Do you presently have visiting nurse or other home services: No Alcohol intake: never Comment: COUNTS CORRECT Patient Tobacco Use Status: Former Tobacco user Tobacco use type: Cigarette Cigarette Packs Per Day: 1 Years Smoked: quit 1996 (25 years) e-Cigarette/Vaping Use: Never Used Second Hand Smoke Exposure: No service: No Current occupational status: disabled Cognitive needs: No Hearing needs: No Vision needs: Yes Physical Exam Vital Signs: Last Vital Signs Pulse 96 08/28/24 09:00 BP 173/74 H 08/28/24 09:00 BMI result Body Mass Index 32.7 Chest Other: Chest breath sounds bilaterally. Incisions all clean dry intact well healed. No obvious periclavicular cervical or axillary adenopathy. GI Other: Abdomen moderately corpulent, soft, benign Assessment & Plan Assessment & Plan (1) S/P lobectomy of lung: Onset Date: 01/19/24 Comment: VATS right lower lobectomy January 2024 Dr. Carlos Muse Code(s): Z90.2 - Acquired absence of lung [part of] Category: Surgical Plan: Clinically the patient is doing quite well. Unofficially CT scan looks good but again awaiting official read. Current plan is see the patient 1 year's time with follow-up CT scan or p.r.n.. All questions answered. (2) Encounter for screening for malignant neoplasm of lung: Code(s): Z12.2 - Encounter for screening for malignant neoplasm of respiratory organs Category: Surgical Plan: See above Orders: Orders CT lung screen follow up 11 Months Z12.2 - Encounter for screening for malignant neoplasm of respiratory organs, Z90.2 - Acquired absence of lung [part of] Coding Level of Care Code Est Pt Level 4 (70261) Diagnoses S/P lobectomy of lung Z90.2 Encounter for screening for malignant neoplasm of lung Z12.2
[2024-08-28 09:00] VITALS: BP 173/74; PULSE 96; BMI 32.7
== END 2024-08-28 09:30 | disposition home or self-care (01) ==
PROVIDERS: PCP Internal Medicine; Visit Provider Surgery
DX: Z90.2 Acquired absence of lung [part of] (principal); Z12.2 Encounter for screening for malignant neoplasm of respiratory organs
CPT/HCPCS: 99214

== ENCOUNTER → 2024-08-28 08:42 | Outpatient (BNVA) | payer OTHER, SELFPAY | PROVIDERS: PCP Internal Medicine; Visit Provider Surgery | DX: Z12.2 Encounter for screening for malignant neoplasm of respiratory organs (principal); Z90.2 Acquired absence of lung [part of] | CPT/HCPCS: 99212 ==

== ENCOUNTER 2024-09-13 08:37 | Outpatient (AMB) | payer OTHER, SELFPAY ==
--- NOTE | 2024-09-13 08:53 | MHC.PC.OV ---
Vital Signs 09/13/24 08:55 Height 5 ft 2 in Weight 176 lb 8 oz BMI 32.3 BP 110/64 Blood Pressure Location Lt brachial Position Sitting Pulse 94 Pulse Source Pulse Oximeter Pulse Oximetry (%) 97 Oxygen Delivery Method Room Air Intake Visit Reasons: PE Intake Note: Patient is here today for a physical. 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 per policy Accompanied by: Self / Same As Patient Allergies Sulfa (Sulfonamide Antibiotics) [SULFA (SULFONAMIDE ANTIBIOTICS)] Allergy (Intermediate, Verified 09/13/24 08:55) RASH exenatide [From BYETTA] Allergy (Unknown, Verified 09/13/24 08:55) VOMITTING Medication List - Last Reconciled 09/13/24 by Marzena Oconnor MD acetaminophen 650 mg PO BID amlodipine 10 mg PO DAILY atorvastatin 40 mg PO BEDTIME 90 days blood sugar diagnostic ([employer] Verio test strips) As directed check the blood sugar three times a day blood-glucose meter ([employer] Verio Meter) As directed checked the blood sugar once a day flash glucose scanning reader (No ChainsStyle [place] 2 [place]) As directed flash glucose sensor (FreeStyle Santiago 2 Sensor kit) As directed glipizide 5 mg PO BID 90 days insulin aspart U-100 (Novolog FlexPen U-100 Insulin aspart) subcutaneously 3 times a day; Blood sugar of- 70 to 130- take 0 units Blood sugar of 131-180- take 2 units 181 to 240- take 4 units [id number] 6 units 301 to 350-take 8 units [id number] 10 units Blood sugar over 400 -take Max 12 units- call insulin glargine (Basaglar KwikPen U-100 Insulin) 16 units (0.16 mL) subcut QAM 30 days lancets As directed check the blood sugar Three times aday lisinopril 40 mg PO DAILY magnesium oxide 400 mg PO BID metformin 1,000 mg PO BID 90 days pen needle, diabetic (BD Daysi 2nd Gen Pen Needle) Use one needle daily Tobacco use date assessed: 09/13/24 Fall risk assessment: No Falls in past year Last assessed Fall Risk: 09/13/24 Dental Screening Dental Screen Date: 02/02/24 HPI PE HPI Details 69-year-old obese female with diabetes mellitus hypertension hypercholesterolemia and recently lung cancer comes in for physical exam last seen in 08/03/2024. Patient has seen the thoracic surgeon status post VAT S wedge right lower lobe 02/01/2024. Advised to repeat CT scan in [address] scan that was done and the chest in August 16 results are still pending. [facility] tumor board no adjuvant chemotherapy. [facility] visit for UTI treated with cefuroxime 500 mg twice a day. Blood work done in May while the cholesterol was last done in February LDL 77. nausea in a m [facility] Medical History (Updated 09/13/24 @ 18:49 by Marzena Oconnor MD) Urinary tract infection COVID-19 virus infection Personal history of COVID-19 Skin cancer Back pain History of rib fracture Cough Bronchitis Lung mass Perianal mass Restless leg syndrome Obesity (BMI 30-39.9) Vitamin D deficiency Obstructive sleep apnea Hypertension Type 2 diabetes mellitus with hyperglycemia Hx of iron deficiency anemia Arthritis Hyperlipidemia Surgical History (Updated 09/13/24 @ 09:04 by Marzena Oconnor MD) Encounter for screening for malignant neoplasm of lung S/P lobectomy of lung (01/19/24) History of hand surgery History of carpal tunnel release Hx of colonoscopy Hx of hysterectomy Hx of appendectomy History of cholecystectomy Social History Household Members: Spouse Housing: House Are you a primary palliative care specialist to a significant other at home: No Do you presently have visiting nurse or other home services: No Alcohol intake: never Comment: COUNTS CORRECT Patient Tobacco Use Status: Former Tobacco user Tobacco use type: Cigarette Cigarette Packs Per Day: 1 Years Smoked: quit 1996 (25 years) e-Cigarette/Vaping Use: Never Used Second Hand Smoke Exposure: No service: No Current occupational status: disabled Cognitive needs: No Hearing needs: No Vision needs: Yes Questionnaire PHQ-9 Over the last 2 weeks, how often have you been bothered by any of the following problems? 1. Little interest or pleasure in doing things: not at all 2. Feeling down, depressed, or hopeless: not at all 3. Trouble falling or staying asleep, or sleeping too much: not at all 4. Feeling tired or having little energy: several days 5. Poor appetite or overeating: not at all 6. Feeling bad about yourself - or that you are a failure or have let yourself or your family down: not at all 7. Trouble concentrating on things, such as reading the newspaper or watching television: not at all 8. Moving or speaking so slowly that other people could have noticed. Or the opposite - being so fidgety or restless that you have been moving around a lot more than usual: not at all 9. Thoughts that you would be better off or of hurting yourself in some way: not at all Total score: 1 Depression Screening Interpretation: Positive Depression Screening Done: Yes Source: Developed by Drs. Luke Marie, Audrey Faustin, Ab Kaur and colleagues, with an educational cliff from [employer]. Thrive Questionnaire Date Thrive assessed: 09/13/24 I am a: Patient What is your living situation today?: I have a steady place to live Within the past 12 months, did the food you bought not last and you didn't have the money to get more?: Sometimes True Within the past 12 months, did you worry whether your food would run out before you got money to buy more?: Never true Do you have trouble paying for medicines?: No Do you have trouble getting transportation to medical appointments?: No Do you have trouble paying your heating and electricity bill?: No Do you have trouble taking care of your child, family member or friend?: No Do you have trouble with day-to-day activities such as bathing, preparing meals, shopping, managing finances, etc.?: No Are you interested in more education?: No Please select the resources that you would like help with: None Currently or been in a relationship where the following occur: No concerns reported THRIVE Score: 1 AUDIT C Alcohol Use Questionnaire (AUDIT-C) 1. How often do you have a drink containing alcohol?: Never Total Score: 0 LASHA-7 AMB Questionnaire LASHA-7 Date LASHA - 7 assessed: 09/13/24 Feeling nervous, anxious, or on edge: 0 = Not at all Not being able to stop or control worryin = Not at all Worrying too much about different things: 0 = Not at all Trouble relaxin = Not at all Being so restless that it is hard to sit still: 0 = Not at all Becoming easily annoyed or irritable: 0 = Not at all Feeling afraid as if something awful might happen: 0 = Not at all Total LASHA-7 score (0-4 normal; 5-9 mild; 10-14 moderate; 15-21 severe): 0 Source: Developed by Drs. Luke Marie, Audrey Faustin, Ab Kaur and colleagues, with an educational cliff from [employer]. Review of Systems Const Denies poor appetite and Denies weakness Eyes Denies no additional complaints ENT Reports Normal hearing present, Denies dizziness, Denies nasal congestion, Denies tinnitus and Denies sore throat Card Denies chest pain, Denies syncope, Denies rapid heart rate and Denies dyspnea Resp Denies cough and Denies dyspnea GI Denies change in stool character, Reports constipation, Denies diarrhea, Denies nausea and Denies vomiting Denies urinary frequency, Denies difficulty voiding and Denies dysuria Neuro Reports Normal hearing present, Denies confusion, Denies dizziness, Denies syncope and Denies weakness Psych Denies confusion Physical exam (Primary Care) Vital Signs: Last Vital Signs Pulse 94 09/13/24 08:55 BP 110/64 09/13/24 08:55 Pulse Ox 97 09/13/24 08:55 Oxygen Delivery Method Room Air 09/13/24 08:55 BMI result Body Mass Index 32.3 Tobacco/Smoking Status: Tobacco use Status Tobacco use date assessed 09/13/24 09/13/24 09:02 Patient Tobacco Use Status Former Tobacco user 09/13/24 09:02 Tobacco use type Cigarette 09/13/24 09:02 e-Cigarette/Vaping Use Never Used 09/13/24 09:02 PHQ-9: PHQ-9 Score PHQ-9: Total score 1 09/13/24 09:40 Depression Screening Interpretation: Positive Thrive Assessment: Date of Thrive Assessment Date Thrive assessed 09/13/24 09/13/24 09:02 Currently or been in a relationship where the following occur: No concerns reported Const General: No confusion Orientation/consciousness: No confusion HENMT Other: L impacted cerumen R TM intact Head: Yes normocephalic Ears: external ears normal Face and sinus: Yes normal facial exam Mouth: moist mucous membranes Throat: Yes tonsils normal Eyes Conjunctivae: conjunctivae normal Pupils: Equal, round and reactive pupils present and Pupil accommodation reflex normal Direct Ophthalmoscopy: normal light reflex Neck Neck: No lymphadenopathy Thyroid: Thyroid normal Chest Chest palpation & inspection: normal inspection of the chest Resp Effort & Inspection: normal respiratory effort and no audible wheezes Auscultation: clear to auscultation bilaterally, no crackles, no wheezes and lung sounds not diminished Cardio Rate: regular rate Rhythm: regular rhythm Peripheral pulses: radial pulses present and dorsalis pedis present GI Other: declined rectal exam Palpation (GI): no masses Auscultation: normal bowel sounds and normoactive bowel sounds Rectal Exam - Female: deferred Back/Spine/Pelvis Other: pedal pulse and pin prick good Skin General skin exam: no rashes or lesions noted Rashes: no rashes Neuro General: No confusion Cranial nerves: Yes Equal, round and reactive pupils present and Yes Normal hearing present Cognition (Neuro): normal cognition Gait exam (Neuro): Normal gait present Motor exam (neuro): 5/5 motor strength present throughout Deep tendon reflexes (DTR's): Right brachioradialis reflex intensity grade: 2+, Left brachioradialis reflex intensity grade: 2+, Right patellar reflex intensity grade: 2+ and Left patellar reflex intensity grade: 2+ Extrem General: No edema Office Procedures Flu Questionnaire Does the patient have a severe egg allergy?: No Does the patient have severe life threatening allergies?: No Does the patient have a fever or illness today?: No Has the patient ever had Guillain-[place] Syndrome?: No Has the patient ever had any past reaction to a flu shot?: No Results AMB Hemoglobin A1c AMB Hemoglobin A1c 11.6 % Last Edit by BLANCA Murray on 09/13/24 09:05 Immunizations Fluarix Triv 9795-5207 (PF) 45 mcg (15 mcg x 3)/0.5 mL IM syringe Performing Provider: Marzena Oconnor MD [place] [facility] [place] [facility] Administered by: BLANCA Connolly on 09/13/24 09:40 Dose Route Admin Location Dispensed Lot Number Expiration Date [facility] 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 [employer]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4 Diabetes mellitus exterminator helper insulin use: with longterm use Essential hypertension I10 Hypertension type: essential hypertension Pure hypercholesterolemia E78.00 Hyperlipidemia type: pure hypercholesterolemia Obesity (BMI 30-39.9) E66.9 Panlobular emphysema J43.1 Emphysema type: panlobular Assessment & Plan Assessment & Plan (1) Annual physical exam: Code(s): Z00.00 - Encounter for general adult medical examination without abnormal findings Category: Medical Plan: Patient is advised to eat healthy, keep well hydrated, keep active and have adequate sleep. (2) Non-small cell cancer of right lung: Comment: Status post VPS right lower lobectomy January 2024 Dr. Muse Code(s): C34.91 - Malignant neoplasm of unspecified part of right bronchus or lung Category: Medical Plan: Patient is on surveillance with CT scan in [address] scan results pending (3) Type 2 diabetes mellitus with hyperglycemia: Comment: Dr. Rendon Code(s): E11.65 - Type 2 diabetes mellitus with hyperglycemia Category: Medical Qualifiers: Diabetes mellitus longterm insulin use: with exterminator helper use Qualified Code(s): E11.65 - Type 2 diabetes mellitus with hyperglycemia; Z79.4 - MCC (current) use of insulin Plan: Decrease the amount of carbohydrate intake, pasta, bread, rice and potatoes are all sugar and that is aside from all the sweet stuff, remember that fruits are good but they are Sweet also. Hemoglobin A1c goal of less than 7.0 patient is taking glipizide 5 mg twice a day NovoLog sliding scale Basaglar at 16 units once a day metformin a 1000 mg twice a day (4) Hypertension: Code(s): I10 - Essential (primary) hypertension Category: Medical Qualifiers: Hypertension type: essential hypertension Qualified Code(s): I10 - Essential (primary) hypertension Plan: Continue with blood pressure medication. Decrease salt intake and exercise on lisinopril 40 mg once a day and amlodipine 10 mg once a day (5) Hyperlipidemia: Code(s): E78.5 - Hyperlipidemia, unspecified Category: Medical Qualifiers: Hyperlipidemia type: pure hypercholesterolemia Qualified Code(s): E78.00 - Pure hypercholesterolemia, unspecified Plan: Avoid fried foods, chicken skin, eggs, butter margarine, pastries and meat. Be it pork or beef they have a lot of cholesterol LDL goal of less than 100 and triglyceride of less than 150 on atorvastatin 40 mg once a day (6) Obesity (BMI 30-39.9): Code(s): E66.9 - Obesity, unspecified Category: Medical Plan: Diet and exercise (7) Emphysema of lung: Code(s): J43.9 - Emphysema, unspecified Category: Medical Qualifiers: Emphysema type: panlobular Qualified Code(s): J43.1 - Panlobular emphysema Plan: Stable and has not required any inhalers Orders: Orders AMB Hemoglobin A1c Today E11.65 - Type 2 diabetes mellitus with hyperglycemia, Z79.4 - rodent exterminator (current) use of insulin XR DEXA axial skeleton Today E11.65 - Type 2 diabetes mellitus with hyperglycemia, M81.0 - Age-related osteoporosis without current pathological fracture, Z79.4 - MCC (current) use of insulin Influenza [id number] Immunization Today Z23 - Encounter for immunization Medications: New empagliflozin (Jardiance) 10 mg PO DAILY 30 tabs 2RF E11.65 - Type 2 diabetes mellitus with hyperglycemia, Z79.4 - rodent exterminator (current) use of insulin Changed From insulin glargine (Basaglar KwikPen U-100 Insulin) 16 units (0.16 mL) subcut QAM 30 days 4.8 mL 12RF E11.65 - Type 2 diabetes mellitus with hyperglycemia, Z79.4 - MCC (current) use of insulin To insulin glargine (Basaglar KwikPen U-100 Insulin) 20 units (0.2 mL) subcut QAM 6 mL 12RF 30 days E11.65 - Type 2 diabetes mellitus with hyperglycemia, Z79.4 - rodent exterminator (current) use of insulin Refilled insulin aspart U-100 (Novolog FlexPen U-100 Insulin aspart) subcutaneously 3 times a day; Blood sugar of- 70 to 130- take 0 units Blood sugar of 131-180- take 2 units 181 to 240- take 4 units [id number] 6 units 301 to 350-take 8 units [id number] 10 units Blood sugar over 400 -take Max 12 units- call 15 mL 12RF E11.65 - Type 2 diabetes mellitus with hyperglycemia, Z79.4 - rodent exterminator (current) use of insulin insulin glargine (Basaglar KwikPen U-100 Insulin) 16 units (0.16 mL) subcut QAM 30 days 4.8 mL 12RF E11.65 - Type 2 diabetes mellitus with hyperglycemia, Z79.4 - rodent exterminator (current) use of insulin
[2024-09-13 08:55] VITALS: BP 110/64; PULSE 94; O2SAT 97; BMI 32.3
== END 2024-09-13 09:34 | disposition home or self-care (01) ==
LOC: HO.HMCH 08:37
PROVIDERS: PCP Internal Medicine; Visit Provider Internal Medicine
DX: Z00.00 Encounter for general adult medical examination without abnormal findings (principal); C34.91 Malignant neoplasm of unspecified part of right bronchus or lung; E11.65 Type 2 diabetes mellitus with hyperglycemia; J43.1 Panlobular emphysema; Z79.4 Long term (current) use of insulin; I10 Essential (primary) hypertension; E78.00 Pure hypercholesterolemia, unspecified; E66.9 Obesity, unspecified

== ENCOUNTER → 2024-09-13 08:37 | Outpatient (BNVA) | payer OTHER, SELFPAY | PROVIDERS: PCP Internal Medicine; Visit Provider Internal Medicine | DX: Z00.01 Encounter for general adult medical examination with abnormal findings (principal); Z23 Encounter for immunization; C34.91 Malignant neoplasm of unspecified part of right bronchus or lung; E11.65 Type 2 diabetes mellitus with hyperglycemia; Z79.4 Long term (current) use of insulin; I10 Essential (primary) hypertension; E78.00 Pure hypercholesterolemia, unspecified; E66.9 Obesity, unspecified; J43.1 Panlobular emphysema | CPT/HCPCS: 83036; 90471; 90656; 96127; 99397 ==

== ENCOUNTER 2024-09-20 08:15 | Outpatient (REF) | payer OTHER, SELFPAY ==
--- NOTE | ~2024-09-20 | MM_ITS ---
EXAMINATION: MM SCREENING DIGITAL BREAST TOMOSYNTHESIS, BILATERAL CLINICAL INFORMATION: Screening. Asymptomatic. COMPARISON: Mammography: Comparison is made with available priors TECHNIQUE: Digital breast mammography with tomosynthesis is performed in both the craniocaudal and mediolateral oblique views along with computer-aided detection (CAD). FINDINGS: There are scattered areas of fibroglandular density (ACR BI-RADS breast composition Category b). There are no significant masses, abnormal calcifications, or other abnormalities. MM/MM tomosynthesis screening BI IMPRESSION: No mammographic evidence of malignancy. ASSESSMENT: BI-RADS BI-RADS 1 - Negative RECOMMENDATION: Routine annual mammography screening. 1 year F/U This examination should not preclude the clinical evaluation of a suspicious palpable abnormality. This patient's information was entered into a reminder system with a target due date for their next mammogram. Electronically signed by: Tricia Hall DO 09/28/2024 04:07 PM MARIBEL
== END 2024-09-20 08:16 | disposition home or self-care (01) ==
LOC: HO.MAMMO 08:15
PROVIDERS: PCP Internal Medicine; Visit Provider Internal Medicine
DX: Z12.31 Encounter for screening mammogram for malignant neoplasm of breast (principal)
CPT/HCPCS: 77063; 77067

== ENCOUNTER → 2024-09-20 08:45 | Outpatient (BNV) | payer OTHER, SELFPAY | PROVIDERS: PCP Internal Medicine; Visit Provider Internal Medicine | DX: Z12.31 Encounter for screening mammogram for malignant neoplasm of breast (principal) | CPT/HCPCS: 77063; 77067 ==

== ENCOUNTER 2024-10-19 08:18 | Outpatient (REF) | payer OTHER, SELFPAY ==
--- NOTE | ~2024-10-19 | MM_ITS ---
EXAMINATION: BONE DENSITOMETRY CLINICAL INDICATION: Age-related osteoporosis without current pathological fracture. COMPARISON: Previous BD dated 06/24/2016 and baseline BD dated 12/26/2006. TECHNIQUE: Using a Nanali DXA System (software version: 13.1) manufactured by [employer], dual-energy x-ray absorptiometry was performed of the lumbar spine and left hip. The images are of good technical quality. Summary results are attached. FINDINGS: LEFT FEMUR, NECK: Current: BMD 1.024 g/cm2, Z-score 1.1, T-score -0.1, normal. Prior: BMD 1.081 g/cm2. Baseline: BMD 1.173 g/cm2. LEFT FEMUR, TOTAL: Current: BMD 1.169 g/cm2, Z-score 2.2, T-score 1.3, normal, 9.3% decrease from previous, 6.8% decrease from baseline (<5% change is not significant). Prior: BMD 1.289 g/cm2. Baseline: BMD 1.254 g/cm2. AP SPINE L1-L2 (excluding L3 and L4): The data of L1-L4 has been changed to exclude the L3 and L4 vertebral bodies, because significant degenerative change at these levels may cause overestimation of lumbar spine density. Current: BMD 1.107 g/cm2, Z-score 0.6, T-score -0.5, normal, 3.7% decrease from previous, 3.6% increase from baseline (<5% change is not significant). Prior: BMD 1.149 g/cm2. Baseline: BMD 1.069 g/cm2. IDENTIFIED RISK FACTORS: Early menopause, history of fracture (adult), hysterectomy, left oophorectomy, recurrent falls, secondary osteoporosis. HISTORY OF FRACTURE: Other fracture. MEDICATIONS: None listed. MM/XR DEXA axial skeleton IMPRESSION: 1. DIAGNOSIS: Normal bone density based on the lowest T-score value of -0.5 in the lumbar spine applying World Health Organization criteria. 2. 10-YEAR FRACTURE RISK PREDICTION, FRAX: According to the guidelines, FRAX calculation should only be performed on patients in the osteopenia bone density category. Therefore, FRAX was not performed on this patient. 3. Treatment Recommendations: NOF guidelines recommend consideration for treatment in postmenopausal women and men age 50 and older presenting with the following: -A hip or vertebral (clinical or morphometric) fracture. -T-score less than or equal to -2.5 at the femoral neck or spine after appropriate evaluation to exclude secondary causes. -Low bone mass at the hip or spine and a 10-year fracture probability by FRAX of greater than or equal to 3% for hip fracture or greater than or equal to 20% for major osteoporotic fracture based on the [place] adapted WHO algorithm. 4. Other Recommendations: All treatment decisions require clinical judgment and consideration of individual patient factors, including patient preferences, comorbidities, previous drug use, risk factors not captured in the FRAX model (e.g. frailty, falls, vitamin D deficiency, increased bone turnover, interval significant decline in bone density) and possible under or overestimation of fracture risk by FRAX. FUTURE SCAN RECOMMENDATION: People with diagnosed cases of osteoporosis or at high risk for fracture should have regular bone mineral density tests. For patients eligible for Medicare, routine testing is allowed once every 2 years. The testing frequency can be increased to one year for patients who have rapidly progressing disease, those who are receiving or discontinuing medical therapy to restore bone mass, or have additional risk factors. Electronically signed by: Laurita Garcia MD 10/24/2024 02:07 PM [facility]IBEL PEREZ
--- OUTSIDE RECORDS SUMMARY | 2024-10-24 05:25 | XMS_ITS | Clinical Summary ---
Author Organization Unknown Care Team Providers Care Ambulance Driver Name Role Phone VENKATESH CLAROS MD Unavailable Unavailable KIN LEROY, ADRIENNE Unavailable Unavailable Payers Payer Name Policy Type Policy Number Effective Date Expira tion Date [employer] - PDGM [id number] Problems Condition Name Condition Details Condition Category Status Onset Date Resolution Date Last Treatment Date Treating Clinician Comments MALIGNANT NEOPLASM OF LOWER LOBE, RIGHT BRONCHUS OR LUNG Active 01-25 00:00: 00 AFTERCARE FOLLOWING SURGERY FOR NEOPLASM Active 01-25 00:00: 00 TYPE 2 DIABETES MELLITUS WITH HYPERGLYCEMI A Active 01-25 00:00: 00 TYPE 2 DIABETES MELLITUS WITH DIABETIC NEPHROPATHY Active 01-25 00:00: 00 EMPHYSEMA, UNSPECIFIED Active 01-25 00:00: 00 JAIL (CURRENT) USE OF INSULIN Active 01-25 00:00: 00 OBSTRUCTIVE SLEEP APNEA (ADULT) (PEDIATRIC) Active 01-25 00:00: 00 HYPERLIPIDEM IA, UNSPECIFIED Active 01-25 00:00: 00 INSOMNIA, UNSPECIFIED Active 01-25 00:00: 00 RESTLESS LEGS SYNDROME Active 01-25 00:00: 00 VITAMIN D DEFICIENCY, UNSPECIFIED Active 01-25 00:00: 00 IRON DEFICIENCY ANEMIA, UNSPECIFIED Active 01-25 00:00: 00 ELEVATED WHITE BLOOD CELL COUNT, UNSPECIFIED Active 01-25 00:00: 00 ESSENTIAL (PRIMARY) HYPERTENSION Active 01-25 00:00: 00 UNSPECIFIED OSTEOARTHRIT IS, UNSPECIFIED SITE Active 01-25 00:00: 00 OBESITY, UNSPECIFIED Active 01-25 00:00: 00 BODY MASS INDEX [BMI] 32.0-32.9, ADULT Active 01-25 00:00: 00 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 Ordering Clinician Indication Dosage Frequency Signature (SIG) Comments Components metformin 1,000 mg tablet 2022-11 00:00: 00 Yes [id number] Unavailable Per instruc tions TWICE DAILY Per instructio ns TWICE DAILY (route: oral) Med Classific ation: Endocrine atorvastati n 40 mg tablet 2022-11 00:00: 00 Yes [id number] 1 tablet AT BEDTIME 1 tablet AT BEDTIME (route: oral) Med Classific ation: Cardiovas cular Therapy Agents lisinopril 20 mg tablet 2022-11 00:00: 00 Yes [id number] Per instruc tions DAILY Per instructio ns DAILY (route: oral) Med Classific ation: Cardiovas cular Therapy Agents acetaminoph en 325 mg capsule 01-25 00:00: 00 Yes [id number] 2 capsule NEEDED 2 capsule NEEDED (route: oral) Med Classific ation: Analgesic , Anti-infl ammatory or Antipyret ic amlodipine 5 mg tablet 01-25 00:00: 00 Yes [id number] 1 tablet DAILY 1 tablet DAILY (route: oral) Med Classific ation: Cardiovas cular Therapy Agents Colace 100 mg capsule 01-25 00:00: 00 Yes [id number] 1 capsule NEEDED 1 capsule NEEDED (route: oral) Med Classific ation: Gastroint estinal Therapy Agents glipizide 5 mg tablet 01-25 00:00: 00 Yes [id number] 1 tablet 2 TIMES DAILY 1 tablet 2 TIMES DAILY (route: oral) Med Classific ation: Endocrine Humalog KwikPen (U-100) Insulin 100 unit/mL subcutaneou s 01-25 00:00: 00 Yes [id number] Per instruc tions 3 TIMES DAILY Per instructio ns 3 TIMES DAILY (route: subcutaneo us) Med Classific ation: Endocrine Lantus U-100 Insulin 100 unit/mL subcutaneou s solution 01-25 00:00: 00 Yes [id number] 16 unit BEDTIME 16 unit BEDTIME (route: subcutaneo us) Med Classific ation: Endocrine oxycodone 5 mg capsule 01-25 00:00: 00 Yes [id number] 1 capsule NEEDED 1 capsule NEEDED (route: oral) Med Classific ation: Analgesic , Anti-infl ammatory or Antipyret ic Immunizations Ordered Immunization Name Filled Immunization Name Date Status Comments Refusal Reason COVID-19, COVID-19 2024-01-26 00:00:00 INFLUENZA, TIV (INACTIVATED) 2024-01-26 00:00:00 SHINGLES, TIV (INACTIVATED) 2024-01-26 00:00:00 Vital Signs Vital Name Observation Time Observation Value Commen ts Temperature 2024-02-16 16:50:00.000 97 [degF] Temperature 2024-02-09 16:59:00.000 98 [degF] Temperature 2024-02-06 20:58:00.000 97.5 [degF] Temperature 2024-02-03 10:02:00.000 97.2 [degF] Temperature 2024-02-01 17:51:00.000 98.3 [degF] Temperature 2024-01-30 10:56:00.000 97 [degF] Temperature 2024-01-28 11:05:00.000 97.5 [degF] Temperature 2024-01-26 09:28:00.000 97.9 [degF] BMI (%) 2024-01-26 09:28:00.000 32 kg/m2 Height 2024-01-26 09:28:00.000 62 [in_us] Pulse 2024-02-16 16:50:00.000 68 /min Pulse 2024-02-09 16:59:00.000 80 /min Pulse 2024-02-06 20:58:00.000 80 /min Pulse 2024-02-03 10:02:00.000 84 /min Pulse 2024-02-01 17:51:00.000 78 /min Pulse 2024-01-30 10:56:00.000 76 /min Pulse 2024-01-28 11:05:00.000 90 /min Pulse 2024-01-26 09:28:00.000 78 /min O2 Saturation (%) 2024-02-16 16:50:00.000 97 % O2 Saturation (%) 2024-02-09 16:59:00.000 99 % O2 Saturation (%) 2024-02-06 20:58:00.000 97 % O2 Saturation (%) 2024-02-03 10:02:00.000 96 % O2 Saturation (%) 2024-02-01 17:52:00.000 98 % O2 Saturation (%) 2024-01-30 10:56:00.000 97 % O2 Saturation (%) 2024-01-28 11:05:00.000 94 % Respirations 2024-02-16 16:50:00.000 18 /min Respirations 2024-02-09 16:59:00.000 20 /min Respirations 2024-02-06 20:58:00.000 16 /min Respirations 2024-02-03 10:02:00.000 18 /min Respirations 2024-02-01 17:51:00.000 18 /min Respirations 2024-01-30 10:56:00.000 18 /min Respirations 2024-01-28 11:05:00.000 18 /min Respirations 2024-01-26 09:28:00.000 18 /min Weight (lbs) 2024-01-26 09:28:00.000 180 [lb_av] Systolic Blood Pressure 2024-02-16 16:50:00.000 134 mm [Hg] Systolic Blood Pressure 2024-02-09 16:59:00.000 130 mm [Hg] Systolic Blood Pressure 2024-02-06 20:58:00.000 130 mm [Hg] Systolic Blood Pressure 2024-02-03 10:02:00.000 124 mm [Hg] Systolic Blood Pressure 2024-02-01 17:51:00.000 144 mm [Hg] Systolic Blood Pressure 2024-01-30 10:56:00.000 118 mm [Hg] Systolic Blood Pressure 2024-01-28 11:05:00.000 102 mm [Hg] Systolic Blood Pressure 2024-01-26 09:28:00.000 140 mm [Hg] Diastolic Blood Pressure 2024-02-16 16:50:00.000 70 mm [Hg] Diastolic Blood Pressure 2024-02-09 16:59:00.000 78 mm [Hg] Diastolic Blood Pressure 2024-02-06 20:58:00.000 62 mm [Hg] Diastolic Blood Pressure 2024-02-03 10:02:00.000 62 mm [Hg] Diastolic Blood Pressure 2024-02-01 17:51:00.000 78 mm [Hg] Diastolic Blood Pressure 2024-01-30 10:56:00.000 64 mm [Hg] Diastolic Blood Pressure 2024-01-28 11:05:00.000 62 mm [Hg] Diastolic Blood Pressure 2024-01-26 09:28:00.000 70 mm [Hg] Plan of Treatment Planned Activity Planned Date Details Comments Future Scheduled Test SKILLED NU RSE TO EVALUATE PATIENT, IDENTIFY PRIMARY AND CO-MORBID CONDITIONS CODED PER CODING GUIDELINES, AND DEVELOP PATIENT SPECIFIC PLAN OF CARE THAT INCLUDES PATIENT GOAL FOR HOME HEALTH. [code = SKILLED NURSE TO EVALUATE PATIENT, IDENTIFY PRIMARY AND CO-MORBID CONDITIONS CODED PER CODING GUIDELINES, AND DEVELOP PATIENT SPECIFIC PLAN OF CARE THAT INCLUDES PATIENT GOAL FOR HOME HEALTH.] Future Scheduled Test PATIENT RODRÍGUEZ S A RISK OF HOSPITALIZATION AND ED USE. SKILLED NURSE TO ESTABLISH SUPPORT MEASURES TO MINIMIZE RISK OF HOSPITALIZATION AND ED USE, AND INSTRUCT PATIENT/CAREGIVER ON METHODS TO REDUCE AVOIDABLE HOSPITALIZATION AND ED USE. [code = PATIENT HAS A RISK OF HOSPITALIZATION AND ED USE. SKILLED NURSE TO ESTABLISH SUPPORT MEASURES TO MINIMIZE RISK OF HOSPITALIZATION AND ED USE, AND INSTRUCT PATIENT/CAREGIVER ON METHODS TO REDUCE AVOIDABLE HOSPITALIZATION AND ED USE.] Future Scheduled Test SKILLED NU RSE TO PROVIDE INSTRUCTION TO PATIENT/CAREGIVER RELATED TO DISCHARGE PLANNING. [code = SKILLED NURSE TO PROVIDE INSTRUCTION TO PATIENT/CAREGIVER RELATED TO DISCHARGE PLANNING.] Future Scheduled Test SKILLED NU RSE TO PERFORM HOME SAFETY AND FALL ASSESSMENT AND PROVIDE INSTRUCTION TO IMPLEMENT HOME SAFETY AND FALL PREVENTION STRATEGIES. [code = SKILLED NURSE TO PERFORM HOME SAFETY AND FALL ASSESSMENT AND PROVIDE INSTRUCTION TO IMPLEMENT HOME SAFETY AND FALL PREVENTION STRATEGIES.] Future Scheduled Test SKILLED NU RSE FOR OBSERVATION AND ASSESSMENT OF PATIENTS PAIN LEVEL AND EFFECTIVENESS OF PAIN MANAGEMENT REGIMEN. SKILLED NURSE TO INSTRUCT PATIENT/CAREGIVER REGARDING PHARMACOLOGIC AND NON-PHARMACOLOGIC PAIN CONTROL MEASURES. SKILLED NURSE TO REPORT TO PHYSICIAN IF PAIN IS UNCONTROLLED WITH CURRENT PAIN MANAGEMENT REGIMEN. [code = SKILLED NURSE FOR OBSERVATION AND ASSESSMENT OF PATIENTS PAIN LEVEL AND EFFECTIVENESS OF PAIN MANAGEMENT REGIMEN. SKILLED NURSE TO INSTRUCT PATIENT/CAREGIVER REGARDING PHARMACOLOGIC AND NON-PHARMACOLOGIC PAIN CONTROL MEASURES. SKILLED NURSE TO REPORT TO PHYSICIAN IF PAIN IS UNCONTROLLED WITH CURRENT PAIN MANAGEMENT REGIMEN.] Future Scheduled Test SKILLED NU RSE TO ASSESS PATIENT'S SKIN INTEGRITY AND INSTRUCT PATIENT/CAREGIVER ON MEASURES TO PREVENT PRESSURE ULCERS. [code = SKILLED NURSE TO ASSESS PATIENT'S SKIN INTEGRITY AND INSTRUCT PATIENT/CAREGIVER ON MEASURES TO PREVENT PRESSURE ULCERS.] Future Scheduled Test NEED FOR S KILLED TEACHING AND INTERVENTION RELATED TO R CHEST TUBE INSERTION SITE, CLEANSE WITH NORMAL SALINE, APPLY XEROFORM COVERED BY DRY DRESSING. CHANGE QOD. R BUTTOCK CLEANSE WITH NORMAL SALINE, APPLY FOAM DRESSING CHG 2 XW. TO CHG ON NONE [facility] DAYS WOUND CARE WILL BE PERFORMED BY TRAINED CAREGIVER ON DAYS WHEN SKILLED NURSE IS NOT SCHEDULED FOR A VISIT. DISCONTINUE WOUND CARE/SUPPLIES ONCE WOUND IS HEALED. [code = NEED FOR SKILLED TEACHING AND INTERVENTION RELATED TO R CHEST TUBE INSERTION SITE, CLEANSE WITH NORMAL SALINE, APPLY XEROFORM COVERED BY DRY DRESSING. CHANGE QOD. R BUTTOCK CLEANSE WITH NORMAL SALINE, APPLY FOAM DRESSING CHG 2 XW. TO CHG ON NONE [facility]NA DAYS WOUND CARE WILL BE PERFORMED BY TRAINED CAREGIVER ON DAYS WHEN SKILLED NURSE IS NOT SCHEDULED FOR A VISIT. DISCONTINUE WOUND CARE/SUPPLIES ONCE WOUND IS HEALED.] Future Scheduled Test SKILLED NU RSE FOR O/A AND SKILLED TEACHING RELATED TO ALTERED SKIN INTEGRITY SKIN CONDITION). [code = SKILLED NURSE FOR O/A AND SKILLED TEACHING RELATED TO ALTERED SKIN INTEGRITY SKIN CONDITION).] Future Scheduled Test SKILLED NU RSE FOR O/A OF RESPIRATORY SYSTEM TO IDENTIFY CHANGES ASSOCIATED WITH EXACERBATION AND TO PROVIDE SKILLED TEACHING ON MANAGEMENT OF RESPIRATORY DISEASE PROCESS. [code = SKILLED NURSE FOR O/A OF RESPIRATORY SYSTEM TO IDENTIFY CHANGES ASSOCIATED WITH EXACERBATION AND TO PROVIDE SKILLED TEACHING ON MANAGEMENT OF RESPIRATORY DISEASE PROCESS.] Future Scheduled Test SKILLED NU RSE FOR O/A, TEACHING, AND MANAGEMENT OF CARDIAC DISEASE) [code = SKILLED NURSE FOR O/A, TEACHING, AND MANAGEMENT OF CARDIAC DISEASE)] Future Scheduled Test SKILLED NU RSE TO PROVIDE TEACHING ON SIGNS AND SYMPTOMS AND MANAGEMENT OF HYPERTENSION. [code = SKILLED NURSE TO PROVIDE TEACHING ON SIGNS AND SYMPTOMS AND MANAGEMENT OF HYPERTENSION.] Future Scheduled Test SKILLED NU RSE FOR O/A AND TEACHING OF DIABETIC MANAGEMENT INCLUDING BLOOD SUGAR MONITORING/USE OF GLUCOMETER, DIABETIC DIET, LOWER EXTREMITY SKIN INSPECTION, PROPER SKIN/FOOT CARE, AND SIGNS AND SYMPTOMS HYPO/HYPERGLYCEMIA TO REPORT. [code = SKILLED NURSE FOR O/A AND TEACHING OF DIABETIC MANAGEMENT INCLUDING BLOOD SUGAR MONITORING/USE OF GLUCOMETER, DIABETIC DIET, LOWER EXTREMITY SKIN INSPECTION, PROPER SKIN/FOOT CARE, AND SIGNS AND SYMPTOMS HYPO/HYPERGLYCEMIA TO REPORT.] Future Scheduled Test SKILLED NU RSE FOR O/A AND SKILLED TEACHING RELATED TO SIGNS AND SYMPTOMS AND MANAGEMENT OF MUSCULOSKELETAL DISEASE) [code = SKILLED NURSE FOR O/A AND SKILLED TEACHING RELATED TO SIGNS AND SYMPTOMS AND MANAGEMENT OF MUSCULOSKELETAL DISEASE)] Future Scheduled Test SKILLED NU RSE TO REVIEW PATIENT MEDICATIONS. INSTRUCT PATIENT/CAREGIVER ON MONITORING OF EFFECTIVENESS, ADVERSE DRUG REACTIONS, SIDE EFFECTS OF ALL MEDICATIONS (PRESCRIPTION/-OTC), AND HOW AND WHEN TO REPORT PROBLEMS. [code = SKILLED NURSE TO REVIEW PATIENT MEDICATIONS. INSTRUCT PATIENT/CAREGIVER ON MONITORING OF EFFECTIVENESS, ADVERSE DRUG REACTIONS, SIDE EFFECTS OF ALL MEDICATIONS (PRESCRIPTION/-OTC), AND HOW AND WHEN TO REPORT PROBLEMS.] Future Scheduled Test VIRTUAL SIT FREQUENCY: 1-6 PER WEEK X 3 WEEKS AND 6 PRN VIRTUAL VISITS MAY BE PERFORMED UTILIZING TELECOMMUNICATIONS SYSTEM TO OPTIMIZE SKILLED SERVICES FURNISHED ON THE PLAN OF CARE. SKILLED NURSE TO ESTABLISH SUPPORT MEASURES TO MINIMIZE RISK OF REHOSPITALIZATION, AND INSTRUCT PATIENT/CAREGIVER ON METHODS TO REDUCE AVOIDABLE HOSPITALIZATION. [code = VIRTUAL VISIT FREQUENCY: 1-6 PER WEEK X 3 WEEKS AND 6 PRN VIRTUAL VISITS MAY BE PERFORMED UTILIZING TELECOMMUNICATIONS SYSTEM TO OPTIMIZE SKILLED SERVICES FURNISHED ON THE PLAN OF CARE. SKILLED NURSE TO ESTABLISH SUPPORT MEASURES TO MINIMIZE RISK OF REHOSPITALIZATION, AND INSTRUCT PATIENT/CAREGIVER ON METHODS TO REDUCE AVOIDABLE HOSPITALIZATION.] Future Scheduled Test SKILLED NU RSE FOR O/A AND SKILLED TEACHING RELATED TO SIGNS AND SYMPTOMS AND MANAGEMENT OF IRON DEF ANEMIA. [code = SKILLED NURSE FOR O/A AND SKILLED TEACHING RELATED TO SIGNS AND SYMPTOMS AND MANAGEMENT OF IRON DEF ANEMIA.] Future Scheduled Test SKILLED NU RSE FOR O/A OF RESPIRATORY SYSTEM TO IDENTIFY CHANGES ASSOCIATED WITH EXACERBATION FOR EARLY INTERVENTION OF COMPLICATIONS. [code = SKILLED NURSE FOR O/A OF RESPIRATORY SYSTEM TO IDENTIFY CHANGES ASSOCIATED WITH EXACERBATION FOR EARLY INTERVENTION OF COMPLICATIONS.] Goal 2024-02-16 Patient Goal - TO HEAL AFTER SURGERY Goal Provider Goal - A PLAN OF CARE WILL BE ESTABLISHED THAT MEETS PATIENT'S ALF NEEDS AND INCLUDES PATIENT GOAL FOR HOME HEALTH. Goal Provider Goal - PATIENT WILL HAVE SUPPORT MEASURES ESTABLISHED TO PREVENT HOSPITALIZATION AND ED USE AND PATIENT/CAREGIVER WILL VERBALIZE/DEMONSTRATE METHODS TO REDUCE AVOIDABLE HOSPITALIZATION AND ED USE BY END OF EPISODE. Goal Provider Goal - PATIENT/CAREGIVER WILL VERBALIZE UNDERSTANDING OF DISCHARGE PLANNING INSTRUCTIONS BY DATE OF DISCHARGE. Goal Provider Goal - PATIENT/CAREGIVER WILL VERBALIZE/DEMONSTRATE EFFECTIVE HOME SAFETY AND FALL PREVENTION STRATEGIES THROUGHOUT CERTIFICATION PERIOD. Goal Provider Goal - PATIENT/CAREGIVER WILL DEMONSTRATE UNDERSTANDING OF PHARMACOLOGIC AND NONPHARMACOLOGIC PAIN CONTROL MEASURES AND PATIENT WILL HAVE IMPROVEMENT IN PAIN INTERFERING WITH ACTIVITY EVIDENCED BY PAIN CONTROLLED AT LEVEL OF 4 OR LESS BY END OF CERTIFICATION PERIOD. Goal Provider Goal - PATIENT/CAREGIVER WILL VERBALIZE UNDERSTANDING OF PRESSURE ULCER PREVENTION BY END OF THE EPISODE. Goal Provider Goal - WOUND CARE WILL BE COMPLETED AND PATIENT WILL HAVE IMPROVED WOUND STATUS EVIDENCED BY NO SIGNS AND SYMPTOMS OF INFECTION, DECREASED WOUND SIZE, AND/OR NO COMPLICATIONS BY THE END OF THE CERTIFICATION PERIOD. Goal Provider Goal - PATIENT/CAREGIVER WILL VERBALIZE/DEMONSTRATE UNDERSTANDING OF TEACHING RELATED TO ALTERED SKIN INTEGRITY SKIN CONDITION) BY END OF CERTIFICATION PERIOD. Goal Provider Goal - PATIENT/CAREGIVER WILL VERBALIZE/DEMONSTRATE MANAGEMENT OF RESPIRATORY DISEASE PROCESS. CHANGES IN RESPIRATORY STATUS WILL BE IDENTIFIED AND REPORTED TO PHYSICIAN FOR PROMPT INTERVENTION THROUGHOUT THE CERTIFICATION PERIOD. Goal Provider Goal - PATIENT/CAREGIVER WILL VERBALIZE/DEMONSTRATE MANAGEMENT OF CARDIAC DISEASE PROCESS AND EXACERBATIONS WILL BE IDENTIFIED AND PROMPTLY REPORTED THROUGHOUT THE CERTIFICATION PERIOD. Goal Provider Goal - PATIENT/CAREGIVER WILL VERBALIZE SIGNS AND SYMPTOMS OF HYPERTENSION AND WILL BE ABLE TO DEMONSTRATE ABILITY TO MANAGE EXACERBATION BY END OF THE EPISODE. Goal Provider Goal - PATIENT/CAREGIVER WILL VERBALIZE/DEMONSTRATE KNOWLEDGE OF DIABETIC MANAGEMENT. CHANGES IN DIABETIC STATUS WILL BE IDENTIFIED AND REPORTED TO PHYSICIAN FOR PROMPT INTERVENTION THROUGHOUT THE CERTIFICATION PERIOD. Goal Provider Goal - PATIENT/CAREGIVER WILL VERBALIZE UNDERSTANDING OF MUSCULOSKELETAL DISEASE INCLUDING SIGNS AND SYMPTOMS, MANAGEMENT, AND PRESCRIBED TREATMENT REGIMEN BY END OF EPISODE. Goal Provider Goal - PATIENT/CAREGIVER WILL VERBALIZE UNDERSTANDING OF EDUCATION PROVIDED ON MEDICATIONS BY THE END OF THE CERTIFICATION PERIOD. Goal Provider Goal - PATIENT/CAREGIVER WILL UTILIZE VIRTUAL VISITS TO ACHIEVE GOALS OUTLINED ON THE PLAN OF CARE. PATIENT WILL HAVE SUPPORT MEASURES ESTABLISHED TO PREVENT HOSPITALIZATION AND PATIENT/CAREGIVER WILL VERBALIZE/DEMONSTRATE METHODS TO REDUCE AVOIDABLE HOSPITALIZATION THROUGHOUT THE CERTIFICATION PERIOD. Goal Provider Goal - PATIENT/CARGIVER WILL VERBALIZE UNDERSTANDING OF ANEMIA INCLUDING SIGNS AND SYMPTOMS, MANAGEMENT OF COMPLICATIONS, AND PRESCRIBED TREATMENT REGIMEN BY END OF EPISODE. Goal Provider Goal - CHANGES IN RESPIRATORY STATUS WILL BE IDENTIFIED AND REPORTED TO PHYSICIAN FOR PROMPT INTERVENTION TO MINIMIZE ASSOCIATED RISKS THROUGHOUT THE CERTIFICATION PERIOD. Reason for Visit INDEPENDENT IN THE COMMUNITY Encounters Start Date/Time End Date/Time Encounter Type Admission Type Attending [facility] Care Department Encounter ID Discharge Date Discharge Status Discharge Condition Discharge Reason Percent Goals Met 2024-01-26 00:00:00 2024-02-16 00:00:00 Outpatient ADRIENNE GRANT [facility] [id number] 2024-02-16 00:00:00 DISCHARGE TO HOME OR SELF CARE INDEPENDEN T IN THE COMMUNITY GOALS MET ( ONLY) [phone]
== END 2024-10-19 08:19 | disposition home or self-care (01) ==
LOC: HO.MAMMO 08:18
PROVIDERS: PCP Internal Medicine; Visit Provider Internal Medicine
DX: M81.0 Age-related osteoporosis without current pathological fracture (principal); E11.65 Type 2 diabetes mellitus with hyperglycemia; Z79.4 Long term (current) use of insulin
CPT/HCPCS: 77080

== ENCOUNTER 2025-01-03 10:13 | Outpatient (AMB) | payer MEDICARE, OTHER, SELFPAY ==
[2025-01-03 10:32] VITALS: BP 130/68; PULSE 78; O2SAT 96; BMI 33.1
--- NOTE | 2025-01-03 10:32 | A.OFFPC_ITS ---
Vital Signs 01/03/25 10:32 Height 5 ft 2 in Weight 181 lb BMI 33.1 BP 130/68 Blood Pressure Location Lt brachial Position Sitting Pulse 78 Pulse Source Pulse Oximeter Pulse Oximetry (%) 96 Oxygen Delivery Method Room Air Intake Visit Reasons: DM, HTN Intake Note: Patient is currently taking antibiotics for bladder infection. She is not sure of the name. Allergies Sulfa (Sulfonamide Antibiotics) [SULFA (SULFONAMIDE ANTIBIOTICS)] Allergy (Intermediate, Verified 01/03/25 10:33) RASH exenatide [From BYETTA] Allergy (Unknown, Verified 01/03/25 10:33) VOMITTING Tobacco use date assessed: 01/03/25 Fall risk assessment: No Falls in past year Last assessed Fall Risk: 01/03/25 Dental Screening Dental Screen Date: 01/03/25 Did you have a dental visit in the last 12 months?: No Did you have a dental problem in the last 6 months where you did not have access to dental care?: No Was dental information given to patient?: Patient has dentist HPI DM, HTN HPI Details The patient is a 69-year-old female presenting with follow-up for diabetes management, among other chronic conditions. The patient has a history of diabetes mellitus with a recent Hemoglobin A1c reported at 10.1, indicating poor glycemic control. She is currently on multiple anti-diabetic medications, including Metformin, Bosaglar, Novalog sliding scale, Glipizide, and Jardiance. Concerns regarding elevated blood sugars were discussed, and dietary habits potentially contributing to this, such as consumption of potatoes and coffee with cream, were identified. Additionally, the patient has a documented history of lung cancer with a status post-lumpectomy from January 2024, and a follow-up CT scan in August 2024 revealed a slight right pleural effusion. The patient remains on surveillance with an expected follow-up CT scan in July. She also has a history of chronic obstructive pulmonary disease (COPD), not currently requiring inhalers, and a history of obstructive sleep apnea, although she does not tolerate CPAP. Her blood pressure is being managed with Amlodipine and Lisinopril, with cholesterol levels managed with Atorvastatin aiming for specific LDL and triglyceride goals. The patient reported that she is not curren tly engaging in regular exercise. Concerns have been raised regarding weight management and the importance of treating sleep apnea. [facility] Medical History Urinary tract infection COVID-19 virus infection Personal history of COVID-19 Skin cancer Back pain History of rib fracture Cough Bronchitis Lung mass Perianal mass Restless leg syndrome Obesity (BMI 30-39.9) Vitamin D deficiency Obstructive sleep apnea Hypertension Type 2 diabetes mellitus with hyperglycemia Hx of iron deficiency anemia Arthritis Hyperlipidemia Surgical History (Updated 10/31/24 @ 10:52 by Lawanda Jones MD) Encounter for screening for malignant neoplasm of lung S/P lobectomy of lung (01/19/24) History of hand surgery History of carpal tunnel release Hx of colonoscopy Hx of hysterectomy Hx of appendectomy History of cholecystectomy Social History Household Members: Spouse Housing: House Are you a primary district manager primary care sales to a significant other at home: No Do you presently have visiting nurse or other home services: No Alcohol intake: never Comment: COUNTS CORRECT Patient Tobacco Use Status: Former Tobacco user Tobacco use type: Cigarette Cigarette Packs Per Day: 1 Years Smoked: quit 1996 (25 years) e-Cigarette/Vaping Use: Never Used Second Hand Smoke Exposure: No service: No Current occupational status: disabled Cognitive needs: No Hearing needs: No Vision needs: Yes Questionnaire PHQ-9 Over the last 2 weeks, how often have you been bothered by any of the following problems? 1. Little interest or pleasure in doing things: not at all 2. Feeling down, depressed, or hopeless: not at all 3. Trouble falling or staying asleep, or sleeping too much: not at all 4. Feeling tired or having little energy: several days 5. Poor appetite or overeating: not at all 6. Feeling bad about yourself - or that you are a failure or have let yourself or your family down: not at all 7. Trouble concentrating on things, such as reading the newspaper or watching television: not at all 8. Moving or speaking so slowly that other people could have noticed. Or the opposite - being so fidgety or restless that you have been moving around a lot more than usual: not at all 9. Thoughts that you would be better off or of hurting yourself in some way: not at all Total score: 1 Depression Screening Interpretation: Positive Depression Screening Done: Yes Source: Developed by Drs. Luke Marie, Ab Sampson and colleagues, with an educational cliff from [employer]. Thrive Questionnaire Date Thrive assessed: 01/03/25 I am a: Patient What is your living situation today?: I have a steady place to live Within the past 12 months, did the food you bought not last and you didn't have the money to get more?: Never true Within the past 12 months, did you worry whether your food would run out before you got money to buy more?: Never true Do you have trouble paying for medicines?: No Do you have trouble getting transportation to medical appointments?: No Do you have trouble paying your heating and electricity bill?: No Do you have trouble taking care of your child, family member or friend?: No Do you have trouble with day-to-day activities such as bathing, preparing meals, shopping, managing finances, etc.?: No Are you currently unemployed and looking for a job?: No Are you interested in more education?: No Currently or been in a relationship where the following occur: No concerns reported THRIVE Score: 0 AUDIT C Alcohol Use Questionnaire (AUDIT-C) 1. How often do you have a drink containing alcohol?: Never Total Score: 0 LASHA-7 AMB Questionnaire LASHA-7 Date LASHA - 7 assessed: 01/03/25 Feeling nervous, anxious, or on edge: 0 = Not at all Not being able to stop or control worryin = Not at all Worrying too much about different things: 0 = Not at all Trouble relaxin = Not at all Being so restless that it is hard to sit still: 0 = Not at all Becoming easily annoyed or irritable: 0 = Not at all Feeling afraid as if something awful might happen: 0 = Not at all Total LSAHA-7 score (0-4 normal; 5-9 mild; 10-14 moderate; 15-21 severe): 0 Source: Developed by Drs. Luke Marie, Ab Sampson and colleagues, with an educational cliff from [employer]. Physical exam (Primary Care) Vital Signs: Last Vital Signs Pulse 78 01/03/25 10:32 BP 130/68 01/03/25 10:32 Pulse Ox 96 01/03/25 10:32 Oxygen Delivery Method Room Air 01/03/25 10:32 BMI result Body Mass Index 33.1 Tobacco/Smoking Status: Tobacco use Status Tobacco use date assessed 01/03/25 01/03/25 10:36 Patient Tobacco Use Status Former Tobacco user 01/03/25 10:36 Tobacco use type Cigarette 01/03/25 10:36 e-Cigarette/Vaping Use Never Used 01/03/25 10:36 PHQ-9: PHQ-9 Score PHQ-9: Total score 1 01/03/25 11:09 Depression Screening Interpretation: Positive Thrive Assessment: Date of Thrive Assessment Date Thrive assessed 01/03/25 01/03/25 10:36 Currently or been in a relationship where the following occur: No concerns reported Const General: alert; No acute distress Eyes Conjunctivae: conjunctivae normal Resp Auscultation: clear to auscultation bilaterally Cardio Rate: regular rate Rhythm: regular rhythm GI Inspection: Yes normal to inspection Extrem General: Yes normal to inspection and No edema Results AMB Hemoglobin A1c AMB Hemoglobin A1c 10.1 % Last Edit by Rossy Fisher CMA on 01/03/25 10:55 Results Reviewed Results Reviewed: Laboratory Last Values Hgb A1c (Clinic) 10.1 % (4.0-6.0) H 01/03/25 10:36 Coding Level of Care Code Est Pt Level 4 (33061) Complex EM visit Add On G2211 Diagnoses Lung cancer C34.90 Panlobular emphysema J43.1 Emphysema type: panlobular Type 2 diabetes mellitus with hyperglycemia, with long-term current use of insulin E11.65; Z79.4 Diabetes mellitus termination clerk insulin use: with detention use Essential hypertension I10 Hypertension type: essential hypertension Pure hypercholesterolemia E78.00 Hyperlipidemia type: pure hypercholesterolemia Obesity (BMI 30-39.9) E66.9 Obstructive sleep apnea G47.33 Assessment & Plan Assessment & Plan (1) Lung cancer: Comment: January 2024. 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 -Broncho-vascular margins are free of tumor. -Lung parenchyma with emphysematous changes, abundant mucus and post-obstructive Code(s): C34.90 - Malignant neoplasm of unspecified part of unspecified bronchus or lung Category: Medical Plan: Status post lobectomy and patient is on surveillance CT scan recommended in February (2) Emphysema of lung: Code(s): J43.9 - Emphysema, unspecified Category: Medical Qualifiers: Emphysema type: panlobular Qualified Code(s): J43.1 - Panlobular emphysema Plan: COPD has not been requiring any inhaler. (3) Type 2 diabetes mellitus with hyperglycemia: Comment: Dr. Rendon Code(s): E11.65 - Type 2 diabetes mellitus with hyperglycemia Category: Medical Qualifiers: Diabetes mellitus termination clerk insulin use: with detention use Qualified Code(s): E11.65 - Type 2 diabetes mellitus with hyperglycemia; Z79.4 - termination clerk (current) use of insulin Plan: Decrease the amount of carbohydrate intake, pasta, bread, rice and potatoes are all sugar and that is aside from all the sweet stuff, remember that fruits are good but they are Sweet also. Hemoglobin A1c goal of less than 7.0 on metformin, Basaglar 20 units NovoLog sliding scale glipizide 5 mg twice a day Jardiance at 10 mg once a day (4) Hypertension: Code(s): I10 - Essential (primary) hypertension Category: Medical Qualifiers: Hypertension type: essential hypertension Qualified Code(s): I10 - Essential (primary) hypertension Plan: Continue with blood pressure medication. Decrease salt intake and exercise on amlodipine 10 mg once a day lisinopril 40 mg once a day (5) Hyperlipidemia: Code(s): E78.5 - Hyperlipidemia, unspecified Category: Medical Qualifiers: Hyperlipidemia type: pure hypercholesterolemia Qualified Code(s): E78.00 - Pure hypercholesterolemia, unspecified Plan: Avoid fried foods, chicken skin, eggs, butter margarine, pastries and meat. Be it pork or beef they have a lot of cholesterol LDL goal of less than 100 and triglyceride of less than 150 on atorvastatin patient will need blood work next time (6) Obesity (BMI 30-39.9): Code(s): E66.9 - Obesity, unspecified Category: Medical Plan: Diet and exercise (7) Obstructive sleep apnea: Comment: Cannot tolerate CPAP Code(s): G47.33 - Obstructive sleep apnea (adult) (pediatric) Category: Medical Plan: Discussed about importance of treating sleep apnea Plan 1. - Essential Hypertension: - Obstructive Sleep Apnea: Reinforce the importance of treating sleep apnea and discuss potential benefits of weight management. - Lung Cancer, status post-lobectomy: Continue CT surveillance, with the next scan planned for July. - Chronic Obstructive Pulmonary Disease (COPD): Monitor symptoms, though currently not requiring inhaler therapy. - Health Maintenance: Ensure ongoing adherence to routine screenings; encourage regular exercise and healthy lifestyle changes. Orders: Orders AMB Hemoglobin A1c Today Z13.9 - Encounter for screening, unspecified Complete Blood Count Auto Diff 3 Months E11.65 - Type 2 diabetes mellitus with hyperglycemia, Z79.4 - longterm (current) use of insulin Comprehensive Met. Panel 3 Months E11.65 - Type 2 diabetes mellitus with hyperglycemia, Z79.4 - longterm (current) use of insulin Microalbumin, Random (w Creat) 3 Months E11.65 - Type 2 diabetes mellitus with hyperglycemia, Z79.4 - longterm (current) use of insulin Lipid Panel 3 Months E11.65 - Type 2 diabetes mellitus with hyperglycemia, E78.00 - Pure hypercholesterolemia, unspecified, Z79.4 - termination clerk (current) use of insulin Vitamin D 25-OH Total 3 Months E11.65 - Type 2 diabetes mellitus with hyperglycemia, Z79.4 - longterm (current) use of insulin Hemoglobin A1c 3 Months E11.65 - Type 2 diabetes mellitus with hyperglycemia, Z79.4 - longterm (current) use of insulin Creatinine Urine 3 Months E11.65 - Type 2 diabetes mellitus with hyperglycemia, Z79.4 - termination clerk (current) use of insulin Free T4 (Free Thyroxine) 3 Months E11.65 - Type 2 diabetes mellitus with hyperglycemia, Z79.4 - longterm (current) use of insulin Thyroid Stimulating Hormone 3 Months E11.65 - Type 2 diabetes mellitus with hyperglycemia, Z79.4 - longterm (current) use of insulin Vitamin B12 and Folate 3 Months E11.65 - Type 2 diabetes mellitus with hyperglycemia, Z79.4 - longterm (current) use of insulin Medications: Changed From empagliflozin (Jardiance) 10 mg PO DAILY 30 tabs 10RF E11.65 - Type 2 diabetes mellitus with hyperglycemia, Z79.4 - termination clerk (current) use of insulin To empagliflozin 25 mg PO DAILY 90 tabs 2RF E11.65 - Type 2 diabetes mellitus with hyperglycemia, Z79.4 - longterm (current) use of insulin
--- OUTSIDE RECORDS SUMMARY | 2025-01-03 11:19 | XMS_ITS | Clinical Summary ---
Author Organization [facility] ity Address [address] [place] [address] Care Team Providers Care Knapsack Sprayer Name Role Phone Elena Wyatt MD Primary Care Provider [phone] Social History Tobacco Use Types Packs/Day Years Used Date Smoking Tobacco: Never Assessed Comments Unknown Sex and Gender Information Value Date Recorded Sex Assigned at Not on file Legal Sex Female 5:17 AM EST Gender Identity Not on file Sexual Orientation Not on file Plan of Treatment Health Maintenance Due Date Last Done Comments Breast Cancer Screening 1957 COVID-19 Vaccine (#1) 1962 DTaP,Tdap,and Td Vaccines (1 - Tdap) 1976 Pneumococcal Vaccine: 50+ Ye ars (1 of 2 - PCV) 1976 Zoster Vaccines (1 of 2) 1976 Colorectal Cancer Screening: Colonoscopy 06/12/2024 Depression Screening 06/12/2024 Falls Risk Assessment 06/12/2024 Hepatitis C Screening 06/12/2024 Osteoporosis Screening (Bone Density Screening) 06/12/2024 Social Influencers of Health Screening 06/12/2024 Influenza Vaccine (#1) 2024 RSV Immunization Patients 60 + Years Old (1 - 1-dose 75+ series) 2032 HIB Vaccines Aged Out No longer eligi ble based on patient's age to complete this topic HPV Vaccines Aged Out No longer eligi ble based on patient's age to complete this topic Hepatitis A Vaccines Aged Out No long er eligible based on patient's age to complete this topic Hepatitis B Vaccines Aged Out No long er eligible based on patient's age to complete this topic IPV Vaccines Aged Out No longer eligi ble based on patient's age to complete this topic MMR Vaccines Aged Out No longer eligi ble based on patient's age to complete this topic Meningococcal ACWY Vaccine Aged Out N o longer eligible based on patient's age to complete this topic Meningococcal B Vacine Aged Out No lo nger eligible based on patient's age to complete this topic RSV Immunization Patients Un feli 20 months Aged Out No longer eligible b ased on patient's age to complete this topic Varicella Vaccines Aged Out No longer eligible based on patient's age to complete this topic Care Teams Knapsack Sprayer Relationship Specialty Start Date End Date Elena Wyatt MD [address] [place] [id number] PCP - General Internal Medicine 01/19/16
--- OUTSIDE RECORDS SUMMARY | 2025-01-03 11:19 | XMS_ITS | Patient Health Record ---
Author Organization [facility] Address [address] [place] [address] Care Team Providers Care Business Professor Name Role Phone Marzena Oconnor MD Primary Care Provider Lavell Dobson Jr Unavailable ALLERGIES Allergen (clinical drug ingredient) Drug/Non Drug Allergy documented on EMR Reaction Allergy Type Onset Date Status sulfacetamide Sulfacetamide Sodium Unknown Drug Allergy Active REASON FOR REFERRAL No Information MEDICATIONS Medication SIG (Take, Route, Frequency, Duration) Notes Start Date End Date Status Lisinopril 20 MG TAKE 1 TABLET BY HO TH EVERY DAY Oral for 90 Active Tresiba FlexTouch 200 UNIT/ML INJECT 80 UNITS INTO THE SKIN ONCE DAILY Subcutaneous for 90 Active Tylenol PRN Active Synjardy 1 tablet with meals Orally Twice a day Active Vitamin B12 1000 MCG 1 tablet Orally Onc e a day for 30 day(s) Active rOPINIRole HCl 0.5 MG TAKE 1 TABLET ONCE DAILY Oral for 90 Active Atorvastatin Calcium 40 MG TAKE 1 TABLET BY MOUTH EVERY DAY Oral for 90 Active MiraLax (colon prep) 8.3 ounce ((238) grams mixed with Gatorade or Crystal Light orally begin at 5:00 p.m. the day before the procedure for 1 day 08/06/2020 Active Victoza 18 MG/3ML INJECT 1.8 MG ONCE A DAY SUBCUTANEOUSLY 30 Subcutaneous for 30 Active IMMUNIZATIONS Vaccine Route Administration Date Status Comme nts Influenza Unknown 08/15/2019 Administered SOCIAL HISTORY Tobacco Use: Social History Observation Description Date Details (start date - stop date) Former Smoker NA - NA Sex Assigned At : Social History Observation Description Sex Assigned At Unknown Tobacco Use/Smoking Question Answer Notes Patient is a former smoker When did you start smoking? 18 years old When did you stop smoking? 23 years ago How long has it been since y ou last smoked? > 10 years Additional Findings: Tobacco User Modera te cigarette smoker (10-19 cigs/day) Additional Findings: Tobacco Non-User Ex-cigaret te smoker Alcohol Screen Question Answer Notes Did you have a drink containing alcohol in the p ast year? No Points 0 Interpretation Negative PROBLEMS Problem Type ICD Code Onset Dates Problem Status W/U Status Risk SNOMED Code Notes Problem Colon cancer screening (Z12.11) Active confirmed 653771545 Problem retirement (current) use of insulin (Z79.4) Active confirmed 551824280 Problem Encounter for other preprocedural examination (Z01.818) Active confirmed 374741719 PLAN OF TREATMENT Future Test Test Name Order Date COLONOSCOPY 08/06/2020 Insurance Providers Payer Name Payer Address Payer Phone Subscriber Number Group Number Insured Name Patient Relationship to Insured Coverage Start Date Coverage End Date [facility] [address] [place] [address] [id number] INGRID CONKLIN Self - patient is the insured MEDICAL (GENERAL) HISTORY Medical History History ICD Code hypertension type II diabetes hyperlipidemia Arthritis gallstones Surgical History Surgery Date(Month/Year) cholecystectomy appendectomy hysterectomy carpal tunnel release
== END 2025-01-03 11:26 | disposition home or self-care (01) ==
PROVIDERS: PCP Internal Medicine; Visit Provider Internal Medicine
DX: E11.65 Type 2 diabetes mellitus with hyperglycemia (principal); C34.90 Malignant neoplasm of unspecified part of unspecified bronchus or lung; J43.1 Panlobular emphysema; Z79.4 Long term (current) use of insulin; E66.9 Obesity, unspecified; Z68.33 Body mass index [BMI] 33.0-33.9, adult; I10 Essential (primary) hypertension; E78.00 Pure hypercholesterolemia, unspecified; G47.33 Obstructive sleep apnea (adult) (pediatric)

== ENCOUNTER → 2025-01-03 10:13 | Outpatient (BNVA) | payer MEDICARE, OTHER, SELFPAY | PROVIDERS: PCP Internal Medicine; Visit Provider Internal Medicine | DX: C34.90 Malignant neoplasm of unspecified part of unspecified bronchus or lung (principal); J43.1 Panlobular emphysema; E11.65 Type 2 diabetes mellitus with hyperglycemia; Z79.4 Long term (current) use of insulin; I10 Essential (primary) hypertension; E78.00 Pure hypercholesterolemia, unspecified; E66.9 Obesity, unspecified; G47.33 Obstructive sleep apnea (adult) (pediatric) | CPT/HCPCS: 83036; 99212 ==

== ENCOUNTER 2025-03-05 09:34 | Outpatient (REF) | payer MEDICARE, SELFPAY ==
--- OUTSIDE RECORDS SUMMARY | 2025-03-05 10:35 | XMS_ITS | Clinical Summary ---
Author Organization [facility] ity Address [address] [place] [address] Care Team Providers Care Clothing Patternmaker Name Role Phone Elena Wyatt MD Primary Care Provider [phone] Social History Tobacco Use Types Packs/Day Years [...] Influencers of Health Screening 06/12/2024 Influenza Vaccine (Season Ended) 2025 RSV Immunization Adult Patie nts (1 - 1-dose 75+ series) 2032 HIB [...] age to complete this topic Meningococcal B Vaccine Aged Out No l onger eligible based on patient's age to complete this topic RSV Immunization Patients Un feli 20 months Aged Out No longer eligible b ased on patient's age to complete this topic Varicella Vaccines Aged Out No longer eligible based on patient's age to complete this topic Care Teams Clothing Patternmaker Relationship Specialty Start Date End Date Elena Wyatt MD [address] [place] [id number] PCP - General Internal Medicine 01/19/16
== END 2025-03-05 09:35 | disposition home or self-care (01) ==
LOC: HO.HMGCLDS 09:34
PROVIDERS: PCP Internal Medicine; Visit Provider Internal Medicine
DX: Z13.89 Encounter for screening for other disorder (principal)

== ENCOUNTER 2025-03-19 08:10 | Outpatient (REF) | payer MEDICARE, SELFPAY ==
--- OUTSIDE RECORDS SUMMARY | 2025-03-19 08:18 | XMS_ITS | Clinical Summary ---
Author Organization [facility] ity Address [address] [place] [address] Care Team Providers Care Wearing Apparel Shaker Name Role Phone Elena Wyatt MD Primary Care Provider [phone] Social History Tobacco Use Types Packs/Day Years Used Date Smoking Tobacco: Never Assessed Comments Unknown Sex and Gender Information Value Date Recorded Sex Assigned at Not on file Legal Sex Female 5:17 AM EST Gender Identity Not on file Sexual Orientation Not on file Plan of Treatment Health Maintenance Due Date Last Done Comments Breast Cancer Screening 1957 DTaP,Tdap,and Td Vaccines (1 - Tdap) 1976 Pneumococcal Vaccine: 50+ Ye ars (1 of 1 - PCV) 2007 Zoster Vaccines (1 of 2) 2007 Colorectal Cancer Screening: Colonoscopy 06/12/2024 Depression Screening 06/12/2024 Falls Risk Assessment 06/12/2024 Hepatitis C Screening 06/12/2024 Osteoporosis Screening (Bone Density Screening) 06/12/2024 Social Influencers of Health Screening 06/12/2024 COVID-19 Vaccine ( - 2023-2 5 season) 2024 Influenza Vaccine (Season Ended) 2025 RSV Immunization [...] age to complete this topic Care Teams Wearing Apparel Shaker Relationship Specialty Start Date End Date Elena Wyatt MD [address] [place] [id number] PCP - General Internal Medicine 01/19/16
--- OUTSIDE RECORDS SUMMARY | 2025-03-19 08:18 | XMS_ITS | Patient Health Record ---
Author Organization [facility] Address [address] [place] [address] Care Team Providers Care Screen Cleaner Name Role Phone Marzena Oconnor MD Primary Care Provider Lavell Dobson Jr Unavailable Allergies Allergen (clinical drug ingredient) Drug/Non Drug Allergy documented on EMR Reaction Allergy Type Onset Date Status sulfacetamide Sulfacetamide Sodium Unknown Drug Allergy Active Reason For Referral No Information Medications Medication SIG (Take, Route, Frequency, Duration) Notes [...] DAY SUBCUTANEOUSLY 30 Subcutaneous for 30 Active Immunizations Vaccine Route Administration Date Status Comme nts Influenza Unknown 08/15/2019 Administered Social History Tobacco Use: Social History Observation Description Date Details (start date - stop date) Former Smoker NA - NA Tobacco Use/Smoking Question Answer Notes Patient is [...] ast year? No Points 0 Interpretation Negative Problems Problem Type SNOMED Code ICD Code Onset Dates Problem Status W/U Status Risk Notes Problem 026120309 Colon cancer screening (Z12.11) Active confirmed Problem 845279711 Encounter for other preprocedural examination (Z01.818) Active confirmed Problem 888502519 MCC (current) use of insulin (Z79.4) Active confirmed Plan Of Treatment Future Test Test Name Order Date COLONOSCOPY 08/06/2020 Insurance Providers Payer Name Payer Address Payer Phone Subscriber Number Group Number Insured Name Patient Relationship to Insured Coverage Start Date Coverage End Date [facility] [address] [place] [address] [id number] INGRID CONKLIN Self - patient is the insured Medical (General) History Medical History History ICD Code hypertension type II diabetes hyperlipidemia Arthritis gallstones Surgical History Surgery Date(Month/Year) cholecystectomy appendectomy hysterectomy carpal tunnel release
[2025-03-19 10:31] LABS: MANUAL DIFF FLAG NO
[2025-03-19 10:45] LABS: Basophils Absolute Auto 0.1 X10*3/uL (0.0-0.2); Basophils Percent Auto 0.6 % (0-2); Eosinophils Absolute Auto 0.2 X10*3/uL (0.0-0.4); Eosinophils Percent Auto 2.2 % (0-4); Hematocrit 39.2 % (37.0-47.0); Hemoglobin 13.3 g/dl (12.0-16.0); Imm Gran Abs Auto 0.04 X10*3/uL (0.00-0.03); Imm Gran Pct Auto 0.4 % (0.0-0.4); Lymphocytes Absolute Auto 2.8 X10*3/uL (1.2-4.9); Lymphocytes Percent Auto 28.7 % (20-40); Mean Corpuscular HGB Conc 33.9 g/dl (31.0-35.0); Mean Corpuscular Hemoglobin 27.9 pg (27.0-33.0); Mean Corpuscular Volume 82.4 fL (80.0-98.0); Mean Platelet Volume 10.7 fL (9.4-12.3); Monocytes Absolute Auto 0.6 X10*3/uL (0.1-1.2); Monocytes Percent Auto 5.7 % (2-11); Neutrophils Percent Auto 62.4 % (45-73); Platelet Count 311 X10*3/uL (160-400); Red Blood Count 4.76 X10*6/uL (4.20-5.50); Red Cell Distribution Width 12.5 % (11.0-16.0); White Blood Count 9.7 X10*3/uL (4.8-10.8)
[2025-03-19 10:47] LABS: Estimated Average Glucose 235 mg/dL; Hemoglobin A1c % 9.8 % (<6.0); Total Hemoglobin (HGBA1C) 3475.0073 umol/L
[2025-03-19 10:50] LABS: Creatinine Urine 56.36 mg/dL
[2025-03-19 11:26] LABS: Alanine Aminotransferase 11 U/L (0-31); Alkaline Phosphatase 85 U/L (39-117); Anion Gap 16 (12-20); Aspartate Amino Transferase 20 U/L (5-31); Bilirubin Total 0.5 mg/dL (0.0-1.0); Blood Urea Nitrogen 12 mg/dL (9-16); Calcium 9.5 mg/dL (8.4-10.2); Carbon Dioxide 25 mmol/L (22-29); Chloride 103 mmol/L (96-108); Cholesterol 171 mg/dL (<200); Estimated Glomerular Filt Rate > 60; Glucose Random 196 mg/dL (60-115); Potassium 4.4 mmol/L (3.3-5.1); Sodium 140 mmol/L (135-145); Total Protein 7.5 g/dL (6.5-8.0); Triglycerides 162 mg/dL (<150)
[2025-03-19 11:43] LABS: Free T4 (Free Thyroxine) 1.03 ng/dL (0.71-1.85)
[2025-03-19 11:59] LABS: Vitamin B12 344 pg/mL (200-900)
[2025-03-19 12:06] LABS: HDL Cholesterol 44 mg/dL (>40); LDL Cholesterol Calculated 95 mg/dL (<100)
== END 2025-03-19 08:11 | disposition home or self-care (01) ==
LOC: HO.HMGCLDS 08:10
PROVIDERS: PCP Internal Medicine; Visit Provider Internal Medicine
DX: E11.65 Type 2 diabetes mellitus with hyperglycemia (principal); E78.00 Pure hypercholesterolemia, unspecified; Z79.4 Long term (current) use of insulin
CPT/HCPCS: 36415; 80053; 80061; 82043; 82306; 82570; 82607; 82746; 83036; 84439; 84443; 85025

== ENCOUNTER 2025-04-12 10:32 | Outpatient (AMB) | payer MEDICARE, SELFPAY ==
[2025-04-12 10:45] VITALS: BP 122/62; PULSE 72; O2SAT 96; BMI 32.0
--- NOTE | 2025-04-12 10:45 | A.OFFPC_ITS ---
Vital Signs 04/12/25 10:45 Height 5 ft 2 in Weight 175 lb BMI 32.0 BP 122/62 Blood Pressure Location Lt brachial Position Sitting Pulse 72 Pulse Source Pulse Oximeter Pulse Oximetry (%) 96 Oxygen Delivery Method Room Air Intake Visit Reasons: DM - see comments Allergies Sulfa (Sulfonamide Antibiotics) [SULFA (SULFONAMIDE ANTIBIOTICS)] Allergy (Intermediate, Verified 04/12/25 10:45) RASH exenatide [From BYETTA] Allergy (Unknown, Verified 04/12/25 10:45) VOMITTING Tobacco use date assessed: 01/03/25 Fall risk assessment: No Falls in past year Last assessed Fall Risk: 04/12/25 Dental Screening Dental Screen Date: 01/03/25 [facility] Medical History (Updated 04/12/25 @ 10:58 by Marzena Oconnor MD) Urinary tract infection COVID-19 virus infection Personal history of COVID-19 Skin cancer Back pain History of rib fracture Cough Bronchitis Lung mass Perianal mass Restless leg syndrome Obesity (BMI 30-39.9) Vitamin D deficiency Obstructive sleep apnea Hypertension Type 2 diabetes mellitus with hyperglycemia Hx of iron deficiency anemia Arthritis Hyperlipidemia Surgical History (Updated 03/08/25 @ 11:51 by Margaret Ware) Encounter for screening for malignant neoplasm of lung S/P lobectomy of lung (01/19/24) History of hand surgery History of carpal tunnel release Hx of colonoscopy (~09/12/20) Hx of hysterectomy Hx of appendectomy History of cholecystectomy Social History Household Members: Spouse Housing: House Are you a primary healthcare administrative assistant to a significant other at home: No Do you presently have visiting nurse or other home services: No Alcohol intake: never Comment: COUNTS CORRECT Patient Tobacco Use Status: Former Tobacco user Tobacco use type: Cigarette Cigarette Packs Per Day: 1 Years Smoked: quit 1996 (25 years) e-Cigarette/Vaping Use: Never Used Second Hand Smoke Exposure: No service: No Current occupational status: disabled Cognitive needs: No Hearing needs: No Vision needs: Yes Questionnaire PHQ-9 Over the last 2 weeks, how often have you been bothered by any of the following problems? 1. Little interest or pleasure in doing things: not at all 2. Feeling down, depressed, or hopeless: not at all 3. Trouble falling or staying asleep, or sleeping too much: not at all 4. Feeling tired or having little energy: several days 5. Poor appetite or overeating: not at all 6. Feeling bad about yourself - or that you are a failure or have let yourself or your family down: not at all 7. Trouble concentrating on things, such as reading the newspaper or watching television: not at all 8. Moving or speaking so slowly that other people could have noticed. Or the opposite - being so fidgety or restless that you have been moving around a lot more than usual: not at all 9. Thoughts that you would be better off or of hurting yourself in some way: not at all Total score: 1 Depression Screening Interpretation: Positive Depression Screening Done: Yes Source: Developed by Drs. Luke Marie, Audrey Faustin, Ab Kaur and colleagues, with an educational cliff from [employer]. Thrive Questionnaire Date Thrive assessed: 01/03/25 I am a: Patient What is your living situation today?: I have a steady place to live Within the past 12 months, did the food you bought not last and you didn't have the money to get more?: Sometimes True Within the past 12 months, did you worry whether your food would run out before you got money to buy more?: Often true Do you have trouble paying for medicines?: I choose not to answer this question Do you have trouble getting transportation to medical appointments?: No Do you have trouble paying your heating and electricity bill?: No Do you have trouble taking care of your child, family member or friend?: No Do you have trouble with day-to-day activities such as bathing, preparing meals, shopping, managing finances, etc.?: No Are you currently unemployed and looking for a job?: No Are you interested in more education?: No Please select the resources that you would like help with: None Currently or been in a relationship where the following occur: No concerns reported THRIVE Score: 2 AUDIT C Alcohol Use Questionnaire (AUDIT-C) 1. How often do you have a drink containing alcohol?: Never 3. How often do you have six or more drinks on one occasion?: Never Total Score: 0 LASHA-7 AMB Questionnaire LASHA-7 Date LASHA - 7 assessed: 01/03/25 Feeling nervous, anxious, or on edge: 0 = Not at all Not being able to stop or control worryin = Not at all Worrying too much about different things: 0 = Not at all Trouble relaxin = Not at all Being so restless that it is hard to sit still: 0 = Not at all Becoming easily annoyed or irritable: 0 = Not at all Feeling afraid as if something awful might happen: 0 = Not at all Total LASHA-7 score (0-4 normal; 5-9 mild; 10-14 moderate; 15-21 severe): 0 Source: Developed by Drs. Luke Marie, Audrey Faustin, Ab Kaur and colleagues, with an educational cliff from [employer]. Physical exam (Primary Care) Vital Signs: Last Vital Signs Pulse 72 04/12/25 10:45 BP 122/62 04/12/25 10:45 Pulse Ox 96 04/12/25 10:45 Oxygen Delivery Method Room Air 04/12/25 10:45 BMI result Body Mass Index 32.0 Tobacco/Smoking Status: Tobacco use Status Tobacco use date assessed 01/03/25 04/12/25 10:49 Patient Tobacco Use Status Former Tobacco user 04/12/25 10:49 Tobacco use type Cigarette 04/12/25 10:49 e-Cigarette/Vaping Use Never Used 04/12/25 10:49 PHQ-9: PHQ-9 Score PHQ-9: Total score 1 04/12/25 10:49 Depression Screening Interpretation: Positive Thrive Assessment: Date of Thrive Assessment Date Thrive assessed 01/03/25 04/12/25 10:49 Currently or been in a relationship where the following occur: No concerns reported Const General: alert; No acute distress Eyes Conjunctivae: conjunctivae normal Resp Auscultation: clear to auscultation bilaterally Cardio Rate: regular rate Rhythm: regular rhythm GI Inspection: Yes normal to inspection Extrem General: Yes normal to inspection and No edema Coding Level of Care Code Est Pt Level 4 (28856) Complex EM visit Add On G2211 Diagnoses Type 2 diabetes mellitus with hyperglycemia, with long-term current use of insulin E11.65; Z79.4 Diabetes mellitus retirement insulin use: with retirement use Essential hypertension I10 Hypertension type: essential hypertension Pure hypercholesterolemia E78.00 Hyperlipidemia type: pure hypercholesterolemia Obesity (BMI 30-39.9) E66.9 Lung cancer C34.90 SOB (shortness of breath) on exertion R06.02 Assessment & Plan Assessment & Plan (1) Type 2 diabetes mellitus with hyperglycemia: Comment: Dr. Rendon Code(s): E11.65 - Type 2 diabetes mellitus with hyperglycemia Category: Medical Qualifiers: Diabetes mellitus retirement insulin use: with retirement use Qualified Code(s): E11.65 - Type 2 diabetes mellitus with hyperglycemia; Z79.4 - intermission coordinator (current) use of insulin Plan: Decrease the amount of carbohydrate intake, pasta, bread, rice and potatoes are all sugar and that is aside from all the sweet stuff, remember that fruits are good but they are Sweet also. hemoglobin A1c goal of less than 7.0 patient on Jardiance 25 mg once a day glipizide 5 mg twice a day Basaglar 20 units once a day NovoLog as a sliding scale and metformin a 1000 mg twice a day (2) Hypertension: Code(s): I10 - Essential (primary) hypertension Category: Medical Qualifiers: Hypertension type: essential hypertension Qualified Code(s): I10 - Essential (primary) hypertension Plan: Continue with blood pressure medication. Decrease salt intake and exercise on lisinopril 40 mg once a day amlodipine 10 mg once a day (3) Hyperlipidemia: Code(s): E78.5 - Hyperlipidemia, unspecified Category: Medical Qualifiers: Hyperlipidemia type: pure hypercholesterolemia Qualified Code(s): E78.00 - Pure hypercholesterolemia, unspecified Plan: Avoid fried foods, chicken skin, eggs, butter margarine, pastries and meat. Be it pork or beef they have a lot of cholesterol on atorvastatin 40 mg once a day LDL goal of less than 100 and triglyceride of less than 150 (4) Obesity (BMI 30-39.9): Code(s): E66.9 - Obesity, unspecified Category: Medical Plan: diet and exercise (5) Lung cancer: Comment: January 2024. 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 -Broncho-vascular margins are free of tumor. -Lung parenchyma with emphysematous changes, abundant mucus and post-obstructive Code(s): C34.90 - Malignant neoplasm of unspecified part of unspecified bronchus or lung Category: Medical Plan: continue follow-up with (6) SOB (shortness of breath) on exertion: Code(s): R06.02 - Shortness of breath Category: Medical Plan History of Present Illness The patient is a 69-year-old female presenting with uncontrolled diabetes mellitus and a concern of chest heaviness. She has a history of Type 2 Diabetes Mellitus with a recent hemoglobin A1c of 9.8%. She manages her diabetes with a regimen that includes Jardiance, glipizide, basaglar, Novolog sliding scale, and metformin. Despite this, fasting blood glucose remains elevated, recently recorded at 196 mg/dL, and an episode of nocturnal hypoglycemia was reported. The patient expresses concerns of chest heaviness and sporadic shortness of breath that are not clearly exertional. Her last stress test was several years ago, and she has a history of obstructive sleep apnea, CPAP intolerant, and respiratory issues post-lobectomy for lung cancer. Symptoms of memory loss have been noted, affecting her daily activities like driving. Her essential hypertension and hyperlipidemia are managed with lisinopril, amlodipine, and atorvastatin, maintaining LDL levels at 95 mg/dL. 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 to avoid hypoglycemia risks noted Review of Systems - Cardiovascular: Reports chest heaviness and non-exertional shortness of breath - Endocrine: Reports nocturnal hypoglycemia - Respiratory: Reports episodic shortness of breath; Denies current difficulty - Neurological: Reports memory loss - Eyes: Reports having a cataract Physical Exam - Respiratory- Wheezing noted on the right side during auscultation Results - Labs: - Hemoglobin A1c: 9.8% - LDL: 95 mg/dL - Tests: - Chest X-ray: Requested - Stress Test: Requested for scheduling Plan To address the uncontrolled diabetes mellitus, I have continued the current medication regimen and introduced Mary Lou for better glycemic and weight management, scheduling a follow-up to assess efficacy and tolerance. For the patient's chest heaviness and respiratory concerns, a chest X-ray and stress test have been ordered. Additionally, to manage memory difficulties likely influenced by elevated glucose levels, tightening diabetic control is essential. Hypertension and hyperlipidemia treatments remain consistent, with an ongoing ophthalmological follow-up for cataracts. Patient was informed and verbally consented to the use of an ambient scribe for clinic note documentation during this visit. Discussion Notes During the discussion, we reviewed the importance of diabetes control, including the initiation of Mounjaro, which may assist in weight management as well. The potential side effects of Mounjaro, including nausea, were explained, and I advised contacting me if no weight loss occurs in three weeks. The need for a chest X-ray and stress test was addressed to investigate the chest heaviness further. Discussions also highlighted the importance of cardiovascular evaluations due to her medical history of lung cancer and obstructive sleep apnea. Follow-up consultations for previously noted memory impairment were also prioritized, acknowledging that tighter glucose control might mitigate cognitive decline. Continuing hypertension and cholesterol treatments was advised given current successful management. Patient Instructions - Continue diabetes medications and start Mounjaro as instructed. - Monitor for any side effects like nausea from Mounjaro and report them. - Attend scheduled chest X-ray and stress test appointments. - Maintain a consistent diet and exercise routine. - Continue taking medications for hypertension and cholesterol management. - Follow up with ophthalmology for cataracts. - Monitor blood sugar regularly, especially during dietary changes. - Contact provider if experiencing new symptoms or concerns. Orders: Orders XR chest 2V Today R06.02 - Shortness of breath CA stress test Today R06.02 - Shortness of breath Medications: New tirzepatide (Mounjaro) for 4 weeks 2.5 mg (0.5 mL) subcut QWEEK 2 mL 3RF E11.65 - Type 2 diabetes mellitus with hyperglycemia, Z79.4 - snf (current) use of insulin
--- OUTSIDE RECORDS SUMMARY | 2025-04-12 11:14 | XMS_ITS | Patient Health Record ---
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 insulin (Z79.4) Active confirmed Plan Of Treatment Future Test Test Name Order Date COLONOSCOPY 08/06/2020 Insurance Providers Payer Name Payer Address Payer Phone Subscriber Number Group Number Insured Name Patient Relationship to Insured Coverage Start Date Coverage End Date [facility] [address] [place] [address] [phone] [id number] INGRID CONKLIN Self - patient is the insured Medical (General) History Medical History History ICD Code hypertension type II diabetes hyperlipidemia Arthritis gallstones Surgical History Surgery Date(Month/Year) cholecystectomy appendectomy hysterectomy carpal tunnel release
== END 2025-04-12 11:06 | disposition home or self-care (01) ==
LOC: HO.HMCH 10:33
PROVIDERS: PCP Internal Medicine; Visit Provider Internal Medicine
DX: E11.65 Type 2 diabetes mellitus with hyperglycemia (principal); Z79.4 Long term (current) use of insulin; C34.90 Malignant neoplasm of unspecified part of unspecified bronchus or lung; I10 Essential (primary) hypertension; E78.00 Pure hypercholesterolemia, unspecified; E66.9 Obesity, unspecified; R06.02 Shortness of breath

== ENCOUNTER 2025-04-12 10:32 | Outpatient (REF) | payer MEDICARE, SELFPAY ==
--- NOTE | ~2025-04-12 | XR_ITS ---
EXAMINATION: XR CHEST 2 VIEWS HISTORY: R06.02 - Shortness of breath COMPARISON: Comparison is made with the prior examination dated 01/23/2024. FINDINGS: PA and lateral views of the chest are submitted. There is scarring at the right lung base. The lungs are otherwise clear. There is no pleural effusion, pneumothorax, or pulmonary vascular congestion. The heart is normal in size. There is degenerative disc disease of the spine. XR/XR chest 2V IMPRESSION: No acute cardiopulmonary abnormality. Electronically signed by: Luke Espinoza MD 04/12/2025 11:53 AM EDT
== END 2025-04-12 10:33 | disposition home or self-care (01) ==
LOC: HO.XRAY 10:32
PROVIDERS: PCP Internal Medicine; Visit Provider Internal Medicine
DX: E11.65 Type 2 diabetes mellitus with hyperglycemia (principal); I10 Essential (primary) hypertension; E78.00 Pure hypercholesterolemia, unspecified; E66.9 Obesity, unspecified; Z68.32 Body mass index [BMI] 32.0-32.9, adult; C34.90 Malignant neoplasm of unspecified part of unspecified bronchus or lung; R06.02 Shortness of breath; Z79.4 Long term (current) use of insulin; Z79.84 Long term (current) use of oral hypoglycemic drugs; Z79.899 Other long term (current) drug therapy
CPT/HCPCS: 71046; 96127; 99212

== ENCOUNTER → 2025-04-12 11:18 | Outpatient (BNV) | payer MEDICARE, SELFPAY | PROVIDERS: PCP Internal Medicine; Visit Provider Radiology Diagnostic Radiology | DX: R06.02 Shortness of breath (principal) | CPT/HCPCS: 71046 ==

== ENCOUNTER 2025-05-16 09:39 | Outpatient (AMB) | payer MEDICARE, SELFPAY ==
--- OUTSIDE RECORDS SUMMARY | 2025-05-16 10:03 | XMS_ITS | Clinical Summary ---
Author Organization [employer] [facility] Address [address] [place] [address] Care Team Providers Care Role Player Name Role Phone Elena Wyatt MD Primary Care Provider [phone] Social History Tobacco Use Types Packs/Day Years [...] age to complete this topic Care Teams Role Player Relationship Specialty Start Date End Date Elena Wyatt MD [address] [place] [id number] PCP - General Internal Medicine 01/19/16
--- OUTSIDE RECORDS SUMMARY | 2025-05-16 10:03 | XMS_ITS | Patient Health Record ---
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 (Z79.4) Active confirmed Plan Of Treatment Future Test Test Name Order Date COLONOSCOPY 08/06/2020 Insurance Providers Payer Name Payer Address Payer Phone Subscriber Number Group Number Insured Name Patient Relationship to Insured Coverage Start Date Coverage End Date [facility] [address] [place] [address] [id number] INGRID CONKLIN Self - patient is the insured Medical (General) History Medical History History ICD Code hypertension type II diabetes hyperlipidemia Arthritis gallstones Surgical History Surgery Date(Month/Year) cholecystectomy appendectomy hysterectomy carpal tunnel release
[2025-05-16 10:15] VITALS: BP 138/60; PULSE 85; TEMP 36.9; O2SAT 97; BMI 32.2
--- NOTE | 2025-05-16 10:15 | MHC.OFFWIV ---
Intake Vital Signs 05/16/25 10:15 Height 5 ft 2 in Weight 176 lb 2 oz BMI 32.2 BP 138/60 Blood Pressure Location Lt brachial Position Sitting Pulse 85 Pulse Source Pulse Oximeter Temp 98.4 F Temp Source Oral Pulse Oximetry (%) 97 Oxygen Delivery Method Room Air Intake Visit Reasons: EP Fall, LT knee pain Intake Note: Patient states fell 3 days ago on her left knee. Patient Tobacco Use Status: Former Tobacco user Insole Department Worker Required: No Is last menstrual period known: No Post menopausal: Yes Patient : No Allergies Sulfa (Sulfonamide Antibiotics) (SULFA (SULFONAMIDE ANTIBIOTICS)) Allergy (Intermediate, Verified 05/16/25 10:20) RASH exenatide (From BYETTA) Allergy (Unknown, Verified 05/16/25 10:20) VOMITTING Do you need a note to return to daycare/school/sports/work: No HPI HPI Comments History of Present Illness Details History of Present Illness - The patient is a 70-year-old female presenting with a knee contusion and skin abrasion following a fall. - The patient fell on the stairs a few days ago, landing on a wooden surface, resulting in a knee contusion and skin abrasion. - The abrasion has been increasing in size but is not associated with pus or numbness. - The knee is sore, but there is no numbness or tingling down the leg, and the joint is intact. - Initial bleeding was minimal, and the wound was raw, indicating the body's natural healing process. - She denies discharge, bleeding, pain, fever, or chills. Physical Exam General: Cooperative, healthy appearing, comfortable, no acute distress and well developed Respiratory: Normal respiratory effort and able to speak in complete sentences. Clear to auscultation bilaterally Cardiovascular: Regular rate and rhythm. Normal S1 and S2 Skin: Black spot in the middle of a scab noted on the left knee anteriorly. No surrounding erythema noted, no discharge or drainage noted. No bleeding noted. Musculoskeletal: No swelling or deformity noted of the knee. FROM of the knee. No click noted. No TTP of the patella, medial or lateral condyle, medial or lateral meniscus, or posterior fossa. Ambulates with a steady gait. Strength is 5/5 on the LE bilaterally. Neuro: Sensation is intact on the LE bilaterally. [facility] Medical History (Updated 04/12/25 @ 10:58 by Marzena Oconnor MD) Urinary tract infection COVID-19 virus infection Personal history of COVID-19 Skin cancer Back pain History of rib fracture Cough Bronchitis Lung mass Perianal mass Restless leg syndrome Obesity (BMI 30-39.9) Vitamin D deficiency Obstructive sleep apnea Hypertension Type 2 diabetes mellitus with hyperglycemia Hx of iron deficiency anemia Arthritis Hyperlipidemia Surgical History (Updated 03/08/25 @ 11:51 by Margaret Ware) Encounter for screening for malignant neoplasm of lung S/P lobectomy of lung (01/19/24) History of hand surgery History of carpal tunnel release Hx of colonoscopy (~09/12/20) Hx of hysterectomy Hx of appendectomy History of cholecystectomy Social History Household Members: Spouse Housing: House Are you a primary patient care technician to a significant other at home: No Do you presently have visiting nurse or other home services: No Alcohol intake: never Comment: COUNTS CORRECT Patient Tobacco Use Status: Former Tobacco user Tobacco use type: Cigarette Cigarette Packs Per Day: 1 Years Smoked: quit 1996 (25 years) e-Cigarette/Vaping Use: Never Used Second Hand Smoke Exposure: No Patient : No service: No Current occupational status: disabled Cognitive needs: No Hearing needs: No Vision needs: Yes Review of Systems Const All systems reviewed & are unremarkable except as noted in HPI and below Physical Exam Vital Signs: Last Vital Signs Temp 98.4 F 05/16/25 10:15 Pulse 85 05/16/25 10:15 BP 138/60 05/16/25 10:15 Pulse Ox 97 05/16/25 10:15 Oxygen Delivery Method Room Air 05/16/25 10:15 BMI result Body Mass Index 32.2 Assessment & Plan Assessment & Plan (1) Abrasion of knee, left: Code(s): S80.212A - Abrasion, left knee, initial encounter Qualifiers: Encounter type: initial encounter Qualified Code(s): S80.212A - Abrasion, left knee, initial encounter Plan Most likely scab Plan - Keep area clean and dry - Apply bactroban to the area TID for 7 days - watch for signs of infection Medications: New mupirocin 2% 1 appl topical TID 22 grams 0RF Coding Level of Care Code Est Pt Level 3 (75166) Diagnoses Abrasion of left knee, initial encounter S80.212A Encounter type: initial encounter
== END 2025-05-16 10:57 | disposition home or self-care (01) ==
PROVIDERS: PCP Internal Medicine; Visit Provider Physician Assistant Medical
DX: S80.212A Abrasion, left knee, initial encounter (principal)

== ENCOUNTER → 2025-05-16 09:39 | Outpatient (BNVA) | payer MEDICARE, SELFPAY | PROVIDERS: PCP Internal Medicine; Visit Provider Physician Assistant Medical | DX: S80.212A Abrasion, left knee, initial encounter (principal) | CPT/HCPCS: 99212 ==

== ENCOUNTER → 2025-07-05 08:10 | Outpatient (REF) | payer MEDICARE, SELFPAY ==
--- NOTE | 2025-07-05 08:14 | CA_ITS ---
Acquisition Time: 2025-07-05 08:30:18 Total Exercise Time: 00:05:15 Test Indications: CP, SOB Medications: SEE H&P Protocol: ASHLYN Max HR: 150 BPM 98% of Pred: 152 BPM Max BP: 142/78 mmHG Max Work Load: 7.0 METS Exercise stress test with exercise 5 mins 15 secs of Bruec Protocol, achieving 94% MPHR, without any chest pain or SOB, with isolated PACs and one atrial runs of max 3 beats, with normotensive response to exercise. Without any EKG changes meeting criteria for ischemia. In recovery, pt continued to feel well. Test reviewed with Dr. Ervin. Referred By: Marzena Oconnor Electronically Signed By: Aureliano Turcios
--- OUTSIDE RECORDS SUMMARY | 2025-07-05 08:17 | XMS_ITS | Patient Health Record ---
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 (Z79.4) Active confirmed Plan Of Treatment Future Test Test Name Order Date COLONOSCOPY 08/06/2020 Insurance Providers Payer Name Payer Address Payer Phone Subscriber Number Group Number Insured Name Patient Relationship to Insured Coverage Start Date Coverage End Date [facility] [address] [place] [address] [phone] [id number] INGRID CONKLIN Self - patient is the insured Medical (General) History Medical History History ICD Code hypertension type II diabetes hyperlipidemia Arthritis gallstones Surgical History Surgery Date(Month/Year) cholecystectomy appendectomy hysterectomy carpal tunnel release
--- OUTSIDE RECORDS SUMMARY | 2025-07-05 08:17 | XMS_ITS | Clinical Summary ---
Author Organization [employer] [facility] Address [address] [place] [address] Care Team Providers Care Executive Cyber Leader Name Role Phone Elena Wyatt MD Primary Care Provider [phone] Social History Tobacco Use Types Packs/Day Years [...] 2) 2007 Colorectal Cancer Screening: Colonoscopy 06/12/2024 Falls Risk Assessment 06/12/2024 Hepatitis C Screening 06/12/2024 Osteoporosis Screening (Bone Density Screening) 06/12/2024 Social Influencers of Health Screening 06/12/2024 COVID-19 Vaccine ( - 2023-2 5 season) 2024 Depression Screening 11/14/2024 Influenza Vaccine (#1) 2025 RSV Immunization Adult Patie nts (1 [...] age to complete this topic Care Teams Executive Cyber Leader Relationship Specialty Start Date End Date Elena Wyatt MD [address] [place] [id number] PCP - General Internal Medicine 01/19/16
[2025-07-05 08:31] LABS: MANUAL DIFF FLAG NO
[2025-07-05 08:33] LABS: Hematocrit 41.4 % (37.0-47.0); Hemoglobin 14.2 g/dl (12.0-16.0); Imm Gran Abs Auto 0.03 X10*3/uL (0.00-0.03); Imm Gran Pct Auto 0.3 % (0.0-0.4); Lymphocytes Absolute Auto 2.5 X10*3/uL (1.2-4.9); Mean Corpuscular HGB Conc 34.3 g/dl (31.0-35.0); Mean Corpuscular Hemoglobin 28.2 pg (27.0-33.0); Mean Corpuscular Volume 82.3 fL (80.0-98.0); NRBC Abs Auto 0.000 X10*3/uL (0.0-0.012); NRBC Pct Auto 0.0 /100WBC (0.0-0.2); Platelet Count 286 X10*3/uL (160-400); Red Blood Count 5.03 X10*6/uL (4.20-5.50); White Blood Count 9.9 X10*3/uL (4.8-10.8)
[2025-07-05 09:04] LABS: Alanine Aminotransferase 9 U/L (0-31); Albumin Level 4.6 g/dL (3.5-5.0); Alkaline Phosphatase 80 U/L (39-117); Anion Gap 14 (12-20); Aspartate Amino Transferase 19 U/L (5-31); Blood Urea Nitrogen 9 mg/dL (9-16); Calcium 9.9 mg/dL (8.4-10.2); Carbon Dioxide 27 mmol/L (22-29); Chloride 104 mmol/L (96-108); Estimated Glomerular Filt Rate > 60; Potassium 4.3 mmol/L (3.3-5.1); Sodium 141 mmol/L (135-145); Total Protein 7.6 g/dL (6.5-8.0)
[2025-07-05 09:21] LABS: Carcinoembryonic Antigen < 1.73 ng/mL
== END ==
LOC: HO.CARD 08:10
PROVIDERS: Internal Medicine; PCP Internal Medicine; Visit Provider Internal Medicine
DX: R06.02 Shortness of breath (principal); R07.9 Chest pain, unspecified; C34.90 Malignant neoplasm of unspecified part of unspecified bronchus or lung
CPT/HCPCS: 36415; 80053; 82378; 85025; 93017

== ENCOUNTER → 2025-07-05 08:14 | Outpatient (BNV) | payer MEDICARE, SELFPAY | PROVIDERS: PCP Internal Medicine | DX: I49.1 Atrial premature depolarization (principal) | CPT/HCPCS: 93016; 93018 ==

== ENCOUNTER 2025-08-13 10:17 | Outpatient (AMB) | payer MEDICARE, SELFPAY ==
--- NOTE | 2025-08-13 10:29 | MHC.PC.OV ---
Vital Signs 08/13/25 10:30 08/13/25 11:06 Height 5 ft 2 in Weight 164 lb 6 oz BMI 30.1 BP 106/58 L 118/60 Blood Pressure Location Lt brachial Lt brachial Position Sitting Sitting Pulse 80 Pulse Source Pulse Oximeter Temp 97.1 F Temp Source Temporal Artery Scan Pulse Oximetry (%) 97 Oxygen Delivery Method Room Air Intake Visit Reasons: 3mth f/u Allergies Sulfa (Sulfonamide Antibiotics) (SULFA (SULFONAMIDE ANTIBIOTICS)) Allergy (Intermediate, Verified 08/13/25 10:34) RASH exenatide (From BYETTA) Allergy (Unknown, Verified 08/13/25 10:34) VOMITTING Medication List - Last Reconciled 08/13/25 by Marzena Oconnor, acetaminophen 650 mg PO BID amlodipine 10 mg PO DAILY atorvastatin 40 mg PO BEDTIME 90 days blood sugar diagnostic ([employer] Verio test strips) As directed check the blood sugar three times a day blood-glucose meter As directed checked the blood sugar once a day empagliflozin 25 mg PO DAILY flash glucose scanning reader ([employer] [place] 2 Morrison) As directed flash glucose sensor ([employer] Santiago 2 Sensor kit) As directed glipizide 5 mg PO BID 90 days insulin aspart U-100 (Novolog FlexPen U-100 Insulin aspart) subcutaneously 3 times a day; Blood sugar of- 70 to 130- take 0 units Blood sugar of 131-180- take 2 units 181 to 240- take 4 units [id number] 6 units 301 to 350-take 8 units 216-303-itby 10 units Blood sugar over 400 -take Max 12 units- call insulin glargine (Basaglar KwikPen U-100 Insulin) 20 units (0.2 mL) subcut QAM 30 days lancets As directed check the blood sugar Three times aday lisinopril 40 mg PO DAILY magnesium oxide 400 mg PO BID metformin 1,000 mg PO BID 90 days mupirocin 2% 1 appl topical TID pen needle, diabetic (BD Daysi 2nd Gen Pen Needle) Use one needle TID tirzepatide (Mounjaro) 2.5 mg (0.5 mL) subcut QWEEK Tobacco use date assessed: 08/13/25 Fall risk assessment: 2 + Falls in past year Last assessed Fall Risk: 08/13/25 Dental Screening Dental Screen Date: 08/13/25 Did you have a dental visit in the last 12 months?: No Did you have a dental problem in the last 6 months where you did not have access to dental care?: No Was dental information given to patient?: No PFSH Medical History Urinary tract infection COVID-19 virus infection Personal history of COVID-19 Skin cancer Back pain History of rib fracture Cough Bronchitis Lung mass Perianal mass Restless leg syndrome Obesity (BMI 30-39.9) Vitamin D deficiency Obstructive sleep apnea Hypertension Type 2 diabetes mellitus with hyperglycemia Hx of iron deficiency anemia Arthritis Hyperlipidemia Surgical History Encounter for screening for malignant neoplasm of lung S/P lobectomy of lung (01/19/24) History of hand surgery History of carpal tunnel release Hx of colonoscopy (~09/12/20) Hx of hysterectomy Hx of appendectomy History of cholecystectomy Social History Household Members: Spouse Housing: House Are you a primary complex care nurse to a significant other at home: No Do you presently have visiting nurse or other home services: No Alcohol intake: never Comment: COUNTS CORRECT Patient Tobacco Use Status: Former Tobacco user Tobacco use type: Cigarette Cigarette Packs Per Day: 1 Years Smoked: quit 1996 (25 years) e-Cigarette/Vaping Use: Never Used Second Hand Smoke Exposure: No service: No Current occupational status: disabled Cognitive needs: No Hearing needs: No Vision needs: Yes Questionnaire PHQ-9 Over the last 2 weeks, how often have you been bothered by any of the following problems? 1. Little interest or pleasure in doing things: not at all 2. Feeling down, depressed, or hopeless: not at all 3. Trouble falling or staying asleep, or sleeping too much: not at all 4. Feeling tired or having little energy: several days 5. Poor appetite or overeating: not at all 6. Feeling bad about yourself - or that you are a failure or have let yourself or your family down: not at all 7. Trouble concentrating on things, such as reading the newspaper or watching television: not at all 8. Moving or speaking so slowly that other people could have noticed. Or the opposite - being so fidgety or restless that you have been moving around a lot more than usual: not at all 9. Thoughts that you would be better off or of hurting yourself in some way: not at all Total score: 1 Depression Screening Interpretation: Positive Depression Screening Done: Yes Source: Developed by Drs. Luke Marie, Audrey Faustin, Ab Kaur and colleagues, with an educational cliff from [employer]. Thrive Questionnaire Date Thrive assessed: 04/12/25 I am a: Patient What is your living situation today?: I have a steady place to live Within the past 12 months, did the food you bought not last and you didn't have the money to get more?: Sometimes True Within the past 12 months, did you worry whether your food would run out before you got money to buy more?: Often true Do you have trouble paying for medicines?: I choose not to answer this question Do you have trouble getting transportation to medical appointments?: No Do you have trouble paying your heating and electricity bill?: No Do you have trouble taking care of your child, family member or friend?: No Do you have trouble with day-to-day activities such as bathing, preparing meals, shopping, managing finances, etc.?: No Are you currently unemployed and looking for a job?: No Are you interested in more education?: No Please select the resources that you would like help with: None Currently or been in a relationship where the following occur: No concerns reported THRIVE Score: 2 AUDIT C Alcohol Use Questionnaire (AUDIT-C) 1. How often do you have a drink containing alcohol?: Never 3. How often do you have six or more drinks on one occasion?: Never Total Score: 0 LASHA-7 AMB Questionnaire LASHA-7 Date LASHA - 7 assessed: 01/03/25 Feeling nervous, anxious, or on edge: 0 = Not at all Not being able to stop or control worryin = Not at all Worrying too much about different things: 0 = Not at all Trouble relaxin = Not at all Being so restless that it is hard to sit still: 0 = Not at all Becoming easily annoyed or irritable: 0 = Not at all Feeling afraid as if something awful might happen: 0 = Not at all Total LASHA-7 score (0-4 normal; 5-9 mild; 10-14 moderate; 15-21 severe): 0 Source: Developed by Drs. Luke Marie, Audrey Faustin, Ab Kaur and colleagues, with an educational cliff from [employer]. Physical exam (Primary Care) Vital Signs: Last Vital Signs Temp 97.1 F 08/13/25 10:30 Pulse 80 08/13/25 10:30 BP 118/60 08/13/25 11:06 Pulse Ox 97 08/13/25 10:30 Oxygen Delivery Method Room Air 08/13/25 10:30 BMI result Body Mass Index 30.1 Tobacco/Smoking Status: Tobacco use Status Tobacco use date assessed 08/13/25 08/13/25 10:35 Patient Tobacco Use Status Former Tobacco user 08/13/25 10:35 Tobacco use type Cigarette 08/13/25 10:35 e-Cigarette/Vaping Use Never Used 08/13/25 10:35 PHQ-9: PHQ-9 Score PHQ-9: Total score 1 08/13/25 11:03 Depression Screening Interpretation: Positive Thrive Assessment: Date of Thrive Assessment Date Thrive assessed 04/12/25 08/13/25 10:35 Currently or been in a relationship where the following occur: No concerns reported Const General: alert; No acute distress Eyes Conjunctivae: conjunctivae normal Resp Auscultation: clear to auscultation bilaterally Cardio Rate: regular rate Rhythm: regular rhythm GI Inspection: Yes normal to inspection Extrem General: Yes normal to inspection and No edema Results AMB Hemoglobin A1c AMB Hemoglobin A1c 7.9 % Last Edit by Kyara Noble CMA on 08/13/25 10:39 Results Reviewed Results Reviewed: Laboratory Last Values Hgb A1c (Clinic) 7.9 % (4.0-6.0) H 08/13/25 10:35 Coding Level of Care Code Est Pt Level 4 (00906) Complex EM visit Add On G2211 Diagnoses Type 2 diabetes mellitus with hyperglycemia, with long-term current use of insulin E11.65; Z79.4 Diabetes mellitus [facility] insulin use: with long term care administrator use Obesity (BMI 30-39.9) E66.9 Pure hypercholesterolemia E78.00 Hyperlipidemia type: pure hypercholesterolemia Essential hypertension I10 Hypertension type: essential hypertension Non-small cell cancer of right lung C34.91 Memory deficit R41.3 Assessment & Plan Assessment & Plan (1) Type 2 diabetes mellitus with hyperglycemia: Comment: Dr. Rendon Code(s): E11.65 - Type 2 diabetes mellitus with hyperglycemia Category: Medical Qualifiers: Diabetes mellitus [facility] insulin use: with [facility] use Qualified Code(s): E11.65 - Type 2 diabetes mellitus with hyperglycemia; Z79.4 - long term care administrator (current) use of insulin Plan: Decrease the amount of carbohydrate intake, pasta, bread, rice and potatoes are all sugar and that is aside from all the sweet stuff, remember that fruits are good but they are Sweet also. Hemoglobin A1c goal of less than 7.0. Patient is on Jardiance 25 mg once a day glipizide 5 mg twice a day NovoLog and Basaglar metformin a 1000 mg twice a day and Mounjaro sent in. (2) Obesity (BMI 30-39.9): Code(s): E66.9 - Obesity, unspecified Category: Medical Plan: Diet and exercise (3) Hyperlipidemia: Code(s): E78.5 - Hyperlipidemia, unspecified Category: Medical Qualifiers: Hyperlipidemia type: pure hypercholesterolemia Qualified Code(s): E78.00 - Pure hypercholesterolemia, unspecified Plan: Avoid fried foods, chicken skin, eggs, butter margarine, pastries and meat. Be it pork or beef they have a lot of cholesterol LDL goal of less than 100 and triglyceride of less than 150. Retest of blood work was earlier this year. March 2025 (4) Hypertension: Code(s): I10 - Essential (primary) hypertension Category: Medical Qualifiers: Hypertension type: essential hypertension Qualified Code(s): I10 - Essential (primary) hypertension Plan: Continue with blood pressure medication. Decrease salt intake and exercise patient is on lisinopril 40 mg once a day and amlodipine 10 mg once a day (5) Non-small cell cancer of right lung: Comment: Status post VATS right lower lobectomy January 2024 Dr. Muse Code(s): C34.91 - Malignant neoplasm of unspecified part of right bronchus or lung Category: Medical Plan: Continue to be monitored and CT surveillance being done (6) Memory deficit: Code(s): R41.3 - Other amnesia Category: Medical Plan History of Present Illness The patient is a 70-year-old female presenting for a follow-up visit. She has a history of diabetes mellitus, hypertension, hypercholesterolemia, and obstructive sleep apnea, although she cannot tolerate CPAP therapy. She also has Chronic Obstructive Pulmonary Disease (COPD) and a history of right lung cancer, status post right lower lobectomy performed in January 2024. The patient was last seen in March 2025 and is currently undergoing surveillance with CT scans every six months for the first two years post-surgery, then yearly for the next three years. Her last CT was in August 2024, and she was advised to continue this surveillance regimen. In terms of preventative care, her last colonoscopy was in 2019, and her mammogram and bone density screenings are up to date. The patient had a stress test in June 2022, which showed no EKG changes indicative of ischemia. Blood work from June 2025 showed normal blood count, electrolytes, and renal function, with a hemoglobin A1c of 7.9, down from 10.1. Her LDL cholesterol was 95 in March 2025. Health Maintenance - Colonoscopy last performed in 2019 - Mammogram up to date - Bone density screening up to date - Surveillance CT scans every six months for the first two years post-surgery, then yearly for the next three years Social History Review of Systems Physical Exam Results - Labs: Normal blood count, normal electrolytes, normal renal function, hemoglobin A1c 7.9 (down from 10.1) - Tests: Stress test in June 2022 showed no EKG changes indicative of ischemia - Imaging: Last CT in August 2024 Plan Patient was informed and verbally consented to the use of an ambient scribe for clinic note documentation during this visit. 1. Diabetes Mellitus The patient's diabetes mellitus is being managed with a goal hemoglobin A1c of less than 7.0. Current medications include Jardiance 25 mg once daily, glipizide 5 mg twice daily, Novolog, Basaglar, and metformin 1000 mg twice daily. Mounjaro has been prescribed, and lifestyle modifications such as diet and exercise are recommended. 2. Hypertension The patient's hypertension is managed with lisinopril 40 mg once daily and amlodipine 10 mg once daily. 3. Hypercholesterolemia The cholesterol management plan includes maintaining an LDL goal of less than 100 mg/dL and triglycerides less than 150 mg/dL. The patient's last LDL was 95 mg/dL in March 2025. 4. Obstructive Sleep Apnea The patient has obstructive sleep apnea but cannot tolerate CPAP therapy. 5. Chronic Obstructive Pulmonary Disease (Copd) The patient has a history of COPD, which is part of her chronic medical conditions. 6. Right Lung Cancer The patient is status post right lower lobectomy for right lung cancer performed in January 2024. Surveillance includes CT scans every six months for the first two years post-surgery, then yearly for the next three years. Discussion Notes Patient Instructions Orders: Orders AMB Hemoglobin A1c Today Z13.9 - Encounter for screening, unspecified Referrals Neuropsychiatry Referral R41.3 - Other amnesia
[2025-08-13 10:30] VITALS: BP 106/58; PULSE 80; TEMP 36.2; O2SAT 97; BMI 30.1
[2025-08-13 11:06] VITALS: BP 118/60
--- OUTSIDE RECORDS SUMMARY | 2025-08-13 11:29 | XMS_ITS | Patient Health Record ---
Author Organization [facility] Address [address] [place] [address] Care Team Providers Care Swing Driver Name Role Phone Marzena Oconnor MD Primary [...] Problem Status W/U Status Risk Notes Problem [id number] Colon cancer screening (Z12.11) Active confirmed Problem [id number] Encounter for other preprocedural examination (Z01.818) Active confirmed Problem [id number] long term care pharmacist (current) use of insulin (Z79.4) Active confirmed Plan Of Treatment Future Test Test Name Order Date COLONOSCOPY 08/06/2020 Insurance Providers Payer Name Payer Address Payer Phone Subscriber Number Group Number Insured Name Patient Relationship to Insured Coverage Start Date Coverage End Date [facility] [address] [place] [address] [id number] INGRID CONKLIN Self - patient is the insured Medical (General) History Medical History History ICD Code hypertension type II diabetes hyperlipidemia Arthritis gallstones Surgical History Surgery Date(Month/Year) cholecystectomy appendectomy hysterectomy carpal tunnel release
--- OUTSIDE RECORDS SUMMARY | 2025-08-13 11:29 | XMS_ITS | Clinical Summary ---
Author Organization [facility] Address [address] [id number] Phone Care Team Providers Care Traveling Construction Superintendent Name Role Phone Marzena Oconnor MD Primary Care Provider [phone] Social History Tobacco Use Types Packs/Day Years Used Date Smoking Tobacco: Never Assessed Education Answer Date Recorded Are you interested in more education? Not on hola e 12/12/2023 Are you concerned about learning? Not on file 12/12/2023 No 12/12/2023 No 12/12/2023 Digital Access Answer Date Recorded No 12/12/2023 No 12/12/2023 Reliable internet access at home? Not on file 12/12/2023 Device with a working camera? Not on file Comments Unknown Sex and Gender Information Value Date Recorded Sex Assigned at Not on file Legal Sex Female 10:35 PM EDT Gender Identity Not on file Sexual Orientation Not on file Last Filed Vital Signs Vital Sign Reading Time Taken Comments Blood Pressure 110/64 10/22/2010 2:58 AM EST Pulse 68 10/22/2010 2:58 AM EST Temperature - - Respiratory Rate - - Oxygen Saturation - - Inhaled Oxygen Concentration - - Weight 88.7 kg (195 lb 8 oz) 10/22/2010 2:58 AM EST Height - - Body Mass Index - - Plan of Treatment Health Maintenance Due Date Last Done Comments LIPID PANEL 1957 DEPRESSION SCREENING 1969 SMOKING Hx and SMOKELESS TOBACCO SCREENING 1970 HEPATITIS C SCREENING 1975 MAMMOGRAM 1997 COLOGUARD 2002 COLONOSCOPY 2002 COLORECTAL CANCER SCREENING 2002 FIT TEST 2002 FOBT 2002 SIGMOIDOSCOPY 2002 VIRTUAL COLONOSCOPY 2002 ZOSTER VACCINES (2 of 2) 12/01/2018 10/06/2018 OSTEOPOROSIS SCREENING INITIAL (ONE-TIME) 2022 PNEUMOCOCCAL VACCINES (50+ years) (2 of 2 - PCV) 2023 2022, 11/22/2016 INFLUENZA VACCINE (#1) 2025 , 08/13/2022, 07/28/2021, Additional history exists COVID-19 VACCINE ( season) 2025 08/13/2022, 04/02/2022, 11/26/2021, Additional history exists Adult Td,Tdap Booster 08/19/2026 08/19/2016 RSV VACCINE (1 - 1-dose 75+ series) 2032 HEPATITIS A VACCINES Aged Out No long er eligible based on patient's age to complete this topic HIB VACCINES Aged Out No longer eligi ble based on patient's age to complete this topic MENINGOCOCCAL VACCINES (ACWY) Aged Out No longer eligible based on patient's age to complete this topic MENINGOCOCCAL VACCINES (B) Aged Out N o longer eligible based on patient's age to complete this topic Medical Devices Not on file Insurance [address] [place], [place] [address]O MEDICARE REPLACEMENT [facility] MEDICARE REPLACEMENT [address] [place], [place] [address]CARE PPO MEDICARE REPLACEMENT [address] [place], [place] [address]CARE O MEDICARE REPLACEMENT [employer] [facility] Care Teams Traveling Construction Superintendent Relationship Specialty Start Date End Date Marzena Oconnor MD [address] [place] [address] [place] [phone] PCP - General Internal Medicine 12/12/23 Additional Source Comments The information contained in this document represents components of the legal health record. It is not the complete legal health record.[facility]
--- OUTSIDE RECORDS SUMMARY | 2025-08-13 11:29 | XMS_ITS | Clinical Summary ---
Author Organization [facility] [address] Address [address] [place] [address] Phone Care Team Providers Care Surgical Nurse Practitioner Name Role Phone Elena Wyatt MD Primary Care Provider [phone] Allergies Active Allergy Reactions Criticality Noted Date Comments Exenatide Nausea And Vomiting 07/31/2025 Sulfa (Sulfonamide Antibiotics) Rash 07/15 Medications amLODIPine (NORVASC) 10 mg tablet 07/18/2025 Active atorvastatin (LIPITOR) 40 mg tablet 07/18/2025 Active Jardiance 25 mg tablet TAKE ONE TABLET BY MOUTH DAILY AT 9AM 05/12/2025 Active glipiZIDE (GLUCOTROL) 5 mg tablet Take 1 tablet (5 mg total) by mouth 2 (two) times a day. 07/18/2025 Active lisinopril (PRINIVIL,ZESTRI L) 40 mg tablet Take 1 tablet (40 mg total) by mouth 1 (one) time each day. 07/18/2025 Active metFORMIN (GLUCOPHAGE) 1,000 mg tablet 07/18/2025 Act hank Mounjaro 2.5 mg/0.5 mL injection 07/18/2025 Active Active Problems Problem Noted Date Diagnosed Date Primary cancer of right lowe r lobe of lung (CMS/HCC V24, CMS/HCC V28) 08/05/2025 Encounters Date Type Department Care Team Description 08/05/2025 9:00 AM EDT Consult Thoracic Surgery - [address] [place] [id number] Oneyda Dean MD Primary cancer of right lower lobe of lung ([facility] V24, [facility] V28) (Primary Dx) from Last 3 Months Surgical History Surgery Date Site/Laterality Comments CARPAL TUNNEL RELEASE CHOLECYSTECTOMY OTHER SURGICAL HISTORY hand surgery APPENDECTOMY COLONOSCOPY HYSTERECTOMY LUNG LOBECTOMY 01/19/2024 BRONCHOSCOPY 01/19/2024 Right Medical History Medical History Date Comments Arthritis Back pain Bronchitis Cough History of rib fracture History of iron deficiency Hyperlipidemia Hypertension Lung mass Obesity ADRIAN (obstructive sleep apnea) Perianal mass Restless leg syndrome Skin cancer Type 2 diabetes mellitus wit h hypercholesterolemia ([facility] V24, [facility] V28) Vitamin D deficiency Family History Medical History Relation Name Comments Diabetes type I Father Diabetes type I Mother Relation Name Status Comments Father Mother Social History Tobacco Use Types Packs/Day Years Used Date Smoking Tobacco: Former Cigarettes 0.3 21 1 976 - 1996 Smokeless Tobacco: Never Tobacco Cessation:Counseling Given: Not Answered Comments Unknown Sex and Gender Information Value Date Recorded Sex Assigned at Not on file Legal Sex Female 5:17 AM EST Gender Identity Not on file Sexual Orientation Not on file Obstetrics History Last Filed Vital Signs Vital Sign Reading Time Taken Comments Blood Pressure 132/65 08/05/2025 9:19 AM EDT Pulse 78 08/05/2025 9:19 AM EDT Temperature 36.4 C (97.6 F) 08/05/2025 9:19 AM EDT Respiratory Rate 18 08/05/2025 9:19 AM EDT Oxygen Saturation 97% 08/05/2025 9:19 AM EDT Inhaled Oxygen Concentration - - Weight 76 kg (167 lb 9.6 oz) 08/05/2025 9:19 AM EDT Height 157.5 cm (5' 2 ) 08/05/2025 9:19 AM EDT Body Mass Index 30.65 08/05/2025 9:19 AM EDT Plan of Treatment Upcoming Encounters Date Type Department Care Team (Late st Contact Info) Description 08/16/2025 11:30 AM EDT Appointment [facility] CT Scan [address] [place] [phone] 08/26/2025 10:00 AM EDT Office Visit Thoracic Surgery - [place] [address] [facility] [address] [place] [phone] Oneyda Dean MD [address] [facility] [address] [place] [address] Health Maintenance Due Date Last Done Comments Breast Cancer Screening 1955 RSV Immunization Adult Patients (1 - Risk 60-74 years 1-dose series) 2017 Colorectal Cancer Screening: Colonoscopy 06/12/2024 Falls Risk Assessment 06/12/2024 Hepatitis C Screening 06/12/2024 Medicare Annual Wellness Visit 06/12/2024 Osteoporosis Screening (Bone Density Screening) 06/12/2024 Social Influencers of Health Screening 06/12/2024 Depression Screening 11/14/2024 COVID-19 Vaccine ( season) 2025 11/09/2024, 08/13/2022, 04/02/2022, Additional history exists Influenza Vaccine (#1) 2025 , 09/09/2023, 08/13/2022, Additional history exists DTaP,Tdap,and Td Vaccines (2 - Td or Tdap) 08/19/2026 08/19/2016 Pneumococcal Vaccine: 50+ Years Completed 11/09/2024, 2022, 11/22/2016 Zoster Vaccines Completed 11/09/2024, 10/06/2018 HIB Vaccines Aged Out No longer eligi [...] to complete this topic RSV Immunization Patients Under 20 months Aged Out No longer eligible based on patient's age to complete this topic Varicella Vaccines Aged Out No longer eligible based on patient's age to complete this topic Insurance [employer] MEDICARE Care Teams Surgical Nurse Practitioner Relationship Specialty Start Date End Date Elena Wyatt MD [address] [place] [address] PCP - General Internal Medicine 01/19/16
== END 2025-08-13 13:23 | disposition home or self-care (01) ==
LOC: HO.HMCH 10:18
PROVIDERS: PCP Internal Medicine; Visit Provider Internal Medicine
DX: E11.65 Type 2 diabetes mellitus with hyperglycemia (principal); Z79.4 Long term (current) use of insulin; C34.91 Malignant neoplasm of unspecified part of right bronchus or lung; Z68.30 Body mass index [BMI] 30.0-30.9, adult; E66.9 Obesity, unspecified; E78.00 Pure hypercholesterolemia, unspecified; I10 Essential (primary) hypertension; R41.3 Other amnesia

== ENCOUNTER → 2025-08-13 10:17 | Outpatient (BNVA) | payer MEDICARE, SELFPAY | PROVIDERS: PCP Internal Medicine; Visit Provider Internal Medicine | DX: E11.65 Type 2 diabetes mellitus with hyperglycemia (principal); E78.00 Pure hypercholesterolemia, unspecified; I10 Essential (primary) hypertension; R41.3 Other amnesia; C34.91 Malignant neoplasm of unspecified part of right bronchus or lung; E66.9 Obesity, unspecified; Z68.30 Body mass index [BMI] 30.0-30.9, adult; Z71.3 Dietary counseling and surveillance; Z79.4 Long term (current) use of insulin; Z79.84 Long term (current) use of oral hypoglycemic drugs | CPT/HCPCS: 83036; 99212 ==

== ENCOUNTER 2025-10-05 09:27 | Outpatient (REF) | payer MEDICARE, SELFPAY ==
--- NOTE | ~2025-10-05 | MM_ITS ---
EXAMINATION: MM SCREENING DIGITAL BREAST TOMOSYNTHESIS, BILATERAL CLINICAL INFORMATION: Screening. Asymptomatic. COMPARISON: Comparison made to multiple prior, most recent September 20, 2024, and most remote August 01, 2017. TECHNIQUE: Digital breast tomosynthesis is performed in mediolateral oblique and craniocaudal views along with computer-aided detection (CAD). Synthesized 2D images are generated from the tomosynthesis. FINDINGS: BREAST COMPOSITION: There are scattered areas of fibroglandular density. BILATERAL BREASTS: No significant masses, suspicious calcifications or other abnormalities are seen in either breast. MM/MM tomosynthesis screening BI IMPRESSION: BILATERAL BREASTS: Negative, no mammographic evidence of malignancy. Normal interval follow-up is recommended in 12 months. ASSESSMENT: BI-RADS: Category 1: Negative RECOMMENDATION: Routine annual mammography screening. FOLLOW-UP: 1 year F/U This examination should not preclude the clinical evaluation of a suspicious palpable abnormality. This patient's information was entered into a reminder system with a target due date for their next mammogram. Electronically signed by: Waylon De La Garza MD 10/07/2025 08:04 PM [facility]
--- OUTSIDE RECORDS SUMMARY | 2025-10-05 09:30 | XMS_ITS | Clinical Summary ---
Author Organization [facility] [address] Address [address] [place] [address] Phone Care Team Providers Care Desk Pens Assembler Name Role Phone Elena Wyatt MD Primary Care Provider [phone] Allergies Active Allergy Reactions Criticality Noted Date [...] Encounters Date Type Department Care Team Description 08/26/2025 10:00 AM EDT Office Visit Thoracic Surgery - [place] [address] [facility] [address] [place] [phone] Oneyda Dean MD Primary cancer of right lower lobe of lung (CMS/HCC V24, CMS/HCC V28) (Primary Dx) 08/16/2025 11:03 AM EDT - 08/16/2025 11:59 PM EDT Hospital Encounter [facility] CT Scan [address] [place] [phone] Primary cancer of right lower lobe of lung (CMS/HCC V24, CMS/HCC V28) Discharge Disposition: Home or Self Care 08/05/2025 9:00 AM EDT Consult Thoracic Surgery - [place] [address] [facility] [address] [place] [phone] Oneyda Dean MD Primary cancer of right lower lobe of lung (CMS/HCC V24, CMS/HCC V28) (Primary Dx) from Last 3 Months [...] Type 2 diabetes mellitus wit h hypercholesterolemia ([facility] V24, CMS/[facility] V28) Vitamin D deficiency Family History [...] Sign Reading Time Taken Comments Blood Pressure 144/66 08/26/2025 9:41 AM EDT Pulse 76 08/26/2025 9:41 AM EDT Temperature 36.6 C (97.9 F) 08/26/2025 9:41 AM EDT Respiratory Rate 18 08/26/2025 9:41 AM EDT Oxygen Saturation 98% 08/26/2025 9:41 AM EDT Inhaled Oxygen Concentration - - Weight 73.3 kg (161 lb 9.3 oz) 08/26/2025 9:41 A M EDT Height 157.5 cm (5' 2 ) 08/26/2025 9:41 AM EDT Body Mass Index 29.55 08/26/2025 9:41 AM EDT Plan of Treatment Health Maintenance Due Date Last Done Comments Breast Cancer Screening 1955 Colorectal Cancer Screening: Colonoscopy 1955 RSV Immunization Adult Patients (1 - Risk 50-74 years 1-dose series) 2007 Falls Risk Assessment 06/12/2024 Hepatitis C Screening [...] on patient's age to complete this topic Procedures Procedure Name Priority Date/Time Associated Diagnosis Comments CT CHEST WO CONTRAST Routine 08/16/2025 11:10 AM EDT Primary cancer of right lower lobe of lung (CMS/HCC V24, CMS/HCC V28) from Last 3 Months Results * CT Chest wo Contrast (08/16/2025 11:10 AM EDT) Anatomical Region Laterality Modality Body Computed Tomogra phy 08/26/2025 8:46 AM EDT Impressions 08/26/2025 8:54 AM EDT Right lower lobectomy. Stable prominent narrowing of the right middle lobe bronchi and irregular scarring/atelectasis at the right base with a stable trace right pleural effusion. An area of scarring and traction bronchiectasis in the anterior right upper lobe is more extensive than on the previous study. Stable 3 mm right upper lobe pulmonary nodule. -------- FINAL REPORT -------- Dictated By: Vikas Hess Dictated Date: 08/26/2025 08:46 ET Assigned Physician: Vikas Hess Reviewed and Electronically Signed By: Vikas Hess Signed Date: 08/26/2025 08:54 ET Workstation ID: [id number] Transcribed By: Self Edit Transcribed Date: 08/26/2025 08:46 ET Narrative 08/26/2025 8:54 AM EDT PROCEDURE: CT of the chest without intravenous contrast. TECHNIQUE: CT of the chest without intravenous contrast administration. Coronal and sagittal reformats and MIP reconstructions were created. Dose length product: 163 mGy-cm. HISTORY: Resected lung cancer. COMPARISON: Outside study dated 08/16/2024. FINDINGS: LUNGS/PLEURA: Right lower lobectomy. There is stable marked narrowing of the central right middle lobe bronchi and stable irregular opacities at the right base associated with scarring and/or atelectasis. A focal area of scarring and bronchiectasis in the anterior right upper lobe is more extensive than on the previous study. Stable band of scarring in the anterior left upper lobe. Stable 3 mm right upper lobe nodule, series 5 image 87. Calcified granuloma at the medial right apex. Elevated right hemidiaphragm. Stable trace right basilar pleural effusion. No pneumothorax. MEDIASTINUM/WILLIAM: No mediastinal mass or lymphadenopathy. No appreciable hilar lymphadenopathy on limited noncontrast evaluation. VASCULATURE: Normal caliber pulmonary arteries. Moderate atherosclerotic calcifications of the aorta and great vessels. CARDIAC: Normal heart size. Moderate aortic annular and coronary artery calcification. CHEST WALL: No axillary or supraclavicular lymphadenopathy. LIMITED ABDOMEN: Atherosclerotic calcifications. BONES: Mild degenerative changes of the spine and shoulders. Procedure Note Vikas Hess MD - 08/26/2025 PROCEDURE: CT of the chest without intravenous contrast. TECHNIQUE: CT of the chest without intravenous contrast administration.Coronal and sagittal reformats and MIP reconstructions were created. Dose length product: 163 mGy-cm. HISTORY: Resected lung cancer. COMPARISON: Outside study dated 08/16/2024. FINDINGS: LUNGS/PLEURA: Right lower lobectomy. There is stable marked narrowing ofthe central right middle lobe bronchi and stable irregular opacities atthe right base associated with scarring and/or atelectasis. A focal areaof scarring and bronchiectasis in the anterior right upper lobe is moreextensive than on the previous study. Stable band of scarring in theanterior left upper lobe. Stable 3 mm right upper lobe nodule, series 5image 87. Calcified granuloma at the medial right apex. Elevated righthemidiaphragm. Stable trace right basilar pleural effusion. Nopneumothorax. MEDIASTINUM/WILLIAM: No mediastinal mass or lymphadenopathy. No appreciablehilar lymphadenopathy on limited noncontrast evaluation. VASCULATURE: Normal caliber pulmonary arteries. Moderate atheroscleroticcalcifications of the aorta and great vessels. CARDIAC: Normal heart size. Moderate aortic annular and coronary arterycalcification. CHEST WALL: No axillary or supraclavicular lymphadenopathy. LIMITED ABDOMEN: Atherosclerotic calcifications. BONES: Mild degenerative changes of the spine and shoulders. IMPRESSION: Right lower lobectomy. Stable prominent narrowing of the right middlelobe bronchi and irregular scarring/atelectasis at the right base with astable trace right pleural effusion. An area of scarring and traction bronchiectasis in the anterior rightupper lobe is more extensive than on the previous study. Stable 3 mm right upper lobe pulmonary nodule. -------- FINAL REPORT -------- Dictated By: Vikas Hess Dictated Date: 08/26/2025 08:46 ET Assigned Physician: Vikas Hess Reviewed and Electronically Signed By: Vikas Hess Signed Date: 08/26/2025 08:54 ET Workstation ID: [id number] Transcribed By: Self Edit Transcribed Date: 08/26/2025 08:46 ET us Oneyda Dean MD IMG CT PROCEDURES Final Result from Last 3 Months Insurance [employer] MEDICARE Care Teams Desk Pens Assembler Relationship Specialty Start Date End Date Elena Wyatt MD [address] [place] [phone] PCP - General Internal Medicine 01/19/16
--- OUTSIDE RECORDS SUMMARY | 2025-10-05 09:30 | XMS_ITS | Patient Health Record ---
Author Organization [facility] Address [address] [place] [address] Care Team Providers Care Sales Officer Name Role Phone Marzena Oconnor MD Primary Care Provider Lavell Dobson Jr Unavailable Allergies Allergen (clinical drug ingredient) Drug/Non Drug Allergy documented on EMR Reaction Allergy Type Onset Date Status sulfacetamide Sulfacetamide Sodium Unknown Drug Allergy Active Reason For Referral No Information Medications Medication SIG (Take, Route, Frequency, Duration) Notes Start Date End Date Status Lisinopril 20 MG Tablet TAKE 1 TABLET BY MOUTH EVERY DAY Oral; Duration: 90 Active Tresiba FlexTouch 200 UNIT/ML Solution Pen-injector INJECT 80 UNITS INTO THE SKIN ONCE DAILY Subcutaneous; Duration: 90 Activ e Tylenol PRN Active Synjardy 1 tablet with meals Orally Twice a day Active Vitamin B12 1000 MCG Tablet Extended Release 1 tablet Orally Once a day; Duration: 30 day(s) Active rOPINIRole HCl 0.5 MG Tablet TAKE 1 TABLET ONCE DAILY Oral; Duration: 90 Active Atorvastatin Calcium 40 MG Tablet TAKE 1 TABLET BY MOUTH EVERY DAY Oral; Duration: 90 Active MiraLax (colon prep) 8.3 ounce ((238) grams mixed with Gatorade or Crystal Light orally begin at 5:00 p.m. the day before the procedure; Duration: 1 day 08/06/2020 Active Victoza 18 MG/3ML Solution Pen-injector INJECT 1.8 MG ONCE A DAY SUBCUTANEOUSLY 30 Subcutaneous; Duration: 30 Activ e Immunizations Vaccine Route Administration Date Status Comme nts Influenza Unknown 08/15/2019 Administered Social History Tobacco Use: Social History Observation Description Date Details (start date - stop date) Former Smoker NA - NA Social History Drugs/Alcohol: Social Info Question Answer Notes Alcohol Screen Did you have a drink containing alcohol in the past year? No Points 0 Interpretation Negative Tobacco Use: Social Info Question Answer Notes Tobacco Use/Smoking Patient is a former smoker When did you start smoking? 18 years old When did you stop smoking? 23 years ago How long has it been since you last smoked? > 10 years Additional Findings: Tobacco User Modera te cigarette smoker (10-19 cigs/day) Additional Findings: Tobacco Non-User Ex-cigaret te smoker Additional Details Category Social Info Options Details Miscellaneous: Marital status: Occupation: retired Problems Problem Type SNOMED Code ICD Code Onset Dates Problem Status W/U Status Risk Notes Problem Colon cancer screening (644485736) Colon cancer screening (Z12.11) Active confirmed Problem Pre-procedure evaluation check (774302156) Encounter for other preprocedural examination (Z01.818) Active confirmed Problem Long-term current use of insulin (053486879) residential (current) use of insulin (Z79.4) Active confirmed Plan Of Treatment Future Test Test Name Order Date COLONOSCOPY 08/06/2020 Insurance Providers Payer Name Payer Address Payer Phone Subscriber Number Group Number Insured Name Patient Relationship to Insured Coverage Start Date Coverage End Date [facility] [address] [place] [address] [phone] [id number] INGRID CONKLIN Self - patient is the insured Medical (General) History Medical History History ICD Code hypertension type II diabetes hyperlipidemia Arthritis gallstones Surgical History Surgery Date(Month/Year) cholecystectomy appendectomy hysterectomy carpal tunnel release
--- OUTSIDE RECORDS SUMMARY | 2025-10-05 09:30 | XMS_ITS | Clinical Summary ---
Author Organization [facility] Address [address] [phone] Phone Care Team Providers Care Concrete Crusher Loader Operator Name Role Phone Marzena Oconnor MD Primary Care Provider [phone] Social History Tobacco Use Types Packs/Day Years [...] topic Medical Devices Not on file Insurance [address] [place], [place] [id number] MEDICARE REPLACEMENT [facility] MEDICARE REPLACEMENT [address] [place], [place] [address]CARE PPO MEDICARE REPLACEMENT [address] [place], [place] [address]CARE O MEDICARE REPLACEMENT [employer] [facility] Care Teams Concrete Crusher Loader Operator Relationship Specialty Start Date End Date Marzena Oconnor MD [address] [place] [address] [place] [phone] PCP - General Internal Medicine 12/12/23 Additional Source Comments The information contained in this document represents components of the legal health record. It is not the complete legal health record.[facility]
== END 2025-10-05 09:28 | disposition home or self-care (01) ==
LOC: HO.MAMMO 09:27
PROVIDERS: PCP Internal Medicine; Visit Provider Internal Medicine
DX: Z12.31 Encounter for screening mammogram for malignant neoplasm of breast (principal)
CPT/HCPCS: 77063; 77067

== ENCOUNTER → 2025-10-05 10:00 | Outpatient (BNV) | payer MEDICARE, SELFPAY | PROVIDERS: PCP Internal Medicine; Visit Provider Radiology Body Imaging | DX: Z12.31 Encounter for screening mammogram for malignant neoplasm of breast (principal) | CPT/HCPCS: 77063; 77067 ==